=== PATIENT | female | born 1960 | race Caucasian/White ===

== ENCOUNTER → 2016-09-01 | Day surgery (SDC) | payer BC, OTHER ==
[2016-08-20 09:02] VITALS: BMI 21.0
[~2016-09-01] VITALS: Ht 165.1 cm; Wt 59.1 kg
[~2016-09-01] MED LIST: CLON1TAB3 PO; FLUO20CA34 PO; LIDOCAINE HCL 2% 2 ML VIAL (20MG/ML) ONE; PROP80CA PO; PROPOFOL IV EMULSION 10 MG/ML 20 ML VIAL IV ONE
[2016-09-01 14:34] VITALS: Ht 165.1 cm; Wt 59.1 kg
--- NOTE | 2016-09-01 15:33 | Endo History and Physical ---
History & Physical Date of Service: Sep 01, 2016. Chief Complaint: HX POLYPS Referring Physician: DR. HERNANDEZ History of Present Illness 55 yo CF who presents for colonoscopy secondary to history of colon polyps. Past Surgical History Hx Cardiac Surgery: No Hx Internal Defibrillator: No Hx Pacemaker: No Hx Abdominal Surgery: Yes (LAPAROSCOPY) Hx of Implantable Prosthesis: No Hx Post-Op Nausea and Vomiting: No Hx Cancer Surgery: No Hx Thoracic Surgery: No Hx Orthopedic: No Hx Urinary Tract Surgery: No Family History Polyp Social History Smoking Status: Current Every Day Smoker Hx Substance Use: No Hx Alcohol Use: Yes (OCCASIONAL BEER) Allergies Coded Allergies: Sulfa Drugs (Unverified Allergy, Severe, RASH, 09/01/16) Sulfamethoxazole (Unverified Allergy, Severe, RASH, 09/01/16) Trimethoprim (Unverified Allergy, Severe, RASH, 09/01/16) Current Medications Reported Home Medications Medications Dose Route/Sig Max Daily Dose Days Date Category Propranolol Hcl Er (Propranolol Hcl) 80 Mg Cap 1 Cap PO QAM 08/20/16 Reported Prozac (Fluoxetine Hcl) 20 Mg Cap 30 Mg PO QAM 03/15/15 Reported Klonopin (Clonazepam) 1 Mg Tab 0.5 Mg PO BID PRN 12/30/12 Reported Vital Signs Weight (Kilograms): 59.09 Height (Feet): 5 Height (Inches): 5 Date Time Temp Pulse Resp B/P (MAP) Pulse Ox O2 Delivery O2 Flow Rate FiO2 09/01/16 14:40 36.6 65 20 107/73 (84) 96 Room Air Physical Exam General Appearance: WD/WN, no apparent distress Respiratory/Chest: Auscultation: breath sounds normal Cardiovascular: Heart Auscultation: RRR Abdomen: Bowel Sounds: normal Inspection & Palpation: soft, non-distended, no tenderness, guarding & rebound Assessment and Plan Assessment: 55 yo CF who presents for colonoscopy secondary to history of colon polyps. Plan: Proceed with colonoscopy.
--- NOTE | 2016-09-01 15:56 | Discharge Instructions ---
Endoscopy Patient Instructions Date / Procedure(s) Performed Sep 01, 2016. Colonoscopy Allergy Information Coded Allergies: Sulfa Drugs (Unverified Allergy, Severe, RASH, 09/01/16) Sulfamethoxazole (Unverified Allergy, Severe, RASH, 09/01/16) Trimethoprim (Unverified Allergy, Severe, RASH, 09/01/16) Discharge Date / Findings Sep 01, 2016. Diverticulosis Internal hemorrhoids Medication Instructions OK to resume all medications today as prescribed Reported Home Medications Medications Dose Route/Sig Max Daily Dose Days Date Category Propranolol Hcl Er (Propranolol Hcl) 80 Mg Cap 1 Cap PO QAM 08/20/16 Reported Prozac (Fluoxetine Hcl) 20 Mg Cap 30 Mg PO QAM 03/15/15 Reported Klonopin (Clonazepam) 1 Mg Tab 0.5 Mg PO BID PRN 12/30/12 Reported Provider Instructions Activity Restrictions - No exercising or heavy lifting for 24 hours. - Do not drink alcohol the day of the procedure. - Do not drive a car or operate machinery until the day after the procedure. - Do not make any important decisions or sign important papers in 24 hours after the procedure. Following Day: - Return to full activity which may include returning to work/school. Diet Start your diet with liquids and light foods (jello, soup, juice, toast). Then eat your usual diet if not nauseated. Treatment For Common After Affects For mild abdominal pain, bloating, or excessive gas: - Rest - Eat lightly - Lie on right side Follow-Up Information Follow-up with DR. HERNANDEZ as scheduled Anesthesia Information What You Should Know You have had a procedure that required some medicine to reduce anxiety and discomfort. This treatment is called moderate sedation. After receiving the treatment, you may be sleepy, but you will be able to breathe on your own. The effects of the treatment may last for several hours. Follow these instructions along with Activity/Diet recommendations noted above: * Do NOT do anything where dizziness or clumsiness would be dangerous. * Rest quietly at home today, then you can be up and about tomorrow. * Have a responsible person stay with you the rest of today. * You may have had an I.V. today. If so, you may take the dressing off later today. Recommendations Call your doctor if: * Trouble breathing * Continuous vomiting for more than 24 hours * Temperature above 101 degrees * Severe abdominal pain or bloating * Pain not relieved by pain medicine ordered * There is increased drainage or redness from any incision * A large amount of rectal bleeding greater than 2-3 tablespoons. (If you had a polyp/s removed or have hemorrhoids, a small amount of blood - from the rectum is to be expected.) * You have any unanswered questions or concerns. IN THE EVENT OF A SERIOUS EMERGENCY, GO TO THE NEAREST EMERGENCY ROOM Your discharge instructions were prepared by provider Michael Fonseca. Patient Instructions Signature Page Aki Navarro Patient (or Guardian) Signature/Date: I have read and understand the instructions given to me by my caregivers. Caregiver/RN/Doctor Signature/Date: The above-named patient and/or guardian has received patient instructions on this date. + Original Patient Signature Page (only) stays with chart. Please make copy for patient.
--- NOTE | 2016-09-01 15:59 | GI REPORT ---
Procedure Date: 09/01/2016 2:57 PM THIS REPORT HAS BEEN AMENDED Addendum Number: 1 Addendum Date: 09/01/2016 4:43:07 PM No specimens were collected on this exam, and therefore, no pathology is pending. Repeat colonoscopy in 5 years secondary to history of colon polyps. Procedure: Colonoscopy Indications: Screening for colorectal malignant neoplasm Medicines: Monitored Anesthesia Care Complications: No immediate complications. Estimated Blood Loss: Estimated blood loss: none. Procedure: Pre-Anesthesia Assessment: - Prior to the procedure, a History and Physical was performed, and patient medications and allergies were reviewed. The patient's tolerance of previous anesthesia was also reviewed. The risks and benefits of the procedure and the sedation options and risks were discussed with the patient. All questions were answered, and informed consent was obtained. Prior Anticoagulants: The patient has taken no previous anticoagulant or antiplatelet agents. ASA Grade Assessment: II - A patient with mild systemic disease. After reviewing the risks and benefits, the patient was deemed in satisfactory condition to undergo the procedure. After I obtained informed consent, the scope was passed under direct vision. Throughout the procedure, the patient's blood pressure, pulse, and oxygen saturations were monitored continuously. The On-site loaner was introduced through the anus and advanced to the terminal ileum. The colonoscopy was performed without difficulty. The patient tolerated the procedure well. The quality of the bowel preparation was good. The terminal ileum, ileocecal valve, appendiceal orifice, and rectum were photographed. Findings: Multiple small-mouthed diverticula were found in the sigmoid colon. Non-bleeding internal hemorrhoids were found during retroflexion. The hemorrhoids were small. Impression: - Diverticulosis in the sigmoid colon. - Non-bleeding internal hemorrhoids. - No specimens collected. Recommendation: - Resume previous diet. - Continue present medications. - Repeat colonoscopy for surveillance based on pathology results. - Return to primary care physician as previously scheduled. Michael Fonseca, DO 09/01/2016 3:59:17 PM This report has been signed electronically. Note Initiated On: 09/01/2016 2:57 PM I attest to the content of the Intraoperative Record and orders documented therein, exceptions below Michael YuRadha Fonseca, DO 09/01/2016 4:43:56 PM This report has been signed electronically.
[2016-09-01 16:15] VITALS: BP 144/81; PULSE 54; O2SAT 98
--- NOTE | 2016-09-01 16:40 | Anesthesiology Progress Note ---
Anesthesia Post Op Note Date & Time Sep 01, 2016 at 16:40 Vital Signs Pain Intensity: 0 Vital Signs Past 12 Hours Date Time Temp Pulse Resp B/P (MAP) Pulse Ox O2 Delivery O2 Flow Rate FiO2 09/01/16 16:15 54 20 144/81 (102) 98 Room Air 09/01/16 16:05 53 20 140/77 (98) 98 Room Air 09/01/16 15:55 55 20 139/78 (98) 99 Room Air 09/01/16 14:40 36.6 65 20 107/73 (84) 96 Room Air Notes Mental Status: alert / awake / arousable, participated in evaluation Pt Amnestic to Procedure: Yes Nausea / Vomiting: adequately controlled Pain: adequately controlled Airway Patency, RR, SpO2: stable & adequate BP & HR: stable & adequate Hydration State: stable & adequate Anesthetic Complications: no major complications apparent
== END | disposition home or self-care (01) ==
LOC: C.GI 14:05
PROVIDERS: ATTEND Internal Medicine
DX: Z12.11 Encounter for screening for malignant neoplasm of colon (principal); Z86.010 Personal history of colon polyps; K57.92 Diverticulitis of intestine, part unspecified, without perforation or abscess without bleeding; K64.8 Other hemorrhoids; Z87.891 Personal history of nicotine dependence; I10 Essential (primary) hypertension; F41.9 Anxiety disorder, unspecified; F32.9 Major depressive disorder, single episode, unspecified; M85.80 Other specified disorders of bone density and structure, unspecified site; R25.1 Tremor, unspecified

== ENCOUNTER → 2017-01-17 | Outpatient (CLI) | payer BC ==
[~2017-01-17] MED LIST changes: -LIDOCAINE HCL 2% 2 ML VIAL (20MG/ML) ONE; -PROPOFOL IV EMULSION 10 MG/ML 20 ML VIAL IV ONE
== END | disposition home or self-care (01) ==
LOC: C.PAPS 09:07
PROVIDERS: ATTEND Nurse Practitioner
DX: Z01.419 Encounter for gynecological examination (general) (routine) without abnormal findings (principal)

== ENCOUNTER 2017-02-05 11:57 | Emergency (ER) | payer BC, OTHER ==
[~2017-02-05] VITALS: Ht 165.1 cm; Wt 60.0 kg
[~2017-02-05 11:57] MED LIST changes: -CLON1TAB3 PO; +CLON1TAB4 PO
[2017-02-05 12:00] VITALS: Ht 165.1 cm; Wt 60.0 kg
[2017-02-05] MEDS ORDERED: ACETAMINOPHEN 500 MG TAB PO STA (12:16)
[2017-02-05] MEDS ORDERED: IBUP-1277 PO (12:22)
[2017-02-05] MEDS ORDERED: PARO1TAB29 PO (12:22)
--- NOTE | 2017-02-05 13:00 | DIAGNOSTIC IMAGING REPORT ---
PELVIS NO IV/ORAL CONT (CT) CLINICAL HISTORY: 56 years-old Female presenting with fall, right hip and tailbone pain, eval fx. TECHNIQUE: Multidetector CT of the pelvis was performed without the use of intravenous contrast. IV contrast: None. A dose lowering technique was used consistent with the principles of ALARA (as low as reasonably achievable). COMPARISON: None. CT DOSE (mGy.cm): The estimated cumulative dose is 1053.03 mGy.cm. FINDINGS: Lockstitch Sleeve Maker topogram: Unremarkable. Bony pelvis intact. Hip joints congruent. No femoral neck fracture. No acute fracture or malalignment. Specifically, the tailbone is normal. Limited evaluation of the intrapelvic contents demonstrates a normal uterus and ovaries. Bladder under distended. Lipomatous hypertrophy of the ileocecal valve. The appendix is normal. No bowel obstruction. No free fluid. No gross lymphadenopathy allowing for noncontrast technique. Atherosclerosis. IMPRESSION: 1. No acute or osseous injury. Electronically signed by: Dash Jean M.D. 02/05/2017 12:58 PM Dictated Date/Time: 02/05/2017 12:54 PM
--- NOTE | 2017-02-05 13:05 | DIAGNOSTIC IMAGING REPORT ---
LUMBAR SPINE WITHOUT CLINICAL HISTORY: 56 years-old Female presenting with fall, midline spine tenderness, eval fx/subluxation. TECHNIQUE: Multidetector CT of the lumbar spine was performed without the use of intravenous contrast. IV contrast: None. A dose lowering technique was used consistent with the principles of ALARA (as low as reasonably achievable). COMPARISON: None. CT DOSE (mGy.cm): The estimated cumulative dose is 1053.[address] scans. FINDINGS: Chucking Machine Set Up Operator Tool topogram: Unremarkable. Normal lumbar lordosis. Vertebral bodies maintain normal height and alignment. Intervertebral disc spaces preserved. Anterior osteophytosis noted at L2-3 and L4-5. No gross evidence of disc bulges or advanced degenerative change. No acute fracture or subluxation. Visualized portion of the sacrum is intact. Paraspinal soft tissues remarkable for atherosclerosis. Small left adrenal nodule consistent with benign adenoma by density. IMPRESSION: No acute osseous injury of the lumbar spine. Electronically signed by: Dash Jean M.D. 02/05/2017 1:03 PM Dictated Date/Time: 02/05/2017 12:58 PM
--- NOTE | 2017-02-05 13:07 | DIAGNOSTIC IMAGING REPORT ---
R FEMUR 2 VIEWS ROUTINE CLINICAL HISTORY: 56 years-old Female presenting with right hip/thigh pain, fall, eval trauma. TECHNIQUE: Frontal and lateral views of the right femur were obtained. COMPARISON: None. FINDINGS: Right hip joint and knee joint grossly congruent. No acute fracture or malalignment. No advanced degenerative change. No radiographic soft tissue abnormality. No gross evidence of a knee joint effusion. IMPRESSION: No acute osseous injury of the right femur. Electronically signed by: Dash Jean M.D. 02/05/2017 1:05 PM Dictated Date/Time: 02/05/2017 1:04 PM
--- NOTE | 2017-02-05 13:11 | EMERGENCY ROOM VISIT NOTE ---
ED Visit Note First contact with patient: 12:03 CHIEF COMPLAINT: Low back pain HISTORY OF PRESENT ILLNESS: This 56-year-old female presents to the emergency department after a fall around 10:30 AM today. She states that she slipped on wet floor and landed on her right buttock/hip area, falling onto tile floor. She denies hitting her head, loss of consciousness, or any other injuries. She states that she put ice on her injury, which seemed to help some with the pain. She has not tried walking on the leg since this injury. She reports that the pain is constant, aching and throbbing, worse with movement of the torso or legs , 7/10. She did not take any medications for the pain. She denies any weakness of the leg, numbness or tingling of the leg, but states "my leg feels funny." She denies any headache, neck pain, back pain, chest pain, SOB, abdominal pain, nausea/vomiting, dysuria, hematuria, or rash. REVIEW OF SYSTEMS: A complete 10 point review of systems was reviewed with the patient with pertinent positives and negatives as per history of present illness. All else were negative. PMH: The patient is healthy; there is no significant medical or surgical history. SOCIAL HISTORY: Patient lives at home. She is a current every day smoker. PHYSICAL EXAM: Vital Signs: Reviewed Nurse's notes. CONSTITUTIONAL: Pleasant and cooperative. No acute distress, but appears uncomfortable throughout exam. HEENT: Normocephalic, atraumatic. Pupils equal, round and reactive to light, EOMI. TMs normal. Pharynx normal. NECK: Supple, full active range of motion without discomfort. RESPIRATORY: Clear to auscultation bilaterally with no wheezing, crackles, rhonchi or stridor. Equal expansion bilaterally. CARDIOVASCULAR: Regular rate and rhythm with no murmurs, rubs or gallops. Normal peripheral perfusion. No edema. GASTROINTESTINAL: Soft, nontender, nondistended. No palpable masses or HSM. Bowel sounds present in all quadrants. BACK: There is midline tenderness with palpation of the lumbar spine, L3-L5 region, as well as the sacrum. There are no abrasions, ecchymosis, crepitus, or step-offs. MUSCULOSKELETAL: Full flexion and extension of the right knee and hip. There is some pain with internal and external rotation of the right hip, no catching or popping. Lower extremities equal in length and normal alignment. There is a small bruise over the lateral right hip, no hematoma or fluctuance, mildly tender to palpation. 5/5 strength in bilateral lower extremities with 5/5 dorsiflexion, plantar flexion, leg INTEGUMENTARY: No rash or other significant dermatologic conditions noted. NEUROLOGIC: Alert and oriented X 4 with normal affect. Cranial nerves II-XII grossly intact. No focal neurologic deficits noted. Sensation intact to light touch in the bilateral lower extremities, however patient reports the right leg "feels less." IMAGING: PELVIS NO IV/ORAL CONT (CT) CLINICAL HISTORY: 56 years-old Female presenting with fall, right hip and tailbone pain, eval fx. TECHNIQUE: Multidetector CT of the pelvis was performed without the use of intravenous contrast. IV contrast: None. A dose lowering technique was used consistent with the principles of ALARA (as low as reasonably achievable). COMPARISON: None. CT DOSE (mGy.cm): The estimated cumulative dose is 1053.03 mGy.cm. FINDINGS: Superintendent Transportation topogram: Unremarkable. Bony pelvis intact. Hip joints congruent. No femoral neck fracture. No acute fracture or malalignment. Specifically, the tailbone is normal. Limited evaluation of the intrapelvic contents demonstrates a normal uterus and ovaries. Bladder under distended. Lipomatous hypertrophy of the ileocecal valve. The appendix is normal. No bowel obstruction. No free fluid. No gross lymphadenopathy allowing for noncontrast technique. Atherosclerosis. IMPRESSION: 1. No acute or osseous injury. ----- LUMBAR SPINE WITHOUT CLINICAL HISTORY: 56 years-old Female presenting with fall, midline spine tenderness, eval fx/subluxation. TECHNIQUE: Multidetector CT of the lumbar spine was performed without the use of intravenous contrast. IV contrast: None. A dose lowering technique was used consistent with the principles of ALARA (as low as reasonably achievable). COMPARISON: None. CT DOSE (mGy.cm): The estimated cumulative dose is 1053.[address] scans. FINDINGS: Superintendent Transportation topogram: Unremarkable. Normal lumbar lordosis. Vertebral bodies maintain normal height and alignment. Intervertebral disc spaces preserved. Anterior osteophytosis noted at L2-3 and L4-5. No gross evidence of disc bulges or advanced degenerative change. No acute fracture or subluxation. Visualized portion of the sacrum is intact. Paraspinal soft tissues remarkable for atherosclerosis. Small left adrenal nodule consistent with benign adenoma by density. IMPRESSION: No acute osseous injury of the lumbar spine. ----- R FEMUR 2 VIEWS ROUTINE CLINICAL HISTORY: 56 years-old Female presenting with right hip/thigh pain, fall, eval trauma. TECHNIQUE: Frontal and lateral views of the right femur were obtained. COMPARISON: None. FINDINGS: Right hip joint and knee joint grossly congruent. No acute fracture or malalignment. No advanced degenerative change. No radiographic soft tissue abnormality. No gross evidence of a knee joint effusion. IMPRESSION: No acute osseous injury of the right femur. EMERGENCY DEPARTMENT COURSE: I examined the patient. Differential diagnosis includes contusion, hematoma, musculoskeletal pain, strain/sprain, fracture/ subluxation of the lumbar spine, hip fracture/dislocation, among others. CT imaging of the lumbar spine and pelvic bones is negative for any acute bony abnormality. X-ray of the right femur does not show any fractures or mal- alignment. Patient was given Tylenol for her pain, she reports good improvement. She states she has crutches at home that she will use as needed. She was encouraged to follow up with her PCP or orthopedic surgeon if her pain is not improving in the next few days, and was also given return precautions should her symptoms worsen, she verbalized understand. She was discharged home in stable condition. Problem List Medical Problems: (1) Anxiety Status: Chronic (2) Contusion of knee, right Status: Resolved (3) Hypertension Nos Status: Chronic Current/Historical Medications Scheduled Paroxetine (Paxil), 40 MG PO DAILY Propranolol Hcl (Propranolol Hcl Er), 1 CAP PO QAM Scheduled PRN Clonazepam (Klonopin), 0.5 MG PO BID PRN for Anxiety Ibuprofen (Advil), 200 MG PO UD PRN for Pain Allergies Coded Allergies: Sulfa Drugs (Verified Allergy, Severe, RASH, 02/05/17) Sulfamethoxazole (Verified Allergy, Severe, RASH, 02/05/17) Trimethoprim (Verified Allergy, Severe, RASH, 02/05/17) Amlodipine (Verified Adverse Reaction, Unknown, Fatigue, 02/05/17) Vital Signs Date Time Temp Pulse Resp B/P (MAP) Pulse Ox O2 Delivery O2 Flow Rate FiO2 02/05/17 14:28 36.7 61 16 125/74 97 02/05/17 12:00 36.7 71 16 120/87 96 Medications Administered Medications (Trade) Dose Ordered Sig/Jose Route Start Time Stop Time Status Last Admin Dose Admin Acetaminophen (Tylenol Tab) 1,000 mg NOW STAT PO 02/05/17 12:16 02/05/17 12:17 DC 02/05/17 12:25 1,000 MG Departure Information Impression Primary Impression: Fall Additional Impression: Contusion of right hip and thigh Dispostion Home / Self-Care Condition GOOD Referrals Teofilo Colye M.D. (PCP) Patient Instructions ED Contusion Hip, ED Contusion Sacrum Coccyx, [facility] Additional Instructions You were seen in the emergency department today after your fall. X-ray and CT imaging does not show any fractures. You most likely have a contusion (painful bruise). Rest off your feet for the next 2-3 days, use the crutches. Ice to the injured area for 2 days, then you may apply heat for comfort. You may take Tylenol 1009 g every 8 hours and/or Ibuprofen 600 mg every 6-8 hours as needed for pain. See your primary care provider or an orthopedic surgeon in 3 to 4 days if you are not improved. Work Instructions Return To Work: 3 days Problem Qualifiers Primary Impression: Fall Encounter type: initial encounter Qualified Codes: W19.XXXA - Unspecified fall, initial encounter Additional Impression: Contusion of right hip and thigh Encounter type: initial encounter Qualified Codes: S70.01XA - Contusion of right hip, initial encounter; S70.11XA - Contusion of right thigh, initial encounter
[2017-02-05 14:28] VITALS: BP 125/74; PULSE 61; TEMP 36.7; O2SAT 97
== END 2017-02-05 14:29 | disposition home or self-care (01) ==
LOC: C.EDB 11:59 → C.EDD 14:29
DX: S70.11XA Contusion of right thigh, initial encounter (principal); W19.XXXA Unspecified fall, initial encounter; F17.200 Nicotine dependence, unspecified, uncomplicated; F41.9 Anxiety disorder, unspecified; I10 Essential (primary) hypertension

== ENCOUNTER 2021-10-02 10:14 | Inpatient (IN) ==
[2021-10-02 11:36] LABS: Basophils # (auto) 0.03 K/uL (0-0.2); Basophils % (auto) 0.3 %; Eosinophils % (auto) 1.8 %; Hematocrit (blood only) 35.1 % (34.1-44.9); Hemoglobin 11.4 g/dl (12.0-16.0); Immature Granulocytes # (auto) 0.06 K/uL (0.00-0.02); Immature Granulocytes % (auto) 0.5 %; Lymphocytes # (auto) 1.66 K/uL (1.2-3.4); Mean Corpuscular Hgb Conc 32.5 g/dL (32.0-36.0); Mean Corpuscular Volume 92.4 fL (80.0-100.0); Mean Platelet Volume 9.3 fL (9.4-12.3); Monocytes # (auto) 1.45 K/uL (0.24-0.82); Monocytes % (auto) 13.1 %; Neutrophils # (auto) 7.64 K/uL (1.4-6.5); Neutrophils % (auto) 69.3 %; Platelet Count 407 K/uL (130-400); RDW Coefficient of Variation 13.9 % (11.5-14.5); RDW Standard Deviation 46.7 fL (36.4-46.3); White Blood Count 11.04 K/ul (4.8-10.8)
[2021-10-02] MEDS ORDERED: ACETAMINOPHEN 1,000 MG/100 ML VIAL IV STA (11:38)
[2021-10-02] MEDS ORDERED: SODIUM CHLORIDE 0.9% 1000ML 1,000 ML IV ONE ×2 (11:38→14:51)
[2021-10-02] MEDS ORDERED: ONDANSETRON INJ 2 MG/ML 2 ML VIAL IV STA (11:38)
[2021-10-02 11:57] LABS: Albumin Globulin Ratio 0.9 (0.9-2); Albumin Level 3.3 gm/dl (3.4-5.0); BUN Creatinine Ratio 6.4 (10-20); Bilirubin,Total 0.4 mg/dl (0.2-1.0); Calcium 9.2 mg/dl (8.5-10.1); Est GFR (African American) 23.1 ml/min; Est GFR (Non-African American) 19.9 ml/min; Globulin 3.7 gm/dl (2.5-4.0); Potassium 2.9 mmol/L (3.5-5.1)
[2021-10-02] MEDS ORDERED: FAMOTIDINE 20MG IV PUSH 20 MG/5 ML SYR IV STA (12:04)
[2021-10-02] MEDS ORDERED: POTASSIUM CHLORIDE CRTAB 20 MEQ TABCR PO STA ×2 (12:04→18:59)
[2021-10-02] MEDS ORDERED: MAGNESIUM SULFATE / D5W 1 GM/100 ML BAG IV STA (12:04)
--- NOTE | 2021-10-02 13:54 | Emergency Department Note ---
History of Present Illness General Chief complaint: Vomiting Stated complaint: NOT EATING, VOMITING, DIARRHEA, BACK PAIN Time Seen by Provider: 10/02/21 11:24 Source: patient and family Mode of arrival: wheelchair Limitations: no limitations History of Present Illness Provider complaint: Dehydration, vomiting, diarrhea Onset (ago): day(s) Maximum Pain Intensity: 0 This is a 60-year-old female who presents emergency department complaining of nausea, vomiting, diarrhea, concern for dehydration. Patient states symptoms began approximately 3 days ago. She states she has intermittent central lower abdominal pain with this. Patient states she did have COVID earlier in the month but did not have acute GI symptoms with this. Patient does have prior history of lung cancer. No recent change in medications. No other known sick contacts. No dietary changes. No history of IBS or IBD. Pt seen during a time of high acuity and national emergency pandemic while w earing PPE. Home Medications Medication Instructions Recorded Confirmed Type acetaminophen 500 mg capsule 1,000 mg PO Q8H PRN Pain 04/24/20 10/02/21 History ondansetron HCl 8 mg tablet 8 mg PO Q8H PRN nausea and vomiting 06/02/20 10/02/21 History propranolol 60 mg tablet 30 mg PO DAILY #45 tabs 08/19/21 10/02/21 Rx sertraline 100 mg tablet 100 mg PO DAILY #90 tabs 08/19/21 10/02/21 Rx pantoprazole 40 mg tablet,delayed 40 mg PO QAM 08/25/21 10/02/21 History release (Protonix) pembrolizumab 25 mg/mL intravenous 400 mg IV UD 08/28/21 10/02/21 History solution (Keytruda) cyclobenzaprine 10 mg tablet 10 mg PO TID PRN muscle spasm #30 09/30/21 10/02/21 Rx tabs lorazepam 0.5 mg tablet 0.5 - 1 mg PO BID PRN anxiety 10/02/21 10/02/21 History Allergies Allergy/AdvReac Type Severity Reaction Status Date / Time Sulfa (Sulfonamide Allergy Severe RASH Verified 10/02/21 16:46 Antibiotics) sulfamethoxazole Allergy Severe RASH Verified 10/02/21 16:46 trimethoprim Allergy Severe RASH Verified 10/02/21 16:46 tiotropium Allergy Intermediate Rash Verified 10/02/21 16:46 [From Spiriva with HandiHaler] amlodipine AdvReac Unknown Fatigue Verified 10/02/21 16:46 Past Med/Surg History Medical History Anxiety Diverticulosis of colon Dyslipidemia Emphysema lung COPD - WELL CONTROLLED W/ INHALER History of brain tumor HTN (hypertension) Hydrocephalus SHUNT PLACED 07/2021-[facility] Lung cancer TREATED W/ CHEMO AND RADIATION AT SAME TIME BRAIN CA 04/2020 [facility] Malignant neoplasm metastatic to brain RADIATION AND CHEMO DONE AFTER TUMOR REMOVED- CURRENTLY ON IMMUNOTHERAPY Q 2 MOS ON KEYTRUDA DUE 08/28/21- [facility] ONC Osteopenia Vitamin D deficiency Surgical History H/O brain surgery malignant tumor excised from occipital lobe 04/2020-[facility] History of bilateral tubal ligation History of brain shunt 07/2021 [facility]- CURRENTLY IN PLACE; DRAINING INTO ABDOMEN FOR SWELLING AROUND AREA WHERE TUMOR WAS REMOVED History of endometrial biopsy S/P colonoscopy Family History Sister Colonic polyp Social History Smoking Status: Former smoker Tobacco Type: Cigarettes Second Hand Exposure: No; Hx Alcohol Use: No Hx Substance Use: No Preferred Language: Icelandic Communication Ability: Effective Underground Conduit Installer Required: No Beliefs That Will Affect Care: None marital status: Current Living Situation: Spouse Feels Safe at Home: Yes Safety Concerns: Feels Safe At This Time Assistive Devices: None Review of Systems A total of 10 systems reviewed and were otherwise negative All systems reviewed & are unremarkable except as noted in HPI & below Physical Exam Vital Signs Vital Signs - 24 hr 10/02/21 10:30 10/02/21 13:00 10/02/21 13:00 Temperature 36 C L Temperature Source Temporal Artery Scan Pulse Rate 115 H 94 H Pulse Rate from SpO2 Sensor 95 H Respiratory Rate 18 22 Respiratory Effort / Characteristics Non-Labored Respiratory Depth Normal Respiratory Pattern Regular Blood Pressure 105/69 107/67 Blood Pressure Mean 81 80 Blood Pressure Position Sitting Pulse Oximetry 98 98 Oxygen Delivery Method Room Air Sepsis Recent Fever Within 48 Hours No Sepsis New/Unexplained Change in Mental Status No Sepsis Action Taken by Nursing No Action Required 10/02/21 13:30 10/02/21 13:30 10/02/21 14:00 Temperature Temperature Source Pulse Rate 96 H Pulse Rate from SpO2 Sensor 96 H Respiratory Rate 23 Respiratory Effort / Characteristics Respiratory Depth Respiratory Pattern Blood Pressure 105/64 119/76 Blood Pressure Mean 77 90 Blood Pressure Position Pulse Oximetry 99 Oxygen Delivery Method Sepsis Recent Fever Within 48 Hours Sepsis New/Unexplained Change in Mental Status Sepsis Action Taken by Nursing 10/02/21 14:00 Temperature Temperature Source Pulse Rate 93 H Pulse Rate from SpO2 Sensor 95 H Respiratory Rate 31 H Respiratory Effort / Characteristics Respiratory Depth Respiratory Pattern Blood Pressure Blood Pressure Mean Blood Pressure Position Pulse Oximetry 98 Oxygen Delivery Method Sepsis Recent Fever Within 48 Hours Sepsis New/Unexplained Change in Mental Status Sepsis Action Taken by Nursing GENERAL: alert, unwell appearing, well nourished, no distress, non-toxic EYE EXAM: normal conjunctiva, PERRL and EOM's grossly intact OROPHARYNX: no exudate, no erythema, lips, buccal mucosa, and tongue normal and mucous membranes are dry NECK: supple, no nuchal rigidity, no adenopathy, non-tender LUNGS: Clear to auscultation. Normal chest wall mechanics, no w/r/r HEART: no murmurs, S1 normal and S2 normal ABDOMEN: abdomen soft, non-tender, normo-active bowel sounds, no masses, no rebound or guarding. BACK: Back is symmetrical on inspection and there is no deformity, no midline tenderness, no CVA tenderness. SKIN: no rashes and no bruising UPPER EXTREMITIES: upper extremities are grossly normal. FROM, nml pulses b/l. LOWER EXTREMITIES: No pitting edema. FROM, nml pulses b/l. NEURO EXAM: Normal sensorium, cranial nerves II-XII grossly intact, normal speech, no gross weakness of arms, no gross weakness of legs. Gross sensation intact. Course Course 1500: Patient and family updated on results. Administered Medications Calcitonin [place] (Calcitonin [place] Na 200 Iu/Ac 3.7 Ml Btl) 1 sprays NA DAILY [facility] Stop: 10/31/21 14:35 Last Admin: 10/04/21 07:54 Dose: 1 sprays Documented By: Admin: 10/03/21 15:21 Dose: 1 sprays Documented By: JERSEY Dexamethasone (Dexamethasone 1 Mg Tab) 6 mg PO DAILY [facility] Stop: 11/02/21 10:14 Last Admin: 10/04/21 07:49 Dose: 6 mg Documented By: Admin: 10/03/21 11:51 Dose: 6 mg Documented By: JERSEY Heparin Sodium (Porcine) (Heparin Sod 5,000 Unit/0.5 Ml Vial) 5,000 units SQ Q8 EMI Stop: 11/01/21 21:59 Last Admin: 10/04/21 13:59 Dose: Not Given Documented By: Admin: 10/04/21 06:02 Dose: Not Given Documented By: Admin: 10/03/21 21:00 Dose: Not Given Documented By: Admin: 10/03/21 15:21 Dose: 5,000 units Documented By: Admin: 10/03/21 06:00 Dose: Not Given Documented By: Admin: 10/02/21 23:02 Dose: Not Given Documented By: ALEXANDRU Sodium Chloride (Nss 1000ml) 1,000 mls @ 80 mls/hr IV .[id number] EMI Stop: 10/04/21 23:29 Last Admin: 10/04/21 12:03 Dose: 80 mls/hr Documented By: MUKESH Lidocaine (Lidocaine 5% 1 Patch) 1 patch TD HS EMI Stop: 11/01/21 20:59 Last Admin: 10/03/21 21:01 Dose: 1 patch Documented By: Admin: 10/03/21 02:12 Dose: 1 patch Documented By: ALEXANDRU Miscellaneous (Remove Lidoderm Patch) 1 each N/A DAILY EMI Stop: 11/02/21 08:59 Last Admin: 10/04/21 07:53 Dose: 1 each Documented By: Admin: 10/03/21 09:00 Dose: 1 each Documented By: JERSEY Pantoprazole Sodium (Pantoprazole 40 Mg Tab) 40 mg PO QAM EMI Stop: 11/02/21 08:59 Last Admin: 10/04/21 07:51 Dose: 40 mg Documented By: Admin: 10/03/21 09:00 Dose: 40 mg Documented By: JERSEY Propranolol HCl (Propranolol Hcl 10 Mg Tab) 30 mg PO DAILY EMI Stop: 11/02/21 08:59 Last Admin: 10/04/21 07:53 Dose: 30 mg Documented By: Admin: 10/03/21 09:00 Dose: 30 mg Documented By: JERSEY Sertraline HCl (Sertraline Hcl 100 Mg Tablet) 100 mg PO DAILY EMI Stop: 11/02/21 08:59 Last Admin: 10/04/21 07:52 Dose: 100 mg Documented By: Admin: 10/03/21 09:00 Dose: 100 mg Documented By: AK Discontinued Medications Sodium Chloride (Nss 1000ml) 1,000 mls @ 999 mls/hr IV .Q1H1M ONE Stop: 10/02/21 12:38 Last Infusion: 10/02/21 13:45 Dose: 0 mls/hr Documented By: Admin: 10/02/21 12:05 Dose: 999 mls/hr Documented By: OL Acetaminophen (Ofirmev) 1,000 mg in 100 mls @ 400 mls/hr IV NOW STA Stop: 10/02/21 11:52 Last Infusion: 10/02/21 12:19 Dose: 0 mls/hr Documented By: Admin: 10/02/21 12:04 Dose: 400 mls/hr Documented By: OL Magnesium Sulfate/Dextrose (Magnesium Sulfate / D5w) 1 gm in 100 mls @ 100 mls/hr IV NOW STA Stop: 10/02/21 13:03 Last Infusion: 10/02/21 13:45 Dose: 0 mls/hr Documented By: Admin: 10/02/21 12:33 Dose: 100 mls/hr Documented By: BRITTA Famotidine (Pepcid 20mg Iv Push) 20 mg in 5 mls @ 2.5 mls/min IV NOW STA Stop: 10/02/21 12:05 Last Admin: 10/02/21 12:33 Dose: 2.5 mls/min Documented By: BRITTA Sodium Chloride (Nss 1000ml) 1,000 mls @ 999 mls/hr IV .Q1H1M ONE Stop: 10/02/21 15:51 Last Infusion: 10/02/21 16:07 Dose: 0 mls/hr Documented By: Admin: 10/02/21 15:06 Dose: 999 mls/hr Documented By: JUAN ANTONIO Lactated Ringer's (Lr) 1,000 mls @ 80 mls/hr IV .[id number] EMI Stop: 10/03/21 09:00 Last Infusion: 10/04/21 01:54 Dose: 0 mls/hr Documented By: Admin: 10/03/21 09:24 Dose: 80 mls/hr Documented By: Infusion: 10/03/21 08:32 Dose: 80 mls/hr Documented By: Admin: 10/02/21 20:02 Dose: 80 mls/hr Documented By: JONATHAN Ondansetron HCl (Ondansetron Inj 2 Mg/Ml 2 Ml Vial) 4 mg IV NOW STA Stop: 10/02/21 11:39 Last Admin: 10/02/21 12:04 Dose: 4 mg Documented By: OL Potassium Chloride (Potassium Chloride Crtab 20 Meq Tabcr) 40 meq PO NOW STA Stop: 10/02/21 12:05 Last Admin: 10/02/21 12:33 Dose: 40 meq Documented By: LENW Potassium Chloride (Potassium Chloride Crtab 20 Meq Tabcr) 40 meq PO NOW STA Stop: 10/02/21 19:00 Last Admin: 10/02/21 20:02 Dose: 40 meq Documented By: JONATHAN Medical Decision Making Differential Diagnosis Differential: Gastroenteritis, Food Borne, Esophageal Perforation, , Electrolyte Abnormality, Dehydration, Intraabdominal Infection, UTI/Pyelonephritis, Bowel Obstruction, Biliary Pathology, amongst other pathology entertained. Medical Records Attestation: I reviewed the patient's medical records. Home Medications Current Medication List: was personally reviewed by me Laboratory Data Attestation: I reviewed the patient's lab results. Result diagrams: 10/04/21 05:51 10/04/21 05:51 Lab Results 10/02/21 10/02/21 10/02/21 Range/Units 11:25 11:25 11:25 WBC 11.04 H (4.8-10.8) K/ul RBC 3.80 L (3.93-5.22) M/uL Hgb 11.4 L (12.0-16.0) g/dl Hct 35.1 (34.1-44.9) % MCV 92.4 (80.0-100.0) fL MCH 30.0 (25.0-34.0) pg MCHC 32.5 (32.0-36.0) g/dL RDW Std Deviation 46.7 H (36.4-46.3) fL RDW Coeff of Agus 13.9 (11.5-14.5) % Plt Count 407 H (130-400) K/uL MPV 9.3 L (9.4-12.3) fL Immature Gran % (Auto) 0.5 % Neut % (Auto) 69.3 % Lymph % (Auto) 15.0 % [place] % (Auto) 13.1 % Eos % (Auto) 1.8 % Baso % (Auto) 0.3 % Neut # (Auto) 7.64 H (1.4-6.5) K/uL Lymph # (Auto) 1.66 (1.2-3.4) K/uL [place] # (Auto) 1.45 H (0.24-0.82) K/uL Eos # (Auto) 0.20 (0-0.50) K/uL Baso # (Auto) 0.03 (0-0.2) K/uL Immature Gran # (Auto) 0.06 H (0.00-0.02) K/uL Sodium 132 L (136-145) mmol/L Potassium 2.9 L (3.5-5.1) mmol/L Chloride 92 L (98-107) mmol/L Carbon Dioxide 22 (21-32) mmol/L Anion Gap 18 H (3-11) BUN 16 (6-23) mg/dl Creatinine 2.50 H (0.6-1.2) mg/dl Est Cr Clr Drug Dosing 21.0 ml/min Est GFR ( Amer) 23.1 ml/min Est GFR (Non-Af Amer) 19.9 ml/min BUN/Creatinine Ratio 6.4 L (10-20) Glucose 72 (70-99(Fasting)) mg/dl Lactate (0.4-2.0) mmol/L Calcium 9.2 (8.5-10.1) mg/dl Magnesium 1.9 (1.7-2.4) mg/dl Total Bilirubin 0.4 (0.2-1.0) mg/dl AST 14 (13-39) U/L ALT 8 (7-52) U/L Alkaline Phosphatase 91 (34-104) U/L Total Protein 7.0 (6.0-8.3) gm/dl Albumin 3.3 L (3.4-5.0) gm/dl Globulin 3.7 (2.5-4.0) gm/dl Albumin/Globulin Ratio 0.9 (0.9-2) 25-OH Vitamin D Total (30-100) ng/ml Procalcitonin (0-0.5) ng/ml Urine Color Urine Appearance (Clear) Urine pH (4.5-7.5) Ur Specific [place] (1.000-1.030) Urine Protein (Negative) Urine Glucose (UA) (Negative) Urine Ketones (Negative) Urine Blood (Negative) Urine Nitrite (Negative) Urine Bilirubin (Negative) Urine Urobilinogen (Negative) Ur Leukocyte Esterase (Negative) Urine WBC (Auto) (0-5) /hpf Urine RBC (Auto) (0-4) /hpf U Hyaline Cast (Auto) (0-5) /lpf U Epithel Cells (Auto) (0-5) /lpf Urine Bacteria (Auto) (Negative) Ur Renal Epithelial Cell POC Ur Test 10/02/21 10/02/21 10/02/21 Range/Units 11:25 11:25 12:20 WBC (4.8-10.8) K/ul RBC (3.93-5.22) M/uL Hgb (12.0-16.0) g/dl Hct (34.1-44.9) % MCV (80.0-100.0) fL MCH (25.0-34.0) pg MCHC (32.0-36.0) g/dL RDW Std Deviation (36.4-46.3) fL RDW Coeff of Agus (11.5-14.5) % Plt Count (130-400) K/uL MPV (9.4-12.3) fL Immature Gran % (Auto) % Neut % (Auto) % Lymph % (Auto) % [place] % (Auto) % Eos % (Auto) % Baso % (Auto) % Neut # (Auto) (1.4-6.5) K/uL Lymph # (Auto) (1.2-3.4) K/uL [place] # (Auto) (0.24-0.82) K/uL Eos # (Auto) (0-0.50) K/uL Baso # (Auto) (0-0.2) K/uL Immature Gran # (Auto) (0.00-0.02) K/uL Sodium (136-145) mmol/L Potassium (3.5-5.1) mmol/L Chloride (98-107) mmol/L Carbon Dioxide (21-32) mmol/L Anion Gap (3-11) BUN (6-23) mg/dl Creatinine (0.6-1.2) mg/dl Est Cr Clr Drug Dosing ml/min Est GFR ( Amer) ml/min Est GFR (Non-Af Amer) ml/min BUN/Creatinine Ratio (10-20) Glucose (70-99(Fasting)) mg/dl Lactate 0.9 (0.4-2.0) mmol/L Calcium (8.5-10.1) mg/dl Magnesium (1.7-2.4) mg/dl Total Bilirubin (0.2-1.0) mg/dl AST (13-39) U/L ALT (7-52) U/L Alkaline Phosphatase (34-104) U/L Total Protein (6.0-8.3) gm/dl Albumin (3.4-5.0) gm/dl Globulin (2.5-4.0) gm/dl Albumin/Globulin Ratio (0.9-2) 25-OH Vitamin D Total 14.9 L (30-100) ng/ml Procalcitonin 0.19 (0-0.5) ng/ml Urine Color Urine Appearance (Clear) Urine pH (4.5-7.5) Ur Specific [place] (1.000-1.030) Urine Protein (Negative) Urine Glucose (UA) (Negative) Urine Ketones (Negative) Urine Blood (Negative) Urine Nitrite (Negative) Urine Bilirubin (Negative) Urine Urobilinogen (Negative) Ur Leukocyte Esterase (Negative) Urine WBC (Auto) (0-5) /hpf Urine RBC (Auto) (0-4) /hpf U Hyaline Cast (Auto) (0-5) /lpf U Epithel Cells (Auto) (0-5) /lpf Urine Bacteria (Auto) (Negative) Ur Renal Epithelial Cell POC Ur Test 10/02/21 10/02/21 Range/Units 14:30 14:31 WBC (4.8-10.8) K/ul RBC (3.93-5.22) M/uL Hgb (12.0-16.0) g/dl Hct (34.1-44.9) % MCV (80.0-100.0) fL MCH (25.0-34.0) pg MCHC (32.0-36.0) g/dL RDW Std Deviation (36.4-46.3) fL RDW Coeff of Agus (11.5-14.5) % Plt Count (130-400) K/uL MPV (9.4-12.3) fL Immature Gran % (Auto) % Neut % (Auto) % Lymph % (Auto) % [place] % (Auto) % Eos % (Auto) % Baso % (Auto) % Neut # (Auto) (1.4-6.5) K/uL Lymph # (Auto) (1.2-3.4) K/uL [place] # (Auto) (0.24-0.82) K/uL Eos # (Auto) (0-0.50) K/uL Baso # (Auto) (0-0.2) K/uL Immature Gran # (Auto) (0.00-0.02) K/uL Sodium (136-145) mmol/L Potassium (3.5-5.1) mmol/L Chloride (98-107) mmol/L Carbon Dioxide (21-32) mmol/L Anion Gap (3-11) BUN (6-23) mg/dl Creatinine (0.6-1.2) mg/dl Est Cr Clr Drug Dosing ml/min Est GFR ( Amer) ml/min Est GFR (Non-Af Amer) ml/min BUN/Creatinine Ratio (10-20) Glucose (70-99(Fasting)) mg/dl Lactate (0.4-2.0) mmol/L Calcium (8.5-10.1) mg/dl Magnesium (1.7-2.4) mg/dl Total Bilirubin (0.2-1.0) mg/dl AST (13-39) U/L ALT (7-52) U/L Alkaline Phosphatase (34-104) U/L Total Protein (6.0-8.3) gm/dl Albumin (3.4-5.0) gm/dl Globulin (2.5-4.0) gm/dl Albumin/Globulin Ratio (0.9-2) 25-OH Vitamin D Total (30-100) ng/ml Procalcitonin (0-0.5) ng/ml Urine Color Yellow Urine Appearance Clear (Clear) Urine pH 5.5 (4.5-7.5) Ur Specific [place] 1.006 (1.000-1.030) Urine Protein Negative (Negative) Urine Glucose (UA) Negative (Negative) Urine Ketones 1+ H (Negative) Urine Blood Negative (Negative) Urine Nitrite Negative (Negative) Urine Bilirubin Negative (Negative) Urine Urobilinogen Negative (Negative) Ur Leukocyte Esterase 1+ H (Negative) Urine WBC (Auto) 10-30 H (0-5) /hpf Urine RBC (Auto) 0-4 (0-4) /hpf U Hyaline Cast (Auto) 1-5 (0-5) /lpf U Epithel Cells (Auto) >30 H (0-5) /lpf Urine Bacteria (Auto) Negative (Negative) Ur Renal Epithelial Cell Not Reportable POC Ur Test Cancelled Imaging Data Radiologist's Impression: Abdomen/Pelvis CT 10/02/21 12:[address] WITHOUT CONTRAST CT DOSE: 314.63 mGy.cm HISTORY: Nausea. Vomiting. Diarrhea. Lower back pain. TECHNIQUE: Multiaxial CT images of the abdomen and pelvis were performed without contrast. A dose lowering technique was utilized adhering to the principles of ALARA. COMPARISON STUDY: Abdomen and pelvis CT 09/25/2021. FINDINGS: There is a subacute mild superior endplate compression fracture at L1. This demonstrates up to 10% loss of height. No associated retropulsion. No significant central canal narrowing at this level. Emphysema at the lung bases. No pneumoperitoneum. No pneumatosis. Small fat-containing umbilical hernia. A left-sided peritoneal shunt catheter terminates in the right lower quadrant. The bladder, uterus, bilateral adnexa are unremarkable. Suboptimal evaluation for bowel pathology due to the lack of intravenous and oral contrast. However, there is no definite bowel wall thickening or obstruction. A few colonic diverticula. No evidence for acute diverticulitis. Normal appendix. There is a 4.2 x 2.0 cm oval-shaped low density circumscribed lesion within the right anterior abdomen within the omentum. This is best seen on image 207. This remains unchanged. No hepatic or splenic masses. The adrenal glands and pancreas unremarkable. No retroperitoneal lymphadenopathy. Normal caliber abdominal aorta. No renal or ureteral stones. No hydronephrosis. There is bilateral perinephric edema, left greater than right. This may be chronic. Mildly distended gallbladder which has progressed. No definite gallbladder wall thickening. IMPRESSION: 1. A subacute mild superior endplate compression fracture at L1. No associated r etropulsion. 2. Mild bilateral perinephric edema, left greater than right. This is likely chronic. However, recommend correlation with urinalysis to exclude the less likely possibility of a pyelonephritis. 3. A 4.2 x 2.0 cm oval-shaped low-density circumscribed lesion within the right anterior abdomen. This is indeterminate but could be related to a prior shunt catheter. This has benign characteristics. However, 3-6 month abdomen and pelvis CT follow up recommended to ensure stability. 4. No bowel wall thickening or obstruction. 5. Normal appendix. 6. Mild gallbladder distention. No gallbladder wall thickening. 7. Small fat-containing umbilical hernia, unchanged. ACT 112: Positive. There are findings on this exam that require communication between the performing entity and the patient following Patient Test Result Information Act ([place] Act 112) guidelines. Electronically signed by: Mahendra Way M.D. 10/02/2021 2:38 PM Chest X-Ray 10/02/21 14:48 XR chest 1V portable CLINICAL HISTORY: hypoxia COMPARISON STUDY: Chest radiograph September 25, 2021. FINDINGS: Emphysema is present. The spiculated right upper lobe lesion on cervical spine CT of April 19, 2020 is not well visualized on this exam. Lung volumes are normal. Lungs are clear. There is no pneumothorax or pleural e ffusion. Cardiac size is normal. Mediastinal contours are normal. There is no evidence for pulmonary edema. Shunt catheter is partially imaged. IMPRESSION: 1. No acute cardiopulmonary findings. 2. Emphysema. 3. Spiculated right upper lobe nodule on cervical spine CT April 19, 2020 is not visualized on this exam. Correlation with oncologic history and any recent prior chest CTs is recommended. ACT 112: Negative or not required by law. Electronically signed by: Pascual Gibbons M.D. 10/02/2021 3:30 PM MDM Narrative An order was placed for continuous cardiac monitoring. The monitor shows a rate of _92__ with _normal sinus_ rhythm. THis is a 60 yo female who presents with n/v/d and abdominal pain and concern for dehydration. Patient started on IVF and give meds for nausea and pain. Labs revealed SINDY and hypokalemia, likely from persistent GI volume losses and dehydration. CT with acute GI etiology, compression fx noted. Results discussed with patient who noted increased back pain over the last several weeks. Patient afebrile and VS stable. All results discussed at bedside. Oral potassium was given and additional IVF. Case discussed with hospitalist for additional evaluation and treatment. Impression & Plan SINDY (acute kidney injury), Nausea & vomiting, Diarrhea, Abdominal pain, Acute dehydration, Compression fracture Discharge Plan Visit Data Chief Complaint: Vomiting Stated Complaint: NOT EATING, VOMITING, DIARRHEA, BACK PAIN ED Provider: Jany Escobar Discharge Problem: SINDY (acute kidney injury), Nausea & vomiting, Diarrhea, Abdominal pain, Acute dehydration, Compression fracture Patient Disposition: Admitted As Inpatient Discharge Instructions Interventions: ED Discharge Assessment Last Done: 10/02/21 19:36
--- NOTE | 2021-10-02 14:40 | CT Scan Report ---
ABDOMEN AND PELVIS CT WITHOUT CONTRAST CT DOSE: 314.63 mGy.cm HISTORY: Nausea. Vomiting. Diarrhea. Lower back pain. TECHNIQUE: Multiaxial CT images of the abdomen and pelvis were performed without contrast. A dose lo wering technique was utilized adhering to the principles of ALARA. COMPARISON STUDY: Abdomen and pelvis CT 09/25/2021. FINDINGS: There is a subacute mild superior endplate compression fracture at L1. This demonstrates up to 10% loss of height. No associated retropulsion. No significant central canal narrowing at this le uma. Emphysema at the lung bases. No pneumoperitoneum. No pneumatosis. Small fat-containing umbilical hernia. A left-sided peritoneal shunt catheter terminates in the right lower quadrant. The bladder, uterus, bilateral adnexa are unremarkable. Suboptimal evaluation for bowel pathology due to the lack of intravenous and oral contrast. However, there is no definite bowel wall thickening or obstruction. A few colonic diverticula. No evidence for acute diverticulitis. Normal appendix. There is a 4.2 x 2 .0 cm oval-shaped low density circumscribed lesion within the right anterior abdomen within the oment um. This is best seen on image 207. This remains unchanged. No hepatic or splenic masses. The adrenal glands and pancreas unremarkable. No retroperitoneal lymphadenopathy. Normal caliber abdominal aorta . No renal or ureteral stones. No hydronephrosis. There is bilateral perinephric edema, left greater than right. This may be chronic. Mildly distended gallbladder which has progressed. No definite gallb ladder wall thickening. IMPRESSION: 1. A subacute mild superior endplate compression fracture at L1. No associated retropulsion. 2. Mild bilateral perinephric edema, left greater than right. This is likely chronic. However, recomm end correlation with urinalysis to exclude the less likely possibility of a pyelonephritis. 3. A 4.2 x 2.0 cm oval-shaped low-density circumscribed lesion within the right anterior abdomen. Thi s is indeterminate but could be related to a prior shunt catheter. This has benign characteristics. H owever, 3-6 month abdomen and pelvis CT follow up recommended to ensure stability. 4. No bowel wall thickening or obstruction. 5. Normal appendix. 6. Mild gallbladder distention. No gallbladder wall thickening. 7. Small fat-containing umbilical hernia, unchanged. ACT 112: Positive. There are findings on this exam that require communication between the performing entity and the patient following Patient Test Result Information Act ([place] Act 112) guidelines. Electronically signed by: Mahendra Way M.D. 10/02/2021 2:38 PM
[2021-10-02 15:17] LABS: Appearance Urine Clear (Clear); Bacteria Urine Automated Negative (Negative); Bilirubin Urine Negative (Negative); Blood Urine Negative (Negative); Color Urine Yellow; Epithelial Cell Urine Auto >30 /lpf (0-5); Glucose Urine UA Negative (Negative); Ketones Urine 1+ (Negative); Leukocyte Esterase Urine 1+ (Negative); Nitrite Urine Negative (Negative); Protein Urine Negative (Negative); RBC Urine Automated 0-4 /hpf (0-4); Specific Gravity Urine 1.006 (1.000-1.030); Urobilinogen Urine Negative (Negative); pH Urine 5.5 (4.5-7.5)
--- NOTE | 2021-10-02 15:31 | XRay Report ---
XR chest 1V portable CLINICAL HISTORY: hypoxia COMPARISON STUDY: Chest radiograph September 25, 2021. FINDINGS: Emphysema is present. The spiculated right upper lobe lesion on cervical spine CT of April 19, 2020 is not well visualized on this exam. Lung volumes are normal. Lungs are clear. There is no p neumothorax or pleural effusion. Cardiac size is normal. Mediastinal contours are normal. There is no evidence for pulmonary edema. Shunt catheter is partially imaged. IMPRESSION: 1. No acute cardiopulmonary findings. 2. Emphysema. 3. Spiculated right upper lobe nodule on cervical spine CT April 19, 2020 is not visualized on this e xam. Correlation with oncologic history and any recent prior chest CTs is recommended. ACT 112: Negative or not required by law. Electronically signed by: Pascual Gibbons M.D. 10/02/2021 3:30 PM
--- NOTE | 2021-10-02 15:51 | History & Physical Report ---
Date of Service October 02, 2021 Assessment & Plan (1) Nausea & vomiting: Plan: -Admit to med/surge -At this time the patient's etiology of her nausea and vomiting is most likely associated with gastroenteritis but another infectious etiology cannot be ruled out at this time -Patient's nausea and vomiting is currently well-controlled -Mild leukocytosis without left shift, will add on procal now to help determine if she has some bacterial infection -Lacte was WNL -Stool studies already ordered -Hold antidiarrheal meds until we can ruleout an infectious etiology -Will review admission EKG and order antiemetic if QTc is ok (2) Diarrhea: Plan: -See nausea and vomiting (3) Low back pain: Plan: -Patient found to have an subacute mild superior endplate compression fracture at L1. No associated retropulsion -The L1 compression fracture is most likely the etiology of the patient's back pain but also need to rule out possible pyelonephritis -Patient's UA is dirty but she is without dysuria, difficult to determine if pain with CVA tenderness testing is from the L1 compression fracture or possible pyelo -CT showed Mild bilateral perinephric edema, left greater than right. They noted that it is likely chronic in nature -Patient has mild leukocytosis but no left shift, lactate is WNL, will add on procal now -Will hold off on antibiotics for now as infection is lower on the differential at this time -Orthopedics consulted to see if they would recommend bracing for the L1 compression fracture -Ordered 25 hydroxy Vit D with her new compression fracture (4) SINDY (acute kidney injury): Plan: -Cr noted to be 2.5 today, baseline appears to be around 1.0 -Likely a combination of dehydration and NSAID use -Will continue with IV hydration overnight -Continue to monitor renal function and electrolytes with AM labs -Avoid nephrotoxic agents (5) Acute hypokalemia: Plan: -Noted to be at 2.9 in the ED -Likely from poor oral intake, vomiting, and diarrhea -Give 40 meq PO KCL and 1g IV mag in the ED -Repeating labs now and will replete as needed (6) Anxiety with depression: Plan: -[employer] sertraline and Ativan (7) Benign familial tremor: Plan: -[employer] propranolol (8) COPD (chronic obstructive pulmonary disease): Plan: -[employer] albuterol and incentive spirometry (9) Dyslipidemia: Plan: -[employer] Statin (10) HTN (hypertension): Plan: -Only on Propranolol for tremor Plan The patient was discussed with Dr. Siegel at the time of admission History of Present Illness Chief Complaint: Nausea, vomiting, and low back pain Primary Care Provider: JORDAN Daniels Aki is a 60 year old female with a PMH significant for COPD, NSCLC treated with radiation and chemo, resultant mets to the brain S/P resection and SRS in in april of 2020, hydrocephalus, HTN, dyslipidemia, anxiety, depression, and benign familial tremor who presented to the [facility] ED on 10/02/21 with complaints of nausea, vomiting, and low back pain. In the ED the patient was found to have a mild leukocytosis of 11.04, potassium of 2.9, anion gap of 18, cr of 2.50 (baseline appears to be near 1.0), CXR was negatvie for acute findings and CT of the abdomen/pelvis revealed A subacute mild superior endplate compression fracture at L1. No associated retropulsion, mild BL perinephric stranding with left greater than right, A 4.2 x 2.0 cm oval-shaped low-density circumscribed lesion within the right anterior abdomen with benign characteristics that will need follow-up outpatient repeat scan,and mild gallbladder distention without wall thickening. In the ED the patient was given 2L NSS bolus, 1g magnesium, 40 meq PO KCL, and famotidine. At the time of the exam the patient was resting in bed in no acute distress. She states that she developed low back pain approximately 3-4 days ago. The pain is located more to the right and left of the lower spine as opposed to centrally over the spine. She describes the pain as constant, dull/aching, and currently a 3/10. She has been using tylenol and ibuprofen for the pain at home. She started developing nausea, vomiting, and diarrhea approximately 3 days ago. She states she has been having approximately 2 episodes of non-bloody diarrhea during this time. She vomited 4 times since yesterday and denies bright red blood or hematemesis. She has had decreased appetite and oral intake over this time. She denies recent fever and chills and also denies dysuria and hematuria. She has not been on antibiotics recently and her has not had similar symptoms. Since the development of the lower back pain she has been less active but still able to walk. She denies saddle anesthesia, lower extremity numbness/tingling, and loss of bowel or bladder function. Allergies Allergy/AdvReac Type Severity Reaction Status Date / Time Sulfa (Sulfonamide Allergy Severe RASH Verified 10/02/21 16:46 Antibiotics) sulfamethoxazole Allergy Severe RASH Verified 10/02/21 16:46 trimethoprim Allergy Severe RASH Verified 10/02/21 16:46 tiotropium Allergy Intermediate Rash Verified 10/02/21 16:46 [From Spiriva with HandiHaler] amlodipine AdvReac Unknown Fatigue Verified 10/02/21 16:46 Home Medications Medication Instructions Recorded Confirmed Type acetaminophen 500 mg capsule 1,000 mg PO Q8H PRN Pain 04/24/20 10/02/21 History ondansetron HCl 8 mg tablet 8 mg PO Q8H PRN nausea and vomiting 06/02/20 10/02/21 History propranolol 60 mg tablet 30 mg PO DAILY #45 tabs 08/19/21 10/02/21 Rx sertraline 100 mg tablet 100 mg PO DAILY #90 tabs 08/19/21 10/02/21 Rx pantoprazole 40 mg tablet,delayed 40 mg PO QAM 08/25/21 10/02/21 History release (Protonix) pembrolizumab 25 mg/mL intravenous 400 mg IV UD 08/28/21 10/02/21 History solution (Keytruda) cyclobenzaprine 10 mg tablet 10 mg PO TID PRN muscle spasm #30 09/30/21 10/02/21 Rx tabs lorazepam 0.5 mg tablet 0.5 - 1 mg PO BID PRN anxiety 10/02/21 10/02/21 History Past Med/Surg History Medical History Anxiety Diverticulosis of colon Dyslipidemia Emphysema lung COPD - WELL CONTROLLED W/ INHALER History of brain tumor HTN (hypertension) Hydrocephalus SHUNT PLACED 07/2021-[facility] Lung cancer TREATED W/ CHEMO AND RADIATION AT SAME TIME BRAIN CA 04/2020 [facility] Malignant neoplasm metastatic to brain RADIATION AND CHEMO DONE AFTER TUMOR REMOVED- CURRENTLY ON IMMUNOTHERAPY Q 2 MOS ON KEYTRUDA DUE 08/28/21- [facility] ONC Osteopenia Vitamin D deficiency Surgical History H/O brain surgery malignant tumor excised from occipital lobe 04/2020-[facility] History of bilateral tubal ligation History of brain shunt 07/2021 [facility]- CURRENTLY IN PLACE; DRAINING INTO ABDOMEN FOR SWELLING AROUND AREA WHERE TUMOR WAS REMOVED History of endometrial biopsy S/P colonoscopy Family History Sister Colonic polyp Social History Smoking Status: Former smoker Tobacco Type: Cigarettes Second Hand Exposure: No; Hx Alcohol Use: No Hx Substance Use: No Preferred Language: Bulgarian Communication Ability: Effective Stake Driver Required: No Beliefs That Will Affect Care: None marital status: Current Living Situation: Spouse Feels Safe at Home: Yes Assistive Devices: Denture - Upper, Denture - Lower and Glasses Review of Systems Review of Systems: Denies current fever, chills, headache, changes in vision, hearing, taste, and smell, chest pain, SOB, cough, abdominal pain, and recent falls. All systems have been reviewed and are otherwise negative. Physical Exam Physical Exam: Physical Exam: General: In no acute distress, stated age, chronically ill-appearing HEENT: Normocephalic, atraumatic, no scleral icterus, pupils around round, symmetrical, and reactive to light, dry mucus membranes, trachea midline, no thyromegaly Chest/Pulm: No respiratory distress, symmetrical chest expansion, clear br eath sounds throughout Cardiac: RRR, no murmurs noted Abdomen: Negative for ascites and bruising, normoactive bowel sounds, soft, non-tender to palpation throughout Musculoskeletal: Patient is non-tender to palpation over the entire spine, tenderness to palpation over the BL flanks, Symmetrical and without signs of ac king [place] trauma, upper and lower extremities with full ROM, no atrophy, spasticity, or flaccidity : Tender with CVA tenderness testing BL Extremities: Radial, dorsalis pedis, and posterior tibial pulses are intact and symmetrical, no edema noted in the BL LE's Skin: Warm, dry, no rashes , lesions, or scars noted Neuro: Alert and oriented to person, place, month, year, and president, no focal defects, CN II-XII tested and intact, finger to nose test negative, no tremors noted Psych: No acute distress, calm and cooperative during the exam Results & Data Results & Data ([facility]) Vital Signs (Past 12 Hours) Vital Signs Temp Pulse Resp BP Pulse Ox O2 Del Method 10/02/21 14:00 93 H 31 H 98 10/02/21 14:00 119/76 10/02/21 13:30 96 H 23 99 10/02/21 13:30 105/64 10/02/21 13:00 94 H 22 98 10/02/21 13:00 107/67 10/02/21 10:30 36 C L 115 H 18 105/69 98 Room Air Laboratory Results Abnormal lab results 10/02/21 10/02/21 10/02/21 Range/Units 11:25 11:25 14:30 WBC 11.04 H (4.8-10.8) K/ul RBC 3.80 L (3.93-5.22) M/uL Hgb 11.4 L (12.0-16.0) g/dl RDW Std Deviation 46.7 H (36.4-46.3) fL Plt Count 407 H (130-400) K/uL MPV 9.3 L (9.4-12.3) fL Neut # (Auto) 7.64 H (1.4-6.5) K/uL Lawrence # (Auto) 1.45 H (0.24-0.82) K/uL Immature Gran # (Auto) 0.06 H (0.00-0.02) K/uL Sodium 132 L (136-145) mmol/L Potassium 2.9 L (3.5-5.1) mmol/L Chloride 92 L (98-107) mmol/L Anion Gap 18 H (3-11) Creatinine 2.50 H (0.6-1.2) mg/dl BUN/Creatinine Ratio 6.4 L (10-20) Albumin 3.3 L (3.4-5.0) gm/dl Urine Ketones 1+ H (Negative) Ur Leukocyte Esterase 1+ H (Negative) Urine WBC (Auto) 10-30 H (0-5) /hpf U Epithel Cells (Auto) >30 H (0-5) /lpf Diagnostic Findings Abdomen/Pelvis CT 10/02/21 12:[address] WITHOUT CONTRAST CT DOSE: 314.63 mGy.cm HISTORY: Nausea. Vomiting. Diarrhea. Lower back pain. TECHNIQUE: Multiaxial CT images of the abdomen and pelvis were performed without contrast. A dose lowering technique was utilized adhering to the principles of ALARA. COMPARISON STUDY: Abdomen and pelvis CT 09/25/2021. FINDINGS: There is a subacute mild superior endplate compression fracture at L1. This demonstrates up to 10% loss of height. No associated retropulsion. No sign ificant central canal narrowing at this level. Emphysema at the lung bases. No pneumoperitoneum. No pneumatosis. Small fat-containing umbilical hernia. A left- sided peritoneal shunt catheter terminates in the right lower quadrant. The bladder, uterus, bilateral adnexa are unremarkable. Suboptimal evaluation for bowel pathology due to the lack of intravenous and oral contrast. However, there is no definite bowel wall thickening or obstruction. A few colonic diverticula. No evidence for acute diverticulitis. Normal appendix. There is a 4.2 x 2.0 cm oval-shaped low density circumscribed lesion within the right anterior abdomen within the omentum. This is best seen on image 207. This remains unchanged. No hepatic or splenic masses. The adrenal glands and pancreas unremarkable. No retroperitoneal lymphadenopathy. Normal caliber abdominal aorta. No renal or ureteral stones. No hydronephrosis. There is bilateral perinephric edema, left greater than right. This may be chronic. Mildly distended gallbladder which has progressed. No definite gallbladder wall thickening. IMPRESSION: 1. A subacute mild superior endplate compression fracture at L1. No associated retropulsion. 2. Mild bilateral perinephric edema, left greater than right. This is likely chronic. However, recommend correlation with urinalysis to exclude the less likely possibility of a pyelonephritis. 3. A 4.2 x 2.0 cm oval-shaped low-density circumscribed lesion within the right anterior abdomen. This is indeterminate but could be related to a prior shunt catheter. This has benign characteristics. However, 3-6 month abdomen and pelvis CT follow up recommended to ensure stability. 4. No bowel wall thickening or obstruction. 5. Normal appendix. 6. Mild gallbladder distention. No gallbladder wall thickening. 7. Small fat-containing umbilical hernia, unchanged. ACT 112: Positive. There are findings on this exam that require communication between the performing entity and the patient following Patient Test Result Information Act ([place] Act 112) guidelines. Electronically signed by: Mahendra Way M.D. 10/02/2021 2:38 PM Chest X-Ray 10/02/21 14:48 XR chest 1V portable CLINICAL HISTORY: hypoxia COMPARISON STUDY: Chest radiograph September 25, 2021. FINDINGS: Emphysema is present. The spiculated right upper lobe lesion on cervical spine CT of April 19, 2020 is not well visualized on this exam. Lung volumes are normal. Lungs are clear. There is no pneumothorax or pleural effusion. Cardiac size is normal. Mediastinal contours are normal. There is no evidence for pulmonary edema. Shunt catheter is partially imaged. IMPRESSION: 1. No acute cardiopulmonary findings. 2. Emphysema. 3. Spiculated right upper lobe nodule on cervical spine CT April 19, 2020 is not visualized on this exam. Correlation with oncologic history and any recent prior chest CTs is recommended. ACT 112: Negative or not required by law. Electronically signed by: Pascual Gibbons M.D. 10/02/2021 3:30 PM Medications Administered Sodium Chloride (Nss 1000ml) 1,000 mls @ 999 mls/hr IV .Q1H1M ONE Stop: 10/02/21 12:38 Last Infusion: 10/02/21 13:45 Dose: 0 mls/hr Documented By: Admin: 10/02/21 12:05 Dose: 999 mls/hr Documented By: OL Acetaminophen (Ofirmev) 1,000 mg in 100 mls @ 400 mls/hr IV NOW STA Stop: 10/02/21 11:52 Last Infusion: 10/02/21 12:19 Dose: 0 mls/hr Documented By: Admin: 10/02/21 12:04 Dose: 400 mls/hr Documented By: OL Magnesium Sulfate/Dextrose (Magnesium Sulfate / D5w) 1 gm in 100 mls @ 100 mls/hr IV NOW STA Stop: 10/02/21 13:03 Last Infusion: 10/02/21 13:45 Dose: 0 mls/hr Documented By: Admin: 10/02/21 12:33 Dose: 100 mls/hr Documented By: LENW Famotidine (Pepcid 20mg Iv Push) 20 mg in 5 mls @ 2.5 mls/min IV NOW STA Stop: 10/02/21 12:05 Last Admin: 10/02/21 12:33 Dose: 2.5 mls/min Documented By: BRITTA Sodium Chloride (Nss 1000ml) 1,000 mls @ 999 mls/hr IV .Q1H1M ONE Stop: 10/02/21 15:51 Last Admin: 10/02/21 15:06 Dose: 999 mls/hr Documented By: JUAN ANTONIO Ondansetron HCl (Ondansetron Inj 2 Mg/Ml 2 Ml Vial) 4 mg IV NOW STA Stop: 10/02/21 11:39 Last Admin: 10/02/21 12:04 Dose: 4 mg Documented By: LUANN Potassium Chloride (Potassium Chloride Crtab 20 Meq Tabcr) 40 meq PO NOW STA Stop: 10/02/21 12:05 Last Admin: 10/02/21 12:33 Dose: 40 meq Documented By: BRITTA ECG Additional Comments: No EKG at the time of admission, will obtain one now and review Code Status & VTE Plan Code Status Full code VTE Prophylaxis Plan VTE Prophylaxis will be ordered: Yes Supervising Physician Co-Signing Physician Notes I supervised Elie Gomez PA-C on this admission. I interviewed and examined the patient independently of him. The plan is as written in his note except for any following changes/exceptions: None 60yo F w/ hx of NSLCL with mets to brain s/p resection and [employer] shunt who presents with Covid. Has been having nausea and vomiting and now with dehydration and SINDY. Will replete with fluids. Support electrolytes. On room air on my inte rview, so will defer steroids at this point in time. PG Care Time/CCT Total # of Minutes Spent Total Time Spent with Patient: Total time spent is greater than 50% in coordination of care (as documented) at patient's floor/unit and/or counseling patient: [place] [address] Initial Inpt Care Lvl 1 Patient Type Established Medical Decision Making Moderate Complexity Diagnoses Nausea & vomiting R11.2 Diarrhea R19.7 Low back pain M54.50 SINDY (acute kidney injury) N17.9 Acute hypokalemia E87.6 Anxiety with depression F41.8 Benign familial tremor G25.0 COPD (chronic obstructive pulmonary disease) J43.9 COPD type: emphysema Emphysema type: unspecified Dyslipidemia E78.5 HTN (hypertension) I10 (1) COPD (chronic obstructive pulmonary disease) COPD type: emphysema Emphysema type: unspecified Qualified Code(s): J43.9 - Emphysema, unspecified
[2021-10-02 18:43] LABS: BUN Creatinine Ratio 6.4 (10-20); Calcium 7.9 mg/dl (8.5-10.1); Est GFR (African American) 27.1 ml/min; Est GFR (Non-African American) 23.4 ml/min; Magnesium 2.1 mg/dl (1.7-2.4); Phosphorus 4.9 mg/dl (2.5-4.9); Potassium 3.3 mmol/L (3.5-5.1)
--- NOTE | 2021-10-02 19:32 | Communication Note ---
Date of Service: October 02, 2021 Alerted that patient is covid positive, still currently stable on room air, continue on supportive therapy for now. If she becomes hypoxic would start dexa methasone.
[2021-10-02] MEDS ORDERED: ACETAMINOPHEN 325 MG TAB PO PRN (19:43)
[2021-10-02] MEDS ORDERED: ALBUTEROL 0.5% NEB SOLN 2.5 MG/0.5 ML VIAL NEB PRN (19:43)
[2021-10-02] MEDS: LACTATED RINGER'S 1,000 ML IV SCH (20:02)
[2021-10-02] MEDS: HEPARIN SOD 5,000 UNIT/0.5 ML VIAL SQ SCH (23:02)
[2021-10-03] MEDS: LIDOCAINE 5% 1 PATCH TD SCH ×3 (00:43→21:01)
[2021-10-03 05:57] LABS: Hematocrit (blood only) 29.4 % (34.1-44.9); Hemoglobin 9.4 g/dl (12.0-16.0); Mean Corpuscular Hemoglobin 30.1 pg (25.0-34.0); Mean Corpuscular Volume 94.2 fL (80.0-100.0); Mean Platelet Volume 9.3 fL (9.4-12.3); Platelet Count 364 K/uL (130-400); RDW Coefficient of Variation 13.9 % (11.5-14.5); RDW Standard Deviation 47.5 fL (36.4-46.3); Red Blood Count 3.12 M/uL (3.93-5.22); White Blood Count 10.45 K/ul (4.8-10.8)
[2021-10-03] MEDS: HEPARIN SOD 5,000 UNIT/0.5 ML VIAL SQ SCH ×3 (06:00→21:00)
[2021-10-03 06:27] LABS: BUN Creatinine Ratio 6.1 (10-20); Calcium 8.3 mg/dl (8.5-10.1); Creatinine Clr Calc Pharmacy 24.5 ml/min; Est GFR (African American) 27.9 ml/min; Potassium 3.8 mmol/L (3.5-5.1)
[2021-10-03] MEDS: PROPRANOLOL HCL 10 MG TAB PO SCH (09:00)
[2021-10-03] MEDS: PANTOprazole 40 MG TAB PO SCH (09:00)
[2021-10-03] MEDS: SERTRALINE HCL 100 MG TABLET PO SCH (09:00)
[2021-10-03] MEDS: LACTATED RINGER'S 1,000 ML IV SCH (09:24)
--- NOTE | 2021-10-03 11:42 | Orthopedic Consultation ---
Date of Consultation October 03, 2021 Assessment & Plan (1) Compression fracture of L1 lumbar vertebra: 60 year old female with low back pain secondary to subacute, endplate compression fracture with between 10-30% loss of height Patient having cervical and thoracic pain, will order cervical and thoracic x rays to rule out other fracture CT/ABD showed 10% loss of height with no retropulsion and no major central canal narrowing Lumbar x rays ordered that show L1 compression fracture, no retropulsion visuali zed, slight loss of vertebral height, no other fractures visualized Do not recommend LSO brace at this time Pain control: per primary, recommend calcitonin nasal spray x 4 weeks and lidocaine patches Calcium and Vitamin D supplementation Continue care per primary service. Follow up outpatient with repeat x-rays in 2 weeks. Present on Admission?: Yes Supervising Physician Co-Signing Physician Notes I saw and examined the patient and agree with the above plan of care which I developed and discussed with my PA. History of Present Illness Reason for Consultation: L1 compression fracture seen on ABD/pelvis CT Requesting Physician: Naima Wagner MD Attending Physician: Armond Cooney History of Present Illness Aki is a 60 year old female PMH significant for COPD, NSCLC treated with radiation and chemo, resultant mets to the brain S/P resection and SRS in in april of 2020, hydrocephalus, HTN, dyslipidemia, anxiety, depression, and benign familial tremor who presented to the [facility] ED on 10/02/21 with complaints of nausea, vomiting, and low back pain without obvious injury. She is tachypneic, slightly hypotensive with a temperature of 37.7. Patient found to be Covid +. Medicine working up for infectious etiology. Abd/pelvis CT was done that showed subacute L1 compression fracture with 10% loss of height, no retropulsion, and no major central canal narrowing. Of note, CT also showed BL perinephric stranding and gallbladder wall thickening. Orthopedics consulted for further evaluation of compression fracture and treatment recommendations. She does have a history neck pain and has seen chiropractors in the past. Allergies Allergy/AdvReac Type Severity Reaction Status Date / Time Sulfa (Sulfonamide Allergy Severe RASH Verified 10/02/21 16:46 Antibiotics) sulfamethoxazole Allergy Severe RASH Verified 10/02/21 16:46 trimethoprim Allergy Severe RASH Verified 10/02/21 16:46 tiotropium Allergy Intermediate Rash Verified 10/02/21 16:46 [From Spiriva with HandiHaler] amlodipine AdvReac Unknown Fatigue Verified 10/02/21 16:46 Home Medications Medication Instructions Recorded Confirmed Type acetaminophen 500 mg capsule 1,000 mg PO Q8H PRN Pain 04/24/20 10/02/21 History ondansetron HCl 8 mg tablet 8 mg PO Q8H PRN nausea and vomiting 06/02/20 10/02/21 History propranolol 60 mg tablet 30 mg PO DAILY #45 tabs 08/19/21 10/02/21 Rx sertraline 100 mg tablet 100 mg PO DAILY #90 tabs 08/19/21 10/02/21 Rx pantoprazole 40 mg tablet,delayed 40 mg PO QAM 08/25/21 10/02/21 History release (Protonix) pembrolizumab 25 mg/mL intravenous 400 mg IV UD 08/28/21 10/02/21 History solution (Keytruda) cyclobenzaprine 10 mg tablet 10 mg PO TID PRN muscle spasm #30 09/30/21 10/02/21 Rx tabs lorazepam 0.5 mg tablet 0.5 - 1 mg PO BID PRN anxiety 10/02/21 10/02/21 History Patient History Medical History Anxiety Diverticulosis of colon Dyslipidemia Emphysema lung COPD - WELL CONTROLLED W/ INHALER History of brain tumor HTN (hypertension) Hydrocephalus SHUNT PLACED 07/2021-[facility] Lung cancer TREATED W/ CHEMO AND RADIATION AT SAME TIME BRAIN CA 04/2020 [facility] Malignant neoplasm metastatic to brain RADIATION AND CHEMO DONE AFTER TUMOR REMOVED- CURRENTLY ON IMMUNOTHERAPY Q 2 MOS ON KEYTRUDA DUE 08/28/21- [facility] ONC Osteopenia Vitamin D deficiency Surgical History H/O brain surgery malignant tumor excised from occipital lobe 04/2020-[facility] History of bilateral tubal ligation History of brain shunt 07/2021 [facility]- CURRENTLY IN PLACE; DRAINING INTO ABDOMEN FOR SWELLING AROUND AREA WHERE TUMOR WAS REMOVED History of endometrial biopsy S/P colonoscopy Family History Sister Colonic polyp Social History Smoking Status: Former smoker Tobacco Type: Cigarettes Second Hand Exposure: No; Hx Alcohol Use: No Hx Substance Use: No Preferred Language: Indian Communication Ability: Effective Event Attendant Required: No Beliefs That Will Affect Care: None marital status: Current Living Situation: Spouse Feels Safe at Home: Yes Safety Concerns: Feels Safe At This Time Assistive Devices: None Review of Systems Review of Systems: All systems reviewed & are unremarkable except as noted in HPI & below Physical Exam Physical Exam: BLE: sensation to light touch intact distally. BCR < 2 secs. Strength gastroc/soleus, EHL, Tib Ant 5/5. Lumbar spn: + TTP L5-S1 and L1. No noted step offs. No increased pain with movement all directions. Thoracic spn: + TTP T5. No noted step offs. C spn: + TTP c7 and C6. No noted step offs. Results & Data ([facility]) Vital Signs (Past 12 Hours) Vital Signs Temp Pulse Pulse Resp BP Pulse Ox O2 Del Method 10/03/21 10:07 Nasal Cannula 10/03/21 07:52 37.7 C H 114 H 20 104/64 95 Nasal Cannula 10/03/21 07:23 114 H 10/03/21 03:30 37.3 C 16 105/68 10/03/21 00:01 36.5 C 16 127/75 O2 Flow Rate 10/03/21 10:07 2 10/03/21 07:52 2.0 10/03/21 07:23 10/03/21 03:30 10/03/21 00:01 Diagnostic Findings ABDOMEN AND PELVIS CT WITHOUT CONTRAST CT DOSE: 314.63 mGy.cm HISTORY: Nausea. Vomiting. Diarrhea. Lower back pain. TECHNIQUE: Multiaxial CT images of the abdomen and pelvis were performed without contrast. A dose lowering technique was utilized adhering to the principles of ALARA. COMPARISON STUDY: Abdomen and pelvis CT 09/25/2021. FINDINGS: There is a subacute mild superior endplate compression fracture at L1. This demonstrates up to 10% loss of height. No associated retropulsion. No significant central canal narrowing at this level. Emphysema at the lung bases. No pneumoperitoneum. No pneumatosis. Small fat-containing umbilical hernia. A left-sided peritoneal shunt catheter terminates in the right lower quadrant. The bladder, uterus, bilateral adnexa are unremarkable. Suboptimal evaluation for bowel pathology due to the lack of intravenous and oral contrast. However, there is no definite bowel wall thickening or obstruction. A few colonic diverticula. No evidence for acute diverticulitis. Normal appendix. There is a 4.2 x 2.0 cm oval-shaped low density circumscribed lesion within the right anterior abdomen within the omentum. This is best seen on image 207. This remains unchanged. No hepatic or splenic masses. The adrenal glands and pancreas unremarkable. No retroperitoneal lymphadenopathy. Normal caliber abdominal aorta. No renal or ureteral stones. No hydronephrosis. There is bilateral perinephric edema, left greater than right. This may be chronic. Mildly distended gallbladder which has progressed. No definite gallbladder wall thickening. IMPRESSION: 1. A subacute mild superior endplate compression fracture at L1. No associated retropulsion. 2. Mild bilateral perinephric edema, left greater than right. This is likely chronic. However, recommend correlation with urinalysis to exclude the less likely possibility of a pyelonephritis. 3. A 4.2 x 2.0 cm oval-shaped low-density circumscribed lesion within the right anterior abdomen. This is indeterminate but could be related to a prior shunt catheter. This has benign characteristics. However, 3-6 month abdomen and pelvis CT follow up recommended to ensure stability. 4. No bowel wall thickening or obstruction. 5. Normal appendix. 6. Mild gallbladder distention. No gallbladder wall thickening. 7. Small fat-containing umbilical hernia, unchanged. 3V Lumbar X rays: Lumbar x rays ordered that show L1 compression fracture, no retropulsion visualized, slight loss of vertebral height, no other fractures visualized Per my, Dr. Wagner, review ~ 30% loss vertebral height.
[2021-10-03] MEDS: dexAMETHasone 1 MG TAB PO SCH (11:51)
[2021-10-03] MEDS: CALCITONIN SALMON NA 200 IU/AC 3.7 ML BTL SCH (15:21)
--- NOTE | 2021-10-03 15:27 | Electrocardiogram Report ---
Test Reason : Blood Pressure : / mmHG Vent. Rate : 098 BPM Atrial Rate : 098 BPM P-R Int : 128 ms QRS Dur : 096 ms QT Int : 400 ms P-R-T Axes : 074 057 252 degrees QTc Int : 510 ms Normal sinus rhythm T wave abnormality, consider inferior ischemia T wave abnormality, consider anterolateral ischemia Prolonged QT Abnormal ECG When compared with ECG of 25-SEP-2021 11:38, Criteria for Septal infarct are no longer Present T wave inversion now evident in Inferior leads T wave inversion now evident in Anterolateral leads Confirmed by Gamaliel Teixeira ([id number]) on 10/03/2021 3:26:50 PM Referred By: REFERRED SELF Confirmed By:Gamaliel Teixeira
--- NOTE | 2021-10-03 16:48 | XRay Report ---
LUMBAR SPINE 3 VIEWS CLINICAL HISTORY: L1 compression fracture. FINDINGS: Three views of the lumbar spine are correlated with abdominal CT dated 10/02/2021. The skel etal structures are osteopenic. Again seen is a mild superior endplate compression fracture of L1. Th is was shown to be subacute on yesterday's CT scan. No significant retropulsed fragments are identifi ed. Vertebral body height is otherwise maintained throughout the lumbar spine. Alignment is preserved . Anterior and lateral marginal osteophytes are seen throughout. The transverse and spinous processes appear intact. Mild facet arthropathy is noted in the lower lumbar region. There is only minimal deg enerative disc space narrowing. The visualized bony pelvis appears intact. No bowel obstruction is se en. There is gaseous distention of the stomach. A ventricular shunt catheter is in place with the tip coiled in the pelvis. Atherosclerotic calcification is noted in the abdominal aorta. IMPRESSION: 1. A mild superior endplate compression fracture of L1 is unchanged. 2. No additional fracture is identified. 3. Osteopenia and mild spondylotic change as above. Dictated: 10/03/2021 2:01 PM Transcribed: 10/03/2021 4:45 PM Rosalina [id number] [email or web address] Electronically signed by: Gregorio Johnson M.D. 10/03/2021 4:46 PM
--- NOTE | 2021-10-03 19:43 | XRay Report ---
CERVICAL SPINE 3 VIEWS CLINICAL HISTORY: Cervicalgia. FINDINGS: AP, lateral, and odontoid views of the cervical spine are attempted. Comparison is made to study dated 07/04/2008 and correlation is made to cervical spine CT dated 04/19/2020. The examination i s degraded by inability to properly position the patient. The skeletal structures are osteopenic. The re is no radiographic evidence of acute fracture or subluxation on the provided images. Vertebral bod y height and alignment are maintained throughout the cervical spine. There is straightening of the ce rvical lordosis. Anterior osteophytes are seen throughout. The spinal laminar alignment is preserved. The spinous processes appear intact. The odontoid process and lateral masses are not visualized on t he open-mouth view. The atlantoaxial articulation appears maintained noting productive degenerative c hange. There is moderate disc space narrowing at C5-C6 and C6-C7. Posterior disc osteophyte complexes at these levels likely contribute to acquired compromise of the central canal. Multilevel facet arth ropathy is seen on the frontal view. Postoperative changes noted in the occiput. The prevertebral sof t tissues are within normal limits. Apical lung parenchyma is clear as visualized. A shunt catheter t raverses the soft tissues of the right neck. IMPRESSION: 1. No acute bony abnormality is seen involving the cervical spine. 2. Osteopenia and spondylotic change as above. Dictated: 10/03/2021 7:11 PM Transcribed: 10/03/2021 7:39 PM Rosalina [id number] [email or web address] Electronically signed by: Gregorio Johnson M.D. 10/03/2021 7:42 PM
--- NOTE | 2021-10-03 19:43 | XRay Report ---
THORACIC SPINE 3 VIEWS CLINICAL HISTORY: Thoracic back pain. FINDINGS: AP, lateral, and swimmer's views of the thoracic spine are obtained. No prior studies are a vailable for comparison at the time of dictation. Skeletal structures are osteopenic. There is no rad iographic evidence of acute fracture or malalignment involving the thoracic spine. A mild superior en dplate compression fracture of L1 is again noted. Tiny anterior osteophytes are seen throughout. The transverse processes and pedicles are grossly intact as seen on the frontal view. The disc spaces masoud ear maintained. The lung parenchyma is clear as visualized. A shunt catheter traverses the right ches t wall. IMPRESSION: 1. There is no radiographic evidence of acute fracture or malalignment involving the lumbar spine. 2. A mild superior endplate compression fracture of L1 is again noted. Dictated: 10/03/2021 7:13 PM Transcribed: 10/03/2021 7:41 PM Rosalina [id number] [email or web address] Electronically signed by: Gregorio Johnson M.D. 10/03/2021 7:41 PM
--- NOTE | 2021-10-03 21:48 | Hospitalist Progress Note ---
Date of Service October 03, 2021 Assessment & Plan (1) COVID-19: Plan: Patient is now in PCU. Requiring oxygen. will place on nasal cannula. Added decadron. Appears she was diagnosed with COVID earlier in the month and placed on paxolovid. Will continue to monitor. (2) Nausea & vomiting: Plan: -At this time the patient's etiology of her nausea and vomiting is most likely associated with gastroenteritis but another infectious etiology cannot be ruled out at this time -Patient's nausea and vomiting is currently well-controlled -Mild leukocytosis without left shift, will add on procal now to help determine if she has some bacterial infection -Lacte was WNL -Stool studies already ordered -Hold antidiarrheal meds until we can ruleout an infectious etiology -Will review admission EKG and order antiemetic if QTc is ok Her nausea vomiting, appears to have improved. (3) Diarrhea: Plan: -See nausea and vomiting (4) Low back pain: Plan: -Patient found to have an subacute mild superior endplate compression fracture at L1. No associated retropulsion -The L1 compression fracture is most likely the etiology of the patient's back pain but also need to rule out possible pyelonephritis -Patient's UA is dirty but she is without dysuria, difficult to determine if pain with CVA tenderness testing is from the L1 compression fracture or possible pyelo -CT showed Mild bilateral perinephric edema, left greater than right. They noted that it is likely chronic in nature -Patient has mild leukocytosis but no left shift, lactate is WNL, will add on procal now -Will hold off on antibiotics for now as infection is lower on the differential at this time -Orthopedics consulted to see if they would recommend bracing for the L1 compression fracture -Ordered 25 hydroxy Vit D with her new compression fracture Appreciate input from ortho on 10/04 No need for brace. (5) SINDY (acute kidney injury): Plan: -Cr noted to be 2.5 today, baseline appears to be around 1.0 -Likely a combination of dehydration and NSAID use -Will continue with IV hydration overnight -Continue to monitor renal function and electrolytes with AM labs -Avoid nephrotoxic agents (6) Acute hypokalemia: Plan: -Noted to be at 2.9 in the ED -Likely from poor oral intake, vomiting, and diarrhea -Give 40 meq PO KCL and 1g IV mag in the ED -Repeating labs now and will replete as needed (7) Anxiety with depression: Plan: -MESSENGER COPY sertraline and Ativan (8) Benign familial tremor: Plan: -MESSENGER COPY propranolol (9) COPD (chronic obstructive pulmonary disease): Plan: -MESSENGER COPY albuterol and incentive spirometry (10) Dyslipidemia: Plan: -MESSENGER COPY Statin (11) HTN (hypertension): Plan: -Only on Propranolol for tremor Plan The patient was discussed with Dr. Siegel at the time of admission Admission and Anticipated Discharge Date Admission Date: October 02, 2021 Subjective 60 yo female reports feeling well and comfortable on 2 liters nasal cannula. Daughter reported to staff she appeared confused. Review of Systems Review of Systems: All systems reviewed & are unremarkable except as noted in HPI & below Physical Exam Physical Exam: General: In no acute distress, stated age, chronically ill- appearing, ANSWERING QUESTIONS APPROPRIATELY. HEENT: Normocephalic, atraumatic, no scleral icterus, pupils around round, symmetrical, and reactive to light,trachea midline, no thyromegaly Chest/Pulm: No respiratory distress, symmetrical chest expansion, clear breath sounds throughout Cardiac: RRR, no murmurs noted Abdomen: Negative for ascites and bruising, normoactive bowel sounds, soft, non- tender to palpation throughout Musculoskeletal: Patient is non-tender to palpation over the entire spine, tenderness to palpation over the BL flanks, Symmetrical and without signs of acute trauma, upper and lower extremities with full ROM, no atrophy, spasticity, or flaccidity Extremities: Radial, dorsalis pedis, and posterior tibial pulses are intact and symmetrical, no edema noted in the BL LE's Skin: Warm, dry, no rashes , lesions, or scars noted Neuro: Alert and oriented to person, place, month, year, and president, no focal defects, CN II-XII tested and intact, finger to nose test negative, no tremors noted Psych: No acute distress, calm and cooperative during the exam Results & Data Results & Data ([facility]) Vital Signs (Past 12 Hours) Vital Signs Temp Pulse Resp BP Pulse Ox O2 Del Method O2 Flow Rate 10/03/21 19:17 36.9 C 82 19 93/57 L 99 Nasal Cannula 2.0 10/03/21 10:07 Nasal Cannula 2 PG Care Time/CCT Total # of Minutes Spent Total Time Spent with Patient: Total time spent is greater than 50% in coordination of care (as documented) at patient's floor/unit and/or counseling patient: Coding Level of Care Code 06776 Subseq Hosp Care Lvl 3 Diagnoses COVID-19 U07.1 Nausea & vomiting R11.2 Diarrhea R19.7 Low back pain M54.50 SINDY (acute kidney injury) N17.9 Acute hypokalemia E87.6 Anxiety with depression F41.8 Benign familial tremor G25.0 COPD (chronic obstructive pulmonary disease) J43.9 COPD type: emphysema Emphysema type: unspecified Dyslipidemia E78.5 HTN (hypertension) I10 Time Spent (min) 35 (1) COPD (chronic obstructive pulmonary disease) COPD type: emphysema Emphysema type: unspecified Qualified Code(s): J43.9 - Emphysema, unspecified
[2021-10-04] MEDS: HEPARIN SOD 5,000 UNIT/0.5 ML VIAL SQ SCH ×3 (06:02→22:12)
[2021-10-04 06:31] LABS: Hematocrit (blood only) 26.4 % (34.1-44.9); Hemoglobin 8.6 g/dl (12.0-16.0); Mean Corpuscular Hemoglobin 30.1 pg (25.0-34.0); Mean Corpuscular Hgb Conc 32.6 g/dL (32.0-36.0); Mean Corpuscular Volume 92.3 fL (80.0-100.0); Mean Platelet Volume 9.8 fL (9.4-12.3); Platelet Count 374 K/uL (130-400); RDW Coefficient of Variation 13.5 % (11.5-14.5); RDW Standard Deviation 46.3 fL (36.4-46.3); Red Blood Count 2.86 M/uL (3.93-5.22); White Blood Count 8.29 K/ul (4.8-10.8)
[2021-10-04 07:04] LABS: Albumin Globulin Ratio 0.9 (0.9-2); Albumin Level 2.8 gm/dl (3.4-5.0); BUN Creatinine Ratio 8.4 (10-20); Bilirubin,Total 0.2 mg/dl (0.2-1.0); C Reactive Protein 27.73 mg/dl (0-0.5); Calcium 8.6 mg/dl (8.5-10.1); Creatinine Clr Calc Pharmacy 25.9 ml/min; Est GFR (African American) 29.7 ml/min; Est GFR (Non-African American) 25.6 ml/min; Globulin 3.1 gm/dl (2.5-4.0); Potassium 3.8 mmol/L (3.5-5.1); Total Protein 5.9 gm/dl (6.0-8.3)
[2021-10-04] MEDS: dexAMETHasone 1 MG TAB PO SCH (07:49)
[2021-10-04] MEDS: PANTOprazole 40 MG TAB PO SCH (07:51)
[2021-10-04] MEDS: SERTRALINE HCL 100 MG TABLET PO SCH (07:52)
[2021-10-04] MEDS: PROPRANOLOL HCL 10 MG TAB PO SCH (07:53)
[2021-10-04] MEDS: CALCITONIN SALMON NA 200 IU/AC 3.7 ML BTL SCH (07:54)
--- NOTE | 2021-10-04 09:24 | Orthopedic Progress Note ---
Date of Service October 04, 2021 Assessment & Plan (1) Compression fracture of L1 lumbar vertebra: Plan: 60 year old female with low back pain secondary to subacute, endplate compression fracture with between 10-30% loss of height vs pyelonephritis Thoracic x-rays negative for additional fractures, pain likely referred. Cervical x-rays where negative for acute injury or fracture, but showed moderate disc space narrowing at C5-C6 and C6-C7 and posterior disc osteophyte. If symptoms persist or worsen may require referal to spine service, could be done as an outpatient. Do not recommend LSO brace at this time Pain control: per primary, recommend calcitonin nasal spray x 4 weeks and lidocaine patches Calcium and Vitamin D supplementation Continue care per primary service. Please recall if any ortho issues arise or worsen. Follow up outpatient with repeat lumbar spine x-rays in 2 weeks. Present on Admission?: Yes Admission and Anticipated Discharge Date Admission Date: October 02, 2021 Subjective Back is feeling better today. Review of Systems Review of Systems: All systems reviewed & are unremarkable except as noted in HPI & below Physical Exam Physical Exam: BLE: Sensation to light touch intact distally. BCR < 2 secs. Strength gastroc/soleus, EHL, Tib Ant 5/5. BUE: Sensation to light touch intact distally. 2+ radial pulses. Strength M/R/U/AIN/PIN 5/5. Lumbar spn: + TTP L5-S1 and L1, decreased from yesterday. No noted step offs. No increased pain with movement all directions. Thoracic spn: - TTP T5. No noted step offs. C spn: - TTP. No noted step offs. Results & Data ([facility]) Vital Signs (Past 12 Hours) Vital Signs Temp Pulse Pulse Resp BP Pulse Ox O2 Del Method 10/04/21 07:58 36.6 C 87 18 114/64 97 Room Air 10/04/21 03:25 36.8 C 79 18 99/66 L 97 Nasal Cannula 10/03/21 23:40 82 10/03/21 23:13 36.9 C 77 16 94/58 L 98 Nasal Cannula O2 Flow Rate 10/04/21 07:58 2 10/04/21 03:25 10/03/21 23:40 10/03/21 23:13 2 Diagnostic Findings Laboratory Results WBC 8.29 K/ul (4.8-10.8) 10/04/21 05:51 RBC 2.86 M/uL (3.93-5.22) L 10/04/21 05:51 Hgb 8.6 g/dl (12.0-16.0) L 10/04/21 05:51 Hct 26.4 % (34.1-44.9) L 10/04/21 05:51 MCV 92.3 fL (80.0-100.0) 10/04/21 05:51 MCH 30.1 pg (25.0-34.0) 10/04/21 05:51 MCHC 32.6 g/dL (32.0-36.0) 10/04/21 05:51 RDW Std Deviation 46.3 fL (36.4-46.3) 10/04/21 05:51 RDW Coeff of Agus 13.5 % (11.5-14.5) 10/04/21 05:51 Plt Count 374 K/uL (130-400) 10/04/21 05:51 MPV 9.8 fL (9.4-12.3) 10/04/21 05:51 Immature Gran % (Auto) 0.5 % 10/02/21 11:25 Neut % (Auto) 69.3 % 10/02/21 11:25 Lymph % (Auto) 15.0 % 10/02/21 11:25 [place] % (Auto) 13.1 % 10/02/21 11:25 Eos % (Auto) 1.8 % 10/02/21 11:25 Baso % (Auto) 0.3 % 10/02/21 11:25 Neut # (Auto) 7.64 K/uL (1.4-6.5) H 10/02/21 11:25 Lymph # (Auto) 1.66 K/uL (1.2-3.4) 10/02/21 11:25 [place] # (Auto) 1.45 K/uL (0.24-0.82) H 10/02/21 11:25 Eos # (Auto) 0.20 K/uL (0-0.50) 10/02/21 11:25 Baso # (Auto) 0.03 K/uL (0-0.2) 10/02/21 11:25 Immature Gran # (Auto) 0.06 K/uL (0.00-0.02) H 10/02/21 11:25 Sodium 134 mmol/L (136-145) L 10/04/21 05:51 Potassium 3.8 mmol/L (3.5-5.1) 10/04/21 05:51 Chloride 101 mmol/L (98-107) 10/04/21 05:51 Carbon Dioxide 21 mmol/L (21-32) 10/04/21 05:51 Anion Gap 12 (3-11) H 10/04/21 05:51 BUN 17 mg/dl (6-23) 10/04/21 05:51 Creatinine 2.03 mg/dl (0.6-1.2) H 10/04/21 05:51 Est Cr Clr Drug Dosing 25.9 ml/min 10/04/21 05:51 Est GFR ( Amer) 29.7 ml/min 10/04/21 05:51 Est GFR (Non-Af Amer) 25.6 ml/min 10/04/21 05:51 BUN/Creatinine Ratio 8.4 (10-20) L 10/04/21 05:51 Glucose 115 mg/dl (70-99(Fasting)) H 10/04/21 05:51 Lactate 0.9 mmol/L (0.4-2.0) 10/02/21 12:20 Calcium 8.6 mg/dl (8.5-10.1) 10/04/21 05:51 Phosphorus 4.9 mg/dl (2.5-4.9) 10/02/21 18:19 Magnesium 2.1 mg/dl (1.7-2.4) 10/02/21 18:19 Total Bilirubin 0.2 mg/dl (0.2-1.0) 10/04/21 05:51 AST 8 U/L (13-39) L 10/04/21 05:51 ALT 6 U/L (7-52) L 10/04/21 05:51 Alkaline Phosphatase 72 U/L (34-104) 10/04/21 05:51 C-Reactive Protein 27.73 mg/dl (0-0.5) H 10/04/21 05:51 Total Protein 5.9 gm/dl (6.0-8.3) L 10/04/21 05:51 Albumin 2.8 gm/dl (3.4-5.0) L 10/04/21 05:51 Globulin 3.1 gm/dl (2.5-4.0) 10/04/21 05:51 Albumin/Globulin Ratio 0.9 (0.9-2) 10/04/21 05:51 25-OH Vitamin D Total 14.9 ng/ml (30-100) L 10/02/21 11:25 Procalcitonin 0.27 ng/ml (0-0.5) 10/04/21 05:51 Urine Color Yellow 10/02/21 14:30 Urine Appearance Clear (Clear) 10/02/21 14:30 Urine pH 5.5 (4.5-7.5) 10/02/21 14:30 Ur Specific [place] 1.006 (1.000-1.030) 10/02/21 14:30 Urine Protein Negative (Negative) 10/02/21 14:30 Urine Glucose (UA) Negative (Negative) 10/02/21 14:30 Urine Ketones 1+ (Negative) H 10/02/21 14:30 Urine Blood Negative (Negative) 10/02/21 14:30 Urine Nitrite Negative (Negative) 10/02/21 14:30 Urine Bilirubin Negative (Negative) 10/02/21 14:30 Urine Urobilinogen Negative (Negative) 10/02/21 14:30 Ur Leukocyte Esterase 1+ (Negative) H 10/02/21 14:30 Urine WBC (Auto) 10-30 /hpf (0-5) H 10/02/21 14:30 Urine RBC (Auto) 0-4 /hpf (0-4) 10/02/21 14:30 U Hyaline Cast (Auto) 1-5 /lpf (0-5) 10/02/21 14:30 U Epithel Cells (Auto) >30 /lpf (0-5) H 10/02/21 14:30 Urine Bacteria (Auto) Negative (Negative) 10/02/21 14:30 Ur Renal Epithelial Cell Not Reportable 10/02/21 14:30 POC Ur Test Cancelled 10/02/21 14:31 SARS-CoV-2, RNA, NAAT POSITIVE (NEGATIVE) A* 10/02/21 18:58 Impressions Abdomen/Pelvis CT 10/02/21 12:[address] WITHOUT CONTRAST CT DOSE: 314.63 mGy.cm HISTORY: Nausea. Vomiting. Diarrhea. Lower back pain. TECHNIQUE: Multiaxial CT images of the abdomen and pelvis were performed without contrast. A dose lowering technique was utilized adhering to the principles of ALARA. COMPARISON STUDY: Abdomen and pelvis CT 09/25/2021. FINDINGS: There is a subacute mild superior endplate compression fracture at L1. This demonstrates up to 10% loss of height. No associated retropulsion. No significant central canal narrowing at this level. Emphysema at the lung bases. No pneumoperitoneum. No pneumatosis. Small fat-containing umbilical hernia. A left-sided peritoneal shunt catheter terminates in the right lower quadrant. The bladder, uterus, bilateral adnexa are unremarkable. Suboptimal evaluation for bowel pathology due to the lack of intravenous and oral contrast. However, there is no definite bowel wall thickening or obstruction. A few colonic diverticula. No evidence for acute diverticulitis. Normal appendix. There is a 4.2 x 2.0 cm oval-shaped low density circumscribed lesion within the right anterior abdomen within the omentum. This is best seen on image 207. This remains unchanged. No hepatic or splenic masses. The adrenal glands and pancreas unremarkable. No retroperitoneal lymphadenopathy. Normal caliber abdominal aorta. No renal or ureteral stones. No hydronephrosis. There is bilateral perinephric edema, left greater than right. This may be chronic. Mildly distended gallbladder which has progressed. No definite gallbladder wall thickening. IMPRESSION: 1. A subacute mild superior endplate compression fracture at L1. No associated retropulsion. 2. Mild bilateral perinephric edema, left greater than right. This is likely chronic. However, recommend correlation with urinalysis to exclude the less likely possibility of a pyelonephritis. 3. A 4.2 x 2.0 cm oval-shaped low-density circumscribed lesion within the right anterior abdomen. This is indeterminate but could be related to a prior shunt catheter. This has benign characteristics. However, 3-6 month abdomen and pelvis CT follow up recommended to ensure stability. 4. No bowel wall thickening or obstruction. 5. Normal appendix. 6. Mild gallbladder distention. No gallbladder wall thickening. 7. Small fat-containing umbilical hernia, unchanged. ACT 112: Positive. There are findings on this exam that require communication between the performing entity and the patient following Patient Test Result Information Act ([place] Act 112) guidelines. Electronically signed by: Mahendra Way M.D. 10/02/2021 2:38 PM Chest X-Ray 10/02/21 14:48 XR chest 1V portable CLINICAL HISTORY: hypoxia COMPARISON STUDY: Chest radiograph September 25, 2021. FINDINGS: Emphysema is present. The spiculated right upper lobe lesion on cervical spine CT of April 19, 2020 is not well visualized on this exam. Lung volumes are normal. Lungs are clear. There is no pneumothorax or pleural effusion. Cardiac size is normal. Mediastinal contours are normal. There is no evidence for pulmonary edema. Shunt catheter is partially imaged. IMPRESSION: 1. No acute cardiopulmonary findings. 2. Emphysema. 3. Spiculated right upper lobe nodule on cervical spine CT April 19, 2020 is not visualized on this exam. Correlation with oncologic history and any recent prior chest CTs is recommended. ACT 112: Negative or not required by law. Electronically signed by: Pascual Gibbons M.D. 10/02/2021 3:30 PM Lumbar Spine X-Ray 10/03/21 11:29 LUMBAR SPINE 3 VIEWS CLINICAL HISTORY: L1 compression fracture. FINDINGS: Three views of the lumbar spine are correlated with abdominal CT dated 10/02/2021. The skeletal structures are osteopenic. Again seen is a mild superior endplate compression fracture of L1. This was shown to be subacute on yesterday's CT scan. No significant retropulsed fragments are identified. Vertebral body height is otherwise maintained throughout the lumbar spine. Alignment is preserved. Anterior and lateral marginal osteophytes are seen throughout. The transverse and spinous processes appear intact. Mild facet arthropathy is noted in the lower lumbar region. There is only minimal degenerative disc space narrowing. The visualized bony pelvis appears intact. No bowel obstruction is seen. There is gaseous distention of the stomach. A ventricular shunt catheter is in place with the tip coiled in the pelvis. Atherosclerotic calcification is noted in the abdominal aorta. IMPRESSION: 1. A mild superior endplate compression fracture of L1 is unchanged. 2. No additional fracture is identified. 3. Osteopenia and mild spondylotic change as above. Dictated: 10/03/2021 2:01 PM Transcribed: 10/03/2021 4:45 PM Rosalina [id number] [facility] Electronically signed by: Gregorio Johnson M.D. 10/03/2021 4:46 PM Cervical Spine X-Ray 10/03/21 13:28 CERVICAL SPINE 3 VIEWS CLINICAL HISTORY: Cervicalgia. FINDINGS: AP, lateral, and odontoid views of the cervical spine are attempted. Comparison is made to study dated 07/04/2008 and correlation is made to cervical spine CT dated 04/19/2020. The examination is degraded by inability to properly position the patient. The skeletal structures are osteopenic. There is no radiographic evidence of acute fracture or subluxation on the provided images. Vertebral body height and alignment are maintained throughout the cervical spine. There is straightening of the cervical lordosis. Anterior osteophytes are seen throughout. The spinal laminar alignment is preserved. The spinous processes appear intact. The odontoid process and lateral masses are not visualized on the open-mouth view. The atlantoaxial articulation appears maintained noting productive degenerative change. There is moderate disc space narrowing at C5-C6 and C6-C7. Posterior disc osteophyte complexes at these levels likely contribute to acquired compromise of the central canal. Multilevel facet arthropathy is seen on the frontal view. Postoperative changes noted in the occiput. The prevertebral soft tissues are within normal limits. Apical lung parenchyma is clear as visualized. A shunt catheter traverses the soft tissues of the right neck. IMPRESSION: 1. No acute bony abnormality is seen involving the cervical spine. 2. Osteopenia and spondylotic change as above. Dictated: 10/03/2021 7:11 PM Transcribed: 10/03/2021 7:39 PM Rosalina [id number] [facility] Electronically signed by: Gregorio Johnson M.D. 10/03/2021 7:42 PM Thoracic Spine X-Ray 10/03/21 13:28 THORACIC SPINE 3 VIEWS CLINICAL HISTORY: Thoracic back pain. FINDINGS: AP, lateral, and swimmer's views of the thoracic spine are obtained. No prior studies are available for comparison at the time of dictation. Skeletal structures are osteopenic. There is no radiographic evidence of acute fracture or malalignment involving the thoracic spine. A mild superior endplate compression fracture of L1 is again noted. Tiny anterior osteophytes are seen throughout. The transverse processes and pedicles are grossly intact as seen on the frontal view. The disc spaces appear maintained. The lung parenchyma is clear as visualized. A shunt catheter traverses the right chest wall. IMPRESSION: 1. There is no radiographic evidence of acute fracture or malalignment involving the lumbar spine. 2. A mild superior endplate compression fracture of L1 is again noted. Dictated: 10/03/2021 7:13 PM Transcribed: 10/03/2021 7:41 PM Rosalina [id number] [email or web address] Electronically signed by: Gregorio Johnson M.D. 10/03/2021 7:41 PM
[2021-10-04] MEDS ORDERED: SODIUM CHLORIDE 0.9% 1000ML 1,000 ML IV SCH (11:00)
[2021-10-04] MEDS: LORazepam 0.5 MG TAB PO PRN (20:44)
[2021-10-04] MEDS: LIDOCAINE 5% 1 PATCH TD SCH (20:48)
--- NOTE | 2021-10-04 21:24 | Hospitalist Progress Note ---
Date of Service October 04, 2021 Assessment & Plan (1) COVID-19: Plan: Patient is now in PCU. Requiring oxygen: 2 liters nasal cannula. Added decadron. Appears she was diagnosed with COVID earlier in the month and placed on an antiviral Will continue to monitor. Possible discharge tomorrow. Will touch base with he oncologist. (2) Nausea & vomiting: Plan: -At this time the patient's etiology of her nausea and vomiting is most likely associated with gastroenteritis but another infectious etiology cannot be ruled out at this time -Patient's nausea and vomiting is currently well-controlled -Mild leukocytosis without left shift, will add on procal now to help determine if she has some bacterial infection -Lacte was WNL -Stool studies already ordered -Hold antidiarrheal meds until we can ruleout an infectious etiology -Will review admission EKG and order antiemetic if QTc is ok Her nausea vomiting, appears to have improved. (3) Diarrhea: Plan: -See nausea and vomiting Diarrhea likely was due to viral illness. Perhaps from COVID. (4) Low back pain: Plan: -Patient found to have an subacute mild superior endplate compression fracture at L1. No associated retropulsion -The L1 compression fracture is most likely the etiology of the patient's back pain but also need to rule out possible pyelonephritis -Patient's UA is dirty but she is without dysuria, difficult to determine if pain with CVA tenderness testing is from the L1 compression fracture or possible pyelo -CT showed Mild bilateral perinephric edema, left greater than right. They noted that it is likely chronic in nature -Patient has mild leukocytosis but no left shift, lactate is WNL, will add on procal now -Will hold off on antibiotics for now as infection is lower on the differential at this time -Orthopedics consulted to see if they would recommend bracing for the L1 compression fracture -Ordered 25 hydroxy Vit D with her new compression fracture Appreciate input from ortho on 10/04 No need for brace. (5) SINDY (acute kidney injury): Plan: -Cr noted to be 2.5 today, baseline appears to be around 1.0 -Likely a combination of dehydration and NSAID use -Will continue with IV hydration overnight -Continue to monitor renal function and electrolytes with AM labs -Avoid nephrotoxic agents (6) Acute hypokalemia: Plan: -Noted to be at 2.9 in the ED -Likely from poor oral intake, vomiting, and diarrhea Potassium was replenished. (7) Anxiety with depression: Plan: -[employer] sertraline and Ativan (8) Benign familial tremor: Plan: -[employer] propranolol (9) COPD (chronic obstructive pulmonary disease): Plan: -[employer] albuterol and incentive spirometry (10) Dyslipidemia: Plan: -[employer] Statin (11) HTN (hypertension): Plan: -Only on Propranolol for tremor Admission and Anticipated Discharge Date Admission Date: October 02, 2021 Subjective Patient reports feeling better. She has no new complaints. Daughter is at bedside. Review of Systems Review of Systems: All systems reviewed & are unremarkable except as noted in HPI & below Physical Exam Physical Exam: General: In no acute distress, stated age, chronically ill- appearing, ANSWERING QUESTIONS APPROPRIATELY. HEENT: Normocephalic, atraumatic, no scleral icterus, pupils around round, symmetrical, and reactive to light,trachea midline, no thyromegaly Chest/Pulm: No respiratory distress, symmetrical chest expansion, clear breath sounds throughout Cardiac: RRR, no murmurs noted Abdomen: Negative for ascites and bruising, normoactive bowel sounds, soft, non- tender to palpation throughout Musculoskeletal: Patient is non-tender to palpation over the entire spine, tenderness to palpation over the BL flanks, Symmetrical and without signs of acute trauma, upper and lower extremities with full ROM, no atrophy, spasticity, or flaccidity Extremities: Radial, dorsalis pedis, and posterior tibial pulses are intact and symmetrical, no edema noted in the BL LE's Skin: Warm, dry, no rashes , lesions, or scars noted Neuro: Alert and oriented to person, place, month, year, and president, no focal defects, CN II-XII tested and intact, finger to nose test negative, no tremors noted Psych: No acute distress, calm and cooperative during the exam PG Care Time/CCT Total # of Minutes Spent Total Time Spent with Patient: Total time spent is greater than 50% in coordination of care (as documented) at patient's floor/unit and/or counseling patient: Coding Level of Care Code 06768 Subseq Hosp Care Lvl 3 Diagnoses COVID-19 U07.1 Nausea & vomiting R11.2 Diarrhea R19.7 Low back pain M54.50 SINDY (acute kidney injury) N17.9 Acute hypokalemia E87.6 Anxiety with depression F41.8 Benign familial tremor G25.0 COPD (chronic obstructive pulmonary disease) J43.9 COPD type: emphysema Emphysema type: unspecified Dyslipidemia E78.5 HTN (hypertension) I10 Time Spent (min) 35 Comment updated daughter at bedside. (1) COPD (chronic obstructive pulmonary disease) COPD type: emphysema Emphysema type: unspecified Qualified Code(s): J43.9 - Emphysema, unspecified
[2021-10-04] MEDS ORDERED: MELATONIN 3 MG TAB PO PRN (23:53)
[2021-10-05] MEDS: HEPARIN SOD 5,000 UNIT/0.5 ML VIAL SQ SCH ×3 (05:03→21:14)
[2021-10-05 07:22] LABS: Hematocrit (blood only) 29.1 % (34.1-44.9); Hemoglobin 9.5 g/dl (12.0-16.0); Mean Corpuscular Hemoglobin 30.2 pg (25.0-34.0); Mean Corpuscular Hgb Conc 32.6 g/dL (32.0-36.0); Mean Corpuscular Volume 92.4 fL (80.0-100.0); Mean Platelet Volume 9.8 fL (9.4-12.3); Platelet Count 443 K/uL (130-400); RDW Coefficient of Variation 13.8 % (11.5-14.5); Red Blood Count 3.15 M/uL (3.93-5.22); White Blood Count 8.49 K/ul (4.8-10.8)
[2021-10-05 07:49] LABS: BUN Creatinine Ratio 8.9 (10-20); Calcium 8.9 mg/dl (8.5-10.1); Creatinine Clr Calc Pharmacy 31.2 ml/min; Est GFR (African American) 37.3 ml/min; Est GFR (Non-African American) 32.2 ml/min; Potassium 3.1 mmol/L (3.5-5.1)
[2021-10-05] MEDS: dexAMETHasone 1 MG TAB PO SCH (09:47)
[2021-10-05] MEDS: CALCITONIN SALMON NA 200 IU/AC 3.7 ML BTL SCH (09:47)
[2021-10-05] MEDS: SERTRALINE HCL 100 MG TABLET PO SCH (09:47)
[2021-10-05] MEDS: PANTOprazole 40 MG TAB PO SCH (09:47)
[2021-10-05] MEDS: PROPRANOLOL HCL 10 MG TAB PO SCH (09:48)
[2021-10-05] MEDS: POTASSIUM CHLORIDE CRTAB 20 MEQ TABCR PO SCH ×3 (09:48→21:14)
[2021-10-05] MEDS ORDERED: SODIUM CHLORIDE 0.9% 1000ML 1,000 ML IV SCH (15:15)
--- NOTE | 2021-10-05 21:10 | Hospitalist Progress Note ---
Date of Service October 05, 2021 Assessment & Plan (1) COVID-19: Plan: Patient is now in PCU. Requiring oxygen: 2 liters nasal cannula. Added decadron. Appears she was diagnosed with COVID earlier in the month and placed on an antiviral Will continue to monitor. Possible discharge on Tuesday. Awaiting improvement in her renal function. Will touch base with he oncologist. (2) Nausea & vomiting: Plan: -At this time the patient's etiology of her nausea and vomiting is most likely associated with gastroenteritis but another infectious etiology cannot be ruled out at this time -Patient's nausea and vomiting is currently well-controlled -Mild leukocytosis without left shift, will add on procal now to help determine if she has some bacterial infection -Lacte was WNL -Stool studies already ordered -Hold antidiarrheal meds until we can ruleout an infectious etiology -Will review admission EKG and order antiemetic if QTc is ok Her nausea vomiting, appears to have improved. (3) Diarrhea: Plan: -See nausea and vomiting Diarrhea likely was due to viral illness. Perhaps from COVID. (4) Low back pain: Plan: -Patient found to have an subacute mild superior endplate compression fracture at L1. No associated retropulsion -The L1 compression fracture is most likely the etiology of the patient's back pain but also need to rule out possible pyelonephritis -Patient's UA is dirty but she is without dysuria, difficult to determine if pain with CVA tenderness testing is from the L1 compression fracture or possible pyelo -CT showed Mild bilateral perinephric edema, left greater than right. They noted that it is likely chronic in nature -Patient has mild leukocytosis but no left shift, lactate is WNL, will add on procal now -Will hold off on antibiotics for now as infection is lower on the differential at this time -Orthopedics consulted to see if they would recommend bracing for the L1 compression fracture -Ordered 25 hydroxy Vit D with her new compression fracture Appreciate input from ortho on 10/04 No need for brace. (5) SINDY (acute kidney injury): Plan: -Cr noted to be 2.5, not below 2, baseline appears to be around 1.0 -Likely a combination of dehydration and NSAID use -Will continue with another liter of IV hydration -Continue to monitor renal function and electrolytes with AM labs -Avoid nephrotoxic agents (6) Acute hypokalemia: Plan: -Noted to be at 2.9 in the ED -Likely from poor oral intake, vomiting, and diarrhea Potassium was replenished. (7) Anxiety with depression: Plan: -[employer] sertraline and Ativan (8) Benign familial tremor: Plan: -[employer] propranolol (9) COPD (chronic obstructive pulmonary disease): Plan: -[employer] albuterol and incentive spirometry (10) Dyslipidemia: Plan: -[employer] Statin (11) HTN (hypertension): Plan: -Only on Propranolol for tremor Admission and Anticipated Discharge Date Admission Date: October 02, 2021 Subjective 60 yo female reports feeling better. She has no new complaints. Her diarrhea has subsided. Review of Systems Review of Systems: All systems reviewed & are unremarkable except as noted in HPI & below Physical Exam Physical Exam: General: In no acute distress, stated age, chronically ill- appearing, ANSWERING QUESTIONS APPROPRIATELY. HEENT: Normocephalic, atraumatic, no scleral icterus, pupils around round, symmetrical, and reactive to light,trachea midline, no thyromegaly Chest/Pulm: No respiratory distress, symmetrical chest expansion, clear breath sounds throughout Cardiac: RRR, no murmurs noted Abdomen: Negative for ascites and bruising, normoactive bowel sounds, soft, non- tender to palpation throughout Musculoskeletal: Patient is non-tender to palpation over the entire spine, tenderness to palpation over the BL flanks, Symmetrical and without signs of acute trauma, upper and lower extremities with full ROM, no atrophy, spasticity, or flaccidity Extremities: Radial, dorsalis pedis, and posterior tibial pulses are intact and symmetrical, no edema noted in the BL LE's Skin: Warm, dry, no rashes , lesions, or scars noted Neuro: Alert and oriented to person, place, month, year, and president, no focal defects, CN II-XII tested and intact, finger to nose test negative, no tremors noted Psych: No acute distress, calm and cooperative during the exam Results & Data Results & Data ([facility]) Vital Signs (Past 12 Hours) Vital Signs Temp Pulse Resp BP Pulse Ox Pulse Ox O2 Del Method 10/05/21 17:09 36.7 C 91 H 18 121/74 98 Nasal Cannula 10/05/21 14:08 98 O2 Flow Rate O2 Flow Rate 10/05/21 17:09 2 10/05/21 14:08 2 PG Care Time/CCT Total # of Minutes Spent Total Time Spent with Patient: Total time spent is greater than 50% in coordination of care (as documented) at patient's floor/unit and/or counseling patient: Coding Level of Care Code 73931 Subseq Hosp Care Lvl 2 Diagnoses COVID-19 U07.1 Nausea & vomiting R11.2 Diarrhea R19.7 Low back pain M54.50 SINDY (acute kidney injury) N17.9 Acute hypokalemia E87.6 Anxiety with depression F41.8 Benign familial tremor G25.0 COPD (chronic obstructive pulmonary disease) J43.9 COPD type: emphysema Emphysema type: unspecified Dyslipidemia E78.5 HTN (hypertension) I10 (1) COPD (chronic obstructive pulmonary disease) COPD type: emphysema Emphysema type: unspecified Qualified Code(s): J43.9 - Emphysema, unspecified
[2021-10-05] MEDS: LIDOCAINE 5% 1 PATCH TD SCH (21:14)
[2021-10-06] MEDS: HEPARIN SOD 5,000 UNIT/0.5 ML VIAL SQ SCH ×3 (05:48→21:48)
[2021-10-06] MEDS: PROPRANOLOL HCL 10 MG TAB PO SCH (08:01)
[2021-10-06] MEDS: dexAMETHasone 1 MG TAB PO SCH (08:12)
[2021-10-06] MEDS: SERTRALINE HCL 100 MG TABLET PO SCH (08:13)
[2021-10-06] MEDS: POTASSIUM CHLORIDE CRTAB 20 MEQ TABCR PO SCH ×3 (08:13→20:53)
[2021-10-06] MEDS: PANTOprazole 40 MG TAB PO SCH (08:13)
[2021-10-06] MEDS: CALCITONIN SALMON NA 200 IU/AC 3.7 ML BTL SCH (08:14)
[2021-10-06 12:30] LABS: Hematocrit (blood only) 29.2 % (34.1-44.9); Hemoglobin 9.6 g/dl (12.0-16.0); Mean Corpuscular Hemoglobin 30.6 pg (25.0-34.0); Mean Corpuscular Hgb Conc 32.9 g/dL (32.0-36.0); Mean Platelet Volume 9.6 fL (9.4-12.3); Platelet Count 389 K/uL (130-400); RDW Standard Deviation 47.1 fL (36.4-46.3); Red Blood Count 3.14 M/uL (3.93-5.22); White Blood Count 7.45 K/ul (4.8-10.8)
[2021-10-06 12:54] LABS: Albumin Globulin Ratio 1.1 (0.9-2); Albumin Level 3.2 gm/dl (3.4-5.0); BUN Creatinine Ratio 7.2 (10-20); Bilirubin,Total 0.3 mg/dl (0.2-1.0); C Reactive Protein 7.15 mg/dl (0-0.5); Calcium 8.7 mg/dl (8.5-10.1); Est GFR (African American) 47.4 ml/min; Est GFR (Non-African American) 40.9 ml/min; Potassium 3.5 mmol/L (3.5-5.1); Total Protein 6.2 gm/dl (6.0-8.3)
--- NOTE | 2021-10-06 18:44 | Hospitalist Progress Note ---
Date of Service October 06, 2021 Assessment & Plan (1) COVID-19: Plan: Patient is now in PCU. Requiring oxygen: 2 liters nasal cannula. Added decadron. Appears she was diagnosed with COVID earlier in the month and placed on an antiviral Will continue to monitor. Possible discharge on Tuesday. Awaiting improvement in her renal function. Renal function is close to baseline. Will likel to monitor if BP improves, now that she is off IVF. Assess if her BP is stable without and parenteral fluid. Cuff appears slightly too large, dayo obtain shorter cuff. Will touch base with her oncologist. (2) Nausea & vomiting: Plan: -At this time the patient's etiology of her nausea and vomiting is most likely associated with gastroenteritis but another infectious etiology cannot be ruled out at this time -Patient's nausea and vomiting is currently well-controlled -Mild leukocytosis without left shift, will add on procal now to help determine if she has some bacterial infection -Lacte was WNL -Stool studies already ordered -Hold antidiarrheal meds until we can ruleout an infectious etiology -Will review admission EKG and order antiemetic if QTc is ok Her nausea vomiting, appears to have improved. (3) Diarrhea: Plan: -See nausea and vomiting Diarrhea likely was due to viral illness. Perhaps from COVID. (4) Low back pain: Plan: -Patient found to have an subacute mild superior endplate compression fracture at L1. No associated retropulsion -The L1 compression fracture is most likely the etiology of the patient's back pain but also need to rule out possible pyelonephritis -Patient's UA is dirty but she is without dysuria, difficult to determine if pain with CVA tenderness testing is from the L1 compression fracture or possible pyelo -CT showed Mild bilateral perinephric edema, left greater than right. They noted that it is likely chronic in nature -Patient has mild leukocytosis but no left shift, lactate is WNL, will add on procal now -Will hold off on antibiotics for now as infection is lower on the differential at this time -Orthopedics consulted to see if they would recommend bracing for the L1 compression fracture -Ordered 25 hydroxy Vit D with her new compression fracture Appreciate input from ortho on 10/04 No need for brace. (5) SINDY (acute kidney injury): Plan: -Cr noted to be 2.5, not below 2, baseline appears to be around 1.0 -Likely a combination of dehydration and NSAID use -Will continue with another liter of IV hydration -Continue to monitor renal function and electrolytes with AM labs -Avoid nephrotoxic agents (6) Acute hypokalemia: Plan: -Noted to be at 2.9 in the ED -Likely from poor oral intake, vomiting, and diarrhea Potassium was replenished. (7) Anxiety with depression: Plan: -FUR BLOWING MACHINE ATTENDANT sertraline and Ativan (8) Benign familial tremor: Plan: -FUR BLOWING MACHINE ATTENDANT propranolol (9) COPD (chronic obstructive pulmonary disease): Plan: -FUR BLOWING MACHINE ATTENDANT albuterol and incentive spirometry (10) Dyslipidemia: Plan: -FUR BLOWING MACHINE ATTENDANT Statin (11) HTN (hypertension): Plan: -Only on Propranolol for tremor Admission and Anticipated Discharge Date Admission Date: October 02, 2021 Subjective 60 yo female reports feeling better. She has no new complaints. She is concerned about her BP being lower. Review of Systems Review of Systems: All systems reviewed & are unremarkable except as noted in HPI & below Physical Exam Physical Exam: General: In no acute distress, stated age, chronically ill- appearing, ANSWERING QUESTIONS APPROPRIATELY. HEENT: Normocephalic, atraumatic, no scleral icterus, pupils around round, symmetrical, and reactive to light,trachea midline, no thyromegaly Chest/Pulm: No respiratory distress, symmetrical chest expansion, clear breath sounds throughout Cardiac: RRR, no murmurs noted Abdomen: Negative for ascites and bruising, normoactive bowel sounds, soft, non- tender to palpation throughout Musculoskeletal: Patient is non-tender to palpation over the entire spine, tenderness to palpation over the BL flanks, Symmetrical and without signs of acute trauma, upper and lower extremities with full ROM, no atrophy, spasticity, or flaccidity Extremities: Radial, dorsalis pedis, and posterior tibial pulses are intact and symmetrical, no edema noted in the BL LE's Skin: Warm, dry, no rashes , lesions, or scars noted Neuro: Alert and oriented to person, place, month, year, and president, no focal defects, CN II-XII tested and intact, finger to nose test negative, no tremors noted Psych: No acute distress, calm and cooperative during the exam Results & Data Results & Data ([facility]) Vital Signs (Past 12 Hours) Vital Signs Temp Pulse Pulse Pulse Pulse Pulse Resp 10/06/21 13:52 104 H 115 H 92 H 97 H 10/06/21 09:00 10/06/21 07:47 36.6 C 97 H 18 10/06/21 07:19 36.5 C 97 H 18 Resp Resp Resp Resp BP Pulse Ox Pulse Ox 10/06/21 13:52 20 20 20 18 94 10/06/21 09:00 10/06/21 07:47 93/68 L 94 10/06/21 07:19 106/72 98 Pulse Ox Pulse Ox Pulse Ox O2 Del Method O2 Flow Rate O2 Flow Rate O2 Flow Rate 10/06/21 13:52 87 L 96 93 2 2 10/06/21 09:00 Nasal Cannula 2 10/06/21 07:47 Nasal Cannula 2 10/06/21 07:19 Nasal Cannula 2 PG Care Time/CCT Total # of Minutes Spent Total Time Spent with Patient: Total time spent is greater than 50% in coordination of care (as documented) at patient's floor/unit and/or counseling patient: Coding Level of Care Code 01731 Subseq Hosp Care Lvl 2 Diagnoses COVID-19 U07.1 Nausea & vomiting R11.2 Diarrhea R19.7 Low back pain M54.50 SINDY (acute kidney injury) N17.9 Acute hypokalemia E87.6 Anxiety with depression F41.8 Benign familial tremor G25.0 COPD (chronic obstructive pulmonary disease) J43.9 COPD type: emphysema Emphysema type: unspecified Dyslipidemia E78.5 HTN (hypertension) I10 Time Spent (min) 25 (1) COPD (chronic obstructive pulmonary disease) COPD type: emphysema Emphysema type: unspecified Qualified Code(s): J43.9 - Emphysema, unspecified
[2021-10-06] MEDS: LORazepam 0.5 MG TAB PO PRN (20:53)
[2021-10-06] MEDS: LIDOCAINE 5% 1 PATCH TD SCH (20:54)
[2021-10-07 06:24] LABS: Hematocrit (blood only) 26.5 % (34.1-44.9); Hemoglobin 8.7 g/dl (12.0-16.0); Mean Corpuscular Hemoglobin 30.5 pg (25.0-34.0); Mean Corpuscular Hgb Conc 32.8 g/dL (32.0-36.0); Mean Platelet Volume 9.7 fL (9.4-12.3); Platelet Count 369 K/uL (130-400); RDW Coefficient of Variation 13.8 % (11.5-14.5); RDW Standard Deviation 47.1 fL (36.4-46.3); Red Blood Count 2.85 M/uL (3.93-5.22); White Blood Count 7.05 K/ul (4.8-10.8)
[2021-10-07 06:50] LABS: BUN Creatinine Ratio 6.1 (10-20); Bilirubin,Total 0.3 mg/dl (0.2-1.0); C Reactive Protein 6.95 mg/dl (0-0.5); Calcium 8.7 mg/dl (8.5-10.1); Creatinine Clr Calc Pharmacy 39.8 ml/min; Est GFR (Non-African American) 43.1 ml/min; Globulin 2.9 gm/dl (2.5-4.0); Total Protein 5.9 gm/dl (6.0-8.3)
[2021-10-07] MEDS: HEPARIN SOD 5,000 UNIT/0.5 ML VIAL SQ SCH ×2 (07:09→13:40)
[2021-10-07] MEDS ORDERED: POTASSIUM CHLORIDE CRTAB 20 MEQ TABCR PO STA (08:21)
[2021-10-07] MEDS: dexAMETHasone 1 MG TAB PO SCH (08:51)
[2021-10-07] MEDS: CALCITONIN SALMON NA 200 IU/AC 3.7 ML BTL SCH (08:51)
[2021-10-07] MEDS: PROPRANOLOL HCL 10 MG TAB PO SCH (08:51)
[2021-10-07] MEDS: SERTRALINE HCL 100 MG TABLET PO SCH (08:51)
[2021-10-07] MEDS: PANTOprazole 40 MG TAB PO SCH (08:51)
[2021-10-07 15:35] LABS: Folate (Folic Acid) 6.94 ng/ml (>5.38)
[2021-10-07 15:41] LABS: Ferritin 450.8 ng/ml (8-388)
--- NOTE | 2021-10-07 23:46 | Discharge Summary ---
Date of Service October 07, 2021 Principal Diagnosis COVID 19 Discharge Exam General: In no acute distress, stated age, chronically ill-appearing, ANSWERING QUESTIONS APPROPRIATELY. HEENT: Normocephalic, atraumatic, no scleral icterus, pupils around round, symmetrical, and reactive to light,trachea midline, no thyromegaly Chest/Pulm: No respiratory distress, symmetrical chest expansion, clear breath sounds throughout Cardiac: RRR, no murmurs noted Abdomen: Negative for ascites and bruising, normoactive bowel sounds, soft, non- tender to palpation throughout Musculoskeletal: Patient is non-tender to palpation over the entire spine, tenderness to palpation over the BL flanks, Symmetrical and without signs of acute trauma, upper and lower extremities with full ROM, no atrophy, spasticity, or flaccidity Extremities: Radial, dorsalis pedis, and posterior tibial pulses are intact and symmetrical, no edema noted in the BL LE's Skin: Warm, dry, no rashes , lesions, or scars noted Neuro: Alert and oriented to person, place, month, year, and president, no focal defects, CN II-XII tested and intact, finger to nose test negative, no tremors noted Psych: No acute distress, calm and cooperative during the exam Discharge Data Allergies Allergy/AdvReac Type Severity Reaction Status Date / Time Sulfa (Sulfonamide Allergy Severe RASH Verified 10/02/21 16:46 Antibiotics) sulfamethoxazole Allergy Severe RASH Verified 10/02/21 16:46 trimethoprim Allergy Severe RASH Verified 10/02/21 16:46 tiotropium Allergy Intermediate Rash Verified 10/02/21 16:46 [From Spiriva with HandiHaler] amlodipine AdvReac Unknown Fatigue Verified 10/02/21 16:46 Consultations 10/03/21 09:51 Consult Orthopedic Surgery Routine Ordered Studies 10/02/21 12:58 CT abd pelvis wo con Stat Hospital Course (1) COVID-19: 1) COVID-19: Plan: Patient is now in PCU. Requiring oxygen: 2 liters nasal cannula. Added decadron. Appears she was diagnosed with COVID earlier in the month and placed on an antiviral Will continue to monitor. Possible discharge on Tuesday. Awaiting improvement in her renal function. Renal function is close to baseline. Will likel to monitor if BP improves, now that she is off IVF. Assess if her BP is stable without and parenteral fluid. Cuff appears slightly too large, dayo obtain shorter cuff. Oncologist agrees with dexamethasone. will repeat blood work at 1 week folllowup. Anemia is likely multifactorial: iron studies suggest AOCD (2) Nausea & vomiting: Plan: -At this time the patient's etiology of her nausea and vomiting is most likely associated with gastroenteritis but another infectious etiology cannot be ruled out at this time -Patient's nausea and vomiting is currently well-controlled -Mild leukocytosis without left shift, will add on procal now to help determine if she has some bacterial infection -Lacte was WNL -Stool studies already ordered -Hold antidiarrheal meds until we can ruleout an infectious etiology Her nausea vomiting, appears to have improved. (3) Diarrhea: Plan: -See nausea and vomiting Diarrhea likely was due to viral illness. Perhaps from COVID. (4) Low back pain: Plan: -Patient found to have ansubacute mild superior endplate compression fracture at L1. No associated retropulsion -The L1 compression fracture is most likely the etiology of the patient's back pain but also need to rule out possible pyelonephritis -Patient's UA is dirty but she is without dysuria, difficult to determine if pain with CVA tenderness testing is from the L1 compression fracture or possible pyelo -CT showed Mild bilateral perinephric edema, left greater than right. They noted that it is likely chronic in nature -Patient has mild leukocytosis but no left shift, lactate is WNL, will add on procal now -Will hold off on antibiotics for now as infection is lower on the differential at this time -Orthopedics consulted to see if they would recommend bracing for the L1 compression fracture -Ordered 25 hydroxy Vit D with her new compression fracture: below 20 will discharge on vitamin D supplements Appreciate input from ortho on 10/04 No need for brace. (5) SINDY (acute kidney injury): Plan: -Cr noted to be 2.5, not below 2, baseline appears to be around 1.0 -Likely a combination of dehydration and NSAID use -Will continue with another liter of IV hydration -Continue to monitor renal function and electrolytes with AM labs -Avoid nephrotoxic agents (6) Acute hypokalemia: Plan: -Noted to be at 2.9 in the ED -Likely from poor oral intake, vomiting, and diarrhea Potassium was replenished. (7) Anxiety with depression: Plan: -SPECIAL EFFECTS SPECIALIST sertraline and Ativan (8) Benign familial tremor: Plan: -SPECIAL EFFECTS SPECIALIST propranolol (9) COPD (chronic obstructive pulmonary disease): Plan: -SPECIAL EFFECTS SPECIALIST albuterol and incentive spirometry (10) Dyslipidemia: Plan: -SPECIAL EFFECTS SPECIALIST Statin (11) HTN (hypertension): Plan: -Only on Propranolol for tremor (2) Nausea & vomiting: (3) Diarrhea: (4) Low back pain: (5) SINDY (acute kidney injury): (6) Acute hypokalemia: (7) Anxiety with depression: (8) Benign familial tremor: (9) COPD (chronic obstructive pulmonary disease): (10) Dyslipidemia: (11) HTN (hypertension): Total Time Total Time Spent Total Time Spent (In Minutes): 35 Discharge Plan Discharge Items Patient Disposition: Home - Self-Care Reason For Visit: NAUSEA, VOMITING, BACK PAIN Discharge Diagnosis: l1 compression fracture Activity: Resume your previous activity Non-emergency contact: Primary Care Provider Call non-emergency contact if: you have any medication questions Follow-up/Referrals: Crystal Khan CRNP [Primary Care Provider] - Gwendolyn Noyola PA-C [Physician Certified Medical Dosimetrist] - 10/21/21 10:15 am Diet: Heart Healthy Addtl Attending Provider Instructions: Good afternoon Mrs. Navarro, You were treated for COVID 19. You will be discharged on 2 liters oxygen on nasal cannula. You will also complete 5 days of dexamethasone. You came in with a fall which caused a fracture in your lumbar spine. Will recommend to continue calcitonin spray for another 24 days. This should help with the pain. Also please take tylenol 650 mg every 8 h to help with your pain. I also prescribed lidocaine patches 5%. Will recommend followup with PCP in 1-2 weeks. In regards to your kidney function, this has improved. Will recommend rechecking your kidney function in one week. Also recommend checking your blood level. Will defer to your PCP. Your serum vitamin D levels was in the range of 12 to 20 ng/mL, we initially supplement with 800 to 1000 international units (20 to 25 micrograms) daily. A repeat serum 25(OH)D level should be obtained after approximately three months of therapy to assure obtaining the goal serum level. In regards to your steroids, continue decadron for 5 more days. Please taper your propranolol to every 48 hours. Discuss with your PCP, if the benefit of tremor control is worth the lower blood pressure. It was a pleasure taking care of you. I wish you the best. Armond Cooney MD Pending Studies at Discharge: No Stand-Alone Forms: My [facility], Smoking Cessation Medications and DC Order Prescriptions: New calcitonin (salmon) 200 unit/actuation [place],Non-Aerosol 1 spray NA DAILY 24 Days Qty: 3.7 0RF lidocaine 5 % Adhesive Patch,Medicated 1 patch transdermal HS Qty: 15 0RF Rx Instructions: apply to most painful spot. apply for 12 hours/ remove for 12 hours cholecalciferol (vitamin D3) [Vitamin D3] 25 mcg (1,000 unit) tablet 25 mcg PO DAILY 90 Days Qty: 90 0RF dexamethasone 6 mg tablet 6 mg PO DAILY Qty: 5 0RF Continued sertraline 100 mg tablet 100 mg PO DAILY Qty: 90 3RF cyclobenzaprine 10 mg tablet 10 mg PO TID PRN (Reason: muscle spasm) Qty: 30 0RF acetaminophen 500 mg capsule 1,000 mg PO Q8H PRN (Reason: Pain) ondansetron HCl 8 mg tablet 8 mg PO Q8H PRN (Reason: nausea and vomiting) lorazepam 0.5 mg tablet 0.5 - 1 mg PO BID PRN (Reason: anxiety) pantoprazole [Protonix] 40 mg Tablet,Delayed Release (Dr/Ec) 40 mg PO QAM Changed propranolol 60 mg tablet 30 mg PO Q2D Qty: 45 3RF Discontinued Keytruda 25 mg/mL solution 400 mg IV UD Rx Instructions: Q 3 weeks Discharge Orders: Discharge Order (Routine); Ordered 10/07/21 Ordered By: Armond Cooney Admission Data Admit Date/Time: 10/02/21 16:12 Attending Provider: Armond Cooney Admit Provider: Jamal Siegel Primary Care Provider: Crystal Khan Other Providers: Germain Sargent Other Interventions: Discharge Summary Assessment (RN) Last Done: 10/07/21 17:08 Coding Level of Care Code D/C DAY MANAGEMENT >30 MINS Diagnoses COVID-19 U07.1 Nausea & vomiting R11.2 Diarrhea R19.7 Low back pain M54.50 SINDY (acute kidney injury) N17.9 Acute hypokalemia E87.6 Anxiety with depression F41.8 Benign familial tremor G25.0 COPD (chronic obstructive pulmonary disease) J43.9 COPD type: emphysema Emphysema type: unspecified Dyslipidemia E78.5 HTN (hypertension) I10
== END 2021-10-07 18:44 | disposition home or self-care (01) | DRG 178 ==
LOC: ED 10:14 → EDINP 16:12 → SUATTDRO 16:12 → 2E 19:36

== ENCOUNTER 2021-10-16 09:32 | Observation (INO) ==
[2021-10-16] MEDS ORDERED: ONDANSETRON INJ 2 MG/ML 2 ML VIAL IV STA (10:28)
[2021-10-16] MEDS ORDERED: SODIUM CHLORIDE 0.9% 1000ML 1,000 ML IV SCH (10:30)
--- NOTE | 2021-10-16 10:38 | Emergency Department Note ---
Impression & Plan Hypotension, SINDY (acute kidney injury), Hypokalemia, Hypomagnesemia, Weakness, Acute hyponatremia ED Provider Note NAME: THANIA HAMILTON AGE: 60 SEX: F : 1960 ARRIVES VIA: Walk-In INFORMANT: [Patient] ED PROVIDER(S): [Gregorio Martínez MD] CHIEF COMPLAINT: Illness HISTORY OF PRESENT ILLNESS: The patient is a 60-year-old female who was hospitalized at [facility] just over a week ago. She was in for acute kidney injury, a low potassium and COVID- 19. The patient was discharged and doing fairly well. Over the last couple of days, she has noticed some fatigue, nausea vomiting, increased weakness. She has no appetite. She has some intermittent abdominal pain which is more of a chronic issue. She has not noticed a fever but today at hematology oncology, she was told that she had a mild temperature elevation. The patient had lab work today at hematology oncology that showed a low potassium and high creatinine. She did notice some burning to urinate when giving her sample today. There has been no cough, no shortness of breath. No known sick contacts. She does have Zofran at home to help with nausea and vomiting although, it has not been very effective. She was referred to the ER by hematology oncology. REVIEW OF SYSTEMS: See HPI for pertinent positives and negatives. A total of ten systems were reviewed and were otherwise negative. PMHx/PSHx: See Below SOCIAL HISTORY: See Below. PHYSICAL EXAM: GENERAL: Patient is in no acute distress. HEENT: No acute trauma, normocephalic atraumatic, mucous membranes moist, no nasal congestion, no scleral icterus. NECK: No stridor, no adenopathy, no meningismus, trachea is midline. LUNGS: Clear to auscultation bilaterally, no wheeze, no rhonchi, breath sounds equal. HEART: Without murmurs gallops or rubs, regular rate and rhythm. Heart tones are quite distant. ABDOMEN: Soft, nontender, bowel sounds positive, no peritonitis. EXTREMITIES: No cyanosis or edema, full range of motion of all the joints without pain or difficulty, no signs for acute trauma. NEUROLOGIC: Oriented x 3, no acute motor or sensory deficits, no focal weakness. SKIN: No rash, no jaundice, no diaphoresis. Somewhat pale. DIFFERENTIAL DIAGNOSIS: Infection, dehydration, UTI, COVID-19, metabolic abnormality, hypo/hyperglycemia, electrolyte disturbance, anemia, hypoxia, cardiac sources, intracerebral event, as well as other pathologies. EMERGENCY DEPARTMENT COURSE/PROCEDURES: ECG: Indication was weakness. The ECG shows a sinus tachycardia with a rate of 116. There is ST depression in the inferior and lateral leads. There is some mild ST elevation in aVR. No PVCs. The QTC is 533. Compared to an ECG from 02 October 2021, the ST and T wave changes appear more pronounced. Continuous Cardiac Monitoring: An order was placed for continuous cardiac monitoring. The monitor shows a rate of 115 with sinus tachycardia. Critical Care Note: I have personally spent 47 minutes of critical care time in the direct management of this patient. This includes bedside care, interpretation of diagnostic studies, and testing, discussion with consultants, patient, and family members, and other required patient management activities. This 47 minutes is in excess of all separately billable procedures. MEDICAL DECISION MAKING: There is a mild leukocytosis at 14,000, this could be consistent with infection or the stress of her current situation. A mild anemia was noted. There was a normal platelet count. PTT mildly elevated. The INR was normal. Renal panel t esting shows some acute kidney injury, a low potassium and low sodium. Magnesium was low. ECG showed a sinus tachycardia, no ST elevation. There were some ST depressions but the ECG appears similar to previous ECGs. Cardiac enzyme testing x1 was not consistent with acute cardiac injury. No concerning liver enzyme elevation. The patient appeared to be in a euthyroid state. COVID test returned negative. Chest x-ray did not show pneumonia or CHF. Abdominal and pelvis CT showed some chronic findings, no bowel obstruction, no concerning surgical pathology. The patient received IV saline, 1.5 L. She was given IV potassium, IV magnesium, she received IV morphine and IV Zofran. Her blood pressure and heart rate improved. The patient presents hypotensive, tachycardic. She has significant electrolyte abnormalities and is in acute kidney injury. He has not been eating well and has had some vomiting. I do think she is quite dehydrated and will require a hospital stay. I spoke with case management, I talked to the patient and her family. The on-call hospitalist was consulted. Past Med/Surg History Medical History Anxiety Diverticulosis of colon Dyslipidemia Emphysema lung COPD - WELL CONTROLLED W/ INHALER History of brain tumor HTN (hypertension) Hydrocephalus SHUNT PLACED 07/2021-[facility] Lung cancer TREATED W/ CHEMO AND RADIATION AT SAME TIME BRAIN CA 04/2020 [facility] Malignant neoplasm metastatic to brain RADIATION AND CHEMO DONE AFTER TUMOR REMOVED- CURRENTLY ON IMMUNOTHERAPY Q 2 MOS ON KEYTRUDA DUE 08/28/21- [facility] ONC Osteopenia Vitamin D deficiency Surgical History H/O brain surgery malignant tumor excised from occipital lobe 04/2020-[facility] History of bilateral tubal ligation History of brain shunt 07/2021 [facility]- CURRENTLY IN PLACE; DRAINING INTO ABDOMEN FOR SWELLING AROUND AREA WHERE TUMOR WAS REMOVED History of endometrial biopsy S/P colonoscopy Family History Sister Colonic polyp Social History Smoking Status: Never smoker Tobacco Type: Cigarettes Second Hand Exposure: No; Hx Alcohol Use: No Hx Substance Use: No Preferred Language: Icelandic Communication Ability: Effective Licensed Funeral Director Required: No Beliefs That Will Affect Care: None marital status: Current Living Situation: Spouse Feels Safe at Home: Yes Assistive Devices: None Allergies Allergies Allergy/AdvReac Type Severity Reaction Status Date / Time Sulfa (Sulfonamide Allergy Severe RASH Verified 10/02/21 16:46 Antibiotics) sulfamethoxazole Allergy Severe RASH Verified 10/02/21 16:46 trimethoprim Allergy Severe RASH Verified 10/02/21 16:46 tiotropium Allergy Intermediate Rash Verified 10/02/21 16:46 [From Spiriva with HandiHaler] amlodipine AdvReac Unknown Fatigue Verified 10/02/21 16:46 Home Meds Home Medications Medication Instructions Recorded Confirmed acetaminophen 500 mg capsule 1,000 mg PO Q8H PRN Pain 04/24/20 10/02/21 ondansetron HCl 8 mg tablet 8 mg PO Q8H PRN nausea and vomiting 06/02/20 10/02/21 pantoprazole 40 mg tablet,delayed 40 mg PO QAM 08/25/21 10/02/21 release (Protonix) Previous Rx's Medication Instructions Recorded sertraline 100 mg tablet 100 mg PO DAILY #90 tabs 08/19/21 cyclobenzaprine 10 mg tablet 10 mg PO TID PRN muscle spasm #30 09/30/21 tabs calcitonin (salmon) 200 1 spray NA DAILY 24 days #3.7 mL 10/07/21 unit/actuation nasal spray cholecalciferol (vitamin D3) 25 25 mcg PO DAILY 3 months #90 tabs 10/07/21 mcg (1,000 unit) tablet (Vitamin D3) dexamethasone 6 mg tablet 6 mg PO DAILY #5 tabs 10/07/21 lidocaine 5 % topical patch 1 patch transdermal HS #15 ea 10/07/21 propranolol 60 mg tablet 30 mg PO Q2D #45 tabs 10/07/21 lorazepam 0.5 mg tablet 0.5 - 1 mg PO BID PRN anxiety #60 10/13/21 tabs Results & Data (ED) Vital Signs Vital Signs - 24 hr 10/16/21 09:41 10/16/21 11:00 10/16/21 11:00 Temperature 37.1 C Temperature Source Oral Pulse Rate 115 H Pulse Rate [Right Finger] 105 H Pulse Rhythm [Right Finger] Regular Pulse Strength [Right Finger] Normal Respiratory Rate 18 18 Respiratory Effort / Characteristics Non-Labored Respiratory Depth Normal Respiratory Pattern Regular Blood Pressure 85/66 L Blood Pressure [Right Arm] 98/66 L Blood Pressure Mean 72 Blood Pressure Mean [Right Arm] 76 Blood Pressure Position [Right Arm] Lying Pulse Oximetry 92 97 Oxygen Delivery Method Room Air Room Air Room Air Oxygen Flow Rate Sepsis Recent Fever Within 48 Hours Yes Sepsis New/Unexplained Change in Mental Status N/A Sepsis Action Taken by Nursing MD Previously Notified 10/16/21 13:00 Temperature Temperature Source Pulse Rate Pulse Rate [Right Finger] 93 H Pulse Rhythm [Right Finger] Regular Pulse Strength [Right Finger] Normal Respiratory Rate 18 Respiratory Effort / Characteristics Non-Labored Respiratory Depth Normal Respiratory Pattern Regular Blood Pressure Blood Pressure [Right Arm] 101/72 Blood Pressure Mean Blood Pressure Mean [Right Arm] 81 Blood Pressure Position [Right Arm] Right Lateral Pulse Oximetry 93 Oxygen Delivery Method Nasal Cannula Oxygen Flow Rate 2 Sepsis Recent Fever Within 48 Hours Sepsis New/Unexplained Change in Mental Status Sepsis Action Taken by Usp Medications Current Medication List: was personally reviewed by me Laboratory Data Attestation: I reviewed the patient's lab results. Result diagrams: 10/16/21 10:51 10/16/21 10:51 Lab Results 10/16/21 10/16/21 10/16/21 Range/Units 10:51 10:51 10:51 WBC 14.07 H (4.8-10.8) K/ul RBC 3.73 L (3.93-5.22) M/uL Hgb 11.1 L (12.0-16.0) g/dl Hct 33.2 L (34.1-44.9) % MCV 89.0 (80.0-100.0) fL MCH 29.8 (25.0-34.0) pg MCHC 33.4 (32.0-36.0) g/dL RDW Std Deviation 44.3 (36.4-46.3) fL RDW Coeff of Agus 13.5 (11.5-14.5) % Plt Count 365 (130-400) K/uL MPV 10.5 (9.4-12.3) fL Immature Gran % (Auto) 1.0 % Neut % (Auto) 75.0 % Lymph % (Auto) 12.7 % [place] % (Auto) 9.6 % Eos % (Auto) 1.3 % Baso % (Auto) 0.4 % Neut # (Auto) 10.56 H (1.4-6.5) K/uL Lymph # (Auto) 1.79 (1.2-3.4) K/uL [place] # (Auto) 1.35 H (0.24-0.82) K/uL Eos # (Auto) 0.18 (0-0.50) K/uL Baso # (Auto) 0.05 (0-0.2) K/uL Immature Gran # (Auto) 0.14 H (0.00-0.02) K/uL PT 11.5 (9.0-12.0) Seconds INR 1.1 (0.9-1.1) APTT 34.6 H (21.0-31.0) Seconds PTT Ratio 1.3 Sodium 130 L (136-145) mmol/L Potassium 2.4 L* (3.5-5.1) mmol/L Chloride 94 L (98-107) mmol/L Carbon Dioxide 23 (21-32) mmol/L Anion Gap 13 H (3-11) BUN 12 (6-23) mg/dl Creatinine 1.98 H (0.6-1.2) mg/dl Est Cr Clr Drug Dosing Not Reportable Est GFR ( Amer) 30.6 ml/min Est GFR (Non-Af Amer) 26.4 ml/min BUN/Creatinine Ratio 6.1 L (10-20) Glucose 93 (70-99(Fasting)) mg/dl Lactate (0.4-2.0) mmol/L Calcium 9.1 (8.5-10.1) mg/dl Magnesium 1.6 L (1.7-2.4) mg/dl Total Bilirubin 0.5 (0.2-1.0) mg/dl AST 16 (13-39) U/L ALT 12 (7-52) U/L Alkaline Phosphatase 67 (34-104) U/L Troponin I High Sens 11.6 (0-14) pg/ml Total Protein 7.0 (6.0-8.3) gm/dl Albumin 3.5 (3.4-5.0) gm/dl Globulin 3.5 (2.5-4.0) gm/dl Albumin/Globulin Ratio 1.0 (0.9-2) TSH (0.300-4.500) uIu/ml SARS-CoV-2, RNA, NAAT (NEGATIVE) 10/16/21 10/16/21 10/16/21 Range/Units 10:51 11:25 12:10 WBC (4.8-10.8) K/ul RBC (3.93-5.22) M/uL Hgb (12.0-16.0) g/dl Hct (34.1-44.9) % MCV (80.0-100.0) fL MCH (25.0-34.0) pg MCHC (32.0-36.0) g/dL RDW Std Deviation (36.4-46.3) fL RDW Coeff of Agus (11.5-14.5) % Plt Count (130-400) K/uL MPV (9.4-12.3) fL Immature Gran % (Auto) % Neut % (Auto) % Lymph % (Auto) % [place] % (Auto) % Eos % (Auto) % Baso % (Auto) % Neut # (Auto) (1.4-6.5) K/uL Lymph # (Auto) (1.2-3.4) K/uL [place] # (Auto) (0.24-0.82) K/uL Eos # (Auto) (0-0.50) K/uL Baso # (Auto) (0-0.2) K/uL Immature Gran # (Auto) (0.00-0.02) K/uL PT (9.0-12.0) Seconds INR (0.9-1.1) APTT (21.0-31.0) Seconds PTT Ratio Sodium (136-145) mmol/L Potassium (3.5-5.1) mmol/L Chloride (98-107) mmol/L Carbon Dioxide (21-32) mmol/L Anion Gap (3-11) BUN (6-23) mg/dl Creatinine (0.6-1.2) mg/dl Est Cr Clr Drug Dosing Est GFR ( Amer) ml/min Est GFR (Non-Af Amer) ml/min BUN/Creatinine Ratio (10-20) Glucose (70-99(Fasting)) mg/dl Lactate 1.2 (0.4-2.0) mmol/L Calcium (8.5-10.1) mg/dl Magnesium (1.7-2.4) mg/dl Total Bilirubin (0.2-1.0) mg/dl AST (13-39) U/L ALT (7-52) U/L Alkaline Phosphatase (34-104) U/L Troponin I High Sens (0-14) pg/ml Total Protein (6.0-8.3) gm/dl Albumin (3.4-5.0) gm/dl Globulin (2.5-4.0) gm/dl Albumin/Globulin Ratio (0.9-2) TSH 2.720 (0.300-4.500) uIu/ml SARS-CoV-2, RNA, NAAT NEGATIVE (NEGATIVE) Administered Medications Morphine Sulfate (Morphine Sulfate 4 Mg/Ml 1 Ml Carp\Vial) 4 mg IV Q30M PRN PRN Reason: Pain Stop: 10/30/21 12:21 Last Admin: 10/16/21 12:39 Dose: 4 mg Documented By: AP Discontinued Medications Sodium Chloride (Nss 1000ml) 1,000 mls @ 999 mls/hr IV .Q1H1M EMI Stop: 10/16/21 11:30 Last Infusion: 10/16/21 12:19 Dose: 0 mls/hr Documented By: Admin: 10/16/21 11:03 Dose: 999 mls/hr Documented By: ABRAHAM Potassium Chloride (K Marcin / Wtr) 10 meq in 100 mls @ 100 mls/hr IV Q1H EMI; Protocol Stop: 10/16/21 13:44 Last Infusion: 10/16/21 14:32 Dose: 0 mls/hr Documented By: Admin: 10/16/21 13:31 Dose: 100 mls/hr Documented By: Infusion: 10/16/21 13:31 Dose: 100 mls/hr Documented By: Admin: 10/16/21 12:38 Dose: 100 mls/hr Documented By: ABRAHAM Magnesium Sulfate/Dextrose (Magnesium Sulfate / D5w) 1 gm in 100 mls @ 100 mls/hr IV Q1H EMI Stop: 10/16/21 13:59 Last Infusion: 10/16/21 14:32 Dose: 0 mls/hr Documented By: Admin: 10/16/21 13:30 Dose: 100 mls/hr Documented By: Infusion: 10/16/21 13:30 Dose: 100 mls/hr Documented By: Admin: 10/16/21 12:43 Dose: 100 mls/hr Documented By: ABRAHAM Sodium Chloride (Nss 1000ml) 500 mls @ 999 mls/hr IV .Q31M ONE Stop: 10/16/21 12:33 Last Infusion: 10/16/21 13:22 Dose: 0 mls/hr Documented By: Admin: 10/16/21 12:38 Dose: 999 mls/hr Documented By: ABRAHAM Ondansetron HCl (Ondansetron Inj 2 Mg/Ml 2 Ml Vial) 4 mg IV NOW STA Stop: 10/16/21 10:29 Last Admin: 10/16/21 11:03 Dose: 4 mg Documented By: ABRAHAM Imaging Data Radiologist's Impression: Chest X-Ray 10/16/21 10:28 XR chest 1V portable CLINICAL HISTORY: weakness TECHNIQUE: Single frontal radiograph of the chest was obtained. Comparison: Comparison is made to chest radiograph 10/02/2021 FINDINGS: Exam is limited by patient rotation. A CUSTOM GRINDER shunt is noted. The cardiomediastinal silhouette is normal. The lungs are clear. No evidence of pleural effusion or pneumothorax. IMPRESSION: No acute chest disease. ACT 112: Negative or not required by law. Electronically signed by: Valentin Coronel M.D. 10/16/2021 11:35 AM Abdomen/Pelvis CT 10/16/21 10:30 CT abd pelvis wo con CLINICAL HISTORY: poss obstruc, vomiting TECHNIQUE: Helical axial images of the abdomen and pelvis were obtained. Aut omated dose lowering techniques and/or adjustment according to patient size were utilized for this exam. This exam was performed without intravenous contrast. CT DOSE: 357.07 mGy.cm COMPARISON: Comparison is made to CT abdomen pelvis 10/02/2021 FINDINGS: Lower chest: No acute abnormality Liver: Unremarkable. No focal lesions are seen. Gallbladder and biliary tree: No calcified gallstones. Normal caliber wall. No intra- or extrahepatic biliary ductal dilation. Pancreas: Unremarkable, no focal lesions. Spleen: Unremarkable. Adrenals: Bilateral adrenal nodules are seen compatible with lipid rich adenomas. Kidneys and ureters: Perinephric stranding is noted bilaterally. Bladder: Unremarkable. Reproductive organs: Unremarkable. Bowel: Diverticulosis is seen without evidence of diverticulitis. The appendix is normal. No evidence of obstruction is seen. Lymph nodes Retroperitoneal: Unremarkable. Pelvic: Unremarkable. Mesenteric: Unremarkable. Peritoneum: A CUSTOM GRINDER shunt catheter is noted. Hyperdense fluid collection in the right mid abdomen adjacent to the anterior abdominal wall unchanged from prior exam. Vessels: Atherosclerotic calcifications are seen. Abdominal wall: There is a moderate fat-containing umbilical hernia. Bones: Degenerative changes in the visualized spine. Chronic compression deformity of L1. IMPRESSION: 1. No acute abnormality and in particular no evidence of obstruction, appendicitis, or colitis. 2. Interval stability of hyperdense fluid collection in the right mid abdomen, favored to be benign and possibly related to old shunt catheter. 3. Abnormalities of CUSTOM GRINDER shunt. 4. Stable bilateral perinephric stranding. 5. Stable fat-containing umbilical hernia. ACT 112: Negative or not required by law. Electronically signed by: Valentin Coronel M.D. 10/16/2021 11:50 AM Discharge Plan Visit Data Chief Complaint: Illness Stated Complaint: KIDNEYS ED Provider: Gregorio Martínez Discharge Problem: Hypotension, SINDY (acute kidney injury), Hypokalemia, Hypomagnesemia, Weakness, Acute hyponatremia Patient Disposition: Admitted As Inpatient Condition: Fair Forms Stand Alone Forms: [facility] [employer] Prescriptions Prescriptions: No Action sertraline 100 mg tablet 100 mg PO DAILY Qty: 90 3RF cyclobenzaprine 10 mg tablet 10 mg PO TID PRN (Reason: muscle spasm) Qty: 30 0RF lorazepam 0.5 mg tablet 0.5 - 1 mg PO BID PRN (Reason: anxiety) Qty: 60 0RF acetaminophen 500 mg capsule 1,000 mg PO Q8H PRN (Reason: Pain) ondansetron HCl 8 mg tablet 8 mg PO Q8H PRN (Reason: nausea and vomiting) calcitonin (salmon) 200 unit/actuation [place],Non-Aerosol 1 spray NA DAILY 24 Days Qty: 3.7 0RF lidocaine 5 % Adhesive Patch,Medicated 1 patch transdermal HS Qty: 15 0RF Rx Instructions: apply to most painful spot. apply for 12 hours/ remove for 12 hours propranolol 60 mg tablet 30 mg PO Q2D Qty: 45 3RF cholecalciferol (vitamin D3) [Vitamin D3] 25 mcg (1,000 unit) tablet 25 mcg PO DAILY 90 Days Qty: 90 0RF dexamethasone 6 mg tablet 6 mg PO DAILY Qty: 5 0RF pantoprazole [Protonix] 40 mg Tablet,Delayed Release (Dr/Ec) 40 mg PO QAM Referrals Referrals: Crystal Khan CRNP [Primary Care Provider] - : Hypotension Qualifiers: Hypotension type: unspecified hypotension type Qualified Code(s): I95.9 - Hypotension, unspecified
[2021-10-16 11:19] LABS: Basophils # (auto) 0.05 K/uL (0-0.2); Basophils % (auto) 0.4 %; Eosinophils # (auto) 0.18 K/uL (0-0.50); Eosinophils % (auto) 1.3 %; Hematocrit (blood only) 33.2 % (34.1-44.9); Hemoglobin 11.1 g/dl (12.0-16.0); Immature Granulocytes # (auto) 0.14 K/uL (0.00-0.02); Lymphocytes # (auto) 1.79 K/uL (1.2-3.4); Lymphocytes % (auto) 12.7 %; Mean Corpuscular Hemoglobin 29.8 pg (25.0-34.0); Mean Corpuscular Hgb Conc 33.4 g/dL (32.0-36.0); Mean Platelet Volume 10.5 fL (9.4-12.3); Monocytes # (auto) 1.35 K/uL (0.24-0.82); Monocytes % (auto) 9.6 %; Neutrophils # (auto) 10.56 K/uL (1.4-6.5); Platelet Count 365 K/uL (130-400); RDW Coefficient of Variation 13.5 % (11.5-14.5); RDW Standard Deviation 44.3 fL (36.4-46.3); Red Blood Count 3.73 M/uL (3.93-5.22); White Blood Count 14.07 K/ul (4.8-10.8)
[2021-10-16 11:24] LABS: INR 1.1 (0.9-1.1); Partial Thromboplastin Ratio 1.3; Partial Thromboplastin Time 34.6 Seconds (21.0-31.0); Prothrombin Time 11.5 Seconds (9.0-12.0)
[2021-10-16 11:35] LABS: Troponin I High Sensitivity 11.6 pg/ml (0-14)
--- NOTE | 2021-10-16 11:37 | XRay Report ---
XR chest 1V portable CLINICAL HISTORY: weakness TECHNIQUE: Single frontal radiograph of the chest was obtained. Comparison: Comparison is made to chest radiograph 10/02/2021 FINDINGS: Exam is limited by patient rotation. A [employer] shunt is noted. The cardiomediastinal silhouette is normal. The lungs are clear. No evidence of pleural effusion or pneumothorax. IMPRESSION: No acute chest disease. ACT 112: Negative or not required by law. Electronically signed by: Valentin Coronel M.D. 10/16/2021 11:35 AM
[2021-10-16 11:44] LABS: Alanine Aminotransferase 12 U/L (7-52); Albumin Level 3.5 gm/dl (3.4-5.0); Alkaline Phosphatase 67 U/L (34-104); Anion Gap 13 (3-11); Aspartate Aminotransferase 16 U/L (13-39); BUN Creatinine Ratio 6.1 (10-20); Bilirubin,Total 0.5 mg/dl (0.2-1.0); Blood Urea Nitrogen 12 mg/dl (6-23); Calcium 9.1 mg/dl (8.5-10.1); Carbon Dioxide 23 mmol/L (21-32); Chloride 94 mmol/L (98-107); Est GFR (African American) 30.6 ml/min; Est GFR (Non-African American) 26.4 ml/min; Globulin 3.5 gm/dl (2.5-4.0); Glucose 93 mg/dl (70-99(Fasting)); Magnesium 1.6 mg/dl (1.7-2.4); Potassium 2.4 mmol/L (3.5-5.1); Sodium 130 mmol/L (136-145)
--- NOTE | 2021-10-16 11:52 | CT Scan Report ---
CT abd pelvis wo con CLINICAL HISTORY: poss obstruc, vomiting TECHNIQUE: Helical axial images of the abdomen and pelvis were obtained. Automated dose lowering tech niques and/or adjustment according to patient size were utilized for this exam. This exam was perfor med without intravenous contrast. CT DOSE: 357.07 mGy.cm COMPARISON: Comparison is made to CT abdomen pelvis 10/02/2021 FINDINGS: Lower chest: No acute abnormality Liver: Unremarkable. No focal lesions are seen. Gallbladder and biliary tree: No calcified gallstones. Normal caliber wall. No intra- or extrahepatic biliary ductal dilation. Pancreas: Unremarkable, no focal lesions. Spleen: Unremarkable. Adrenals: Bilateral adrenal nodules are seen compatible with lipid rich adenomas. Kidneys and ureters: Perinephric stranding is noted bilaterally. Bladder: Unremarkable. Reproductive organs: Unremarkable. Bowel: Diverticulosis is seen without evidence of diverticulitis. The appendix is normal. No evidence of obstruction is seen. Lymph nodes Retroperitoneal: Unremarkable. Pelvic: Unremarkable. Mesenteric: Unremarkable. Peritoneum: A MANA[employer] shunt catheter is noted. Hyperdense fluid collection in the right mid abdomen adjace nt to the anterior abdominal wall unchanged from prior exam. Vessels: Atherosclerotic calcifications are seen. Abdominal wall: There is a moderate fat-containing umbilical hernia. Bones: Degenerative changes in the visualized spine. Chronic compression deformity of L1. IMPRESSION: 1. No acute abnormality and in particular no evidence of obstruction, appendicitis, or colitis. 2. Interval stability of hyperdense fluid collection in the right mid abdomen, favored to be benign and possibly related to old shunt catheter. 3. Abnormalities of MA[employer] shunt. 4. Stable bilateral perinephric stranding. 5. Stable fat-containing umbilical hernia. ACT 112: Negative or not required by law. Electronically signed by: Valentin Coronel M.D. 10/16/2021 11:50 AM
[2021-10-16] MEDS ORDERED: SODIUM CHLORIDE 0.9% 1000ML 500 ML IV ONE (12:03)
[2021-10-16] MEDS ORDERED: MoRPHine SULFATE 4 MG/ML 1 ML CARP\\VIAL IV PRN (12:22)
--- NOTE | 2021-10-16 12:30 | History & Physical Report ---
Date of Service October 16, 2021 Assessment & Plan (1) Nausea & vomiting: Plan: -Admit to med/surge -Patient was recently admitted for similar symptoms during active covid infection, now back with similar symptoms after finishing course of dexamethasone -Patient and daughter state that she frequently gets these symptoms after completing steroids -> Will get cortisol levels. -Patient appears dehydrated with electrolyte abnormalities -Was given 2L NSS bolus, mag, and KCL in the ED -Will repeat BMP, mag, and phos this afternoon to see where her electrolytes are at -Start with clear liquid diet, continue light IV hydration until she can consistently tolerate PO intake -Need to try and avoid QT prolonging meds as her QTc was 533 today -Will continue PPI and add Carafate to see if some of her symptoms are related to gastritis (2) SINDY (acute kidney injury): Plan: -Cr noted to be 1.98 today, baseline is around 1.3 -Kidney function had been improving at the time of discharge, but renal function is reduced due to dehydration -Do not suspect obstruction at this time, will get bladder scans to make sure -Monitor renal function after hydration (3) Hypokalemia: Plan: -Noted to be 2.4 in the ED, likely due to her nausea and vomiting -EKG changes noted on the first EKG with ST segment depression in the inferior- lateral leads -Patient is without chest pain/SOB and with a normal troponin, could also be due to demand from tachycardia -Will repeat EKG after electrolytes have been repleted to monitor for changes, if further concerns will consult cardiology (4) Hypomagnesemia: Plan: -See Hypokalemia (5) Compression fracture of L1 lumbar vertebra: Plan: -Continue intranasal calcitonin and lidocaine patches with tylenol as well (6) Anxiety with depression: Plan: -BEET TOPPER sertraline with HS ativan for sleep (7) COPD (chronic obstructive pulmonary disease): Plan: -Stable on RA -BEET TOPPER breathing treatments (8) Malignant neoplasm metastatic to brain: Plan: -Stable -Has a SOFTWARE LEAD shunt but no signs to suggested increased intracranial pressure or infection -Continue to monitor (9) Dyslipidemia: Plan: -BEET TOPPER statin (10) HTN (hypertension): Plan: -Hold BEET TOPPER propranolol as patient has had multiple episodes of hypotension recently while taking it at home -Monitor BP Plan The patient was discussed with Dr. Siegel at the time of admission History of Present Illness Chief Complaint: Illness Primary Care Provider: JORDAN Daniels Aki is a 60 year old female with a PMH significant for COPD, NSCLC treated with radiation and chemo, resultant mets to the brain S/P resection and SRS in in april of 2020, hydrocephalus, HTN, dyslipidemia, anxiety, depression, and benign familial tremor who presented to the [facility] ED on 10/16/21 with complaints of illness. Per chart review, the patient was recently discharged from [facility] on 10/07/21 where she was treated for SINDY, electrolyte abnormalities from intractable nausea, vomiting, and diarrhea, an L1 compression fracture, and h ypoxic respiratory failure due to covid 19 infection. Per the discharge summary, the patient initially required 2L NC for support and was treated with Dexamethasone. Her nausea and vomiting was attributed to gastritis and resolved with medical therapy. Her diarrhea was thought to be from her recent covid infection and improved during her admission. Her SINDY was thought to be prerenal from dehydration and was improving with IV fluids. She was evaluated by orthopedics for her compression fracture, they did not recommend LSO brace but did recommend calcitonin nasal spray x 4 weeks + lidocaine patches for pain and Calcium/vitamin D supplementation. In the ED, the patient was found to be afebrile, hemodynamically stable, and stable on RA. She was sent to the ED from the heme/Onc clinic for a mildly elevated temperature, hypokalemia, and worsening kidney function. Her potassium was noted to be 2.4, sodium of 130, AG of 13 with a bicarb WNL, creatinine of 1.98 (baseline is approximately 1.0), mag of 1.6. Chest xray was negative for acute findings. CT of the abdomen and pelvis WO contrast was negative for acute changes compared to her CT done prior to her last admission. She was given 2L NSS bolus, magnesium, potassium, and morphine. At the time of the exam the patient was resting in bed in no acute distress with her daughter sitting bedside. They state that the patient had been doing well shortly after discharge but her symptoms returned after she completed her course of dexamethasone she was discharged on. They state that the patient has a history of getting nauseous, vomiting, and having poor oral intake anytime she finished a course of steroids. This is the same thing that has happened to her in the past when she was on steroids with her cancer treatments. They note that she was discharged on supplemental oxygen to use as needed but has not had to use it very often at home. She does not believe that she has aspirated with any of her episodes of vomiting. The patient denies any recent fevers or chills, she notes changes in taste since her covid diagnosis but denies changes in vision, hearing, and smell, denies chest pain and SOB,. She has been having her chronic lower abdominal pain, which has been stable since she had her SOFTWARE LEAD shunt first placed. Her bowel movements have returned to normal since her last admission. She has mainly been drinking water and her daughter thinks that she has been drinking approximately 6, 16 mL bottles of water daily. However, the patient notes that she was frequently vomiting the water as well. She denies any bloody or coffee ground emesis. The patient was discharged with supplemental oxygen as needed while at home along with a pulse oximeter, she has not had to use the oxygen frequently. When asked about dysuria the patient initially stated that she has not had any but then her daughter reminded her that she did have dysuria this am. Allergies Allergy/AdvReac Type Severity Reaction Status Date / Time Sulfa (Sulfonamide Allergy Severe RASH Verified 10/02/21 16:46 Antibiotics) sulfamethoxazole Allergy Severe RASH Verified 10/02/21 16:46 trimethoprim Allergy Severe RASH Verified 10/02/21 16:46 tiotropium Allergy Intermediate Rash Verified 10/02/21 16:46 [From Spiriva with HandiHaler] amlodipine AdvReac Unknown Fatigue Verified 10/02/21 16:46 Home Medications Medication Instructions Recorded Confirmed Type acetaminophen 500 mg capsule 1,000 mg PO Q8H PRN Pain 04/24/20 10/02/21 History ondansetron HCl 8 mg tablet 8 mg PO Q8H PRN nausea and vomiting 06/02/20 10/02/21 History sertraline 100 mg tablet 100 mg PO DAILY #90 tabs 08/19/21 10/02/21 Rx pantoprazole 40 mg tablet,delayed 40 mg PO QAM 08/25/21 10/02/21 History release (Protonix) cyclobenzaprine 10 mg tablet 10 mg PO TID PRN muscle spasm #30 09/30/21 10/02/21 Rx tabs calcitonin (salmon) 200 1 spray NA DAILY 24 days #3.7 mL 10/07/21 Rx unit/actuation nasal spray cholecalciferol (vitamin D3) 25 25 mcg PO DAILY 3 months #90 tabs 10/07/21 Rx mcg (1,000 unit) tablet (Vitamin D3) dexamethasone 6 mg tablet 6 mg PO DAILY #5 tabs 10/07/21 Rx lidocaine 5 % topical patch 1 patch transdermal HS #15 ea 10/07/21 Rx propranolol 60 mg tablet 30 mg PO Q2D #45 tabs 10/07/21 10/02/21 Rx lorazepam 0.5 mg tablet 0.5 - 1 mg PO BID PRN anxiety #60 10/13/21 Rx tabs Past Med/Surg History Medical History Anxiety Diverticulosis of colon Dyslipidemia Emphysema lung COPD - WELL CONTROLLED W/ INHALER History of brain tumor HTN (hypertension) Hydrocephalus SHUNT PLACED 07/2021-[facility] Lung cancer TREATED W/ CHEMO AND RADIATION AT SAME TIME BRAIN CA 04/2020 [facility] Malignant neoplasm metastatic to brain RADIATION AND CHEMO DONE AFTER TUMOR REMOVED- CURRENTLY ON IMMUNOTHERAPY Q 2 MOS ON KEYTRUDA DUE 08/28/21- [facility] ONC Osteopenia Vitamin D deficiency Surgical History H/O brain surgery malignant tumor excised from occipital lobe 04/2020-[facility] History of bilateral tubal ligation History of brain shunt 07/2021 [facility]- CURRENTLY IN PLACE; DRAINING INTO ABDOMEN FOR SWELLING AROUND AREA WHERE TUMOR WAS REMOVED History of endometrial biopsy S/P colonoscopy Family History Sister Colonic polyp Social History Smoking Status: Never smoker Tobacco Type: Cigarettes Second Hand Exposure: No; Hx Alcohol Use: No Hx Substance Use: No Preferred Language: Czech Communication Ability: Effective Windows Software Engineer Required: No Beliefs That Will Affect Care: None marital status: Current Living Situation: Spouse Feels Safe at Home: Yes Assistive Devices: None Review of Systems Review of Systems: Denies current fever, chills, headache, changes in vision, hearing, taste, smell, chest pain, SOB, cough, diarrhea, hematemesis, melena, hematuria, and recent falls. All systems have been reviewed and are otherwise negative. Physical Exam Physical Exam: Physical Exam: General: In no acute distress, stated age, well-nourished, good hygiene HEENT: Normocephalic, atraumatic, no scleral icterus, pupils around round, symmetrical, and reactive to light, dry membranes, trachea midline, no thyromegaly Chest/Pulm: No respiratory distress, symmetrical chest expansion, clear breath sounds throughout Cardiac: RRR, no murmurs noted Abdomen: Negative for ascites and bruising, normoactive bowel sounds, soft, non-tender to palpation throughout Musculoskeletal: Symmetrical and without signs of acute trauma, upper and lower extremities with full ROM, no atrophy, spasticity, or flaccidity, turret lathe tender to palpation over the lumbar spine from her recent compression fracture Extremities: Radial, dorsalis pedis, and posterior tibial pulses are intact and symmetrical, no edema noted in the BL LE's Skin: Warm, dry, no rashes , lesions, or scars noted Neuro: Alert and oriented to person, place, month, year, and president, no focal defects, CN II-XII tested and intact, finger to nose test negative, no tremors noted Psych: No acute distress, calm and cooperative during the exam Results & Data Results & Data ([facility]) Vital Signs (Past 12 Hours) Vital Signs Temp Pulse Pulse Resp BP BP Pulse Ox 10/16/21 11:00 10/16/21 11:00 105 H 18 98/66 L 97 10/16/21 09:41 37.1 C 115 H 18 85/66 L 92 O2 Del Method 10/16/21 11:00 Room Air 10/16/21 11:00 Room Air 10/16/21 09:41 Room Air Laboratory Results Abnormal lab results 10/16/21 10/16/21 10/16/21 Range/Units 10:51 10:51 10:51 WBC 14.07 H (4.8-10.8) K/ul RBC 3.73 L (3.93-5.22) M/uL Hgb 11.1 L (12.0-16.0) g/dl Hct 33.2 L (34.1-44.9) % Neut # (Auto) 10.56 H (1.4-6.5) K/uL [place] # (Auto) 1.35 H (0.24-0.82) K/uL Immature Gran # (Auto) 0.14 H (0.00-0.02) K/uL APTT 34.6 H (21.0-31.0) Seconds Sodium 130 L (136-145) mmol/L Potassium 2.4 L* (3.5-5.1) mmol/L Chloride 94 L (98-107) mmol/L Anion Gap 13 H (3-11) Creatinine 1.98 H (0.6-1.2) mg/dl BUN/Creatinine Ratio 6.1 L (10-20) Magnesium 1.6 L (1.7-2.4) mg/dl Diagnostic Findings Chest X-Ray 10/16/21 10:28 XR chest 1V portable CLINICAL HISTORY: weakness TECHNIQUE: Single frontal radiograph of the chest was obtained. Comparison: Comparison is made to chest radiograph 10/02/2021 FINDINGS: Exam is limited by patient rotation. A SOFTWARE LEAD shunt is noted. The cardiomediastinal silhouette is normal. The lungs are clear. No evidence of pleural effusion or pneumothorax. IMPRESSION: No acute chest disease. ACT 112: Negative or not required by law. Electronically signed by: Valentin Coronel M.D. 10/16/2021 11:35 AM Abdomen/Pelvis CT 10/16/21 10:30 CT abd pelvis wo con CLINICAL HISTORY: poss obstruc, vomiting TECHNIQUE: Helical axial images of the abdomen and pelvis were obtained. Automated dose lowering techniques and/or adjustment according to patient size were utilized for this exam. This exam was performed without intravenous contrast. CT DOSE: 357.07 mGy.cm COMPARISON: Comparison is made to CT abdomen pelvis 10/02/2021 FINDINGS: Lower chest: No acute abnormality Liver: Unremarkable. No focal lesions are seen. Gallbladder and biliary tree: No calcified gallstones. Normal caliber wall. No intra- or extrahepatic biliary ductal dilation. Pancreas: Unremarkable, no focal lesions. Spleen: Unremarkable. Adrenals: Bilateral adrenal nodules are seen compatible with lipid rich adenomas. Kidneys and ureters: Perinephric stranding is noted bilaterally. Bladder: Unremarkable. Reproductive organs: Unremarkable. Bowel: Diverticulosis is seen without evidence of diverticulitis. The appendix is normal. No evidence of obstruction is seen. Lymph nodes Retroperitoneal: Unremarkable. Pelvic: Unremarkable. Mesenteric: Unremarkable. Peritoneum: A SOFTWARE LEAD shunt catheter is noted. Hyperdense fluid collection in the right mid abdomen adjacent to the anterior abdominal wall unchanged from prior exam. Vessels: Atherosclerotic calcifications are seen. Abdominal wall: There is a moderate fat-containing umbilical hernia. Bones: Degenerative changes in the visualized spine. Chronic compression deformity of L1. IMPRESSION: 1. No acute abnormality and in particular no evidence of obstruction, appendicitis, or colitis. 2. Interval stability of hyperdense fluid collection in the right mid abdomen, favored to be benign and possibly related to old shunt catheter. 3. Abnormalities of SOFTWARE LEAD shunt. 4. Stable bilateral perinephric stranding. 5. Stable fat-containing umbilical hernia. ACT 112: Negative or not required by law. Electronically signed by: Valentin Coronel M.D. 10/16/2021 11:50 AM ECG Additional Comments: Sinus tachycardia Possible Left atrial enlargement Marked ST abnormality, possible inferior subendocardial injury Prolonged QT Abnormal ECG When compared with ECG of 02-OCT-2021 16:52, ST now depressed in Inferior leads ST now depressed in Lateral leads T wave inversion no longer evident in Inferior leads Code Status & VTE Plan Code Status Full code VTE Prophylaxis Plan VTE Prophylaxis will be ordered: Yes Supervising Physician Co-Signing Physician Notes I supervised Elie Gomez PA-C on this admission. I interviewed and examined the patient independently of him. The plan is as written in his note except for any following changes/exceptions: None 60yo F w/ hx of SCLC with brain met s/p surgery and radiation. Was recently admitted for n/v that was thought to be due to Covid-19. Patient was discharged and felt well until finishing dexamethasone after which she had return of her symptoms. Some concern for for adrenal insufficiency, though not really clear as she has hyponatremia rather than hyperkalemia. Glucose on low end. Given overall stability, will get cortisol now and repeat with AM labs. Per internet, should be returning to normal now (~48 hours post-dose, though this is with a single dose). Other consideration would be gastritis that is worse due to steroids and ramps up. Will try to help with PPI and Carafate. Try to minimize QTc prolonging meds. PG Care Time/CCT Total # of Minutes Spent Total Time Spent with Patient: Total time spent is greater than 50% in coordination of care (as documented) at patient's floor/unit and/or counseling patient: C[place] [address] Initial Inpt Care Lvl 3 Patient Type Established Medical Decision Making Moderate Complexity Diagnoses Nausea & vomiting R11.2 SINDY (acute kidney injury) N17.9 Hypokalemia E87.6 Hypomagnesemia E83.42 Compression fracture of L1 lumbar vertebra S32.010A Anxiety with depression F41.8 COPD (chronic obstructive pulmonary disease) J43.9 COPD type: emphysema Emphysema type: unspecified Malignant neoplasm metastatic to brain C79.31 Dyslipidemia E78.5 HTN (hypertension) I10 (1) COPD (chronic obstructive pulmonary disease) COPD type: emphysema Emphysema type: unspecified Qualified Code(s): J43.9 - Emphysema, unspecified
[2021-10-16] MEDS: POTASSIUM CHLORIDE / WTR 10 MEQ/100 ML PLCT IV SCH ×4 (12:38→23:16)
[2021-10-16] MEDS: MAGNESIUM SULFATE / D5W 1 GM/100 ML BAG IV SCH ×2 (12:43→13:30)
[2021-10-16] MEDS: SERTRALINE HCL 100 MG TABLET PO SCH (16:10)
--- NOTE | 2021-10-16 16:49 | Communication Note ---
Date of Service: October 16, 2021 Repeat E[address] still showing ST depression in the inferior and lateral leads, patient has been asymptomatic with negative troponin on initial labs. Spoke to information systems administrator network cable installer, Dr. Nolan, he evaluated the EKGs and recommends trending the patinet's troponin and obtaining an echo tomorrow morning. Will trend troponin overnight and TTE has been ordered.
--- NOTE | 2021-10-16 17:12 | Electrocardiogram Report ---
Test Reason : Blood Pressure : / mmHG Vent. Rate : 116 BPM Atrial Rate : 116 BPM P-R Int : 124 ms QRS Dur : 084 ms QT Int : 384 ms P-R-T Axes : 077 016 078 degrees QTc Int : 533 ms Sinus tachycardia Possible Left atrial enlargement Marked ST abnormality, possible inferior subendocardial injury Prolonged QT Abnormal ECG When compared with ECG of 02-OCT-2021 16:52, ST more depressed Inferior leads ST more depressed Anterolateral leads T wave inversion no longer evident in Inferior leads Confirmed by Shai Nolan ([id number]) on 10/16/2021 5:12:08 PM Referred By: REFERRED SELF Confirmed By:Shai Nolan
[2021-10-16] MEDS ORDERED: Patient's HEIGHT &/or WEIGHT Needed SCH (20:15)
[2021-10-16 20:56] LABS: Potassium 2.9 mmol/L (3.5-5.1)
[2021-10-16 20:57] LABS: BUN Creatinine Ratio 5.7 (10-20); Calcium 8.7 mg/dl (8.5-10.1); Creatinine Clr Calc Pharmacy 27.2 ml/min; Est GFR (African American) 31.6 ml/min; Est GFR (Non-African American) 27.2 ml/min; Magnesium 2.3 mg/dl (1.7-2.4); Phosphorus 3.7 mg/dl (2.5-4.9); Troponin I High Sensitivity 9.9 pg/ml (0-14)
[2021-10-16] MEDS: LACTATED RINGER'S 1,000 ML IV SCH (22:04)
[2021-10-16] MEDS: PANTOprazole 40 MG TAB PO SCH (22:13)
[2021-10-16] MEDS: LIDOCAINE 5% 1 PATCH TD SCH (22:13)
[2021-10-16] MEDS: SUCRALFATE 1 GM TAB PO SCH (22:14)
[2021-10-16] MEDS: HEPARIN SOD 5,000 UNIT/0.5 ML VIAL SQ SCH (22:15)
[2021-10-16] MEDS: ACETAMINOPHEN 325 MG TAB PO PRN (22:56)
[2021-10-16] MEDS: PROMETHAZINE HCL 12.5 MG/10 ML UDP PO PRN ×2 (23:10→23:19)
--- NOTE | 2021-10-16 23:24 | Communication Note ---
Date of Service: October 16, 2021 Notified by patient's nurse around 2300 the patient spiked a fever of 38.8. Thankfully, she remains mostly asymptomatic. A little bit of nausea. At the bedside, she denies any sensation of chills or diaphoresis. She denies any shortness of breath. Does endorse a single episode of dysuria earlier today, but none since. No urinary urgency or frequency. No recent skin infections. Denies any bowel complaints. No new pain anywhere. On exam, patient is mildly tachycardic. She appears tired, but otherwise well. Cardiacmildly tachycardic with regular rhythm, S1 and S2 are present without murmurs rubs or gallops. Capillary refill under 3 seconds. Respiratoryclear to auscultation bilaterally without crackles or wheezes. Abdomensoft, nontender, nondistended. Patient's chart and work-up so far reviewed. Blood cultures pending. Initial labs revealing leukocytosis with mild left shift. We will add on CRP and Pro- Cecil. Check MRSA swab. Check urine and send for culture. Given her recent hospital contact as well as symptoms and new fever, will give single dose of cefepime 2000 mg while other labs are pending. Continue fluids. Plan communicated to patient's nurse. Resident Activity Tracking Resident Involvement: Resident Care Provided Care Provided: Adult Hospital Medicine
[2021-10-16] MEDS ORDERED: CEFEPIME 2,000 MG in SYRINGE 0 ML IV STA (23:27)
[2021-10-16 23:43] LABS: Appearance Urine Clear (Clear); Bacteria Urine Automated Negative (Negative); Bilirubin Urine Negative (Negative); Blood Urine Negative (Negative); Cast Urine Automated 0 /lpf (0-5); Color Urine Yellow; Epithelial Cell Urine Auto >30 /lpf (0-5); Glucose Urine UA Negative (Negative); Ketones Urine Trace (Negative); Leukocyte Esterase Urine Trace (Negative); Nitrite Urine Negative (Negative); Protein Urine Negative (Negative); RBC Urine Automated 0-4 /hpf (0-4); Specific Gravity Urine 1.004 (1.000-1.030); Urobilinogen Urine Negative (Negative); pH Urine 5.5 (4.5-7.5)
[2021-10-17] MEDS: POTASSIUM CHLORIDE / WTR 10 MEQ/100 ML PLCT IV SCH ×5 (00:16→23:07)
[2021-10-17] MEDS: HEPARIN SOD 5,000 UNIT/0.5 ML VIAL SQ SCH ×3 (06:20→20:22)
[2021-10-17 08:26] LABS: Hematocrit (blood only) 30.7 % (34.1-44.9); Hemoglobin 10.1 g/dl (12.0-16.0); Mean Corpuscular Hemoglobin 29.6 pg (25.0-34.0); Mean Corpuscular Hgb Conc 32.9 g/dL (32.0-36.0); Mean Platelet Volume 11.1 fL (9.4-12.3); Platelet Count 366 K/uL (130-400); RDW Standard Deviation 46.1 fL (36.4-46.3); Red Blood Count 3.41 M/uL (3.93-5.22); White Blood Count 12.45 K/ul (4.8-10.8)
[2021-10-17 08:39] LABS: Albumin Level 3.4 gm/dl (3.4-5.0); Bilirubin,Total 0.5 mg/dl (0.2-1.0); Calcium 9.1 mg/dl (8.5-10.1); Magnesium 2.1 mg/dl (1.7-2.4); Potassium 2.9 mmol/L (3.5-5.1)
[2021-10-17 08:45] LABS: BUN Creatinine Ratio 6.2 (10-20); Creatinine Clr Calc Pharmacy 27.2 ml/min; Est GFR (African American) 31.6 ml/min; Est GFR (Non-African American) 27.2 ml/min; Globulin 3.3 gm/dl (2.5-4.0); Total Protein 6.7 gm/dl (6.0-8.3)
[2021-10-17] MEDS: SUCRALFATE 1 GM TAB PO SCH ×4 (09:19→20:22)
[2021-10-17] MEDS: CALCITONIN SALMON NA 200 IU/AC 3.7 ML BTL SCH (09:20)
[2021-10-17] MEDS: CHOLECALCIFEROL 1,000 UNITS 25 MCG TAB PO SCH (09:20)
[2021-10-17] MEDS: PANTOprazole 40 MG TAB PO SCH (09:21)
[2021-10-17] MEDS: SERTRALINE HCL 100 MG TABLET PO SCH (09:21)
[2021-10-17] MEDS: ACETAMINOPHEN 325 MG TAB PO PRN (09:23)
[2021-10-17 09:34] LABS: C Reactive Protein 34.5 mg/dl (0-0.5)
--- NOTE | 2021-10-17 10:37 | Electrocardiogram Report ---
Test Reason : Blood Pressure : / mmHG Vent. Rate : 088 BPM Atrial Rate : 088 BPM P-R Int : 136 ms QRS Dur : 086 ms QT Int : 486 ms P-R-T Axes : 073 047 047 degrees QTc Int : 588 ms Poor data quality, interpretation may be adversely affected Normal sinus rhythm RSR' or QR pattern in V1 suggests right ventricular conduction delay Abnormal ECG When compared with ECG of 16-OCT-2021 10:38, The ST/T changes have improved slightly Confirmed by Christiano Montes ([id number]) on 10/17/2021 10:37:19 AM Referred By: REFERRED SELF Confirmed By:Christiano Montes
[2021-10-17] MEDS: LACTATED RINGER'S 1,000 ML IV SCH (11:45)
--- NOTE | 2021-10-17 17:39 | Hospitalist Progress Note ---
Date of Service October 17, 2021 Assessment & Plan (1) Nausea & vomiting: Plan: -Admit to med/surge -Patient was recently admitted for similar symptoms during active covid infection, now back with similar symptoms after finishing course of dexamethasone -Patient and daughter state that she frequently gets these symptoms after completing steroids -> Will get cortisol levels. -Patient appears dehydrated with electrolyte abnormalities -Was given 2L NSS bolus, mag, and KCL in the ED -Will repeat BMP, mag, and phos this afternoon to see where her electrolytes are at -Start with clear liquid diet, continue light IV hydration until she can consistently tolerate PO intake -Need to try and avoid QT prolonging meds as her QTc was 533 today -Will continue PPI and add Carafate to see if some of her symptoms are related to gastritis -Symptoms appear improved. (2) SINDY (acute kidney injury): Plan: -Cr noted to be 1.98 on admission, baseline is around 1.3 -Kidney function had been improving at the time of discharge, but renal function is reduced due to dehydration -Do not suspect obstruction at this time, will get bladder scans to make sure -Monitor renal function after hydration (3) Hypokalemia: Plan: -Noted to be 2.4 in the ED, likely due to her nausea and vomiting -EKG changes noted on the first EKG with ST segment depression in the inferior- lateral leads -Patient is without chest pain/SOB and with a normal troponin, could also be due to demand from tachycardia -replaced electrolytes (4) Hypomagnesemia: Plan: -See Hypokalemia (5) Compression fracture of L1 lumbar vertebra: Plan: -Continue intranasal calcitonin and lidocaine patches with tylenol as well (6) Anxiety with depression: Plan: -WHEEL MOLDER sertraline with HS ativan for sleep (7) COPD (chronic obstructive pulmonary disease): Plan: -Stable on RA -WHEEL MOLDER breathing treatments (8) Malignant neoplasm metastatic to brain: Plan: -Stable -Has a HOUSE CLEANER shunt but no signs to suggested increased intracranial pressure or infection -Continue to monitor (9) Dyslipidemia: Plan: -WHEEL MOLDER statin (10) HTN (hypertension): Plan: -Hold WHEEL MOLDER propranolol as patient has had multiple episodes of hypotension recently while taking it at home -Monitor BP Plan The patient was discussed with Dr. Siegel at the time of admission Admission and Anticipated Discharge Date Admission Date: October 16, 2021 Subjective Patient reports less nausea. No longer having appetite. Patient has worsening back pain. She denies any trauma or falls when she was diagnosed with the fracture. Review of Systems Review of Systems: All systems reviewed & are unremarkable except as noted in HPI & below Physical Exam Physical Exam: General:In no acute distress, stated age, well- nourished, good hygiene HEENT:Normocephalic, atraumatic, no scleral icterus, pupils around round, symmetrical, and reactive to light Chest/Pulm:No respiratory distress, symmetrical chest expansion, clear breath sounds throughout Cardiac:RRR, no murmurs noted Abdomen:Negative for ascites and bruising, normoactive bowel sounds, soft, non-tender to palpation throughout Musculoskeletal:Symmetrical and without signs of acute trauma, upper and lower extremities with full ROM, no atrophy, spasticity, or flaccidity, extractor tender raw stock to palpation over the lumbar spine from her recent compression fracture Extremities:Radial, dorsalis pedis, and posterior tibial pulses are intact and symmetrical, no edema noted in the BL LE's Skin:Warm, dry, no rashes , lesions, or scars noted Neuro:Alert and oriented to person, place, month, year, and president, no focal defects, CN II-XII tested and intact, finger to nose test negative, no tremors noted Psych:No acute distress, calm and cooperative during the exam Results & Data Results & Data ([facility]) Vital Signs (Past 12 Hours) Vital Signs Temp Pulse Resp BP Pulse Ox O2 Del Method O2 Flow Rate 10/17/21 15:18 36.7 C 72 16 127/75 93 Nasal Cannula 2 10/17/21 08:00 Room Air, Nasal Cannula 10/17/21 07:51 38.3 C H 106 H 16 120/73 97 Nasal Cannula 2 PG Care Time/CCT Total # of Minutes Spent Total Time Spent with Patient: Total time spent is greater than 50% in coordination of care (as documented) at patient's floor/unit and/or counseling patient: Coding Level of Care Code 52057 Subseq Hosp Care Lvl 2 Diagnoses Nausea & vomiting R11.2 SINDY (acute kidney injury) N17.9 Hypokalemia E87.6 Hypomagnesemia E83.42 Compression fracture of L1 lumbar vertebra S32.010A Anxiety with depression F41.8 COPD (chronic obstructive pulmonary disease) J43.9 COPD type: emphysema Emphysema type: unspecified Malignant neoplasm metastatic to brain C79.31 Dyslipidemia E78.5 HTN (hypertension) I10 Time Spent (min) 25 (1) COPD (chronic obstructive pulmonary disease) COPD type: emphysema Emphysema type: unspecified Qualified Code(s): J43.9 - Emphysema, unspecified
[2021-10-17] MEDS ORDERED: MoRPHine SULFATE 2 MG/ML CARP IV PRN (18:55)
[2021-10-17] MEDS: LIDOCAINE 5% 1 PATCH TD SCH (20:21)
[2021-10-17] MEDS: CEFEPIME 1,000 MG in SYRINGE 0 ML IV SCH (20:21)
[2021-10-18] MEDS: LACTATED RINGER'S 1,000 ML IV SCH ×2 (00:06→12:42)
[2021-10-18] MEDS: HEPARIN SOD 5,000 UNIT/0.5 ML VIAL SQ SCH ×3 (05:40→21:11)
[2021-10-18] MEDS: CALCITONIN SALMON NA 200 IU/AC 3.7 ML BTL SCH (07:27)
[2021-10-18] MEDS: SUCRALFATE 1 GM TAB PO SCH ×4 (07:27→20:22)
[2021-10-18] MEDS: SERTRALINE HCL 100 MG TABLET PO SCH (07:27)
[2021-10-18] MEDS: PANTOprazole 40 MG TAB PO SCH (07:27)
[2021-10-18] MEDS: CHOLECALCIFEROL 1,000 UNITS 25 MCG TAB PO SCH (07:27)
[2021-10-18] MEDS: CEFEPIME 1,000 MG in SYRINGE 0 ML IV SCH (07:32)
[2021-10-18 08:39] LABS: Basophils # (auto) 0.03 K/uL (0-0.2); Basophils % (auto) 0.4 %; Eosinophils # (auto) 0.56 K/uL (0-0.50); Eosinophils % (auto) 6.8 %; Hematocrit (blood only) 25.8 % (34.1-44.9); Hemoglobin 8.4 g/dl (12.0-16.0); Immature Granulocytes # (auto) 0.04 K/uL (0.00-0.02); Immature Granulocytes % (auto) 0.5 %; Lymphocytes # (auto) 0.78 K/uL (1.2-3.4); Lymphocytes % (auto) 9.5 %; Mean Corpuscular Hemoglobin 29.7 pg (25.0-34.0); Mean Corpuscular Hgb Conc 32.6 g/dL (32.0-36.0); Mean Corpuscular Volume 91.2 fL (80.0-100.0); Mean Platelet Volume 10.9 fL (9.4-12.3); Monocytes # (auto) 0.93 K/uL (0.24-0.82); Monocytes % (auto) 11.3 %; Neutrophils % (auto) 71.5 %; Platelet Count 286 K/uL (130-400); RDW Standard Deviation 46.7 fL (36.4-46.3); Red Blood Count 2.83 M/uL (3.93-5.22); White Blood Count 8.24 K/ul (4.8-10.8)
[2021-10-18 09:02] LABS: Albumin Level 2.8 gm/dl (3.4-5.0); BUN Creatinine Ratio 6.2 (10-20); Bilirubin,Total 0.5 mg/dl (0.2-1.0); Calcium 8.5 mg/dl (8.5-10.1); Creatinine Clr Calc Pharmacy 24.9 ml/min; Est GFR (African American) 28.4 ml/min; Est GFR (Non-African American) 24.5 ml/min; Globulin 2.8 gm/dl (2.5-4.0); Magnesium 1.8 mg/dl (1.7-2.4); Potassium 2.7 mmol/L (3.5-5.1); Total Protein 5.6 gm/dl (6.0-8.3)
[2021-10-18] MEDS ORDERED: MoRPHine SULFATE 2 MG/ML CARP IV PRN (10:34)
[2021-10-18] MEDS: MAGNESIUM SULFATE / D5W 1 GM/100 ML BAG IV SCH ×2 (10:52→13:49)
[2021-10-18] MEDS: traMADol HCL 50 MG TABLET PO PRN ×2 (10:57→21:11)
[2021-10-18] MEDS: POTASSIUM CHLORIDE / WTR 10 MEQ/100 ML PLCT IV SCH ×4 (10:58→13:59)
[2021-10-18] MEDS: SODIUM CHLOR 0.45% + 20MEQ KCL 20 MEQ/1,000 ML BAG IV SCH (12:39)
[2021-10-18] MEDS: LIDOCAINE 5% 1 PATCH TD SCH (20:21)
--- NOTE | 2021-10-18 22:25 | Hospitalist Progress Note ---
Date of Service October 18, 2021 Assessment & Plan (1) Nausea & vomiting: Plan: -Admit to med/surge -Patient was recently admitted for similar symptoms during active covid infection, now back with similar symptoms after finishing course of dexamethasone -Patient and daughter state that she frequently gets these symptoms after completing steroids -> Will get cortisol levels. -Patient appears dehydrated with electrolyte abnormalities -Was given 2L NSS bolus, mag, and KCL in the ED -Will repeat BMP, mag, and phos this afternoon to see where her electrolytes are at -Start with clear liquid diet, continue light IV hydration until she can consistently tolerate PO intake -Need to try and avoid QT prolonging meds as her QTc was 533 today -Will continue PPI and add Carafate to see if some of her symptoms are related to gastritis -Symptoms appear improved. -advanced diet on 10/19 -concern that this could be secondary to her cancer, unsure if patient is on chemo. will discuss with oncologist to review treatment plan. (2) SINDY (acute kidney injury): Plan: -Cr noted to be 1.98 on admission, baseline is around 1.3 -Kidney function had been improving at the time of discharge, but renal function is reduced due to dehydration -Do not suspect obstruction at this time, will get bladder scans to make sure -Monitor renal function after hydration creatinine is higher today, above 2, will consider nephro consult, Nausea and vomiting may be complicating her SINDY when she was home. Daughter states she drinks plenty of water. (3) Hypokalemia: Plan: -Noted to be 2.4 in the ED, likely due to her nausea and vomiting -EKG changes noted on the first EKG with ST segment depression in the inferior- lateral leads -Patient is without chest pain/SOB and with a normal troponin, could also be due to demand from tachycardia -replaced electrolytes (4) Hypomagnesemia: Plan: -See Hypokalemia (5) Compression fracture of L1 lumbar vertebra: Plan: -Continue intranasal calcitonin and lidocaine patches with tylenol as well will obtain MRI with contrast. awaiting improvement with COVID. (6) Anxiety with depression: Plan: -DIGITAL MARKETING CONSULTANT sertraline with HS ativan for sleep (7) COPD (chronic obstructive pulmonary disease): Plan: -Stable on RA -DIGITAL MARKETING CONSULTANT breathing treatments (8) Malignant neoplasm metastatic to brain: Plan: -Stable -Has a INFANT AND TODDLER TEACHER shunt but no signs to suggested increased intracranial pressure or infection -Continue to monitor (9) Dyslipidemia: Plan: -DIGITAL MARKETING CONSULTANT statin (10) HTN (hypertension): Plan: -Hold DIGITAL MARKETING CONSULTANT propranolol as patient has had multiple episodes of hypotension recently while taking it at home -Monitor BP Plan The patient was discussed with Dr. Siegel at the time of admission Admission and Anticipated Discharge Date Admission Date: October 16, 2021 Subjective 60 yo female reports having nausea vomiting on admission. But none today, she is asking for her diet to be advanced. Her daughter is worried about her SINDY. Review of Systems Review of Systems: All systems reviewed & are unremarkable except as noted in HPI & below Physical Exam Physical Exam: General:In no acute distress, stated age, well- nourished, good hygiene HEENT:Normocephalic, atraumatic, no scleral icterus, pupils around round, symmetrical, and reactive to light Chest/Pulm:No respiratory distress, symmetrical chest expansion, clear breath sounds throughout Cardiac:RRR, no murmurs noted Abdomen:Negative for ascites and bruising, normoactive bowel sounds, soft, non-tender to palpation throughout Musculoskeletal:Symmetrical and without signs of acute trauma, upper and lower extremities with full ROM, no atrophy, spasticity, or flaccidity, spinning machine tender to palpation over the lumbar spine from her recent compression fracture Extremities:Radial, dorsalis pedis, and posterior tibial pulses are intact and symmetrical, no edema noted in the BL LE's Skin:Warm, dry, no rashes , lesions, or scars noted Neuro:Alert and oriented to person, place, month, year, and president, no focal defects, CN II-XII tested and intact, finger to nose test negative, no tremors noted Psych:No acute distress, calm and cooperative during the exam Results & Data Results & Data ([facility]) Vital Signs (Past 12 Hours) Vital Signs Temp Pulse Resp BP Pulse Ox O2 Del Method 10/18/21 22:22 36.9 C 96 H 22 90/54 L 90 Room Air 10/18/21 15:23 36.6 C 98 H 18 89/54 L 90 Room Air PG Care Time/CCT Total # of Minutes Spent Total Time Spent with Patient: Total time spent is greater than 50% in coordination of care (as documented) at patient's floor/unit and/or counseling patient: Coding Level of Care Code 24192 Subseq Hosp Care Lvl 2 Diagnoses Nausea & vomiting R11.2 SINDY (acute kidney injury) N17.9 Hypokalemia E87.6 Hypomagnesemia E83.42 Compression fracture of L1 lumbar vertebra S32.010A Anxiety with depression F41.8 COPD (chronic obstructive pulmonary disease) J43.9 COPD type: emphysema Emphysema type: unspecified Malignant neoplasm metastatic to brain C79.31 Dyslipidemia E78.5 HTN (hypertension) I10 Time Spent (min) 25 (1) COPD (chronic obstructive pulmonary disease) COPD type: emphysema Emphysema type: unspecified Qualified Code(s): J43.9 - Emphysema, unspecified
[2021-10-19] MEDS: SODIUM CHLOR 0.45% + 20MEQ KCL 20 MEQ/1,000 ML BAG IV SCH (01:11)
[2021-10-19] MEDS: HEPARIN SOD 5,000 UNIT/0.5 ML VIAL SQ SCH ×3 (05:09→21:03)
[2021-10-19] MEDS: CALCITONIN SALMON NA 200 IU/AC 3.7 ML BTL SCH (07:48)
[2021-10-19] MEDS: SERTRALINE HCL 100 MG TABLET PO SCH (07:49)
[2021-10-19] MEDS: CHOLECALCIFEROL 1,000 UNITS 25 MCG TAB PO SCH (07:49)
[2021-10-19] MEDS: CEFEPIME 1,000 MG in SYRINGE 0 ML IV SCH (07:49)
[2021-10-19] MEDS: SUCRALFATE 1 GM TAB PO SCH ×4 (07:49→21:02)
[2021-10-19] MEDS: PANTOprazole 40 MG TAB PO SCH (07:50)
[2021-10-19 08:44] LABS: Hematocrit (blood only) 25.2 % (34.1-44.9); Hemoglobin 8.1 g/dl (12.0-16.0); Mean Corpuscular Hemoglobin 29.2 pg (25.0-34.0); Mean Corpuscular Hgb Conc 32.1 g/dL (32.0-36.0); Mean Platelet Volume 11.8 fL (9.4-12.3); Platelet Count 278 K/uL (130-400); RDW Coefficient of Variation 13.9 % (11.5-14.5); RDW Standard Deviation 46.6 fL (36.4-46.3); Red Blood Count 2.77 M/uL (3.93-5.22); White Blood Count 6.34 K/ul (4.8-10.8)
[2021-10-19 09:05] LABS: Albumin Level 2.8 gm/dl (3.4-5.0); BUN Creatinine Ratio 5.8 (10-20); Bilirubin,Total 0.4 mg/dl (0.2-1.0); Calcium 8.4 mg/dl (8.5-10.1); Creatinine Clr Calc Pharmacy 23.5 ml/min; Est GFR (African American) 26.5 ml/min; Est GFR (Non-African American) 22.9 ml/min; Globulin 2.7 gm/dl (2.5-4.0); Magnesium 2.2 mg/dl (1.7-2.4); Potassium 3.1 mmol/L (3.5-5.1); Total Protein 5.5 gm/dl (6.0-8.3)
[2021-10-19] MEDS: ACETAMINOPHEN 325 MG TAB PO PRN ×2 (11:00→21:11)
--- NOTE | 2021-10-19 12:17 | Nephrology Consultation ---
Date of Consultation October 19, 2021 Assessment & Plan (1) SINDY (acute kidney injury): * SINDY likely on the basis of intravascular volume contraction. Patient appears clinically volume contracted and has relative hypotension * Will order FeNA * Resume 0.9NS at 80 cc/hr x 1 L * Will order renal US * Obtain PRP in am * Urine sediment did have low grade pyuria * AIN related to Keytruda therapy remains within the differential, however patient has no flank pain and few WBC on urinalysis. She does not recall when the last dose of Keytruda was administered. Will request Oncology records from Dr. [place]. Consider steroid therapy if renal function worsens despite conservative care (2) Hypotension: * Will provide gentle hydration (3) Malignant neoplasm metastatic to brain: * Has been receiving immunotherapy (4) COPD (chronic obstructive pulmonary disease): History of Present Illness Reason for Consultation: SINDY/CKD Attending Physician: Armond Cooney History of Present Illness Mrs. Navarro is a 60 year old white female who is seen at the request of Dr. Cooney for evaluation of SINDY/CKD. Medical records in the EMR were reviewed today and are summarized as follows: Mrs. Navarro has CKD stage G2/A1. Her baseline Cr has been 0.97 w/ EGFR 63 cc/min. Prior urine sediment has been negative for protein or blood. She has not undergone Nephrology evaluation in the past. Mrs. Navarro's medical history is significant for COPD, non-small cell lung cancer w/ mets to the brain (s/p resection 04/27 followed by chemotherapy/radiation therapy), hydrocephalus s/p OUTSIDE PLANT TECHNICIAN shunt (07/29 [facility] [place]), and anxiety. She was last hospitalized 10/02/21 - 10/07/21 due to COVID infection, N/V/D resulting in dehydration. She received dexamethasone therapy and IV hydration. Hospital course was complicated by SINDY. Cr peaked at 2.5 but improved to 1.3 at the time of discharge from the hospital. Mrs. Navarro was readmitted 10/16/21 with recurrent symptoms of N/V/D. COVID testing was negative. Contrast negative abdominal CT was negative for intestinal obstruction/appendicitis/colitis or hydronephrosis. Stable bilateral perinephric stranding was reported. Cr has now risen to 2.3 and remains stable. Patient is nonoliguric. She was not on NSAIDS or any potentially nephrotoxic medications. Allergies Allergy/AdvReac Type Severity Reaction Status Date / Time Sulfa (Sulfonamide Allergy Severe RASH Verified 10/16/21 16:00 Antibiotics) sulfamethoxazole Allergy Severe RASH Verified 10/16/21 16:00 trimethoprim Allergy Severe RASH Verified 10/16/21 16:00 tiotropium Allergy Intermediate Rash Verified 10/16/21 16:00 [From [facility] with HandiHaler] amlodipine AdvReac Unknown Fatigue Verified 10/16/21 16:00 Home Medications Medication Instructions Recorded Confirmed Type acetaminophen 500 mg capsule 1,000 mg PO Q8H PRN Pain 04/24/20 10/16/21 History ondansetron HCl 8 mg tablet 8 mg PO Q8H PRN nausea and vomiting 06/02/20 10/16/21 History sertraline 100 mg tablet 100 mg PO DAILY #90 tabs 08/19/21 10/16/21 Rx pantoprazole 40 mg tablet,delayed 40 mg PO QAM 08/25/21 10/16/21 History release (Protonix) cyclobenzaprine 10 mg tablet 10 mg PO TID PRN muscle spasm #30 09/30/21 10/16/21 Rx tabs calcitonin (salmon) 200 1 spray NA DAILY 24 days #3.7 mL 10/07/21 10/16/21 Rx unit/actuation nasal spray cholecalciferol (vitamin D3) 25 25 mcg PO DAILY 3 months #90 tabs 10/07/21 10/16/21 Rx mcg (1,000 unit) tablet (Vitamin D3) dexamethasone 6 mg tablet 6 mg PO DAILY #5 tabs 10/07/21 10/16/21 Rx lidocaine 5 % topical patch 1 patch transdermal HS #15 ea 10/07/21 10/16/21 Rx propranolol 60 mg tablet 30 mg PO Q2D #45 tabs 10/07/21 10/16/21 Rx lorazepam 0.5 mg tablet 0.5 - 1 mg PO BID PRN anxiety #60 10/13/21 10/16/21 Rx tabs Patient History Medical History Anxiety Diverticulosis of colon Dyslipidemia Emphysema lung COPD - WELL CONTROLLED W/ INHALER History of brain tumor HTN (hypertension) Hydrocephalus SHUNT PLACED 07/2021-[facility] Lung cancer TREATED W/ CHEMO AND RADIATION AT SAME TIME BRAIN CA 04/2020 [facility] Malignant neoplasm metastatic to brain RADIATION AND CHEMO DONE AFTER TUMOR REMOVED- CURRENTLY ON IMMUNOTHERAPY Q 2 MOS ON KEYTRUDA DUE 08/28/21- [facility] ONC Osteopenia Vitamin D deficiency Surgical History H/O brain surgery malignant tumor excised from occipital lobe 04/2020-[facility] History of bilateral tubal ligation History of brain shunt 07/2021 [facility]- CURRENTLY IN PLACE; DRAINING INTO ABDOMEN FOR SWELLING AROUND AREA WHERE TUMOR WAS REMOVED History of endometrial biopsy S/P colonoscopy Family History Sister Colonic polyp Social History Smoking Status: Former smoker Tobacco Type: Cigarettes Second Hand Exposure: No; Hx Alcohol Use: No Hx Substance Use: No Preferred Language: Urdu Communication Ability: Effective Admission Nurse Required: No Beliefs That Will Affect Care: None marital status: Current Living Situation: Spouse Feels Safe at Home: Yes Assistive Devices: Oxygen - Continuous Review of Systems Constitutional: no fever Eyes: no problem reported Ear, Nose, Mouth, Throat: no problem reported Respiratory: no cough and no dyspnea Cardiovascular: no chest pain Gastrointestinal: + nausea; no diarrhea/loose stools Genitourinary: no dysuria Physical Exam Constitutional: not in distress Eyes: PERRL, conjunctivae normal, anicteric sclerae ENMT: Mouth: + dry oral mucous membranes Neck: trachea midline, no thyromegaly Respiratory: normal respiratory effort, lungs clear to auscultation Cardiovascular: RRR, no murmur, no edema Skin: + turgor decreased Neurologic: awake; not confused Results & Data ([place]) Vital Signs (Past 12 Hours) Vital Signs Temp Pulse Resp BP Pulse Ox O2 Del Method O2 Flow Rate 10/19/21 08:00 Nasal Cannula 2 10/19/21 07:31 36.4 C L 89 16 95/60 L 94 Room Air 10/19/21 00:19 Oxymask 1 Laboratory Results Laboratory Tests 10/16/21 10/19/21 10/19/21 23:20 07:43 07:43 WBC 6.34 Hgb 8.1 L Hct 25.2 L Plt Count 278 Sodium 133 L Potassium 3.1 L Chloride 102 Carbon Dioxide 21 BUN 13 Creatinine 2.23 H Calcium 8.4 L Magnesium 2.2 Albumin 2.8 L Urine Color Yellow Urine Appearance Clear Urine pH 5.5 Ur Specific [place] 1.004 Urine Protein Negative Urine Blood Negative Urine RBC (Auto) 0-4 Urine Bacteria (Auto) Negative Laboratory Tests 10/02/21 10/16/21 18:58 11:25 SARS-CoV-2, RNA, NAAT POSITIVE A* NEGATIVE Diagnostic Findings 10/16/[address]: 1. No acute abnormality and in particular no evidence of obstruction, appendicitis, or colitis. 2. Interval stability of hyperdense fluid collection in the right mid abdomen, favored to be benign and possibly related to old shunt catheter. 3. Abnormalities of OUTSIDE PLANT TECHNICIAN shunt. 4. Stable bilateral perinephric stranding. 5. Stable fat-containing umbilical hernia. 10/16/21 CXR: No acute chest disease. PG Care Time/CCT Total # of Minutes Spent Total Time Spent with Patient: Total time spent is greater than 50% in coordination of care (as documented) at patient's floor/unit and/or counseling patient: Coding Level of Care Code 27457 Inpt Consult Level 5 Diagnoses SINDY (acute kidney injury) N17.9 Hypotension I95.9 Hypotension type: unspecified hypotension type Malignant neoplasm metastatic to brain C79.31 COPD (chronic obstructive pulmonary disease) J43.9 COPD type: emphysema Emphysema type: unspecified (1) Hypotension Hypotension type: unspecified hypotension type Qualified Code(s): I95.9 - Hypotension, unspecified (2) COPD (chronic obstructive pulmonary disease) COPD type: emphysema Emphysema type: unspecified Qualified Code(s): J43.9 - Emphysema, unspecified
--- NOTE | 2021-10-19 15:42 | Ultrasound Report ---
RENAL ULTRASOUND HISTORY: Acute kidney injury. Hematuria. COMPARISON: Abdomen and pelvis CT 10/16/2021. FINDINGS: Right kidney: 9.9 cm. No hydronephrosis. Normal corticomedullary differentiation and cortical thickne ss. Left kidney: 11.0 cm. No hydronephrosis. Normal corticomedullary differentiation and cortical thickne ss. Bladder: No bladder wall thickening. Only the left ureteral jet was identified. Internal echoes/debri s identified within the bladder lumen. IMPRESSION: 1. Normal kidneys. No hydronephrosis. 2. Small amount of echogenic debris identified within the bladder lumen. However, no bladder wall thi ckening. Recommend correlation with urinalysis. ACT 112: Negative or not required by law. Electronically signed by: Mahendra Way M.D. 10/19/2021 3:41 PM
[2021-10-19] MEDS ORDERED: SODIUM CHLORIDE 0.9% 1000ML 1,000 ML IV SCH (16:00)
[2021-10-19] MEDS: LIDOCAINE 5% 1 PATCH TD SCH (21:02)
[2021-10-19] MEDS: LORazepam 0.5 MG TAB PO PRN (21:11)
--- NOTE | 2021-10-19 22:21 | Hospitalist Progress Note ---
Date of Service October 19, 2021 Assessment & Plan (1) Nausea & vomiting: Plan: -Admit to med/surge -Patient was recently admitted for similar symptoms during active covid infection, now back with similar symptoms after finishing course of dexamethasone -Patient and daughter state that she frequently gets these symptoms after completing steroids -> Will get cortisol levels. -Patient appears dehydrated with electrolyte abnormalities -Was given 2L NSS bolus, mag, and KCL in the ED -Will repeat BMP, mag, and phos this afternoon to see where her electrolytes are at -Start with clear liquid diet, continue light IV hydration until she can consistently tolerate PO intake -Need to try and avoid QT prolonging meds as her QTc was 533 today -Will continue PPI and add Carafate to see if some of her symptoms are related to gastritis -Symptoms appear improved. -advanced diet on 10/19 (2) SINDY (acute kidney injury): Plan: -Cr noted to be 1.98 on admission, baseline is around 1.3 -Kidney function had been improving at the time of discharge, but renal function is reduced due to dehydration -Do not suspect obstruction at this time, will get bladder scans to make sure -Monitor renal function after hydration creatinine continues to rise despite IVF. consulted nephro, Nephro recommended sto resume fluid. daughter updated (3) Hypokalemia: Plan: -Noted to be 2.4 in the ED, likely due to her nausea and vomiting -EKG changes noted on the first EKG with ST segment depression in the inferior- lateral leads -Patient is without chest pain/SOB and with a normal troponin, could also be due to demand from tachycardia -replaced electrolytes on (4) Hypomagnesemia: Plan: -See Hypokalemia (5) Compression fracture of L1 lumbar vertebra: Plan: -Continue intranasal calcitonin and lidocaine patches with tylenol as well will obtain MRI with contrast. awaiting improvement with COVID. (6) Anxiety with depression: Plan: -AU PAIR sertraline with HS ativan for sleep (7) COPD (chronic obstructive pulmonary disease): Plan: -Stable on RA -AU PAIR breathing treatments (8) Malignant neoplasm metastatic to brain: Plan: -Stable -Has a MANAGER ASSISTED LIVING shunt but no signs to suggested increased intracranial pressure or infection -Continue to monitor (9) Dyslipidemia: Plan: -AU PAIR statin (10) HTN (hypertension): Plan: -Hold AU PAIR propranolol as patient has had multiple episodes of hypotension recently while taking it at home -Monitor BP Plan The patient was discussed with Dr. Siegel at the time of admission Admission and Anticipated Discharge Date Admission Date: October 16, 2021 Subjective 60 yo female reports no new symptoms. Mild nausea today, tolerating her symptoms. Review of Systems Review of Systems: All systems reviewed & are unremarkable except as noted in HPI & below Physical Exam Physical Exam: General:In no acute distress, stated age, well- nourished, good hygiene HEENT:Normocephalic, atraumatic, no scleral icterus, pupils around round, symmetrical, and reactive to light Chest/Pulm:No respiratory distress, symmetrical chest expansion, clear breath sounds throughout Cardiac:RRR, no murmurs noted Abdomen:Negative for ascites and bruising, normoactive bowel sounds, soft, non-tender to palpation throughout Musculoskeletal:Symmetrical and without signs of acute trauma, upper and lower extremities with full ROM, no atrophy, spasticity, or flaccidity, glory hole tender to palpation over the lumbar spine from her recent compression fracture Extremities:Radial, dorsalis pedis, and posterior tibial pulses are intact and symmetrical, no edema noted in the BL LE's Skin:Warm, dry, no rashes , lesions, or scars noted Neuro:Alert and oriented to person, place, month, year, and president, no focal defects, CN II-XII tested and intact, finger to nose test negative, no tremors noted Psych:No acute distress, calm and cooperative during the exam Results & Data Results & Data ([facility]) Vital Signs (Past 12 Hours) Vital Signs Temp Pulse Resp BP BP Pulse Ox O2 Del Method 10/19/21 22:03 37.3 C 97 H 18 108/67 91 Room Air 10/19/21 21:19 Room Air 10/19/21 15:20 36.7 C 93 H 16 94/56 L 91 Room Air PG Care Time/CCT Total # of Minutes Spent Total Time Spent with Patient: Total time spent is greater than 50% in coordination of care (as documented) at patient's floor/unit and/or counseling patient: Coding Level of Care Code 94157 Subseq Hosp Care Lvl 3 Diagnoses Nausea & vomiting R11.2 SINDY (acute kidney injury) N17.9 Hypokalemia E87.6 Hypomagnesemia E83.42 Compression fracture of L1 lumbar vertebra S32.010A Anxiety with depression F41.8 COPD (chronic obstructive pulmonary disease) J43.9 COPD type: emphysema Emphysema type: unspecified Malignant neoplasm metastatic to brain C79.31 Dyslipidemia E78.5 HTN (hypertension) I10 Time Spent (min) 35 Comment updated family (1) COPD (chronic obstructive pulmonary disease) COPD type: emphysema Emphysema type: unspecified Qualified Code(s): J43.9 - Emphysema, unspecified
[2021-10-20] MEDS: HEPARIN SOD 5,000 UNIT/0.5 ML VIAL SQ SCH ×3 (06:08→21:51)
[2021-10-20] MEDS: SUCRALFATE 1 GM/10 ML UDC PO SCH ×4 (07:43→20:17)
[2021-10-20] MEDS: CEFEPIME 1,000 MG in SYRINGE 0 ML IV SCH (07:43)
[2021-10-20 07:45] LABS: Hematocrit (blood only) 24.9 % (34.1-44.9); Hemoglobin 8.1 g/dl (12.0-16.0); Mean Corpuscular Hemoglobin 29.2 pg (25.0-34.0); Mean Corpuscular Hgb Conc 32.5 g/dL (32.0-36.0); Mean Corpuscular Volume 89.9 fL (80.0-100.0); Mean Platelet Volume 10.9 fL (9.4-12.3); Platelet Count 294 K/uL (130-400); RDW Standard Deviation 46.5 fL (36.4-46.3); Red Blood Count 2.77 M/uL (3.93-5.22); White Blood Count 6.64 K/ul (4.8-10.8)
[2021-10-20 08:06] LABS: BUN Creatinine Ratio 5.1 (10-20); Calcium 8.4 mg/dl (8.5-10.1); Creatinine Clr Calc Pharmacy 20.4 ml/min; Est GFR (African American) 22.5 ml/min; Est GFR (Non-African American) 19.4 ml/min; Potassium 3.1 mmol/L (3.5-5.1)
[2021-10-20] MEDS: ACETAMINOPHEN 325 MG TAB PO PRN ×2 (08:36→20:16)
[2021-10-20] MEDS: PANTOprazole 40 MG TAB PO SCH (08:37)
[2021-10-20] MEDS: CALCITONIN SALMON NA 200 IU/AC 3.7 ML BTL SCH (08:37)
[2021-10-20] MEDS: SERTRALINE HCL 100 MG TABLET PO SCH (08:37)
[2021-10-20] MEDS: CHOLECALCIFEROL 1,000 UNITS 25 MCG TAB PO SCH (08:37)
--- NOTE | 2021-10-20 08:46 | Nephrology Progress Note ---
Date of Service October 20, 2021 Assessment & Plan (1) SINDY (acute kidney injury): Plan: * SINDY - possibly related to Keytruda therapy. FeNa 2%. No improvement following IV hydration. Renal US 10/19/21 was negative for hydronephrosis. 10/16/[address] revealed nonspecific perinephric stranding. Urine microscopy reveals only pyuria. Renal function did improve 09/28 in response to decadron therapy * Medical records from Dr. Beatty indicate that patient has been on Keytruda and Avastin every 6 weeks. 10/16/21 does held due to worsening kidney function and need for hospitalization * Indications/benefits of steroid therapy reviewed w/ both Mrs. Navarro and her daughter Marry this morning * Hold IVF and encourage oral hydration * Will start prednisone 40 mg daily and monitor renal response, UO * PRP in am (2) Hypotension: Plan: * Will provide gentle hydration (3) Malignant neoplasm metastatic to brain: Plan: * Has been receiving immunotherapy (4) COPD (chronic obstructive pulmonary disease): Admission and Anticipated Discharge Date Admission Date: October 16, 2021 Subjective Mrs. Navarro was evaluated in her hospital room this morning. She tolerated IV hydration without dyspnea. She reports brisk UO. Mrs. Navarro does c/o low back discomfort but attributes this to being in bed all day yesterday Review of Systems Constitutional: no fever Eyes: no problem reported Ear, Nose, Mouth, Throat: no problem reported Respiratory: no cough and no dyspnea Cardiovascular: no chest pain Gastrointestinal: no diarrhea/loose stools Genitourinary: no dysuria Physical Exam Constitutional: not in distress Eyes: PERRL, conjunctivae normal, anicteric sclerae ENMT: Mouth: + dry oral mucous membranes Neck: trachea midline, no thyromegaly Respiratory: normal respiratory effort, lungs clear to auscultation Cardiovascular: RRR, no murmur, no edema Skin: + turgor decreased Neurologic: awake; not confused Results & Data ([facility]) Vital Signs (Past 12 Hours) Vital Signs Temp Pulse Resp BP BP Pulse Ox O2 Del Method 10/20/21 07:50 Room Air 10/20/21 07:22 36.7 C 98 H 16 110/69 91 Room Air 10/19/21 22:03 37.3 C 97 H 18 108/67 91 Room Air 10/19/21 21:19 Room Air Laboratory Results Laboratory Tests 10/19/21 10/20/21 10/20/21 07:43 07:18 07:18 WBC 6.64 Hgb 8.1 L Hct 24.9 L Plt Count 294 Sodium 135 L Potassium 3.1 L Chloride 105 Carbon Dioxide 22 BUN 13 Creatinine 2.54 H D Glucose 77 Calcium 8.4 L Albumin 2.8 L 10/19/21 Renal US: 1. Normal kidneys. No hydronephrosis. 2. Small amount of echogenic debris identified within the bladder lumen. However, no bladder wall thickening. Recommend correlation with urinalysis. PG Care Time/CCT Total # of Minutes Spent Total Time Spent with Patient: Total time spent is greater than 50% in coordination of care (as documented) at patient's floor/unit and/or counseling patient: Coding Level of Care Code 12708 Subseq Hosp Care Lvl 3 Diagnoses SINDY (acute kidney injury) N17.9 Hypotension I95.9 Hypotension type: unspecified hypotension type Malignant neoplasm metastatic to brain C79.31 COPD (chronic obstructive pulmonary disease) J43.9 COPD type: emphysema Emphysema type: unspecified (1) COPD (chronic obstructive pulmonary disease) COPD type: emphysema Emphysema type: unspecified Qualified Code(s): J43.9 - Emphysema, unspecified (2) Hypotension Hypotension type: unspecified hypotension type Qualified Code(s): I95.9 - Hypotension, unspecified
[2021-10-20] MEDS: predniSONE 20 MG TAB PO SCH (11:55)
[2021-10-20] MEDS: LIDOCAINE 5% 1 PATCH TD SCH (20:17)
[2021-10-20] MEDS ORDERED: ARTIFICIAL TEARS OP PRN (21:23)
[2021-10-20] MEDS: LORazepam 0.5 MG TAB PO PRN (21:51)
--- NOTE | 2021-10-20 23:06 | Hospitalist Progress Note ---
Date of Service October 20, 2021 Assessment & Plan (1) Nausea & vomiting: Plan: -Admit to med/surge -Patient was recently admitted for similar symptoms during active covid infection, now back with similar symptoms after finishing course of dexamethasone -Patient and daughter state that she frequently gets these symptoms after completing steroids -> Will get cortisol levels. -Patient appears dehydrated with electrolyte abnormalities -Was given 2L NSS bolus, mag, and KCL in the ED -Will repeat BMP, mag, and phos this afternoon to see where her electrolytes are at -Start with clear liquid diet, continue light IV hydration until she can consistently tolerate PO intake -Will continue PPI and add Carafate to see if some of her symptoms are related to gastritis -Symptoms appear improved. -advanced diet on 10/19 appears to be resolved. (2) SINDY (acute kidney injury): Plan: -Cr noted to be 1.98 on admission, baseline is around 1.3 -Kidney function had been improving at the time of discharge, but renal function is reduced due to dehydration -Do not suspect obstruction at this time, will get bladder scans to make sure -Monitor renal function after hydration creatinine continues to rise despite IVF. consulted nephro, Nephro recommended to stop IVF daughter updated keytruda may be culprit ordered prednisone (3) Hypokalemia: Plan: -Noted to be 2.4 in the ED, likely due to her nausea and vomiting -EKG changes noted on the first EKG with ST segment depression in the inferior- lateral leads -Patient is without chest pain/SOB and with a normal troponin, could also be due to demand from tachycardia -replaced electrolytes on 10/19 will recheck in AM (4) Hypomagnesemia: Plan: -See Hypokalemia (5) Compression fracture of L1 lumbar vertebra: Plan: -Continue intranasal calcitonin and lidocaine patches with tylenol as well will obtain MRI with contrast. awaiting improvement with COVID. (6) Anxiety with depression: Plan: -KNUCKLER sertraline with HS ativan for sleep (7) COPD (chronic obstructive pulmonary disease): Plan: -Stable on RA -KNUCKLER breathing treatments (8) Malignant neoplasm metastatic to brain: Plan: -Stable -Has a TRANSIT MAN shunt but no signs to suggested increased intracranial pressure or infection -Continue to monitor (9) Dyslipidemia: Plan: -KNUCKLER statin (10) HTN (hypertension): Plan: -Hold KNUCKLER propranolol as patient has had multiple episodes of hypotension recently while taking it at home -Monitor BP Admission and Anticipated Discharge Date Admission Date: October 16, 2021 Subjective 61 yo female reports no new symptoms. Review of Systems Review of Systems: All systems reviewed & are unremarkable except as noted in HPI & below Physical Exam Physical Exam: General:In no acute distress, stated age, well- nourished, good hygiene HEENT:Normocephalic, atraumatic, no scleral icterus, pupils around round, symmetrical, and reactive to light Chest/Pulm:No respiratory distress, symmetrical chest expansion, clear breath sounds throughout Cardiac:RRR, no murmurs noted Abdomen:Negative for ascites and bruising, normoactive bowel sounds, soft, non-tender to palpation throughout Musculoskeletal:Symmetrical and without signs of acute trauma, upper and lower extremities with full ROM, no atrophy, spasticity, or flaccidity, laminating machine tender to palpation over the lumbar spine from her recent compression fracture Extremities:Radial, dorsalis pedis, and posterior tibial pulses are intact and symmetrical, no edema noted in the BL LE's Skin:Warm, dry, no rashes , lesions, or scars noted Neuro:Alert and oriented to person, place, month, year, and president, no focal defects, CN II-XII tested and intact, finger to nose test negative, no tremors noted Psych:No acute distress, calm and cooperative during the exam Results & Data Results & Data ([facility]) Vital Signs (Past 12 Hours) Vital Signs Temp Pulse Resp BP Pulse Ox O2 Del Method 10/20/21 21:20 88 16 109/69 94 Room Air 10/20/21 20:44 Room Air 10/20/21 14:30 36.4 C L 96 H 16 104/70 95 Room Air PG Care Time/CCT Total # of Minutes Spent Total Time Spent with Patient: Total time spent is greater than 50% in coordination of care (as documented) at patient's floor/unit and/or counseling patient: Coding Level of Care Code 60318 Subseq Hosp Care Lvl 2 Diagnoses Nausea & vomiting R11.2 SINDY (acute kidney injury) N17.9 Hypokalemia E87.6 Hypomagnesemia E83.42 Compression fracture of L1 lumbar vertebra S32.010A Anxiety with depression F41.8 COPD (chronic obstructive pulmonary disease) J43.9 COPD type: emphysema Emphysema type: unspecified Malignant neoplasm metastatic to brain C79.31 Dyslipidemia E78.5 HTN (hypertension) I10 Time Spent (min) 25 (1) COPD (chronic obstructive pulmonary disease) COPD type: emphysema Emphysema type: unspecified Qualified Code(s): J43.9 - Emphysema, unspecified
[2021-10-21] MEDS: HEPARIN SOD 5,000 UNIT/0.5 ML VIAL SQ SCH ×3 (05:52→21:39)
[2021-10-21 07:06] LABS: Hematocrit (blood only) 25.6 % (34.1-44.9); Hemoglobin 8.2 g/dl (12.0-16.0); Mean Corpuscular Hemoglobin 29.2 pg (25.0-34.0); Mean Corpuscular Volume 91.1 fL (80.0-100.0); Mean Platelet Volume 10.5 fL (9.4-12.3); Platelet Count 354 K/uL (130-400); RDW Coefficient of Variation 14.2 % (11.5-14.5); RDW Standard Deviation 47.3 fL (36.4-46.3); Red Blood Count 2.81 M/uL (3.93-5.22); White Blood Count 4.47 K/ul (4.8-10.8)
[2021-10-21 07:30] LABS: BUN Creatinine Ratio 5.2 (10-20); Creatinine Clr Calc Pharmacy 19.2 ml/min; Est GFR (African American) 20.9 ml/min; Potassium 3.3 mmol/L (3.5-5.1)
[2021-10-21] MEDS: SUCRALFATE 1 GM/10 ML UDC PO SCH ×4 (07:34→21:40)
[2021-10-21] MEDS: CEFEPIME 1,000 MG in SYRINGE 0 ML IV SCH (07:34)
[2021-10-21] MEDS: ACETAMINOPHEN 325 MG TAB PO PRN (07:34)
[2021-10-21] MEDS: predniSONE 20 MG TAB PO SCH (08:42)
[2021-10-21] MEDS: SERTRALINE HCL 100 MG TABLET PO SCH (08:42)
[2021-10-21] MEDS: CALCITONIN SALMON NA 200 IU/AC 3.7 ML BTL SCH (08:42)
[2021-10-21] MEDS: CHOLECALCIFEROL 1,000 UNITS 25 MCG TAB PO SCH (08:42)
[2021-10-21] MEDS: PANTOprazole 40 MG TAB PO SCH (08:42)
--- NOTE | 2021-10-21 09:06 | Nephrology Progress Note ---
Date of Service October 21, 2021 Assessment & Plan (1) SINDY (acute kidney injury): Plan: * SINDY - possibly AIN related to Keytruda therapy. FeNa 2%. No improvement following IV hydration. Renal US 10/19/21 was negative for hydronephrosis. 10/16/[address] revealed nonspecific perinephric stranding. Urine microscopy reveals only pyuria. Renal function did improve 09/28 in response to decadron therapy * Medical records from Dr. Beatty indicate that patient has been on Keytruda and Avastin every 6 weeks. 10/16/21 does held due to worsening kidney function and need for hospitalization * Continue prednisone 1 mg/kg (60 mg) po daily * If AIN will expect to see kidney function stabilize/improve over next 72 hours * PRP in am (2) Hypotension: Plan: * Encourage oral hydration (3) Malignant neoplasm metastatic to brain: Plan: * Has been receiving immunotherapy (4) COPD (chronic obstructive pulmonary disease): Admission and Anticipated Discharge Date Admission Date: October 16, 2021 Subjective Ms. Navarro was evaluated in her hospital room this morning. She denied fever, flank pain, dysuria or uremic symptoms. She tolerated oral prednisone last evening without GI upset Review of Systems Constitutional: no fever Eyes: no problem reported Ear, Nose, Mouth, Throat: no problem reported Respiratory: no cough and no dyspnea Cardiovascular: no chest pain Gastrointestinal: no diarrhea/loose stools Genitourinary: no dysuria Physical Exam Constitutional: not in distress Eyes: PERRL, conjunctivae normal, anicteric sclerae ENMT: external ear and nose normal, oropharynx normal Neck: trachea midline, no thyromegaly Respiratory: normal respiratory effort, lungs clear to auscultation Cardiovascular: RRR, no murmur, no edema Neurologic: awake; not confused Results & Data ([facility]) Vital Signs (Past 12 Hours) Vital Signs Temp Pulse Resp BP Pulse Ox O2 Del Method 10/21/21 07:25 36.4 C L 94 H 18 125/89 95 Room Air 10/20/21 21:20 88 16 109/69 94 Room Air Laboratory Results Laboratory Tests 10/21/21 10/21/21 06:40 06:40 WBC 4.47 L Hgb 8.2 L Hct 25.6 L Sodium 141 Potassium 3.3 L Chloride 110 H Carbon Dioxide 21 BUN 14 Creatinine 2.70 H Glucose 117 H Calcium 9.0 PG Care Time/CCT Total # of Minutes Spent Total Time Spent with Patient: Total time spent is greater than 50% in coordination of care (as documented) at patient's floor/unit and/or counseling patient: Coding Level of Care Code 45233 Subseq Hosp Care Lvl 3 Diagnoses SINDY (acute kidney injury) N17.9 Hypotension I95.9 Hypotension type: unspecified hypotension type Malignant neoplasm metastatic to brain C79.31 COPD (chronic obstructive pulmonary disease) J43.9 COPD type: emphysema Emphysema type: unspecified (1) COPD (chronic obstructive pulmonary disease) COPD type: emphysema Emphysema type: unspecified Qualified Code(s): J43.9 - Emphysema, unspecified (2) Hypotension Hypotension type: unspecified hypotension type Qualified Code(s): I95.9 - Hypotension, unspecified
[2021-10-21] MEDS ORDERED: predniSONE 20 MG TAB PO ONE (09:45)
[2021-10-21 14:04] LABS: Appearance Urine Cloudy (Clear); Bacteria Urine Automated Negative (Negative); Bilirubin Urine Negative (Negative); Blood Urine 1+ (Negative); Color Urine Yellow; Epithelial Cell Urine Auto >30 /lpf (0-5); Glucose Urine UA Negative (Negative); Ketones Urine Trace (Negative); Leukocyte Esterase Urine 2+ (Negative); Nitrite Urine Negative (Negative); Protein Urine 1+ (Negative); RBC Urine Automated 0-4 /hpf (0-4); Specific Gravity Urine 1.009 (1.000-1.030); Urobilinogen Urine Negative (Negative); WBC Urine Automated >30 /hpf (0-5); pH Urine 5.5 (4.5-7.5)
[2021-10-21] MEDS: traMADol HCL 50 MG TABLET PO PRN (19:50)
--- NOTE | 2021-10-21 21:13 | Hospitalist Progress Note ---
Date of Service October 21, 2021 Assessment & Plan (1) Nausea & vomiting: Plan: -Admit to med/surge -Patient was recently admitted for similar symptoms during active covid infection, now back with similar symptoms after finishing course of dexamethasone -Patient and daughter state that she frequently gets these symptoms after completing steroids -> Will get cortisol levels. -Patient appears dehydrated with electrolyte abnormalities -Was given 2L NSS bolus, mag, and KCL in the ED -Will repeat BMP, mag, and phos this afternoon to see where her electrolytes are at -Start with clear liquid diet, continue light IV hydration until she can consistently tolerate PO intake -Will continue PPI and add Carafate to see if some of her symptoms are related to gastritis -Symptoms appear improved. -advanced diet on 10/19 appears to be resolved. Initially this was the main culprit to admission however, SINDY is keeping her here. (2) SINDY (acute kidney injury): Plan: -Cr noted to be 1.98 on admission, baseline is around 1.3 -Kidney function had been improving at the time of discharge, but renal function is reduced due to dehydration -Do not suspect obstruction at this time, will get bladder scans to make sure -Monitor renal function after hydration Patient did not improve with IVF despite about 3 days of continuous infusion. Nephro consulted. Currently CONCERN FOR ACUTE INTERSTITIAL NEPHRITIS Secondary to Keytruda Ordered prednisone initially on 40 mg 10/20 Increased to 60 mg 10/21 creatinine is is trending up. Anticipate response in 72 hours. (3) Hypokalemia: Plan: -Noted to be 2.4 in the ED, likely due to her nausea and vomiting -EKG changes noted on the first EKG with ST segment depression in the inferior- lateral leads -Patient is without chest pain/SOB and with a normal troponin, could also be due to demand from tachycardia -replaced electrolytes -continue to check daily (4) Hypomagnesemia: Plan: -See Hypokalemia (5) Compression fracture of L1 lumbar vertebra: Plan: -Continue intranasal calcitonin and lidocaine patches with tylenol as well will obtain MRI with contrast. awaiting improvement to her creatinine prior to order MRI with contrast (6) Anxiety with depression: Plan: -MICROSTRATEGY BI DEVELOPER sertraline with HS ativan for sleep (7) COPD (chronic obstructive pulmonary disease): Plan: -Stable on RA -MICROSTRATEGY BI DEVELOPER breathing treatments (8) Malignant neoplasm metastatic to brain: Plan: -Stable -Has a CONTAINER FINISHER shunt but no signs to suggested increased intracranial pressure or infection -Continue to monitor (9) Dyslipidemia: Plan: -MICROSTRATEGY BI DEVELOPER statin (10) HTN (hypertension): Plan: -Hold MICROSTRATEGY BI DEVELOPER propranolol as patient has had multiple episodes of hypotension recently while taking it at home -Monitor BP Admission and Anticipated Discharge Date Admission Date: October 16, 2021 Subjective 61 yo female reports no new symtpoms. Continues to have back pain and asking for tramadol, (explained this is PRN and she can ask for it). Review of Systems Review of Systems: All systems reviewed & are unremarkable except as noted in HPI & below Physical Exam Physical Exam: General:In no acute distress, stated age, well- nourished, good hygiene HEENT:Normocephalic, atraumatic, no scleral icterus, pupils around round, symmetrical, and reactive to light Chest/Pulm:No respiratory distress, symmetrical chest expansion, clear breath sounds throughout Cardiac:RRR, no murmurs noted Abdomen:Negative for ascites and bruising, normoactive bowel sounds, soft, non-tender to palpation throughout Musculoskeletal:Symmetrical and without signs of acute trauma, upper and lower extremities with full ROM, no atrophy, spasticity, or flaccidity, steam tender to palpation over the lumbar spine from her recent compression fracture Extremities:Radial, dorsalis pedis, and posterior tibial pulses are intact and symmetrical, no edema noted in the BL LE's Skin:Warm, dry, no rashes , lesions, or scars noted Neuro:Alert and oriented to person, place, month, year, and president, no focal defects, CN II-XII tested and intact, finger to nose test negative, no tremors noted Psych:No acute distress, calm and cooperative during the exam Results & Data Results & Data ([facility]) Vital Signs (Past 12 Hours) Vital Signs Temp Pulse Resp BP Pulse Ox O2 Del Method 10/21/21 14:22 36.6 C 88 18 121/86 97 Room Air PG Care Time/CCT Total # of Minutes Spent Total Time Spent with Patient: Total time spent is greater than 50% in coordination of care (as documented) at patient's floor/unit and/or counseling patient: Coding Level of Care Code 75166 Subseq Hosp Care Lvl 3 Diagnoses Nausea & vomiting R11.2 SINDY (acute kidney injury) N17.9 Hypokalemia E87.6 Hypomagnesemia E83.42 Compression fracture of L1 lumbar vertebra S32.010A Anxiety with depression F41.8 COPD (chronic obstructive pulmonary disease) J43.9 COPD type: emphysema Emphysema type: unspecified Malignant neoplasm metastatic to brain C79.31 Dyslipidemia E78.5 HTN (hypertension) I10 (1) COPD (chronic obstructive pulmonary disease) COPD type: emphysema Emphysema type: unspecified Qualified Code(s): J43.9 - Emphysema, unspecified
[2021-10-21] MEDS: LORazepam 0.5 MG TAB PO PRN (21:39)
[2021-10-21] MEDS: LIDOCAINE 5% 1 PATCH TD SCH (21:40)
[2021-10-22] MEDS: HEPARIN SOD 5,000 UNIT/0.5 ML VIAL SQ SCH ×3 (05:19→22:03)
[2021-10-22] MEDS: SUCRALFATE 1 GM/10 ML UDC PO SCH ×4 (07:46→20:51)
[2021-10-22] MEDS: SERTRALINE HCL 100 MG TABLET PO SCH (08:53)
[2021-10-22] MEDS: predniSONE 20 MG TAB PO SCH (08:53)
[2021-10-22] MEDS: CALCITONIN SALMON NA 200 IU/AC 3.7 ML BTL SCH (08:53)
[2021-10-22] MEDS: CHOLECALCIFEROL 1,000 UNITS 25 MCG TAB PO SCH (08:53)
[2021-10-22] MEDS: PANTOprazole 40 MG TAB PO SCH (08:53)
--- NOTE | 2021-10-22 08:55 | Nephrology Progress Note ---
Date of Service October 22, 2021 Assessment & Plan (1) SINDY (acute kidney injury): Plan: * SINDY - possibly AIN related to Keytruda therapy. FeNa 2%. No improvement following IV hydration. Renal US 10/19/21 was negative for hydronephrosis. 10/16/[address] revealed nonspecific perinephric stranding. Urine microscopy revealed pyuria on admission. Now shows pyuria and 1 - 5 granular casts. Renal function did improve 09/28 in response to decadron therapy * Medical records from Dr. Beatty indicate that patient has been on Keytruda and Avastin every 6 weeks. 10/16/21 does held due to worsening kidney function and need for hospitalization * Cr is trending down, kidney function is mildly improved this morning * Continue prednisone 1 mg/kg (60 mg) po daily * Primary service has provided KCl supplementation * PRP in am (2) Hypotension: Plan: * Encourage oral hydration (3) Malignant neoplasm metastatic to brain: Plan: * Has been receiving immunotherapy (4) COPD (chronic obstructive pulmonary disease): Admission and Anticipated Discharge Date Admission Date: October 16, 2021 Subjective Ms. Navarro was evaluated in her hospital room this morning. She denied fever, flank pain, dysuria or uremic symptoms. She is tolerating oral prednisone without GI upset Review of Systems Constitutional: no fever Eyes: no problem reported Ear, Nose, Mouth, Throat: no problem reported Respiratory: no cough and no dyspnea Cardiovascular: no chest pain Gastrointestinal: no diarrhea/loose stools Genitourinary: no dysuria Physical Exam Constitutional: not in distress Eyes: PERRL, conjunctivae normal, anicteric sclerae ENMT: external ear and nose normal, oropharynx normal Mouth: + dry oral mucous membranes Neck: trachea midline, no thyromegaly Respiratory: normal respiratory effort, lungs clear to auscultation Cardiovascular: RRR, no murmur, no edema Skin: + turgor decreased Neurologic: awake; not confused Results & Data ([facility]) Vital Signs (Past 12 Hours) Vital Signs Temp Pulse Resp BP Pulse Ox O2 Del Method 10/22/21 08:27 Room Air 10/22/21 05:46 36.3 C L 98 H 16 130/64 95 Room Air 10/21/21 21:33 36.3 C L 93 H 18 134/75 97 Room Air Laboratory Results Laboratory Tests 10/19/21 10/21/21 10/22/21 07:43 06:40 08:16 Sodium 138 Potassium 2.5 L* D Chloride 106 Carbon Dioxide 21 Anion Gap 11 BUN 16 Creatinine 2.70 H 2.23 H D Est GFR (Non-Af Amer) 22.7 Calcium 8.9 Magnesium 2.2 Laboratory Tests 10/21/21 13:35 Urine Color Yellow Urine Appearance Cloudy A Ur Specific [place] 1.009 Urine Protein 1+ H Urine Glucose (UA) Negative Urine Blood 1+ H Urine Nitrite Negative Ur Leukocyte Esterase 2+ H Urine WBC (Auto) >30 H U Hyaline Cast (Auto) 5-10 H U Epithel Cells (Auto) >30 H Granular Casts 1-5 H PG Care Time/CCT Total # of Minutes Spent Total Time Spent with Patient: Total time spent is greater than 50% in coordination of care (as documented) at patient's floor/unit and/or counseling patient: Coding Level of Care Code 75415 Subseq Hosp Care Lvl 3 Diagnoses SINDY (acute kidney injury) N17.9 Hypotension I95.9 Hypotension type: unspecified hypotension type Malignant neoplasm metastatic to brain C79.31 COPD (chronic obstructive pulmonary disease) J43.9 COPD type: emphysema Emphysema type: unspecified (1) COPD (chronic obstructive pulmonary disease) COPD type: emphysema Emphysema type: unspecified Qualified Code(s): J43.9 - Emphysema, unspecified (2) Hypotension Hypotension type: unspecified hypotension type Qualified Code(s): I95.9 - Hypotension, unspecified
[2021-10-22 09:06] LABS: BUN Creatinine Ratio 7.2 (10-20); Calcium 8.9 mg/dl (8.5-10.1); Creatinine Clr Calc Pharmacy 23.2 ml/min; Est GFR (African American) 26.3 ml/min; Est GFR (Non-African American) 22.7 ml/min; Potassium 2.5 mmol/L (3.5-5.1)
[2021-10-22] MEDS: POTASSIUM CHLORIDE CRTAB 20 MEQ TABCR PO SCH (10:53)
--- NOTE | 2021-10-22 13:52 | Hospitalist Progress Note ---
Date of Service October 22, 2021 Assessment & Plan (1) SINDY (acute kidney injury): Plan: -Cr noted to be 1.98 on admission, baseline is around 1.3 -Kidney function had been improving at the time of discharge, but renal function is reduced due to dehydration -Do not suspect obstruction at this time, will get bladder scans to make sure -Monitor renal function after hydration Patient did not improve with IVF despite about 3 days of continuous infusion. Nephro consulted. Currently CONCERN FOR ACUTE INTERSTITIAL NEPHRITIS - suspected secondary to Keytruda Ordered prednisone initially on 40 mg 10/20 Increased to 60 mg 10/21 Cr improving supporting diagnosis (2) Nausea & vomiting: Plan: -Patient was recently admitted for similar symptoms during active covid infection, now back with similar symptoms after finishing course of dexamethasone -Patient and daughter state that she frequently gets these symptoms after completing steroids -> random cortisol on10/16 normal -Patient appears dehydrated with electrolyte abnormalities -advanced diet on 10/19 appears to be resolved. Initially this was the main culprit to admission however, SINDY is keeping her here. (3) Hypokalemia: Plan: -Noted to be 2.4 in the ED, likely due to her nausea and vomiting -EKG changes noted on the first EKG with ST segment depression in the inferior- lateral leads -Patient is without chest pain/SOB and with a normal troponin, could also be due to demand from tachycardia -suspect overall body deplete, start on 20meq PO daily with additional 40 meq now and repeat BMP this afternoon (4) Hypomagnesemia: Plan: Resolved -See Hypokalemia (5) Compression fracture of L1 lumbar vertebra: Plan: -Continue intranasal calcitonin and lidocaine patches with tylenol as well - consider MRI with contrast once renal function improved (6) Anxiety with depression: Plan: -WEB CONTENT SPECIALIST sertraline with HS ativan for sleep (7) COPD (chronic obstructive pulmonary disease): Plan: -Stable on RA -WEB CONTENT SPECIALIST breathing treatments (8) Malignant neoplasm metastatic to brain: Plan: -Stable -Has a FORM LAYER shunt but no signs to suggested increased intracranial pressure or infection -Continue to monitor (9) Dyslipidemia: Plan: -WEB CONTENT SPECIALIST statin (10) HTN (hypertension): Plan: -Hold WEB CONTENT SPECIALIST propranolol as patient has had multiple episodes of hypotension recently while taking it at home -Monitor BP Plan VTE Prophylaxis - heparin 5000 units q8h Diet - regular Disposition - continue on med/surg Admission and Anticipated Discharge Date Admission Date: October 16, 2021 Subjective No urinary symptoms. No fever or chills. No rash. Having ongoing low back pain with previously diagnosed L1 compression fracture. No muscle weakness associated with hypokalemia. Review of Systems Review of Systems: All systems reviewed & are unremarkable except as noted in Subjective Physical Exam Constitutional: WD/WN, vitals as above Eyes: + anicteric sclerae; normal pupil size ENMT: external ear and nose normal, oropharynx normal Respiratory: normal respiratory effort, lungs clear to auscultation Cardiovascular: RRR, no murmur, no edema Gastrointestinal (Abdomen): normal bowel sounds, soft, nontender, no hepatosplenomegaly Psychiatric: A+Ox3, euthymic affect Results & Data Results & Data ([facility]) Vital Signs (Past 12 Hours) Vital Signs Temp Pulse Resp BP Pulse Ox O2 Del Method 10/22/21 08:27 Room Air 10/22/21 05:46 36.3 C L 98 H 16 130/64 95 Room Air PG Care Time/CCT Total # of Minutes Spent Total Time Spent with Patient: Total time spent is greater than 50% in coordination of care (as documented) at patient's floor/unit and/or counseling patient: Coding Level of Care Code 79651 Subseq Hosp Care Lvl 2 Diagnoses SINDY (acute kidney injury) N17.9 Nausea & vomiting R11.2 Hypokalemia E87.6 Hypomagnesemia E83.42 Compression fracture of L1 lumbar vertebra S32.010A Anxiety with depression F41.8 COPD (chronic obstructive pulmonary disease) J43.9 COPD type: emphysema Emphysema type: unspecified Malignant neoplasm metastatic to brain C79.31 Dyslipidemia E78.5 HTN (hypertension) I10 (1) COPD (chronic obstructive pulmonary disease) COPD type: emphysema Emphysema type: unspecified Qualified Code(s): J43.9 - Emphysema, unspecified
[2021-10-22] MEDS: ACETAMINOPHEN 500 MG TAB PO SCH ×2 (14:37→20:50)
[2021-10-22 15:30] LABS: BUN Creatinine Ratio 7.7 (10-20); Calcium 9.1 mg/dl (8.5-10.1); Creatinine Clr Calc Pharmacy 24.8 ml/min; Est GFR (African American) 28.5 ml/min; Est GFR (Non-African American) 24.6 ml/min; Potassium 2.9 mmol/L (3.5-5.1)
[2021-10-22] MEDS ORDERED: POTASSIUM CHLORIDE CRTAB 20 MEQ TABCR PO STA (16:28)
[2021-10-22] MEDS: LIDOCAINE 5% 1 PATCH TD SCH (20:50)
[2021-10-22] MEDS: LORazepam 0.5 MG TAB PO PRN (20:51)
[2021-10-23] MEDS: HEPARIN SOD 5,000 UNIT/0.5 ML VIAL SQ SCH ×3 (06:23→21:20)
[2021-10-23 08:09] LABS: BUN Creatinine Ratio 8.5 (10-20); Calcium 8.5 mg/dl (8.5-10.1); Creatinine Clr Calc Pharmacy 27.4 ml/min; Est GFR (African American) 32.2 ml/min; Est GFR (Non-African American) 27.7 ml/min; Potassium 2.5 mmol/L (3.5-5.1)
[2021-10-23] MEDS ORDERED: POTASSIUM CHLORIDE CRTAB 20 MEQ TABCR PO STA (08:12)
[2021-10-23] MEDS: POTASSIUM CHLORIDE CRTAB 20 MEQ TABCR PO SCH ×3 (08:17→21:17)
[2021-10-23] MEDS: SERTRALINE HCL 100 MG TABLET PO SCH (08:18)
[2021-10-23] MEDS: ACETAMINOPHEN 500 MG TAB PO SCH ×3 (08:18→21:17)
[2021-10-23] MEDS: predniSONE 20 MG TAB PO SCH (08:18)
[2021-10-23] MEDS: PANTOprazole 40 MG TAB PO SCH (08:18)
[2021-10-23] MEDS: CHOLECALCIFEROL 1,000 UNITS 25 MCG TAB PO SCH (08:18)
[2021-10-23] MEDS: SUCRALFATE 1 GM/10 ML UDC PO SCH ×4 (08:19→21:18)
[2021-10-23] MEDS: CALCITONIN SALMON NA 200 IU/AC 3.7 ML BTL SCH (08:19)
--- NOTE | 2021-10-23 11:45 | Nephrology Progress Note ---
Date of Service October 23, 2021 Assessment & Plan (1) SINDY (acute kidney injury): Plan: * SINDY - possibly AIN related to Keytruda therapy. FeNa 2%. No improvement following IV hydration. Renal US 10/19/21 was negative for hydronephrosis. 10/16/[address] revealed nonspecific perinephric stranding. Urine microscopy revealed pyuria on admission. Now shows pyuria and 1 - 5 granular casts. Renal function did improve 09/28 in response to decadron therapy * Medical records from Dr. Beatty indicate that patient has been on Keytruda and Avastin every 6 weeks. 10/16/21 does held due to worsening kidney function and need for hospitalization * Cr is trending down, kidney function is improved this morning (Cr 2.7 --> 1.89) * Reduce Prednisone to 40 mg po daily * Primary service has provided KCl supplementation * PRP in am * OK to discharge once Cr 1.5 or less. Recommend continuing Prednisone 40 mg po daily until Cr at baseline and will then initiate a slow taper of ~ 10 mg each month. If discharge is anticipated, please have patient follow up w/ me in the Nephrology office in ~ 2 weeks. I did enter orders to be completed prior to the visit in the EMR. I also spoke w/ Dr. Beatty this am and updated him regarding Ms. Navarro's plan of care (2) Hypotension: Plan: * Encourage oral hydration (3) Malignant neoplasm metastatic to brain: Plan: * Has been receiving immunotherapy (4) COPD (chronic obstructive pulmonary disease): Admission and Anticipated Discharge Date Admission Date: October 16, 2021 Subjective Ms. Navarro was evaluated in her hospital room this morning. She denied fever, flank pain, dysuria or uremic symptoms. She is tolerating oral prednisone without GI upset Review of Systems Constitutional: no fever Eyes: no problem reported Ear, Nose, Mouth, Throat: no problem reported Respiratory: no cough and no dyspnea Cardiovascular: no chest pain Gastrointestinal: no diarrhea/loose stools Genitourinary: no dysuria Physical Exam Constitutional: not in distress Eyes: PERRL, conjunctivae normal, anicteric sclerae ENMT: external ear and nose normal, oropharynx normal Mouth: + dry oral mucous membranes Neck: trachea midline, no thyromegaly Respiratory: normal respiratory effort, lungs clear to auscultation Cardiovascular: RRR, no murmur, no edema Skin: + turgor decreased Neurologic: awake; not confused Results & Data ([facility]) Vital Signs (Past 12 Hours) Vital Signs Temp Pulse Resp BP Pulse Ox O2 Del Method 10/23/21 07:15 Room Air, Nasal Cannula 10/23/21 07:30 36.3 C L 89 18 146/80 H 96 Room Air Laboratory Results Laboratory Tests 10/23/21 07:16 Sodium 139 Potassium 2.5 L* Chloride 109 H Carbon Dioxide 23 BUN 16 Creatinine 1.89 H Glucose 86 PG Care Time/CCT Total # of Minutes Spent Total Time Spent with Patient: Total time spent is greater than 50% in coordination of care (as documented) at patient's floor/unit and/or counseling patient: Coding Level of Care Code 11653 Subseq Hosp Care Lvl 3 Diagnoses SINDY (acute kidney injury) N17.9 Hypotension I95.9 Hypotension type: unspecified hypotension type Malignant neoplasm metastatic to brain C79.31 COPD (chronic obstructive pulmonary disease) J43.9 COPD type: emphysema Emphysema type: unspecified (1) Hypotension Hypotension type: unspecified hypotension type Qualified Code(s): I95.9 - Hypotension, unspecified (2) COPD (chronic obstructive pulmonary disease) COPD type: emphysema Emphysema type: unspecified Qualified Code(s): J43.9 - Emphysema, unspecified
[2021-10-23 17:11] LABS: BUN Creatinine Ratio 8.6 (10-20); Calcium 8.5 mg/dl (8.5-10.1); Est GFR (Non-African American) 28.5 ml/min; Potassium 3.6 mmol/L (3.5-5.1)
--- NOTE | 2021-10-23 19:32 | Hospitalist Progress Note ---
Date of Service October 23, 2021 Assessment & Plan (1) SINDY (acute kidney injury): Plan: -Cr noted to be 1.98 on admission, baseline is around 1.3 -Kidney function had been improving at the time of discharge, but renal function is reduced due to dehydration -Do not suspect obstruction at this time, will get bladder scans to make sure -Monitor renal function after hydration Patient did not improve with IVF despite about 3 days of continuous infusion. Nephro consulted. Currently CONCERN FOR ACUTE INTERSTITIAL NEPHRITIS - suspected secondary to Keytruda Ordered prednisone initially on 40 mg 10/20 Increased to 60 mg 10/21, decreasing down to 40mg PO tomorrow Cr improving supporting diagnosis, now down to 1.89, planning to discharge < 1.[address] Beatty informed of diagnosis via [employer] (2) Nausea & vomiting: Plan: -Patient was recently admitted for similar symptoms during active covid infection, now back with similar symptoms after finishing course of dexamethas one -Patient and daughter state that she frequently gets these symptoms after completing steroids -> random cortisol on10/16 normal -Patient appears dehydrated with electrolyte abnormalities -advanced diet on 10/19 appears to be resolved. Initially this was the main culprit to admission however, SINDY is keeping her here. (3) Hypokalemia: Plan: -Noted to be 2.4 in the ED, likely due to her nausea and vomiting -EKG changes noted on the first EKG with ST segment depression in the inferior-lateral leads -Patient is without chest pain/SOB and with a normal troponin, could also be due to demand from tachycardia K 2.5 this morning despite supplementation yesterday -suspect overall body deplete, increase to 20meq PO TID with additional 40 meq now and repeat BMP this afternoon (4) Hypomagnesemia: Plan: Resolved -See Hypokalemia (5) Compression fracture of L1 lumbar vertebra: Plan: -Continue intranasal calcitonin and lidocaine patches with tylenol as well - consider MRI with contrast once renal function improved (6) Anxiety with depression: Plan: -KISS MACHINE OPERATOR sertraline with HS ativan for sleep (7) COPD (chronic obstructive pulmonary disease): Plan: -Stable on RA -KISS MACHINE OPERATOR breathing treatments (8) Malignant neoplasm metastatic to brain: Plan: -Stable -Has a LOADING MACHINE ADJUSTER shunt but no signs to suggested increased intracranial pressure or infection -Continue to monitor (9) Dyslipidemia: Plan: -KISS MACHINE OPERATOR statin (10) HTN (hypertension): Plan: -Hold KISS MACHINE OPERATOR propranolol as patient has had multiple episodes of hypotension recently while taking it at home -Monitor BP Plan VTE Prophylaxis - heparin 5000 units q8h Diet - regular Disposition - continue on med/surg Admission and Anticipated Discharge Date Admission Date: October 16, 2021 Subjective No acute concerns or questions from patient today. Continues to be hypokalemic. No associated muscle weakness. Mild back pain unchanged. Otherwise feels well. Review of Systems Review of Systems: All systems reviewed & are unremarkable except as noted in Subjective Physical Exam Constitutional: WD/WN, vitals as above Eyes: + anicteric sclerae; normal pupil size ENMT: external ear and nose normal, oropharynx normal Respiratory: normal respiratory effort, lungs clear to auscultation Cardiovascular: RRR, no murmur, no edema Gastrointestinal (Abdomen): normal bowel sounds, soft, nontender, no hepatosplenomegaly Psychiatric: A+Ox3, euthymic affect Results & Data Results & Data ([facility]) Vital Signs (Past 12 Hours) Vital Signs Temp Pulse Resp BP Pulse Ox O2 Del Method 10/23/21 14:26 36.5 C 90 18 128/77 97 Room Air PG Care Time/CCT Total # of Minutes Spent Total Time Spent with Patient: Total time spent is greater than 50% in coordination of care (as documented) at patient's floor/unit and/or counseling patient: Coding Level of Care Code 54029 Subseq Hosp Care Lvl 2 Diagnoses SINDY (acute kidney injury) N17.9 Nausea & vomiting R11.2 Hypokalemia E87.6 Hypomagnesemia E83.42 Compression fracture of L1 lumbar vertebra S32.010A Anxiety with depression F41.8 COPD (chronic obstructive pulmonary disease) J43.9 COPD type: emphysema Emphysema type: unspecified Malignant neoplasm metastatic to brain C79.31 Dyslipidemia E78.5 HTN (hypertension) I10 (1) COPD (chronic obstructive pulmonary disease) COPD type: emphysema Emphysema type: unspecified Qualified Code(s): J43.9 - Emphysema, unspecified
[2021-10-23] MEDS: LORazepam 0.5 MG TAB PO PRN (21:17)
[2021-10-23] MEDS: LIDOCAINE 5% 1 PATCH TD SCH (21:18)
[2021-10-24] MEDS: HEPARIN SOD 5,000 UNIT/0.5 ML VIAL SQ SCH ×3 (05:59→20:00)
[2021-10-24] MEDS: predniSONE 20 MG TAB PO SCH (07:54)
[2021-10-24] MEDS: SERTRALINE HCL 100 MG TABLET PO SCH (07:54)
[2021-10-24] MEDS: PANTOprazole 40 MG TAB PO SCH (07:55)
[2021-10-24] MEDS: CHOLECALCIFEROL 1,000 UNITS 25 MCG TAB PO SCH (07:55)
[2021-10-24] MEDS: ACETAMINOPHEN 500 MG TAB PO SCH ×3 (07:55→20:00)
[2021-10-24] MEDS: POTASSIUM CHLORIDE CRTAB 20 MEQ TABCR PO SCH ×3 (07:55→19:59)
[2021-10-24] MEDS: SUCRALFATE 1 GM/10 ML UDC PO SCH ×4 (07:56→19:57)
[2021-10-24] MEDS: CALCITONIN SALMON NA 200 IU/AC 3.7 ML BTL SCH (07:56)
[2021-10-24 09:24] LABS: BUN Creatinine Ratio 10.2 (10-20); Calcium 8.8 mg/dl (8.5-10.1); Est GFR (African American) 40.2 ml/min; Est GFR (Non-African American) 34.7 ml/min
[2021-10-24] MEDS ORDERED: POTASSIUM CHLORIDE CRTAB 20 MEQ TABCR PO STA (09:32)
--- NOTE | 2021-10-24 12:25 | Nephrology Progress Note ---
Date of Service October 24, 2021 Assessment & Plan (1) SINDY (acute kidney injury): (2) Hypokalemia: (3) Hypomagnesemia: (4) Acute hyponatremia: (5) Diarrhea: (6) Malignant neoplasm metastatic to brain: (7) HTN (hypertension): Plan 60 year old female with PMH significant for COPD, non-small cell lung cancer w/ mets to the brain (s/p resection 04/27 followed by chemotherapy/radiation therapy), hydrocephalus s/p AIR AND WATER FILLER shunt [place]07[place]29 [facility] [place] She was admitted on 10/16/2021 with nausea, vomiting and diarrhea, COVID testing was negative ( hospitalized 10/02/21 - 10/07/21 due to COVID infection, complicated by SINDY, cr 2.3, but improved to 1.3 on DC). On admission noted to have SINDY with cr 2.3 with b/l Cr has been 0.97, urinalysis negative for protein or blood but noted to have pyuria.CT A/P was unremarkable except b/l perinephric stranding. she was noted to have a SINDY with P creatinine 2.3 was thought to be secondary to acute interstitial nephritis with Keytruda as there was no improvement in renal function with IV hydration and she was started on prednisone 60. Renal function slowly started improving prednisone was decreased to 40 mg daily yesterday with plan to continue of at that dose and slow taper as an outpatient. Creatinine down to 1.6 today. Potassium has been persistently low, requiring high dose of potassium supplement. She again started having diarrhea this morning and had 3 episodes. Denies any significant abdominal pain, fever or chills. Currently not on any antibiotic. hypokalemia possibly secondary to come been a [place] of diarrhea and possible post ATN diuresis however prior record review shows she had chronic significant hypo kalemia. Wonder whether she has any underlying channelopathy and renal loss of potassium. If blood pressure allow we could consider starting on spironolactone. -- continue on prednisone 40 mg daily -- continue current dose of potassium supplement, encouraged to consume high potassium food, discussed different food choices. -- If otherwise clinically stable, okay to be discharged from Nephrology standpoint, please schedule outpatient follow-up with Dr. Ryan 1-2 weeks. She should have lab done 2 days after discharge and then weekly. Will follow. Admission and Anticipated Discharge Date Admission Date: October 16, 2021 Subjective Aki was seen and examined in her room this morning. She reports having diarrhea again since this morning had 3-4 bowel movement but denies any abdominal pain fever, chills, nausea vomiting. Blood pressure has been acceptable. Renal function continues to improve, creatinine down to 1.6. Potassium remains low on high dose of potassium supplement. Review of Systems Review of Systems: detailed review of system was done and pertinent positives and negatives are mentioned above. Physical Exam Constitutional: WD/WN, vitals as above no acute distress Eyes: + anicteric sclerae Neck: normal visual inspection Respiratory: Auscultation: lungs clear to auscultation bilaterally Cardiovascular: RRR, no murmur, no edema Skin: no rashes Neurologic: no focal motor deficits Psychiatric: Orientation: alert and oriented x 3 Results & Data ([facility]) Vital Signs (Past 12 Hours) Vital Signs Temp Pulse Resp BP Pulse Ox O2 Del Method 10/24/21 07:15 Room Air 10/24/21 07:41 36.9 C 93 H 16 136/79 96 Room Air PG Care Time/CCT Total # of Minutes Spent Total Time Spent with Patient: Total time spent is greater than 50% in coordination of care (as documented) at patient's floor/unit and/or counseling patient: Coding Level of Care Code 12182 Subseq Hosp Care Lvl 3 Diagnoses SINDY (acute kidney injury) N17.9 Hypokalemia E87.6 Hypomagnesemia E83.42 Acute hyponatremia E87.1 Diarrhea R19.7 Malignant neoplasm metastatic to brain C79.31 HTN (hypertension) I10
--- NOTE | 2021-10-24 12:46 | Hospitalist Progress Note ---
Date of Service October 24, 2021 Assessment & Plan (1) SINDY (acute kidney injury): Plan: -Cr noted to be 1.98 on admission, baseline is around 1.3 -Kidney function had been improving at the time of discharge, but renal function is reduced due to dehydration -Do not suspect obstruction at this time, will get bladder scans to make sure -Monitor renal function after hydration Patient did not improve with IVF despite about 3 days of continuous infusion. Nephro consulted. Currently CONCERN FOR ACUTE INTERSTITIAL NEPHRITIS - suspected secondary to Keytruda Ordered prednisone initially on 40 mg 10/20 Increased to 60 mg 10/21, decreasing down to today 10/24 Cr improving supporting diagnosis, now down to 1.57, planning to discharge < 1.5 per nephrology If it gets worse tomorrow suspect it'll be from diarrhea rather than worsening AIN Dr Beatty previously informed of diagnosis via [employer]text - pt to follow up as outpatient to determine ongoing immunotherapy. (2) Diarrhea: Plan: Test for c. diff given recent antibiotic use (3) Nausea & vomiting: Plan: -Patient was recently admitted for similar symptoms during active covid infection, now back with similar symptoms after finishing course of dexamethasone -Patient and daughter state that she frequently gets these symptoms after completing steroids -> random cortisol on10/16 normal -Patient appears dehydrated with electrolyte abnormalities -advanced diet on 10/19 appears to be resolved. Initially this was the main culprit to admission however, SINDY is keeping her here. (4) Hypokalemia: Plan: -Noted to be 2.4 in the ED, likely due to her nausea and vomiting -EKG changes noted on the first EKG with ST segment depression in the inferior- lateral leads -Patient is without chest pain/SOB and with a normal troponin, could also be due to demand from tachycardia K 3.0 this morning despite supplementation yesterday -suspect overall body deplete, continue increased supplementation 20meq PO TID with additional 40 meq now and repeat BMP tomorrow (5) Hypomagnesemia: Plan: Resolved -See Hypokalemia (6) Compression fracture of L1 lumbar vertebra: Plan: -Continue intranasal calcitonin and lidocaine patches with tylenol as well - consider MRI with contrast once renal function improved (7) Anxiety with depression: Plan: -FINANCIAL SPECIALIST sertraline with HS ativan for sleep (8) COPD (chronic obstructive pulmonary disease): Plan: -Stable on RA -FINANCIAL SPECIALIST breathing treatments (9) Malignant neoplasm metastatic to brain: Plan: -Stable -Has a MANUFACTURING SUPERVISOR shunt but no signs to suggested increased intracranial pressure or infection -Continue to monitor (10) Dyslipidemia: Plan: -FINANCIAL SPECIALIST statin (11) HTN (hypertension): Plan: -Hold FINANCIAL SPECIALIST propranolol as patient has had multiple episodes of hypotension recently while taking it at home -Monitor BP Plan VTE Prophylaxis - heparin 5000 units q8h Diet - regular Disposition - continue on med/surg Admission and Anticipated Discharge Date Admission Date: October 16, 2021 Subjective Reports 5 episodes of diarrhea yesterday and another 3 epiodes already this morning. Watery. Previously was on cefepime earlier on admission for possible UTI (later ruled out). No prior episodes of c. diff. No abdominal pain, nausea or vomiting but she is feeling generally worse today. Review of Systems Review of Systems: All systems reviewed & are unremarkable except as noted in Subjective Physical Exam Constitutional: WD/WN, vitals as above Eyes: + anicteric sclerae; normal pupil size Gastrointestinal (Abdomen): normal bowel sounds, soft, nontender, no hepatosplenomegaly Psychiatric: A+Ox3, euthymic affect Results & Data Results & Data ([facility]) Vital Signs (Past 12 Hours) Vital Signs Temp Pulse Resp BP Pulse Ox O2 Del Method 10/24/21 07:15 Room Air 10/24/21 07:41 36.9 C 93 H 16 136/79 96 Room Air PG Care Time/CCT Total # of Minutes Spent Total Time Spent with Patient: Total time spent is greater than 50% in coordination of care (as documented) at patient's floor/unit and/or counseling patient: Coding Level of Care Code 41345 Subseq Hosp Care Lvl 2 Diagnoses SINDY (acute kidney injury) N17.9 Diarrhea R19.7 Nausea & vomiting R11.2 Hypokalemia E87.6 Hypomagnesemia E83.42 Compression fracture of L1 lumbar vertebra S32.010A Anxiety with depression F41.8 COPD (chronic obstructive pulmonary disease) J43.9 COPD type: emphysema Emphysema type: unspecified Malignant neoplasm metastatic to brain C79.31 Dyslipidemia E78.5 HTN (hypertension) I10 (1) COPD (chronic obstructive pulmonary disease) COPD type: emphysema Emphysema type: unspecified Qualified Code(s): J43.9 - Emphysema, unspecified
[2021-10-24] MEDS ORDERED: LOPERAMIDE HCL 2 MG CAP PO PRN (18:49)
[2021-10-24] MEDS: LIDOCAINE 5% 1 PATCH TD SCH (19:59)
[2021-10-24] MEDS: LORazepam 0.5 MG TAB PO PRN (20:04)
[2021-10-25] MEDS: HEPARIN SOD 5,000 UNIT/0.5 ML VIAL SQ SCH (06:22)
[2021-10-25] MEDS: ACETAMINOPHEN 500 MG TAB PO SCH (08:21)
[2021-10-25] MEDS: POTASSIUM CHLORIDE CRTAB 20 MEQ TABCR PO SCH (08:22)
[2021-10-25] MEDS: PANTOprazole 40 MG TAB PO SCH (08:22)
[2021-10-25] MEDS: SUCRALFATE 1 GM/10 ML UDC PO SCH ×2 (08:22→11:33)
[2021-10-25] MEDS: SERTRALINE HCL 100 MG TABLET PO SCH (08:22)
[2021-10-25] MEDS: predniSONE 20 MG TAB PO SCH (08:22)
[2021-10-25] MEDS: CHOLECALCIFEROL 1,000 UNITS 25 MCG TAB PO SCH (08:22)
[2021-10-25] MEDS: CALCITONIN SALMON NA 200 IU/AC 3.7 ML BTL SCH (08:23)
[2021-10-25 08:46] LABS: BUN Creatinine Ratio 10.9 (10-20); Calcium 8.6 mg/dl (8.5-10.1); Creatinine Clr Calc Pharmacy 43.5 ml/min; Est GFR (African American) 56.3 ml/min; Est GFR (Non-African American) 48.5 ml/min; Potassium 3.4 mmol/L (3.5-5.1)
--- NOTE | 2021-10-25 10:10 | Nephrology Progress Note ---
Date of Service October 25, 2021 Assessment & Plan (1) SINDY (acute kidney injury): (2) Hypokalemia: (3) Hypomagnesemia: (4) Acute hyponatremia: (5) Diarrhea: (6) Malignant neoplasm metastatic to brain: (7) HTN (hypertension): Plan 60 year old female with PMH significant for COPD, non-small cell lung cancer w/ mets to the brain (s/p resection 04/27 followed by chemotherapy/radiation therapy), hydrocephalus s/p ASSISTANT CASINO SHIFT MANAGER shunt (07/29 [facility] [place] She was admitted on 10/16/2021 with nausea, vomiting and diarrhea, COVID testing was negative ( hospitalized 10/02/21 - 10/07/21 due to COVID infection, complicated by SINDY, cr 2.3, but improved to 1.3 on DC). On admission noted to have SINDY with cr 2.3 with b/l Cr has been 0.97, urinalysis negative for protein or blood but noted to have pyuria.CT A/P was unremarkable except b/l perinephric stranding. she was noted to have a SINDY with P creatinine 2.3 was thought to be secondary to acute interstitial nephritis with Keytruda as there was no improvement in renal function with IV hydration and she was started on prednisone 60. Renal function slowly started improving prednisone was decreased to 40 mg daily yesterday with plan to continue of at that dose and slow taper as an outpatient. Creatinine down to 1.6 today. Potassium has been persistently low, requiring high dose of potassium supplement. She again started having diarrhea this morning and had 3 episodes. Denies any significant abdominal pain, fever or chills. Currently not on any antibiotic. hypokalemia possibly secondary to come been a [place] of diarrhea and possible post ATN diuresis however prior record review shows she had chronic significant hypo kalemia. Wonder whether she has any underlying channelopathy and renal loss of potassium. If blood pressure allow we could consider starting on spironolactone. -- continue on prednisone 40 mg daily -- continue current dose of potassium supplement, encouraged to consume high potassium food, discussed different food choices. -- okay to be discharged from Nephrology standpoint, please schedule outpatient follow-up with Dr. Acosta in 1-2 weeks. She should have lab done 2 days after discharge and then weekly. Will sign off. Admission and Anticipated Discharge Date Admission Date: October 16, 2021 Subjective Aki was seen and examined in her room this morning. She reports improvement in diarrhea after Imodium, overall feeling better, had breakfast, no abdominal pain fever, chills, nausea vomiting. Blood pressure has been acceptable. Renal function continues to improve, creatinine down to 1.2. Potassium 3.4 potassium supplement. Review of Systems Review of Systems: detailed review of system was done and pertinent positives and negatives are mentioned above. Physical Exam Constitutional: WD/WN, vitals as above no acute distress Eyes: + anicteric sclerae Neck: normal visual inspection Respiratory: Auscultation: lungs clear to auscultation bilaterally Cardiovascular: RRR, no murmur, no edema Skin: no rashes Neurologic: no focal motor deficits Psychiatric: Orientation: alert and oriented x 3 Results & Data ([facility]) Vital Signs (Past 12 Hours) Vital Signs Temp Pulse Resp BP BP Pulse Ox O2 Del Method 10/25/21 07:20 Room Air 10/25/21 07:18 36.6 C 97 H 16 158/88 H 96 Room Air 10/24/21 22:44 37.1 C 83 16 139/81 97 PG Care Time/CCT Total # of Minutes Spent Total Time Spent with Patient: Total time spent is greater than 50% in coordination of care (as documented) at patient's floor/unit and/or counseling patient: Coding Level of Care Code 62024 Subseq Hosp Care Lvl 2 Diagnoses SINDY (acute kidney injury) N17.9 Hypokalemia E87.6 Hypomagnesemia E83.42 Acute hyponatremia E87.1 Diarrhea R19.7 Malignant neoplasm metastatic to brain C79.31 HTN (hypertension) I10
[2021-10-25] MEDS ORDERED: POTASSIUM CHLORIDE CRTAB 20 MEQ TABCR PO STA (11:58)
--- NOTE | 2021-10-25 12:03 | Discharge Summary ---
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 Per chart review, the patient was recently discharged from [facility] on 10/07/21 where she was treated for SINDY, electrolyte abnormalities from intractable nausea, vomiting, and diarrhea, an L1 compression fracture, and hypoxic respiratory failure due to covid 19 infection. Per the discharge summary, the patient initially required 2L NC for support and was treated with Dexamethasone. Her nausea and vomiting was attributed to gastritis and resolved with medical therapy. Her diarrhea was thought to be from her recent covid infection and improved during her admission. Her SINDY was thought to be prerenal from dehydration and was improving with IV fluids. She was evaluated by orthopedics for her compression fracture, they did not recommend LSO brace but did recommend calcitonin nasal spray x 4 weeks + lidocaine patches for pain and Calcium/vitamin D supplementation. In the ED, the patient was found to be afebrile, hemodynamically stable, and stable on RA. She was sent to the ED from the heme/Onc clinic for a mildly elevated temperature, hypokalemia, and worsening kidney function. Her potassium was noted to be 2.4, sodium of 130, AG of 13 with a bicarb WNL, creatinine of 1.98 (baseline is approximately 1.0), mag of 1.6. Chest xray was negative for acute findings. CT of the abdomen and pelvis WO contrast was negative for acute changes compared to her CT done prior to her last admission. She was given 2L NSS bolus, magnesium, potassium, and morphine. At the time of the exam the patient was resting in bed in no acute distress with her daughter sitting bedside. They state that the patient had been doing well shortly after discharge but her symptoms returned after she completed her course of dexamethasone she was discharged on. They state that the patient has a history of getting nauseous, vomiting, and having poor oral intake anytime she finished a course of steroids. This is the same thing that has happened to her in the past when she was on steroids with her cancer treatments. They note that she was discharged on supplemental oxygen to use as needed but has not had to use it very often at home. She does not believe that she has aspirated with any of her episodes of vomiting. The patient denies any recent fevers or chills, she notes changes in taste since her covid diagnosis but denies changes in vision, hearing, and smell, denies chest pain and SOB,. She has been having her chronic lower abdominal pain, which has been stable since she had her GLASS BLOWER shunt first placed. Her bowel movements have returned to normal since her last admission. She has mainly been drinking water and her daughter thinks that she has been drinking approximately 6, 16 mL bottles of water daily. However, the patient notes that she was frequently vomiting the water as well. She denies any bloody or coffee ground emesis. The patient was discharged with supplemental oxygen as needed while at home along with a pulse oximeter, she has not had to use the oxygen frequently. When asked about dysuria the patient initially stated that she has not had any but then her daughter reminded her that she did have dysuria this am. Principal Diagnosis Acute interstitial nephritis (suspected secondary to Keytruda) Discharge Exam Constitutional WD/WN, vitals as above Eyes + anicteric sclerae; normal pupil size ENMT external ear and nose normal, oropharynx normal Respiratory normal respiratory effort, lungs clear to auscultation Cardiovascular Rate/Rhythm: regular rate and regular rhythm Heart Sounds: no murmur Extremities: + pedal edema (1+ b/l equal ankle pitting) Gastrointestinal (Abdomen) normal bowel sounds, soft, nontender, no hepatosplenomegaly Psychiatric A+Ox3, euthymic affect Discharge Data Allergies Allergy/AdvReac Type Severity Reaction Status Date / Time Sulfa (Sulfonamide Allergy Severe RASH Verified 10/16/21 16:00 Antibiotics) sulfamethoxazole Allergy Severe RASH Verified 10/16/21 16:00 trimethoprim Allergy Severe RASH Verified 10/16/21 16:00 tiotropium Allergy Intermediate Rash Verified 10/16/21 16:00 [From Spiriva with HandiHaler] amlodipine AdvReac Unknown Fatigue Verified 10/16/21 16:00 Consultations 10/16/21 12:05 ED Decision to Admit Stat 10/19/21 11:37 Consult Nephrology Routine Ordered Studies 10/16/21 10:30 CT abd pelvis wo con Stat IMPRESSION: 1. No acute abnormality and in particular no evidence of obstruction, appendicitis, or colitis. 2. Interval stability of hyperdense fluid collection in the right mid abdomen, favored to be benign and possibly related to old shunt catheter. 3. Abnormalities of GLASS BLOWER shunt. 4. Stable bilateral perinephric stranding. 5. Stable fat-containing umbilical hernia. 10/19/21 12:20 US renal/blad retro comp Routine IMPRESSION: 1. Normal kidneys. No hydronephrosis. 2. Small amount of echogenic debris identified within the bladder lumen. However, no bladder wall thickening. Recommend correlation with urinalysis. Hospital Course (1) SINDY (acute kidney injury): Aki Navarro is a 61 year old female admitted to [facility] from October 16 - 2021 due to nausea and vomiting and acute kidney failure. She was diagnosed with acute interstitial nephritis and treated with prednisone. Her renal function did not improve on IV fluids but did start to improve after prednisone was started. She should continue on 40mg prednisone as outpatient and taper as directed by nephrology at her follow up appointment. Her nausea and vomiting improved with bowel rest and Carafate, recommend continuing to use Carafate but plan to wean off over the next week as her nausea allows. Phenergan has also been prescribed just to use as needed for nausea. She continued to have intermittent diarrhea with c. diff testing negative. Imodium is helping with this and she can continue to use as needed. Her potassium levels continued to be low. She is requiring 20 meq KCl TID with occasional additional 40 meq PO on discharge. Will discharge on 20 meq PO TID now her potassium is much better repleted. Suspect this is due to her overal body potassium levels being low due to chronic diarrhea and vomiting. However, renal losses not ruled out and she will have repeat labs in 2 days to recheck this with results to her tree care foreman to consider spironolactone. Regarding her subacute back pain. We will defer to her oncologist whether to re- image this with MRI if thought to be possibly metastatic. Her pain appears to be stable/improving however and is not acute for this admission. (2) Diarrhea: (3) Nausea & vomiting: (4) Hypokalemia: (5) Hypomagnesemia: (6) Compression fracture of L1 lumbar vertebra: (7) Anxiety with depression: (8) COPD (chronic obstructive pulmonary disease): (9) Malignant neoplasm metastatic to brain: (10) Dyslipidemia: (11) HTN (hypertension): Total Time Total Time Spent Total Time Spent (In Minutes): 40 Discharge Plan Discharge Items Patient Disposition: Home - Self-Care Reason For Visit: NAUSEA/VOMITING Discharge Diagnosis: Acute interstitial nephritis (suspected secondary to Keytruda) Condition on Discharge: Fair Activity: Resume your previous activity Non-emergency contact: Primary Care Provider, [facility] and Oncologist Call non-emergency contact if: you have any medication questions and your symptoms worsen Follow-up/Referrals: Crystal Khan CRNP [Primary Care Provider] - Diet: Regular Ambulatory Orders: Basic Metabolic Panel (Routine) Timeframe: 20211027 Location: Determined by Patient Ordered By: Uri Fritz Attending Provider Instructions: You were admitted to [facility] from October 16 - 2021 due to nausea and vomiting and acute kidney failure. You were diagnosed with acute interstitial nephritis and treated with steroids. Please continue on 40mg prednisone as outpatient and taper as directed by nephrology at your follow up appointment. Your nausea and vomiting improved with bowel rest and Carafate, recommend continuing to use Carafate but plan to wean off over the next week as your nausea allows. Phenergan has also been prescribed just to use as needed for nausea. Please continue to use Imodium as needed for diarrhea, testing for c. diff was negative. Your potassium levels continued to be low. Suspect this is somewhat due to your diarrhea although kidney potassium loss not ruled out at this stage. Please continue potassium supplementation as prescribed. Please have repeat labs in 2 days as ordered and follow up with your tree care foreman in 1-2 weeks for ongoing management. Pending Studies at Discharge: No Stand-Alone Forms: My [facility], Smoking Cessation Medications and DC Order Prescriptions: New prednisone 10 mg tablet 40 mg PO DAILY 30 Days Qty: 120 0RF loperamide 2 mg Capsule 2 mg PO Q4H PRN (Reason: diarrhea) Qty: 20 0RF sucralfate 100 mg/mL Suspension 1 g PO ACHS Qty: 200 0RF potassium chloride 20 mEq Tablet,Er Particles/Crystals 20 meq PO TID Qty: 90 0RF promethazine 6.25 mg/5 mL Syrup 12.5 mg PO Q6H PRN (Reason: nausea and vomiting) Qty: 473 0RF Continued sertraline 100 mg tablet 100 mg PO DAILY Qty: 90 3RF cyclobenzaprine 10 mg tablet 10 mg PO TID PRN (Reason: muscle spasm) Qty: 30 0RF lorazepam 0.5 mg tablet 0.5 - 1 mg PO BID PRN (Reason: anxiety) Qty: 60 0RF acetaminophen 500 mg capsule 1,000 mg PO Q8H PRN (Reason: Pain) ondansetron HCl 8 mg tablet 8 mg PO Q8H PRN (Reason: nausea and vomiting) calcitonin (salmon) 200 unit/actuation [place],Non-Aerosol 1 spray NA DAILY 24 Days Qty: 3.7 0RF lidocaine 5 % Adhesive Patch,Medicated 1 patch transdermal HS Qty: 15 0RF Rx Instructions: apply to most painful spot. apply for 12 hours/ remove for 12 hours propranolol 60 mg tablet 30 mg PO Q2D Qty: 45 3RF cholecalciferol (vitamin D3) [Vitamin D3] 25 mcg (1,000 unit) tablet 25 mcg PO DAILY 90 Days Qty: 90 0RF pantoprazole [Protonix] 40 mg Tablet,Delayed Release (Dr/Ec) 40 mg PO QAM Discontinued dexamethasone 6 mg tablet 6 mg PO DAILY Qty: 5 0RF Discharge Orders: Discharge Order (Routine); Ordered 10/25/21 Ordered By: Uri Rivera Admission Data Admit Date/Time: 10/16/21 13:13 Attending Provider: Uri Rivera Admit Provider: Jamal Siegel Primary Care Provider: Crystal Khan Other Providers: Jamal Siegel ; Jose Raul Acosta Other Interventions: Discharge Summary Assessment (RN) Last Done: 10/25/21 12:04 Coding Level of Care Code D/C DAY MANAGEMENT >30 MINS Diagnoses SINDY (acute kidney injury) N17.9 Diarrhea R19.7 Nausea & vomiting R11.2 Hypokalemia E87.6 Hypomagnesemia E83.42 Compression fracture of L1 lumbar vertebra S32.010A Anxiety with depression F41.8 COPD (chronic obstructive pulmonary disease) J43.9 COPD type: emphysema Emphysema type: unspecified Malignant neoplasm metastatic to brain C79.31 Dyslipidemia E78.5 HTN (hypertension) I10
== END 2021-10-25 13:26 | disposition home or self-care (01) ==
LOC: ED 09:32 → SUATTDRO 13:13 → EDINP 13:13 → INTOOBSV 13:13 → 3W 18:43

== ENCOUNTER 2022-02-02 20:48 | Inpatient (IN) ==
[2022-02-02] MEDS ORDERED: SODIUM CHLORIDE 0.9% 500 ML IV STA (21:01)
[2022-02-02 22:09] LABS: Basophils # (auto) 0.02 K/uL (0-0.2); Basophils % (auto) 0.3 %; Eosinophils # (auto) 0.24 K/uL (0-0.50); Eosinophils % (auto) 3.5 %; Hematocrit (blood only) 38.4 % (34.1-44.9); Hemoglobin 13.1 g/dl (12.0-16.0); Immature Granulocytes # (auto) 0.02 K/uL (0.00-0.02); Immature Granulocytes % (auto) 0.3 %; Lymphocytes % (auto) 24.9 %; Mean Corpuscular Hgb Conc 34.1 g/dL (32.0-36.0); Mean Corpuscular Volume 90.8 fL (80.0-100.0); Mean Platelet Volume 9.8 fL (9.4-12.3); Monocytes % (auto) 14.6 %; Neutrophils # (auto) 3.86 K/uL (1.4-6.5); Neutrophils % (auto) 56.4 %; Platelet Count 394 K/uL (130-400); RDW Coefficient of Variation 13.6 % (11.5-14.5); Red Blood Count 4.23 M/uL (3.93-5.22); White Blood Count 6.84 K/ul (4.8-10.8)
[2022-02-02] MEDS ORDERED: ONDANSETRON INJ 2 MG/ML 2 ML VIAL IV STA (22:12)
[2022-02-02] MEDS ORDERED: SODIUM CHLORIDE 0.9% 1000ML 1,000 ML IV ONE ×2 (22:12→23:32)
[2022-02-02] MEDS ORDERED: FAMOTIDINE 20MG IV PUSH 20 MG/5 ML SYR IV STA (22:32)
[2022-02-02] MEDS ORDERED: METOCLOPRAMIDE HCL INJ 5 MG/ML 2 ML VIAL IV ONE (22:32)
[2022-02-02] MEDS ORDERED: diphenhydrAMINE 50 MG/ML VIAL IV STA (22:32)
[2022-02-02 22:49] LABS: Alanine Aminotransferase 7 U/L (7-52); Albumin Globulin Ratio 1.2 (0.9-2); Albumin Level 4.1 gm/dl (3.4-5.0); Alkaline Phosphatase 53 U/L (34-104); Anion Gap 19 (3-11); Aspartate Aminotransferase 14 U/L (13-39); BUN Creatinine Ratio 5.1 (10-20); Bilirubin,Total 0.3 mg/dl (0.2-1.0); Blood Urea Nitrogen 6 mg/dl (6-23); Calcium 8.9 mg/dl (8.5-10.1); Carbon Dioxide 14 mmol/L (21-32); Chloride 96 mmol/L (98-107); Est GFR (African American) 56.8 ml/min; Globulin 3.3 gm/dl (2.5-4.0); Glucose 61 mg/dl (70-99(Fasting)); Lipase 25 U/L (11-82); Sodium 129 mmol/L (136-145); Total Protein 7.4 gm/dl (6.0-8.3)
--- NOTE | 2022-02-02 22:56 | Emergency Department Note ---
History of Present Illness General Chief complaint: Vomiting Stated complaint: REFERRED BY DOCTOR, VOMITING Time Seen by Provider: 02/02/22 22:11 History of Present Illness This 61-year-old who has lung cancer currently on chemo presents to the ER complaining of nausea vomiting and upset stomach for the past 2 days he was sent in by the family doctor Location: Generalized Quality: Nauseous Severity: Moderate Duration: Past few days Timing: Started 3 days ago Context: Patient was concerned and came in Modifying factors: better with rest; worse with activity Patient just finished a round of steroids. Patient states she has been nauseous and having vomiting in the past few days. No diarrhea. Patient denies chest pain, fevers, diarrhea, urinary symptoms. Home Medications Medication Instructions Recorded Confirmed Type acetaminophen 500 mg capsule 1,000 mg PO Q8H PRN Pain 04/24/20 02/03/22 History ondansetron HCl 8 mg tablet 8 mg PO Q8H PRN nausea and vomiting 06/02/20 02/03/22 History pantoprazole 40 mg tablet,delayed 40 mg PO QAM 08/25/21 02/03/22 History release (Protonix) cyclobenzaprine 10 mg tablet 10 mg PO TID PRN muscle spasm #30 09/30/21 02/03/22 Rx tabs lidocaine 5 % topical patch 1 patch transdermal HS #15 ea 10/07/21 02/03/22 Rx promethazine 6.25 mg/5 mL oral 12.5 mg (10 mL) PO Q6H PRN nausea 10/25/21 02/03/22 Rx syrup and vomiting #473 mL clotrimazole 1 % vaginal cream See Rx Instructions .Route 10/29/21 02/03/22 Rx .COMPLEX PRN itching #45 grams mupirocin 2 % topical ointment See Rx Instructions topical BID 10/29/21 02/03/22 Rx #15 grams sertraline 100 mg tablet 150 mg PO DAILY #90 tabs 12/09/21 02/03/22 Rx cholecalciferol (vitamin D3) 25 25 mcg PO DAILY #90 tabs 01/07/22 02/03/22 Rx mcg (1,000 unit) tablet (Vitamin D3) lorazepam 0.5 mg tablet 0.5 - 1 mg PO BID PRN anxiety #60 01/18/22 02/03/22 Rx tabs prednisone 10 mg tablet 10 mg PO Q OTHER DAY #7 tabs 01/25/22 02/03/22 Rx Allergies Allergy/AdvReac Type Severity Reaction Status Date / Time Sulfa (Sulfonamide Allergy Severe RASH Verified 02/03/22 01:53 Antibiotics) sulfamethoxazole Allergy Severe RASH Verified 02/03/22 01:53 trimethoprim Allergy Severe RASH Verified 02/03/22 01:53 tiotropium Allergy Intermediate Rash Verified 02/03/22 01:53 [From Spiriva with HandiHaler] amlodipine AdvReac Unknown Fatigue Verified 02/03/22 01:53 Past Med/Surg History Medical History Anxiety Diverticulosis of colon Dyslipidemia Emphysema lung COPD - WELL CONTROLLED W/ INHALER History of brain tumor HTN (hypertension) Hydrocephalus SHUNT PLACED 07/2021[facility] Lung cancer TREATED W/ CHEMO AND RADIATION AT SAME TIME BRAIN CA 04/2020 [facility] Malignant neoplasm metastatic to brain RADIATION AND CHEMO DONE AFTER TUMOR REMOVED- CURRENTLY ON IMMUNOTHERAPY Q 2 MOS ON KEYTRUDA DUE 08/28/21[facility] Osteopenia Vitamin D deficiency Surgical History H/O brain surgery malignant tumor excised from occipital lobe 04/2020[facility] History of bilateral tubal ligation History of brain shunt 07/2021 [facility]- CURRENTLY IN PLACE; DRAINING INTO ABDOMEN FOR SWELLING AROUND AREA WHERE TUMOR WAS REMOVED History of endometrial biopsy S/P colonoscopy Family History Sister Colonic polyp Social History Smoking Status: Former smoker Tobacco Type: Cigarettes Second Hand Exposure: No; Hx Alcohol Use: No Hx Substance Use: No Preferred Language: Sinhala Communication Ability: Effective [employer] Required: No Beliefs That Will Affect Care: None marital status: Current Living Situation: Spouse Other Information That Helps Us Care for You: No Feels Safe at Home: Yes Safety Concerns: Feels Safe At This Time Review of Systems A total of 10 systems reviewed and were otherwise negative Physical Exam Vital Signs Vital Signs - 24 hr 02/02/22 20:58 02/03/22 02:11 02/03/22 04:38 Temperature 36.3 C L Temperature Source Temporal Artery Scan Pulse Rate 83 Pulse Rate [Apical] 120 H 122 H Pulse Rate from SpO2 Sensor Pulse Rhythm [Apical] Regular Regular Pulse Strength [Apical] Normal Normal Respiratory Rate 18 24 18 Respiratory Effort / Characteristics Non-Labored Spontaneous Non-Labored Spontaneous Respiratory Depth Normal Normal Normal Respiratory Pattern Regular Regular Blood Pressure 92/60 L Blood Pressure [Right Arm] 143/93 H 126/67 Blood Pressure Mean 70 Blood Pressure Mean [Right Arm] 109 86 Blood Pressure Position [Right Arm] Semi-fowlers Lying Pulse Oximetry 98 95 93 Oxygen Delivery Method Room Air Room Air Room Air Sepsis Recent Fever Within 48 Hours No Sepsis New/Unexplained Change in Mental Status N/A Sepsis Action Taken by Nursing No Action Required 02/03/22 05:02 02/03/22 01:30 02/03/22 01:40 Temperature Temperature Source Pulse Rate 102 H 103 H Pulse Rate [Apical] 120 H Pulse Rate from SpO2 Sensor 102 H 103 H Pulse Rhythm [Apical] Regular Pulse Strength [Apical] Normal Respiratory Rate 18 27 H 21 Respiratory Effort / Characteristics Non-Labored Spontaneous Respiratory Depth Normal Respiratory Pattern Regular Blood Pressure Blood Pressure [Right Arm] 114/71 Blood Pressure Mean Blood Pressure Mean [Right Arm] 85 Blood Pressure Position [Right Arm] Lying Pulse Oximetry 93 96 96 Oxygen Delivery Method Room Air Sepsis Recent Fever Within 48 Hours Sepsis New/Unexplained Change in Mental Status Sepsis Action Taken by Nursing 02/03/22 01:50 02/03/22 01:56 02/03/22 01:56 Temperature Temperature Source Pulse Rate 107 H 111 H Pulse Rate [Apical] Pulse Rate from SpO2 Sensor 107 H 112 H Pulse Rhythm [Apical] Pulse Strength [Apical] Respiratory Rate 31 H 19 Respiratory Effort / Characteristics Respiratory Depth Respiratory Pattern Blood Pressure 104/82 Blood Pressure [Right Arm] Blood Pressure Mean 89 Blood Pressure Mean [Right Arm] Blood Pressure Position [Right Arm] Pulse Oximetry 96 95 Oxygen Delivery Method Sepsis Recent Fever Within 48 Hours Sepsis New/Unexplained Change in Mental Status Sepsis Action Taken by Nursing 02/03/22 02:00 02/03/22 02:00 02/03/22 02:10 Temperature Temperature Source Pulse Rate 108 H 119 H Pulse Rate [Apical] Pulse Rate from SpO2 Sensor 109 H 118 H Pulse Rhythm [Apical] Pulse Strength [Apical] Respiratory Rate 21 20 Respiratory Effort / Characteristics Respiratory Depth Respiratory Pattern Blood Pressure 143/93 H Blood Pressure [Right Arm] Blood Pressure Mean 109 Blood Pressure Mean [Right Arm] Blood Pressure Position [Right Arm] Pulse Oximetry 97 95 Oxygen Delivery Method Sepsis Recent Fever Within 48 Hours Sepsis New/Unexplained Change in Mental Status Sepsis Action Taken by Nursing 02/03/22 02:20 02/03/22 02:30 02/03/22 02:40 Temperature Temperature Source Pulse Rate 114 H Pulse Rate [Apical] Pulse Rate from SpO2 Sensor 115 H 118 H 113 H Pulse Rhythm [Apical] Pulse Strength [Apical] Respiratory Rate 20 11 L 20 Respiratory Effort / Characteristics Respiratory Depth Respiratory Pattern Blood Pressure Blood Pressure [Right Arm] Blood Pressure Mean Blood Pressure Mean [Right Arm] Blood Pressure Position [Right Arm] Pulse Oximetry 96 94 95 Oxygen Delivery Method Sepsis Recent Fever Within 48 Hours Sepsis New/Unexplained Change in Mental Status Sepsis Action Taken by Nursing 02/03/22 03:01 02/03/22 03:02 02/03/22 03:02 Temperature Temperature Source Pulse Rate 116 H Pulse Rate [Apical] Pulse Rate from SpO2 Sensor Pulse Rhythm [Apical] Pulse Strength [Apical] Respiratory Rate 39 H 39 H Respiratory Effort / Characteristics Respiratory Depth Respiratory Pattern Blood Pressure 116/70 Blood Pressure [Right Arm] Blood Pressure Mean 85 Blood Pressure Mean [Right Arm] Blood Pressure Position [Right Arm] Pulse Oximetry Oxygen Delivery Method Sepsis Recent Fever Within 48 Hours Sepsis New/Unexplained Change in Mental Status Sepsis Action Taken by Nursing 02/03/22 03:10 02/03/22 03:20 02/03/22 03:30 Temperature Temperature Source Pulse Rate 123 H 123 H 131 H Pulse Rate [Apical] Pulse Rate from SpO2 Sensor 124 H 122 H 131 H Pulse Rhythm [Apical] Pulse Strength [Apical] Respiratory Rate 29 H 29 H 36 H Respiratory Effort / Characteristics Respiratory Depth Respiratory Pattern Blood Pressure Blood Pressure [Right Arm] Blood Pressure Mean Blood Pressure Mean [Right Arm] Blood Pressure Position [Right Arm] Pulse Oximetry 93 Oxygen Delivery Method Sepsis Recent Fever Within 48 Hours Sepsis New/Unexplained Change in Mental Status Sepsis Action Taken by Nursing 02/03/22 03:40 02/03/22 03:50 02/03/22 04:38 Temperature Temperature Source Pulse Rate 130 H 126 H Pulse Rate [Apical] Pulse Rate from SpO2 Sensor Pulse Rhythm [Apical] Pulse Strength [Apical] Respiratory Rate 31 H 31 H Respiratory Effort / Characteristics Respiratory Depth Respiratory Pattern Blood Pressure 126/67 Blood Pressure [Right Arm] Blood Pressure Mean 86 Blood Pressure Mean [Right Arm] Blood Pressure Position [Right Arm] Pulse Oximetry Oxygen Delivery Method Sepsis Recent Fever Within 48 Hours Sepsis New/Unexplained Change in Mental Status Sepsis Action Taken by Nursing 02/03/22 04:38 02/03/22 04:40 02/03/22 04:50 Temperature Temperature Source Pulse Rate 120 H 120 H Pulse Rate [Apical] Pulse Rate from SpO2 Sensor 122 H 120 H 120 H Pulse Rhythm [Apical] Pulse Strength [Apical] Respiratory Rate 48 H 45 H Respiratory Effort / Characteristics Respiratory Depth Respiratory Pattern Blood Pressure Blood Pressure [Right Arm] Blood Pressure Mean Blood Pressure Mean [Right Arm] Blood Pressure Position [Right Arm] Pulse Oximetry 91 93 93 Oxygen Delivery Method Sepsis Recent Fever Within 48 Hours Sepsis New/Unexplained Change in Mental Status Sepsis Action Taken by Nursing 02/03/22 05:00 02/03/22 05:00 02/03/22 05:10 Temperature Temperature Source Pulse Rate 120 H 119 H Pulse Rate [Apical] Pulse Rate from SpO2 Sensor 120 H 119 H Pulse Rhythm [Apical] Pulse Strength [Apical] Respiratory Rate 44 H 47 H Respiratory Effort / Characteristics Respiratory Depth Respiratory Pattern Blood Pressure 114/71 Blood Pressure [Right Arm] Blood Pressure Mean 85 Blood Pressure Mean [Right Arm] Blood Pressure Position [Right Arm] Pulse Oximetry 93 94 Oxygen Delivery Method Sepsis Recent Fever Within 48 Hours Sepsis New/Unexplained Change in Mental Status Sepsis Action Taken by Nursing 02/03/22 05:20 02/03/22 05:30 02/03/22 05:40 Temperature Temperature Source Pulse Rate 124 H 120 H 131 H Pulse Rate [Apical] Pulse Rate from SpO2 Sensor 124 H 120 H 130 H Pulse Rhythm [Apical] Pulse Strength [Apical] Respiratory Rate 38 H 50 H 21 Respiratory Effort / Characteristics Respiratory Depth Respiratory Pattern Blood Pressure Blood Pressure [Right Arm] Blood Pressure Mean Blood Pressure Mean [Right Arm] Blood Pressure Position [Right Arm] Pulse Oximetry 91 93 Oxygen Delivery Method Sepsis Recent Fever Within 48 Hours Sepsis New/Unexplained Change in Mental Status Sepsis Action Taken by Nursing 02/03/22 05:50 02/03/22 06:00 02/03/22 06:00 Temperature Temperature Source Pulse Rate 127 H 130 H Pulse Rate [Apical] Pulse Rate from SpO2 Sensor 127 H 130 H Pulse Rhythm [Apical] Pulse Strength [Apical] Respiratory Rate 22 30 H Respiratory Effort / Characteristics Respiratory Depth Respiratory Pattern Blood Pressure 128/95 Blood Pressure [Right Arm] Blood Pressure Mean 106 Blood Pressure Mean [Right Arm] Blood Pressure Position [Right Arm] Pulse Oximetry 92 95 Oxygen Delivery Method Sepsis Recent Fever Within 48 Hours Sepsis New/Unexplained Change in Mental Status Sepsis Action Taken by Nursing 02/03/22 06:10 Temperature Temperature Source Pulse Rate 134 H Pulse Rate [Apical] Pulse Rate from SpO2 Sensor 134 H Pulse Rhythm [Apical] Pulse Strength [Apical] Respiratory Rate 42 H Respiratory Effort / Characteristics Respiratory Depth Respiratory Pattern Blood Pressure Blood Pressure [Right Arm] Blood Pressure Mean Blood Pressure Mean [Right Arm] Blood Pressure Position [Right Arm] Pulse Oximetry 94 Oxygen Delivery Method Sepsis Recent Fever Within 48 Hours Sepsis New/Unexplained Change in Mental Status Sepsis Action Taken by Nursing VITALS: Vitals are noted on the nurse's note and reviewed by myself. Vital signs stable GENERAL: Pleasant female, in no acute distress, nondiaphoretic, well-developed well-nourished. SKIN: The skin was without rashes, erythema, edema, or bruising. There is no tenting of the skin. Capillary reflex less than 2 seconds. HEAD: Normocephalic atraumatic. EARS: External auditory canals clear, EYES: Pupils equal round and reactive to light and accommodation. Conjunctivae without injection, sclerae without icterus. Extraocular movements intact. NOSE: Patent, turbinates without inflammation or discharge. MOUTH: Mucous membranes mildly dry pharynx without erythema or exudate. Uvula midline. Airway patent. Tongue does not deviate. NECK: Supple without nuchal rigidity. No lymphadenopathy. No thyromegaly. Cervical spine is nontender. No JVD. HEART: Regular rate and rhythm LUNGS: Clear to auscultation bilaterally without wheezes, rales or rhonchi. No retractions or accessory muscle use. ABDOMEN: Positive bowel sounds x 4. Normal tympanic percussion. Soft, tender mid upper abdomen, without masses or organomegaly. Gaston sign negative. No guarding or rebound tenderness. No CVA tenderness MUSCULOSKELETAL: No muscle atrophy, erythema, or edema noted. NEURO: Patient was alert and oriented to person place and time. Normal sensation to light and sharp touch. No focal neurological deficits. Course Administered Medications Acetaminophen (Acetaminophen 500 Mg Tab) 1,000 mg PO Q8H PRN PRN Reason: Pain Stop: 03/05/22 08:37 Last Admin: 02/03/22 09:23 Dose: 1,000 mg Documented By: PARAM Potassium Chloride 40 meq/ (Dextrose/Sodium Chloride) 1,020 mls @ 80 mls/hr IV .[id number] [facility] Stop: 03/05/22 08:20 Last Admin: 02/03/22 09:23 Dose: 80 mls/hr Documented By: PARAM Sodium Phosphate 15 mmol/ (Sodium Chloride) 255 mls @ 88 mls/hr IV ONE ONE Stop: 02/03/22 13:53 Last Admin: 02/03/22 11:36 Dose: 88 mls/hr Documented By: KILO Lorazepam (Lorazepam 0.5 Mg Tab) 0.5 mg PO TID PRN PRN Reason: anxiety Stop: 03/05/22 08:20 Last Admin: 02/03/22 09:23 Dose: 0.5 mg Documented By: PARAM Miscellaneous (Remove Lidoderm Patch) 1 each N/A DAILY@0900 [facility] Stop: 03/05/22 08:59 Last Admin: 02/03/22 09:24 Dose: 1 each Documented By: PARAM Pantoprazole Sodium (Pantoprazole 40 Mg Tab) 40 mg PO QAM [facility] Stop: 03/05/22 08:59 Last Admin: 02/03/22 09:23 Dose: 40 mg Documented By: PARAM Sertraline HCl (Sertraline Hcl 50 Mg Tablet) 150 mg PO DAILY [facility] Stop: 03/05/22 08:59 Last Admin: 02/03/22 11:03 Dose: 150 mg Documented By: PARAM Vitamin D (Cholecalciferol 5,000 Units 125 Mcg Tab) 5,000 units PO QAM [facility] Stop: 03/05/22 10:44 Last Admin: 02/03/22 12:08 Dose: Not Given Documented By: KILO Discontinued Medications Albuterol (Albut/Ipratrop 3mg/0.5mg Neb 3 Ml Vial) 3 ml NEB NOW STA; Protocol Stop: 02/03/22 11:39 Last Admin: 02/03/22 12:06 Dose: 3 ml Documented By: KILO Atovaquone (Atovaquone 750 Mg/5 Ml Udc) 1,500 mg PO DAILY [facility] Stop: 03/05/22 08:59 Last Admin: 02/03/22 10:37 Dose: Not Given Documented By: PARAM Dextrose (Dextrose 50% 50 Ml Syringe) 25 ml IV NOW STA Stop: 02/02/22 22:58 Last Admin: 02/02/22 23:49 Dose: 25 ml Documented By: TYSON Dextrose (Dextrose 50% 50 Ml Syringe) 50 ml IV NOW ONE Stop: 02/03/22 02:34 Last Admin: 02/03/22 03:03 Dose: 50 ml Documented By: BOBO Diphenhydramine HCl (Diphenhydramine 50 Mg/Ml Vial) 25 mg IV NOW STA Stop: 02/02/22 22:33 Last Admin: 02/03/22 02:03 Dose: 25 mg Documented By: BOBO Gadobutrol (Gadobutrol 65ml Vial) 6.5 ml IV ONCE ONE Stop: 02/03/22 10:24 Last Admin: 02/03/22 10:16 Dose: 6.5 ml Documented By: JEMIMA Sodium Chloride (Nss) 500 mls @ 999 mls/hr IV .Q31M STA Stop: 02/02/22 21:31 Last Infusion: 02/03/22 01:24 Dose: 0 mls/hr Documented By: Admin: 02/02/22 21:47 Dose: 999 mls/hr Documented By: DESIRAE Sodium Chloride (Nss 1000ml) 1,000 mls @ 999 mls/hr IV .Q1H1M ONE Stop: 02/02/22 23:12 Last Infusion: 02/03/22 07:21 Dose: 0 mls/hr Documented By: Admin: 02/03/22 02:05 Dose: 999 mls/hr Documented By: BOBO Famotidine (Pepcid 20mg Iv Push) 20 mg in 5 mls @ 2.5 mls/min IV NOW STA Stop: 02/02/22 22:33 Last Admin: 02/03/22 01:58 Dose: 2.5 mls/min Documented By: BOBO Sodium Chloride (Nss 1000ml) 1,000 mls @ 999 mls/hr IV .Q1H1M ONE Stop: 02/03/22 00:32 Last Admin: 02/03/22 07:21 Dose: Not Given Documented By: PARAM Sodium Chloride (Nss 1000ml) 1,000 mls @ 999 mls/hr IV .Q1H1M ONE Stop: 02/03/22 11:51 Last Infusion: 02/03/22 12:39 Dose: 0 mls/hr Documented By: Admin: 02/03/22 11:35 Dose: 999 mls/hr Documented By: KILO Ioversol (Optiray 320 500ml) 80 ml IV ONCE ONE Stop: 02/02/22 23:52 Last Admin: 02/02/22 23:51 Dose: 80 ml Documented By: GEORGINA Ioversol (Optiray 320 500ml) 112 ml IV ONCE ONE Stop: 02/03/22 12:01 Last Admin: 02/03/22 12:00 Dose: 112 ml Documented By: CARLOS Lorazepam (Lorazepam 2 Mg/1 Ml Vial) 1 mg IV NOW STA Stop: 02/03/22 02:36 Last Admin: 02/03/22 03:10 Dose: 1 mg Documented By: BOBO Metoclopramide HCl (Metoclopramide Hcl Inj 5 Mg/Ml 2 Ml Vial) 5 mg IV ONE ONE Stop: 02/02/22 22:33 Last Admin: 02/03/22 02:00 Dose: 5 mg Documented By: BOBO Ondansetron HCl (Ondansetron Inj 2 Mg/Ml 2 Ml Vial) 4 mg IV NOW STA Stop: 02/02/22 22:13 Last Admin: 02/03/22 02:05 Dose: Not Given Documented By: BOBO Potassium Chloride (Potassium Chloride 20 Meq/15 Ml Udc) 40 meq PO NOW STA Stop: 02/03/22 02:49 Last Admin: 02/03/22 03:17 Dose: 40 meq Documented By: BOBO Medical Decision Making Medical Records Attestation: I reviewed the patient's medical records. Home Medications Current Medication List: was personally reviewed by me Laboratory Data Attestation: I reviewed the patient's lab results. Result diagrams: 02/02/22 21:48 02/03/22 05:15 Lab Results 02/02/22 02/02/22 02/03/22 Range/Units 21:48 21:48 02:09 WBC 6.84 (4.8-10.8) K/ul RBC 4.23 (3.93-5.22) M/uL Hgb 13.1 (12.0-16.0) g/dl Hct 38.4 (34.1-44.9) % MCV 90.8 (80.0-100.0) fL MCH 31.0 (25.0-34.0) pg MCHC 34.1 (32.0-36.0) g/dL RDW Std Deviation 45.0 (36.4-46.3) fL RDW Coeff of Agus 13.6 (11.5-14.5) % Plt Count 394 (130-400) K/uL MPV 9.8 (9.4-12.3) fL Immature Gran % (Auto) 0.3 % Neut % (Auto) 56.4 % Lymph % (Auto) 24.9 % [place] % (Auto) 14.6 % Eos % (Auto) 3.5 % Baso % (Auto) 0.3 % Neut # (Auto) 3.86 (1.4-6.5) K/uL Lymph # (Auto) 1.70 (1.2-3.4) K/uL [place] # (Auto) 1.00 H (0.24-0.82) K/uL Eos # (Auto) 0.24 (0-0.50) K/uL Baso # (Auto) 0.02 (0-0.2) K/uL Immature Gran # (Auto) 0.02 (0.00-0.02) K/uL Sodium 129 L (136-145) mmol/L Potassium 3.0 L (3.5-5.1) mmol/L Chloride 96 L (98-107) mmol/L Carbon Dioxide 14 L (21-32) mmol/L Anion Gap 19 H (3-11) BUN 6 (6-23) mg/dl Creatinine 1.18 (0.6-1.2) mg/dl Est Cr Clr Drug Dosing Not Reportable Est GFR ( Amer) 56.8 ml/min Est GFR (Non-Af Amer) 49.0 ml/min BUN/Creatinine Ratio 5.1 L (10-20) Glucose 61 L (70-99(Fasting)) mg/dl POC Glucose 65 L* (70-99) mg/dl Calcium 8.9 (8.5-10.1) mg/dl Total Bilirubin 0.3 (0.2-1.0) mg/dl AST 14 (13-39) U/L ALT 7 (7-52) U/L Alkaline Phosphatase 53 (34-104) U/L Troponin I High Sens 6.4 (0-14) pg/ml Total Protein 7.4 (6.0-8.3) gm/dl Albumin 4.1 (3.4-5.0) gm/dl Globulin 3.3 (2.5-4.0) gm/dl Albumin/Globulin Ratio 1.2 (0.9-2) Lipase 25 (11-82) U/L Urine Color Urine Appearance (Clear) Urine pH (4.5-7.5) Ur Specific [place] (1.000-1.030) Urine Protein (Negative) Urine Glucose (UA) (Negative) Urine Ketones (Negative) Urine Blood (Negative) Urine Nitrite (Negative) Urine Bilirubin (Negative) Urine Urobilinogen (Negative) Ur Leukocyte Esterase (Negative) Urine WBC (Auto) (0-5) /hpf Urine RBC (Auto) (0-4) /hpf U Hyaline Cast (Auto) (0-5) /lpf U Epithel Cells (Auto) (0-5) /lpf Urine Bacteria (Auto) (Negative) SARS-CoV-2, RNA, NAAT (NEGATIVE) 02/03/22 02/03/22 02/03/22 Range/Units 02:30 03:20 04:42 WBC (4.8-10.8) K/ul RBC (3.93-5.22) M/uL Hgb (12.0-16.0) g/dl Hct (34.1-44.9) % MCV (80.0-100.0) fL MCH (25.0-34.0) pg MCHC (32.0-36.0) g/dL RDW Std Deviation (36.4-46.3) fL RDW Coeff of Agus (11.5-14.5) % Plt Count (130-400) K/uL MPV (9.4-12.3) fL Immature Gran % (Auto) % Neut % (Auto) % Lymph % (Auto) % [place] % (Auto) % Eos % (Auto) % Baso % (Auto) % Neut # (Auto) (1.4-6.5) K/uL Lymph # (Auto) (1.2-3.4) K/uL [place] # (Auto) (0.24-0.82) K/uL Eos # (Auto) (0-0.50) K/uL Baso # (Auto) (0-0.2) K/uL Immature Gran # (Auto) (0.00-0.02) K/uL Sodium (136-145) mmol/L Potassium (3.5-5.1) mmol/L Chloride (98-107) mmol/L Carbon Dioxide (21-32) mmol/L Anion Gap (3-11) BUN (6-23) mg/dl Creatinine (0.6-1.2) mg/dl Est Cr Clr Drug Dosing Est GFR ( Amer) ml/min Est GFR (Non-Af Amer) ml/min BUN/Creatinine Ratio (10-20) Glucose (70-99(Fasting)) mg/dl POC Glucose 92 (70-99) mg/dl Calcium (8.5-10.1) mg/dl Total Bilirubin (0.2-1.0) mg/dl AST (13-39) U/L ALT (7-52) U/L Alkaline Phosphatase (34-104) U/L Troponin I High Sens (0-14) pg/ml Total Protein (6.0-8.3) gm/dl Albumin (3.4-5.0) gm/dl Globulin (2.5-4.0) gm/dl Albumin/Globulin Ratio (0.9-2) Lipase (11-82) U/L Urine Color Yellow Urine Appearance Clear (Clear) Urine pH 5.0 (4.5-7.5) Ur Specific [place] 1.043 H (1.000-1.030) Urine Protein 1+ H (Negative) Urine Glucose (UA) Negative (Negative) Urine Ketones 4+ H (Negative) Urine Blood 1+ H (Negative) Urine Nitrite Negative (Negative) Urine Bilirubin Negative (Negative) Urine Urobilinogen Negative (Negative) Ur Leukocyte Esterase Negative (Negative) Urine WBC (Auto) 1-5 (0-5) /hpf Urine RBC (Auto) 0-4 (0-4) /hpf U Hyaline Cast (Auto) 1-5 (0-5) /lpf U Epithel Cells (Auto) 10-20 H (0-5) /lpf Urine Bacteria (Auto) Negative (Negative) SARS-CoV-2, RNA, NAAT NEGATIVE (NEGATIVE) 02/03/22 02/03/22 Range/Units 05:15 05:15 WBC (4.8-10.8) K/ul RBC (3.93-5.22) M/uL Hgb (12.0-16.0) g/dl Hct (34.1-44.9) % MCV (80.0-100.0) fL MCH (25.0-34.0) pg MCHC (32.0-36.0) g/dL RDW Std Deviation (36.4-46.3) fL RDW Coeff of Agus (11.5-14.5) % Plt Count (130-400) K/uL MPV (9.4-12.3) fL Immature Gran % (Auto) % Neut % (Auto) % Lymph % (Auto) % [place] % (Auto) % Eos % (Auto) % Baso % (Auto) % Neut # (Auto) (1.4-6.5) K/uL Lymph # (Auto) (1.2-3.4) K/uL [place] # (Auto) (0.24-0.82) K/uL Eos # (Auto) (0-0.50) K/uL Baso # (Auto) (0-0.2) K/uL Immature Gran # (Auto) (0.00-0.02) K/uL Sodium 131 L (136-145) mmol/L Potassium 3.0 L (3.5-5.1) mmol/L Chloride 101 (98-107) mmol/L Carbon Dioxide 15 L (21-32) mmol/L Anion Gap 15 H (3-11) BUN 5 L (6-23) mg/dl Creatinine 1.03 (0.6-1.2) mg/dl Est Cr Clr Drug Dosing 50.3 Est GFR ( Amer) 67.0 ml/min Est GFR (Non-Af Amer) 57.8 ml/min BUN/Creatinine Ratio 4.9 L (10-20) Glucose 71 (70-99(Fasting)) mg/dl POC Glucose (70-99) mg/dl Calcium 8.0 L (8.5-10.1) mg/dl Total Bilirubin (0.2-1.0) mg/dl AST (13-39) U/L ALT (7-52) U/L Alkaline Phosphatase (34-104) U/L Troponin I High Sens 58.0 H* D (0-14) pg/ml Total Protein (6.0-8.3) gm/dl Albumin (3.4-5.0) gm/dl Globulin (2.5-4.0) gm/dl Albumin/Globulin Ratio (0.9-2) Lipase (11-82) U/L Urine Color Urine Appearance (Clear) Urine pH (4.5-7.5) Ur Specific [place] (1.000-1.030) Urine Protein (Negative) Urine Glucose (UA) (Negative) Urine Ketones (Negative) Urine Blood (Negative) Urine Nitrite (Negative) Urine Bilirubin (Negative) Urine Urobilinogen (Negative) Ur Leukocyte Esterase (Negative) Urine WBC (Auto) (0-5) /hpf Urine RBC (Auto) (0-4) /hpf U Hyaline Cast (Auto) (0-5) /lpf U Epithel Cells (Auto) (0-5) /lpf Urine Bacteria (Auto) (Negative) SARS-CoV-2, RNA, NAAT (NEGATIVE) Imaging Data Attestation: I personally reviewed and interpreted this imaging study as follows: Radiologist's Impression: Abdomen/Pelvis CT 02/02/22 22:32 CT SCAN OF THE ABDOMEN AND PELVIS WITH IV CONTRAST CLINICAL HISTORY: Mid abdominal pain. Nausea and vomiting. Reported history of lung cancer. COMPARISON STUDY: Abdominal CT dated 10/16/2021. TECHNIQUE: Following the IV administration of 80 cc of Optiray 350, CT scan of the abdomen and pelvis is performed from the lung bases to the proximal femora. Images are reviewed in the axial, sagittal, and coronal planes. IV contrast was administered without complication. A dose lowering technique was utilized adhering to the principles of ALARA. CT DOSE: 593.79 mGy.cm FINDINGS: Lung bases: The heart is normal in size and without pericardial effusion. Emphysematous change is noted at the lung bases. There is bibasilar scarring/atelectasis. No airspace consolidation or pleural effusion is identified. Liver: The contrast-enhanced liver is elongated suggesting Maurice's lobe variant anatomy. The liver demonstrates diffusely diminished attenuation suggesting steatosis. There is no intrahepatic biliary ductal dilatation. The hepatic veins and portal veins are patent. Gallbladder: Distended but otherwise normal in appearance. Spleen: Normal in size and attenuation. Pancreas: Unremarkable. Adrenal glands: Bilateral adrenal adenomas measuring up to 14 mm are unchanged. Kidneys: The contrast enhanced kidneys are normal in size and without hydronephrosis. The kidneys enhance symmetrically. Abdominal vasculature: The abdominal aorta is normal in course and caliber noting moderate atherosclerotic calcification. Bowel: There is mild colonic diverticulosis without CT evidence of acute diverticulitis. No bowel obstruction is identified. The appendix is well- visualized and normal. Peritoneum: There is no intraperitoneal free air or abdominal ascites. There is a large fat-containing supraumbilical hernia. A presumed ventricular shunt catheter traverses the ventral abdominal wall. The tip is coiled in the right lower quadrant. A 2.9 x 1.8 cm peripherally calcified cystic structure in the right lower quadrant has decreased in size from previous. Lymphadenopathy: None. Pelvic viscera: The bladder is distended but otherwise normal in appearance. The uterus and adnexa are normal as visualized. Skeletal structures: The skeletal structures are osteopenic. There are chronic compression deformities of L1, L3, and L4. A Schmorl's node in the superior endplate of L2 is new from previous. No lytic or blastic lesions are seen. IMPRESSION: 1. No acute infectious or inflammatory findings are identified in the abdomen or pelvis. 2. Hepatic steatosis. 3. Emphysema. 4. Gallbladder distention. 5. Additional findings as above. ACT 112: Negative or not required by law. Electronically signed by: Gregorio Johnson M.D. 02/03/2022 7:28 AM Gallbladder Ultrasound 02/03/22 01:10 ULTRASOUND RIGHT UPPER QUADRANT ABDOMEN CLINICAL HISTORY: Right upper quadrant abdominal pain. COMPARISON STUDY: Abdominal CT dated 02/02/2022 TECHNIQUE: Real-time, grayscale, and color flow sonography of the right upper quadrant of the abdomen was performed. Images are reviewed in the transverse and longitudinal planes. FINDINGS: Liver: The liver is mildly enlarged and demonstrates heterogeneously increased echotexture indicating steatosis. There is no intrahepatic biliary ductal dilatation. The main portal vein is patent. Gallbladder: The gallbladder is distended, measuring 11 cm in length. The gallbladder is otherwise normal in appearance. No shadowing Gallstones are i dentified. There is no gallbladder wall thickening or pericholecystic fluid. A sonographic Gaston's sign could not be assessed as the patient received analgesia. The common bile duct measures up to 0.3 cm in diameter. Pancreas: Not visualized due to overlying bowel gas. Right kidney: Survey images of the right kidney demonstrate normal size and e chotexture. There is no hydronephrosis. Ascites: None. IMPRESSION: 1. Distended gallbladder with no shadowing gallstones identified and no sonographic evidence of acute cholecystitis. 2. There is no intra or extrahepatic biliary ductal dilatation. 3. Hepatic steatosis. 4. Nonvisualization of the pancreas. ACT 112: Negative or not required by law. Electronically signed by: Gregorio Johnson M.D. 02/03/2022 6:55 AM Brain MRI 02/03/22 06:05 MRI OF THE BRAIN COMBO CLINICAL HISTORY: Dizziness. Vomiting. COMPARISON STUDY: CT of the brain dated 04/19/2020. MRI of the brain dated 06/28/2008. TECHNIQUE: MRI of the brain was performed utilizing various T1 and T2-weighted sequences in the axial, sagittal, and coronal planes. Contrast-enhanced sequences were acquired following the administration of 6.5 cc of Gadavist. FINDINGS: Brain parenchyma: A right frontal approach ventriculostomy catheter is new from previous. The tip terminates at the roof of the third ventricle. Cerebellar encephalomalacia is consistent with prior surgical resection. There are serpiginous foci of enhancement present adjacent to the resection margin which measure up to 2.9 cm. No additional enhancing intracranial lesion is seen. There is no hemorrhage or mass effect. There is no restricted diffusion typical for acute ischemia. No extra-axial fluid collection is seen. The cerebellar tonsils are normal in configuration. Ventricles, sulci, and cisterns: Normal in configuration. There is no hydrocephalus. Pituitary and sella: Unremarkable. Intracranial vasculature: Normal flow voids are maintained at the skull base. Orbits: The bony orbits are grossly intact. Orbital contents are normal in appearance. Sinuses and mastoids: There are small mastoid effusions. The paranasal sinuses are clear. Calvarium: Craniotomy changes noted in the occipital cortex. Cervical cord: Partially visualized cervical spinal cord is normal in morphology and signal intensity. IMPRESSION: 1. There is no hemorrhage, midline shift, or evidence of acute ischemia. 2. A right frontal approach ventriculostomy catheter is new from previous. There is no hydrocephalus. 3. Postsurgical change is present in the cerebellum as above. Foci of serpiginous enhancement adjacent to the resection margin could represent postoperative change versus recurrent/residual tumor. Correlate with any recent prior outside imaging studies. 4. No additional enhancing intracranial lesions are seen. ACT 112: Negative or not required by law. Electronically signed by: Gregorio Johnson M.D. 02/03/2022 10:59 AM [facility] Narrative Prior records/ancillary studies reviewed. Triage Nursing notes reviewed. Additional history obtained from family. The patient's history was concerning for nausea vomiting with abdominal pain. Differential diagnosis: Etiologies such as appendicitis, diverticulitis, PUD, biliary pathology, UTI, pancreatitis, obstruction, mesenteric ischemia, aortic pathology, infections, inflammatory bowel disease, renal colic, as well as others were entertained. Physical examination findings: As above. ER treatment provided: An order was placed for continuous cardiac monitoring. The monitor shows a rate of 60-100 with a sinus rhythm per my interpretation IV fluids Reglan Benadryl Pepcid, dextrose, potassium On reassessment the patient felt better. Diagnostics interpreted by me: ECG: Ordered for weakness EKG: Poor baseline, normal sinus, minimal ST depression in the lateral leads, rate of 117. Impression sinus tachycardia poor baseline with mental depression lateral leads interpreted by myself I think arrhythmia is unlikely. EKG shows normal sinus rhythm with no interval abnormalities such as QT prolongation or WPW. There are no findings to suggest Brugada syndrome. Cardiac monitoring in the emergency department reveals no tachycardic or bradycardic dysrhythmia. Hypertrophic cardiomyopathy was considered but there are no clear historical elements pointing toward this. EKG is not suggestive. The QRS voltage is not extremely large and there are no suggestive Q waves. The labs revealed hypoglycemia and dextrose was given x2 and blood sugar improved Urine is concerning for dehydration First troponin was negative, repeat was elevated. Patient was admitted already. Imaging studies: CT ABDOMEN & PELVIS With Contrast: There is moderate distention of the gallbladder without stones or biliary ductal dilatation seen. Further evaluation with right upper quadrant ultrasound is suggested. There is a fat-containing supraumbilical hernia. There is a shunt catheter extending along the left abdominal wall and terminating in the right lower quadrant. There are degenerative changes of the thoracolumbar spine. Radiologist: Felix Weaver MD Consultation: A consultation was placed with the hospitalist. The case was discussed and diagnostics were reviewed. The patient was evaluated in the ER for further treatment. Exam and history seem consistent with nausea vomiting, dehydration, abdominal pain, hypoglycemia. Patient may be abusing her Ativan. She received 60 tablets 2 weeks ago and has been requesting for Ativan since has been here. She has been tacky and this could be from this. She is tolerating fluids. She still felt weak. Her blood sugar was low. She did receive 2 Amps of D50. Medicine was consulted. She will be evaluated for admission. By the evaluation outlined above emergent etiologies such as appendicitis, diverticulitis, PUD, UTI, pancreatitis, obstruction, mesenteric ischemia, aortic pathology, inflammatory bowel disease, renal colic, as well as others were deemed relatively unlikely. The pt informed about the findings as listed above. All questions were answered and pleased with the treatment. The chart was completed utilizing [employer] Speech voice recognition software. Grammatical errors, random word insertions, pronoun errors, and incomplete sentences are an occassional consequence of this system due to software limitations, ambient noise, and hardware issues. Any formal questions or concerns about the content, text, or information contained within the body of this dictation should be directly addressed to the physician wet process assistant head miller for clarification. Impression & Plan Nausea & vomiting, Hypoglycemia, Acute dehydration, Abdominal pain, acute, Elevated troponin Discharge Plan Visit Data Chief Complaint: Vomiting Stated Complaint: REFERRED BY DOCTOR, VOMITING ED Provider: Milton Brown ED Midlevel Provider: Henrietta Weaver Discharge Problem: Nausea & vomiting, Hypoglycemia, Acute dehydration, Abdominal pain, acute, Elevated troponin Patient Disposition: Being Evaluated by Hospitalist Condition: Good Discharge Instructions Interventions: ED Discharge Assessment Last Done: 02/03/22 08:20 : Nausea & vomiting Qualifiers: Vomiting type: unspecified Qualified Code(s): R11.2 - Nausea with vomiting, unspecified
[2022-02-02] MEDS ORDERED: DEXTROSE 50% 50 ML SYRINGE IV STA (22:57)
[2022-02-02] MEDS ORDERED: OPTIRAY 320 500ml IV ONE (23:51)
[2022-02-03 01:57] LABS: Troponin I High Sensitivity 6.4 pg/ml (0-14)
[2022-02-03] MEDS ORDERED: DEXTROSE 50% 50 ML SYRINGE IV ONE (02:33)
[2022-02-03] MEDS ORDERED: LORazepam 2 MG/1 ML VIAL IV STA (02:35)
[2022-02-03] MEDS ORDERED: POTASSIUM CHLORIDE 20 MEQ/15 ML UDC PO STA (02:48)
[2022-02-03 03:13] LABS: Appearance Urine Clear (Clear); Bacteria Urine Automated Negative (Negative); Bilirubin Urine Negative (Negative); Blood Urine 1+ (Negative); Color Urine Yellow; Glucose Urine UA Negative (Negative); Ketones Urine 4+ (Negative); Leukocyte Esterase Urine Negative (Negative); Nitrite Urine Negative (Negative); Protein Urine 1+ (Negative); RBC Urine Automated 0-4 /hpf (0-4); Specific Gravity Urine 1.043 (1.000-1.030); Urobilinogen Urine Negative (Negative)
[2022-02-03 06:33] LABS: BUN Creatinine Ratio 4.9 (10-20); Creatinine Clr Calc Pharmacy 50.3 ml/min; Est GFR (Non-African American) 57.8 ml/min
--- NOTE | 2022-02-03 06:34 | History & Physical Report ---
Date of Service February 03, 2022 Assessment & Plan (1) Nausea & vomiting: Plan: Over last 3 days. Unclear etiology at this point, though my concern is for infection or malfunction of her [employer] shunt. ER provider imaged gallbladder due to distension, but not having clinical signs/symptoms of cholecystitis. - Symptomatic treatment with Zofran and promethazine - Stat MRI brain ordered to better assess prior cerebellar resection site and try to image [employer] shunt - Infectious work-up so far includes UA (not overtly infected). Will get CXR and blood cultures. Defer empiric abx at this point, but low threshold to start Zosyn. -> Follow final read of gallbladder u/s - D-dimer ordered. While likely will be high, if normal, can r/o PE as cause of tachycardia. If positive, can get CTA chest if no improvement in her tachycardia with fluids. (2) Hydrocephalus: Plan: Placed in 06/2021 for ongoing headache with nausea. Increased pressure thought to be sequelae of resection and radiation. - MRI brain as above (3) Hypoglycemia: Plan: Due to poor PO intake x 3 days. Responded to 2 amps of D50. - Continue IV fluids with dextrose until tolerating PO (4) Acute dehydration: Plan: Due to nausea, vomiting. - IV fluids (5) Hyponatremia: Plan: Na was 129 on admission with usual Na being normal in 137 range. Appears to be hypovolemic hyponatremia. - IV fluids as above - Urine osms to ensure no aspect of SIADH which could lower Na further - Close monitoring of Na (6) Lung cancer: Plan: S/p right cerebellar resection on 04/08/2020 for brain met with radiation afterward. Has trialed several chemotherapy regimens, but nothing since Avastin in 10/2021. Keytruda caused interstitial nephritis. - Follows with [facility] - Plan for 3 fractions of SBRT to RUL starting on 02/10/2022. (7) Acute interstitial nephritis: Plan: Due to Keytruda. Finished prednisone on 01/16/2022. Follows with Dr. Acosta. - Monitor Cr (8) Anxiety with depression: Plan: - Continue home sertraline - Continue Ativan PRN while admitted. (9) HTN (hypertension): Plan: BP in the ER was 115/70. - Monitor BP (10) DVT prophylaxis: Plan: Lovenox 40 mg SQ daily -> Patient is at high risk of VTE given known cancer. No known active metastatic disease in brain at this time, and no hx of intracranial bleed that I see documented in chart. Benefits > risks at this time. Will hold Lovenox until after MRI brain. FULL CODE - Per patient in the ER with SO in room in agreement. History of Present Illness Primary Care Provider: JORDAN Daniels 61yo F w/ hx of metastatic lung cancer who presents with 3 days of nausea & vomiting. The patient reports that she was in her normal state of health, when 3 days ago, she had severe onset of nausea and multiple episodes of emesis each day. She describes the emesis as bilious and liquidy. She denies any hematemesis or coffee ground emesis. Likewise, she reports normal BMs and denies diarrhea or constipation. No sick contacts with similar symptoms. She has tried Zofran and promethazine at home, but they have not relieved the nausea/emesis. She notes some subjective fevers/chills at home, but has not taken her temperature. She notes some occasional dysuria, but nothing consistent. She denies any chest pain or abdominal pain. She gets somewhat short of breath with anxiety attacks. She notes that she has had her 3 treatments of radiation to the RUL tumor planned, but has not started them yet. She has not had any recent chemotherapy. Allergies Allergy/AdvReac Type Severity Reaction Status Date / Time Sulfa (Sulfonamide Allergy Severe RASH Verified 02/03/22 01:53 Antibiotics) sulfamethoxazole Allergy Severe RASH Verified 02/03/22 01:53 trimethoprim Allergy Severe RASH Verified 02/03/22 01:53 tiotropium Allergy Intermediate Rash Verified 02/03/22 01:53 [From Spiriva with HandiHaler] amlodipine AdvReac Unknown Fatigue Verified 02/03/22 01:53 Home Medications Medication Instructions Recorded Confirmed Type acetaminophen 500 mg capsule 1,000 mg PO Q8H PRN Pain 04/24/20 02/03/22 History ondansetron HCl 8 mg tablet 8 mg PO Q8H PRN nausea and vomiting 06/02/20 02/03/22 History pantoprazole 40 mg tablet,delayed 40 mg PO QAM 08/25/21 02/03/22 History release (Protonix) cyclobenzaprine 10 mg tablet 10 mg PO TID PRN muscle spasm #30 09/30/21 02/03/22 Rx tabs lidocaine 5 % topical patch 1 patch transdermal HS #15 ea 10/07/21 02/03/22 Rx promethazine 6.25 mg/5 mL oral 12.5 mg (10 mL) PO Q6H PRN nausea 10/25/21 02/03/22 Rx syrup and vomiting #473 mL clotrimazole 1 % vaginal cream See Rx Instructions .Route 10/29/21 02/03/22 Rx .COMPLEX PRN itching #45 grams mupirocin 2 % topical ointment See Rx Instructions topical BID 10/29/21 02/03/22 Rx #15 grams atovaquone 750 mg/5 mL oral 1,500 mg (10 mL) PO DAILY #210 mL 11/09/21 02/03/22 Rx suspension sertraline 100 mg tablet 150 mg PO DAILY #90 tabs 12/09/21 02/03/22 Rx cholecalciferol (vitamin D3) 25 25 mcg PO DAILY #90 tabs 01/07/22 02/03/22 Rx mcg (1,000 unit) tablet (Vitamin D3) lorazepam 0.5 mg tablet 0.5 - 1 mg PO BID PRN anxiety #60 01/18/22 02/03/22 Rx tabs prednisone 10 mg tablet 10 mg PO Q OTHER DAY #7 tabs 01/25/22 02/03/22 Rx Past Med/Surg History Medical History Anxiety Diverticulosis of colon Dyslipidemia Emphysema lung COPD - WELL CONTROLLED W/ INHALER History of brain tumor HTN (hypertension) Hydrocephalus SHUNT PLACED 07/2021-[facility] Lung cancer TREATED W/ CHEMO AND RADIATION AT SAME TIME BRAIN CA 04/2020 [facility] Malignant neoplasm metastatic to brain RADIATION AND CHEMO DONE AFTER TUMOR REMOVED- CURRENTLY ON IMMUNOTHERAPY Q 2 MOS ON KEYTRUDA DUE 08/28/21- [facility] ONC Osteopenia Vitamin D deficiency Surgical History H/O brain surgery malignant tumor excised from occipital lobe 04/2020-[facility] History of bilateral tubal ligation History of brain shunt 07/2021 [facility]- CURRENTLY IN PLACE; DRAINING INTO ABDOMEN FOR SWELLING AROUND AREA WHERE TUMOR WAS REMOVED History of endometrial biopsy S/P colonoscopy Family History Sister Colonic polyp Social History Smoking Status: Former smoker Tobacco Type: Cigarettes Second Hand Exposure: No; Hx Alcohol Use: No Hx Substance Use: No Preferred Language: Gibraltarian Communication Ability: Effective Second Operator Required: No Beliefs That Will Affect Care: None marital status: Current Living Situation: Spouse Other Information That Helps Us Care for You: No Feels Safe at Home: Yes Safety Concerns: Feels Safe At This Time Review of Systems Review of Systems: All systems reviewed & are unremarkable except as noted in HPI & below Physical Exam Constitutional: WD/WN, vitals as above Eyes: EOM intact bilaterally; no conjunctival abnormality ENMT: external ear and nose normal, oropharynx normal Neck: trachea midline, no thyromegaly normal visual inspection Respiratory: normal respiratory effort, lungs clear to auscultation no respiratory distress Cardiovascular: Rate/Rhythm: regular rhythm and + tachycardic Extremities: no edema Gastrointestinal (Abdomen): Inspection/Auscultation: abdomen normal to inspection; abdomen not distended Musculoskeletal: no cyanosis or clubbing, extremities motor strength 5/5 Skin: no rashes, warm and dry Neurologic: moves all extremities and awake Neck is supple and non-tender. No Brudzinski's or Kernig's sign. Psychiatric: Orientation: alert, oriented to person and cooperative Results & Data Results & Data ([facility]) Vital Signs (Past 12 Hours) Vital Signs Temp Pulse Pulse Resp BP BP Pulse Ox 02/03/22 05:02 120 H 18 114/71 93 02/03/22 04:38 122 H 18 126/67 93 02/03/22 02:11 120 H 24 143/93 H 95 02/02/22 20:58 36.3 C L 83 18 92/60 L 98 O2 Del Method 02/03/22 05:02 Room Air 02/03/22 04:38 Room Air 02/03/22 02:11 Room Air 02/02/22 20:58 Room Air Code Status & VTE Plan VTE Prophylaxis Plan VTE Prophylaxis will be ordered: Yes PG Care Time/CCT Total # of Minutes Spent Total Time Spent with Patient: Total time spent is greater than 50% in coordination of care (as documented) at patient's floor/unit and/or counseling patient: Coding Diagnoses Nausea & vomiting R11.2 Vomiting type: unspecified Hydrocephalus G91.9 Hypoglycemia E16.2 Acute dehydration E86.0 Hyponatremia E87.1 Lung cancer C34.90 Acute interstitial nephritis N10 Anxiety with depression F41.8 HTN (hypertension) I10 DVT prophylaxis Z29.9 (1) Nausea & vomiting Vomiting type: unspecified Qualified Code(s): R11.2 - Nausea with vomiting, unspecified
--- NOTE | 2022-02-03 06:57 | Ultrasound Report ---
ULTRASOUND RIGHT UPPER QUADRANT ABDOMEN CLINICAL HISTORY: Right upper quadrant abdominal pain. COMPARISON STUDY: Abdominal CT dated 02/02/2022 TECHNIQUE: Real-time, grayscale, and color flow sonography of the right upper quadrant of the abdomen was performed. Images are reviewed in the transverse and longitudinal planes. FINDINGS: Liver: The liver is mildly enlarged and demonstrates heterogeneously increased echotexture indicating steatosis. There is no intrahepatic biliary ductal dilatation. The main portal vein is patent. Gallbladder: The gallbladder is distended, measuring 11 cm in length. The gallbladder is otherwise no rmal in appearance. No shadowing Gallstones are identified. There is no gallbladder wall thickening o r pericholecystic fluid. A sonographic Gaston's sign could not be assessed as the patient received an algesia. The common bile duct measures up to 0.3 cm in diameter. Pancreas: Not visualized due to overlying bowel gas. Right kidney: Survey images of the right kidney demonstrate normal size and echotexture. There is no hydronephrosis. Ascites: None. IMPRESSION: 1. Distended gallbladder with no shadowing gallstones identified and no sonographic evidence of acute cholecystitis. 2. There is no intra or extrahepatic biliary ductal dilatation. 3. Hepatic steatosis. 4. Nonvisualization of the pancreas. ACT 112: Negative or not required by law. Electronically signed by: Gregorio Johnson M.D. 02/03/2022 6:55 AM
--- NOTE | 2022-02-03 07:29 | CT Scan Report ---
CT SCAN OF THE ABDOMEN AND PELVIS WITH IV CONTRAST CLINICAL HISTORY: Mid abdominal pain. Nausea and vomiting. Reported history of lung cancer. COMPARISON STUDY: Abdominal CT dated 10/16/2021. TECHNIQUE: Following the IV administration of 80 cc of Optiray 350, CT scan of the abdomen and pelvi s is performed from the lung bases to the proximal femora. Images are reviewed in the axial, sagittal , and coronal planes. IV contrast was administered without complication. A dose lowering technique wa s utilized adhering to the principles of ALARA. CT DOSE: 593.79 mGy.cm FINDINGS: Lung bases: The heart is normal in size and without pericardial effusion. Emphysematous change is not ed at the lung bases. There is bibasilar scarring/atelectasis. No airspace consolidation or pleural e ffusion is identified. Liver: The contrast-enhanced liver is elongated suggesting Maurice's lobe variant anatomy. The liver d emonstrates diffusely diminished attenuation suggesting steatosis. There is no intrahepatic biliary d uctal dilatation. The hepatic veins and portal veins are patent. Gallbladder: Distended but otherwise normal in appearance. Spleen: Normal in size and attenuation. Pancreas: Unremarkable. Adrenal glands: Bilateral adrenal adenomas measuring up to 14 mm are unchanged. Kidneys: The contrast enhanced kidneys are normal in size and without hydronephrosis. The kidneys enh ance symmetrically. Abdominal vasculature: The abdominal aorta is normal in course and caliber noting moderate atheroscle rotic calcification. Bowel: There is mild colonic diverticulosis without CT evidence of acute diverticulitis. No bowel obs truction is identified. The appendix is well-visualized and normal. Peritoneum: There is no intraperitoneal free air or abdominal ascites. There is a large fat-containin g supraumbilical hernia. A presumed ventricular shunt catheter traverses the ventral abdominal wall. The tip is coiled in the right lower quadrant. A 2.9 x 1.8 cm peripherally calcified cystic structure in the right lower quadrant has decreased in size from previous. Lymphadenopathy: None. Pelvic viscera: The bladder is distended but otherwise normal in appearance. The uterus and adnexa ar e normal as visualized. Skeletal structures: The skeletal structures are osteopenic. There are chronic compression deformitie s of L1, L3, and L4. A Schmorl's node in the superior endplate of L2 is new from previous. No lytic o r blastic lesions are seen. IMPRESSION: 1. No acute infectious or inflammatory findings are identified in the abdomen or pelvis. 2. Hepatic steatosis. 3. Emphysema. 4. Gallbladder distention. 5. Additional findings as above. ACT 112: Negative or not required by law. Electronically signed by: Gregorio Johnson M.D. 02/03/2022 7:28 AM
[2022-02-03] MEDS ORDERED: ONDANSETRON INJ 2 MG/ML 2 ML VIAL IV PRN (08:21)
[2022-02-03] MEDS ORDERED: ondansetron HCL 8 MG in DEXTROSE 5% 50 ML IV PRN (08:40)
[2022-02-03] MEDS ORDERED: ATOVAQUONE 750 MG/5 ML UDC PO SCH (09:00)
[2022-02-03] MEDS: LORazepam 0.5 MG TAB PO PRN ×2 (09:23→22:36)
[2022-02-03] MEDS: ACETAMINOPHEN 500 MG TAB PO PRN (09:23)
[2022-02-03] MEDS: PANTOprazole 40 MG TAB PO SCH (09:23)
[2022-02-03] MEDS: POTASSIUM CHLORIDE 40 MEQ in D5W AND NSS 1,000 ML IV SCH (09:23)
--- NOTE | 2022-02-03 09:45 | XRay Report ---
XR chest 2V PA/lateral CLINICAL HISTORY: Known lung cancer TECHNIQUE: 2 views of the chest were obtained. Comparison: Comparison is made to chest radiograph 10/16/2021 FINDINGS: [employer]PAR[employer] shunt is partially visualized. The cardiomediastinal silhouette is normal. A right apical nodule s een likely corresponding to previously noted focus of lung cancer. No evidence of pleural effusion or pneumothorax. IMPRESSION: No acute chest disease. Right apical nodule compatible with history of lung cancer. ACT 112: Negative or not required by law. Electronically signed by: Valentin Coronel M.D. 02/03/2022 9:44 AM
--- NOTE | 2022-02-03 09:46 | Electrocardiogram Report ---
Test Reason : Blood Pressure : / mmHG Vent. Rate : 117 BPM Atrial Rate : 117 BPM P-R Int : 190 ms QRS Dur : 060 ms QT Int : 278 ms P-R-T Axes : 062 045 -86 degrees QTc Int : 387 ms Poor data quality, interpretation may be adversely affected Sinus tachycardia Possible Left atrial enlargement Abnormal ECG When compared with ECG of 16-OCT-2021 16:02, Questionable change in QRS duration Confirmed by Teofilo Ho ([id number]) on 02/03/2022 9:45:29 AM Referred By: Jose Raul Acosta Confirmed By:Ashish Ho
[2022-02-03] MEDS ORDERED: GADOBUTROL 65ML VIAL IV ONE (10:23)
[2022-02-03] MEDS ORDERED: SODIUM PHOSPHATE 3 MMOL/1 ML INFUSION IV STA (10:48)
[2022-02-03] MEDS ORDERED: SODIUM CHLORIDE 0.9% 1000ML 1,000 ML IV ONE (10:51)
[2022-02-03] MEDS ORDERED: SODIUM PHOSPHATE 15 MMOL in SODIUM CHLORIDE 0.9% 250 ML IV ONE (11:00)
--- NOTE | 2022-02-03 11:01 | Magnetic Resonance Report ---
MRI OF THE BRAIN COMBO CLINICAL HISTORY: Dizziness. Vomiting. COMPARISON STUDY: CT of the brain dated 04/19/2020. MRI of the brain dated 06/28/2008. TECHNIQUE: MRI of the brain was performed utilizing various T1 and T2-weighted sequences in the axial , sagittal, and coronal planes. Contrast-enhanced sequences were acquired following the administratio n of 6.5 cc of Gadavist. FINDINGS: Brain parenchyma: A right frontal approach ventriculostomy catheter is new from previous. The tip ter minates at the roof of the third ventricle. Cerebellar encephalomalacia is consistent with prior surg ical resection. There are serpiginous foci of enhancement present adjacent to the resection margin wh ich measure up to 2.9 cm. No additional enhancing intracranial lesion is seen. There is no hemorrhage or mass effect. There is no restricted diffusion typical for acute ischemia. No extra-axial fluid c ollection is seen. The cerebellar tonsils are normal in configuration. Ventricles, sulci, and cisterns: Normal in configuration. There is no hydrocephalus. Pituitary and sella: Unremarkable. Intracranial vasculature: Normal flow voids are maintained at the skull base. Orbits: The bony orbits are grossly intact. Orbital contents are normal in appearance. Sinuses and mastoids: There are small mastoid effusions. The paranasal sinuses are clear. Calvarium: Craniotomy changes noted in the occipital cortex. Cervical cord: Partially visualized cervical spinal cord is normal in morphology and signal intensity . IMPRESSION: 1. There is no hemorrhage, midline shift, or evidence of acute ischemia. 2. A right frontal approach ventriculostomy catheter is new from previous. There is no hydrocephalus. 3. Postsurgical change is present in the cerebellum as above. Foci of serpiginous enhancement adjacen t to the resection margin could represent postoperative change versus recurrent/residual tumor. Corre late with any recent prior outside imaging studies. 4. No additional enhancing intracranial lesions are seen. ACT 112: Negative or not required by law. Electronically signed by: Gregorio Johnson M.D. 02/03/2022 10:59 AM
[2022-02-03] MEDS: SERTRALINE HCL 50 MG TABLET PO SCH (11:03)
[2022-02-03 11:25] LABS: D Dimer 2890 ug/L FEU (0-500)
[2022-02-03] MEDS ORDERED: ALBUT/IPRATROP 3MG/0.5MG NEB 3 ML VIAL NEB STA (11:38)
[2022-02-03] MEDS ORDERED: OPTIRAY 320 500ml IV ONE (12:00)
[2022-02-03] MEDS: CHOLECALCIFEROL 5,000 UNITS 125 MCG TAB PO SCH (12:08)
[2022-02-03 12:11] LABS: Influenza A virus by PCR Negative (Negative); Influenza B virus by PCR Negative (Negative)
--- NOTE | 2022-02-03 12:15 | CT Scan Report ---
CT angio chest PE protocol CLINICAL HISTORY: elevated dimer, tachycardia not improving w/fluid TECHNIQUE: Multidetector row helical CT of the chest was performed with angiographic protocol. Goldberg l and sagittal reformations were obtained. Coronal and sagittal MIPS were obtained from the axial marei a set and were submitted for review. Automated dose lowering techniques and/or adjustment according to patient size were utilized for this exam. CT DOSE: 282.57 mGy.cm Comparison: Comparison is made to PET/CT 12/17/2021 FINDINGS: Lungs and pleura: Right apical nodule measures 17 mm in diameter, similar to prior exam. Extensive em physematous changes are seen. Heart and pericardium: Heart size is normal. No pericardial effusion. Vessels: Evaluation for pulmonary embolism is limited due to patient motion. No evidence of central, lobar, or segmental embolus. Mediastinum and bryce: Unremarkable. Chest wall and lower neck: Unremarkable. Abdomen: Unremarkable. Bones: Degenerative changes in the thoracic spine. IMPRESSION: 1. No evidence of pulmonary embolism. 2. Interval stability of right apical nodule compatible with known malignancy. ACT 112: Negative or not required by law. Electronically signed by: Valentin Coronel M.D. 02/03/2022 12:12 PM
[2022-02-03 13:52] LABS: Albumin Globulin Ratio 1.3 (0.9-2); Albumin Level 3.4 gm/dl (3.4-5.0); Bilirubin,Total 0.3 mg/dl (0.2-1.0); Est GFR (African American) 63.3 ml/min; Est GFR (Non-African American) 54.6 ml/min; Globulin 2.6 gm/dl (2.5-4.0); Potassium 2.9 mmol/L (3.5-5.1)
[2022-02-03 14:48] LABS: BUN Creatinine Ratio 4.6 (10-20)
[2022-02-03] MEDS ORDERED: SODIUM CHLORIDE 0.9% 1000ML 1,000 ML IV SCH (18:30)
--- NOTE | 2022-02-03 18:37 | Hospitalist Progress Note ---
Date of Service February 03, 2022 Assessment & Plan (1) Nausea & vomiting: Plan: Mrs. Navarro is a 61 yo woman with a PMHx of metastatic lung cancer (mets to brain) who was admitted for nausea /vomiting. - etiology uncertain. Given new onset diarrhea, suspicion of viral gastroenteritis. Stool PCR ordered. Covid and flu are neg. - CT abdomen/pelvis showing no acute process - Gallbladder US showing no evidence of acute cholecystitis - There was concern for possible malfunctioning of her [employer] shunt in the head, and elevated pressure was cause of nausea/vomiting. However Brain MRI showed no hydrocephalus, no stroke, a new area of enhancement which may present a novel met vs. post-surgical changes at risk of previous cerebellar resection. - Symptomatic treatment with Zofran and promethazine (2) Tachycardia: Plan: - suspect due to dehydration due to acute gastroenteritis - improving with IV hydration - EKG showing sinus tach - Ddimer was elevated on admission so CTA chest was ordered to rule out PE, which was negative - monitor on tele (3) Elevated troponin: Plan: - noted - No ST segment changes on EKG - patient denies chest pain - suspect due to demand ischemia (tachycardia in setting of acute illness) (4) Hydrocephalus: Plan: - [employer] shunt placed in 06/2021 for ongoing headache with nausea. - Increased pressure thought to be sequelae of resection and radiation. - MRI brain findings: showed no hydrocephalus, no stroke, a new area of enhance ment which may present a novel met vs. post-surgical changes at risk of previous cerebellar resection. (5) Hypoglycemia: Plan: - noted on arrival - Due to poor PO intake x 3 days. Responded to 2 amps of D50. - Continue IV fluids with dextrose until tolerating PO (6) Emphysema, unspecified: Plan: - extensive emphysema noted on chest CTA - yet patient is not on any home inhalers - started Anoro Ellipta (7) Acute dehydration: Plan: - Due to nausea, vomiting. - IV fluids (8) Hyponatremia: Plan: - Na was 129 on admission - Appears to be hypovolemic hyponatremia. - improved to 131 today with IV hydration - Urine osms to ensure no aspect of SIADH which could lower Na further (9) Lung cancer: Plan: - S/p right cerebellar resection on 04/08/2020 for brain met with radiation afterward. Has trialed several chemotherapy regimens, but nothing since Avastin in 10/2021. Keytruda caused interstitial nephritis. - [facility] - Plan for 3 fractions of SBRT to RUL starting on 02/10/2022. (10) Acute interstitial nephritis: Plan: - Due to Keytruda. Finished prednisone on 01/16/2022. Follows with Dr. Acosta. - Cr normal this admission (11) Anxiety with depression: Plan: - Continue home sertraline - Continue Ativan PRN while admitted. (12) HTN (hypertension): Plan: BP in the ER was 115/70. - Monitor BP (13) DVT prophylaxis: Plan: Lovenox 40 mg SQ daily -> Patient is at high risk of VTE given known cancer. Diet: regular. Replete Electrolytes. Dispo: Med/tele Code: full Admission and Anticipated Discharge Date Admission Date: February 03, 2022 Subjective Patient says nausea has subsided. She did have one episode of diarrhea Review of Systems Constitutional: as per Subjective / HPI Physical Exam Constitutional: WD/WN, vitals as above Eyes: + anicteric sclerae ENMT: external ear and nose normal, oropharynx normal Neck: trachea midline, no thyromegaly Respiratory: normal respiratory effort and + audible wheezes (expiratory ); no cough Cardiovascular: RRR, no murmur, no edema Extremities: no pedal edema Musculoskeletal: Head/Neck/Chest: normocephalic and head atraumatic Skin: no rashes, warm and dry Neurologic: moves all extremities Psychiatric: A+Ox3, euthymic affect Results & Data Results & Data ([facility]) Vital Signs (Past 12 Hours) Vital Signs Pulse Pulse Resp BP BP Pulse Ox O2 Del Method 02/03/22 18:17 106 H 18 96/63 L 99 Nasal Cannula 02/03/22 13:47 117 H 24 134/78 94 Room Air 02/03/22 09:10 135 H 23 Room Air 02/03/22 09:00 141 H 18 92 Room Air 02/03/22 08:50 128 H 29 H 94 Room Air 02/03/22 08:40 128 H 34 H 95 Room Air 02/03/22 08:30 136 H 39 H 94 Room Air 02/03/22 08:20 127 H 45 H 92 02/03/22 08:10 127 H 52 H 98 02/03/22 08:01 134/71 02/03/22 08:01 127 H 46 H 95 02/03/22 08:00 127 H 31 H 95 02/03/22 07:50 127 H 51 H 93 02/03/22 07:40 129 H 31 H 92 02/03/22 07:30 128 H 34 H 94 02/03/22 07:26 94 02/03/22 06:40 131 H 24 94 02/03/22 06:30 125 H 36 H 94 02/03/22 09:51 Room Air 02/03/22 07:27 131 H 29 H 126/78 94 Room Air O2 Flow Rate 02/03/22 18:17 2 02/03/22 13:47 02/03/22 09:10 02/03/22 09:00 02/03/22 08:50 02/03/22 08:40 02/03/22 08:30 02/03/22 08:20 02/03/22 08:10 02/03/22 08:01 02/03/22 08:01 02/03/22 08:00 02/03/22 07:50 02/03/22 07:40 02/03/22 07:30 02/03/22 07:26 02/03/22 06:40 02/03/22 06:30 02/03/22 09:51 02/03/22 07:27 PG Care Time/CCT Total # of Minutes Spent Total Time Spent with Patient: Total time spent is greater than 50% in coordination of care (as documented) at patient's floor/unit and/or counseling patient: Coding Level of Care Code 90268 Subseq Hosp Care Lvl 2 Diagnoses Nausea & vomiting R11.2 Vomiting type: unspecified Tachycardia R00.0 Elevated troponin R77.8 Hydrocephalus G91.9 Hypoglycemia E16.2 Emphysema, unspecified J43.9 Acute dehydration E86.0 Hyponatremia E87.1 Lung cancer C34.90 Acute interstitial nephritis N10 Anxiety with depression F41.8 HTN (hypertension) I10 DVT prophylaxis Z29.9 (1) Nausea & vomiting Vomiting type: unspecified Qualified Code(s): R11.2 - Nausea with vomiting, unspecified
[2022-02-03] MEDS: NSS + 20MEQ KCL 20 MEQ/1,000 ML BAG IV SCH ×2 (18:43→23:07)
[2022-02-03] MEDS: MAGNESIUM SULFATE / D5W 1 GM/100 ML BAG IV SCH ×2 (18:43→20:28)
[2022-02-03] MEDS: LIDOCAINE 5% 1 PATCH TD SCH (21:18)
[2022-02-03 21:46] LABS: Adenovirus F 40/41 PCR Not Detected (NotDetected); Astrovirus PCR Not Detected (NotDetected); Campylobacter PCR Not Detected (NotDetected); Cryptosporidium PCR Not Detected (NotDetected); Cyclospora cayetanensis PCR Not Detected (NotDetected); Entamoeba histolytica PCR Not Detected (NotDetected); Enteroaggregative E.coli(EAEC) Not Detected (NotDetected); Enteropathogenic E.coli (EPEC) Not Detected (NotDetected); Enterotoxigenic E.coli (ETEC) Not Detected (NotDetected); Giardia lamblia PCR Not Detected (NotDetected); Norovirus GI/GII PCR Not Detected (NotDetected); Plesiomonas shigelloides PCR Not Detected (NotDetected); Rotavirus A PCR Not Detected (NotDetected); Salmonella PCR Not Detected (NotDetected); Sapovirus PCR Not Detected (NotDetected); Shiga-like Toxin E.coli (STEC) Not Detected (NotDetected); Shigella/Enteroinvasive E.coli Not Detected (NotDetected); Vibrio cholerae PCR Not Detected (NotDetected); Vibrio species PCR Not Detected (NotDetected); Yersinia enterocolitica PCR Not Detected (NotDetected)
[2022-02-03] MEDS: UMECLIDINIUM/VILANTEROL 62.5/25MCG 7 PUFFS/INHALER INH SCH (23:08)
[2022-02-04 06:52] LABS: Albumin Globulin Ratio 1.3 (0.9-2); Albumin Level 3.3 gm/dl (3.4-5.0); BUN Creatinine Ratio 3.6 (10-20); Bilirubin,Total 0.2 mg/dl (0.2-1.0); Calcium 7.6 mg/dl (8.5-10.1); Creatinine Clr Calc Pharmacy 46.7 ml/min; Est GFR (African American) 61.2 ml/min; Est GFR (Non-African American) 52.8 ml/min; Globulin 2.6 gm/dl (2.5-4.0); Magnesium 2.2 mg/dl (1.7-2.4); Phosphorus 1.6 mg/dl (2.5-4.9); Total Protein 5.9 gm/dl (6.0-8.3)
[2022-02-04 06:58] LABS: Hematocrit (blood only) 29.6 % (34.1-44.9); Mean Corpuscular Hemoglobin 30.7 pg (25.0-34.0); Mean Corpuscular Hgb Conc 33.8 g/dL (32.0-36.0); Mean Corpuscular Volume 90.8 fL (80.0-100.0); Mean Platelet Volume 9.4 fL (9.4-12.3); Platelet Count 282 K/uL (130-400); RDW Coefficient of Variation 13.6 % (11.5-14.5); Red Blood Count 3.26 M/uL (3.93-5.22); White Blood Count 7.18 K/ul (4.8-10.8)
[2022-02-04] MEDS ORDERED: POTASSIUM CHLORIDE CRTAB 20 MEQ TABCR PO STA (07:14)
[2022-02-04] MEDS: POTASSIUM CHLORIDE 40 MEQ in D5W AND NSS 1,000 ML IV SCH ×2 (07:24→09:11)
[2022-02-04] MEDS: ENOXAPARIN INJ 40 MG/0.4 ML SYR SQ SCH (08:06)
[2022-02-04] MEDS: SERTRALINE HCL 50 MG TABLET PO SCH (08:07)
[2022-02-04] MEDS: PANTOprazole 40 MG TAB PO SCH (08:08)
[2022-02-04] MEDS: UMECLIDINIUM/VILANTEROL 62.5/25MCG 7 PUFFS/INHALER INH SCH (08:08)
[2022-02-04] MEDS: CHOLECALCIFEROL 5,000 UNITS 125 MCG TAB PO SCH (08:08)
[2022-02-04] MEDS ORDERED: POTASSIUM PHOS 3 MMOL/1 ML INFUSION IV STA (08:39)
[2022-02-04] MEDS ORDERED: POTASSIUM PHOSPHATE 15 MMOL in SODIUM CHLORIDE 0.9% 250 ML IV ONE (09:00)
--- NOTE | 2022-02-04 09:24 | Nephrology Consultation ---
Date of Consultation February 03, 2022 Assessment & Plan (1) Metabolic acidosis: * High anion gap metabolic acidosis likely related to diarrhea * Will order urine Na, Cl * Will provide !V NaHCO3 supplementation * Monitor PRP (2) Hyponatremia: * Hyponatremia in the setting of relative hypotension and recent steroid therapy is concerning for adrenal insufficiency. Although random cortisol level was normal, would expect a high normal or elevated level in the setting of acute medical stress. Will resume Prednisone 10 mg daily and monitor response (3) Lung cancer: * Keytruda therapy has been complicated by AIN * Ongoing medical management at per Dr. Beatty of [facility] History of Present Illness Reason for Consultation: High anion gap metabolic acidosis Attending Physician: Jamal Siegel MD History of Present Illness Mrs. Navarro is a 61 year old white female who is seen at the request of Dr. Camp for evaluation of high anion gap metabolic acidosis. Medical records in the EMR were reviewed today and are summarized as follows: Mrs. Navarro has CKD stage G2/A1. Her baseline Cr has been 0.97 w/ EGFR 63 cc/min. Mrs. Navarro's medical history is significant for COPD, non-small cell lung cancer w/ mets to the brain (s/p resection 04/27 followed by chemotherapy/radiation therapy), hydrocephalus s/p [employer] shunt (07/29 [facility]), and anxiety. She was hospitalized 09/28 due to COVID infection, N/V/D resulting in dehydration. She received dexamethasone therapy and IV hydration. Hospital course was complicated by SINDY. Cr peaked at 2.5 but improved to 1.3 at the time of discharge from the hospital. Mrs. Navarro was readmitted 10/29 with recurrent symptoms of N/V/D and SINDY. She had been on Pembrolizumab therapy. Urine sediment revealed pyuria concerning for AIN. Prednisone 40 mg po daily was started and her condition quickly improved. Serum creatinine was 1.2 at the time of discharge from the hospital. Prednisone has been gradually tapered to prednisone 10 mg po QOD and stopped 01/20/22. Mrs. Navarro was readmitted to [facility] 02/03/22 with a 3 day h/o recurrent emesis and diarrhea. She has been relatively hypotensive w/ SBP 90's, hyponatremic w/ Na 129 mmol/L and back discomfort. Serum bicarbonate has been 13 w/ AG 12. Allergies Allergy/AdvReac Type Severity Reaction Status Date / Time Sulfa (Sulfonamide Allergy Severe RASH Verified 02/03/22 01:53 Antibiotics) sulfamethoxazole Allergy Severe RASH Verified 02/03/22 01:53 trimethoprim Allergy Severe RASH Verified 02/03/22 01:53 tiotropium Allergy Intermediate Rash Verified 02/03/22 01:53 [From Spiriva with HandiHaler] amlodipine AdvReac Unknown Fatigue Verified 02/03/22 01:53 Home Medications Medication Instructions Recorded Confirmed Type acetaminophen 500 mg capsule 1,000 mg PO Q8H PRN Pain 04/24/20 02/03/22 History ondansetron HCl 8 mg tablet 8 mg PO Q8H PRN nausea and vomiting 06/02/20 02/03/22 History pantoprazole 40 mg tablet,delayed 40 mg PO QAM 08/25/21 02/03/22 History release (Protonix) cyclobenzaprine 10 mg tablet 10 mg PO TID PRN muscle spasm #30 09/30/21 02/03/22 Rx tabs lidocaine 5 % topical patch 1 patch transdermal HS #15 ea 10/07/21 02/03/22 Rx promethazine 6.25 mg/5 mL oral 12.5 mg (10 mL) PO Q6H PRN nausea 10/25/21 02/03/22 Rx syrup and vomiting #473 mL clotrimazole 1 % vaginal cream See Rx Instructions .Route 10/29/21 02/03/22 Rx .COMPLEX PRN itching #45 grams mupirocin 2 % topical ointment See Rx Instructions topical BID 10/29/21 02/03/22 Rx #15 grams sertraline 100 mg tablet 150 mg PO DAILY #90 tabs 12/09/21 02/03/22 Rx cholecalciferol (vitamin D3) 25 25 mcg PO DAILY #90 tabs 01/07/22 02/03/22 Rx mcg (1,000 unit) tablet (Vitamin D3) lorazepam 0.5 mg tablet 0.5 - 1 mg PO BID PRN anxiety #60 01/18/22 02/03/22 Rx tabs prednisone 10 mg tablet 10 mg PO Q OTHER DAY #7 tabs 01/25/22 02/03/22 Rx Patient History Medical History Anxiety Diverticulosis of colon Dyslipidemia Emphysema lung COPD - WELL CONTROLLED W/ INHALER History of brain tumor HTN (hypertension) Hydrocephalus SHUNT PLACED 07/2021-[facility] Lung cancer TREATED W/ CHEMO AND RADIATION AT SAME TIME BRAIN CA 04/2020 [facility] Malignant neoplasm metastatic to brain RADIATION AND CHEMO DONE AFTER TUMOR REMOVED- CURRENTLY ON IMMUNOTHERAPY Q 2 MOS ON KEYTRUDA DUE 08/28/21- [facility] ONC Osteopenia Vitamin D deficiency Surgical History H/O brain surgery malignant tumor excised from occipital lobe 04/2020-[facility] History of bilateral tubal ligation History of brain shunt 07/2021 [facility]- CURRENTLY IN PLACE; DRAINING INTO ABDOMEN FOR SWELLING AROUND AREA WHERE TUMOR WAS REMOVED History of endometrial biopsy S/P colonoscopy Family History Sister Colonic polyp Social History Smoking Status: Former smoker Tobacco Type: Cigarettes Second Hand Exposure: No; Hx Alcohol Use: No Hx Substance Use: No Preferred Language: Serbian Communication Ability: Effective Director Of Business Systems Required: No Beliefs That Will Affect Care: None marital status: Current Living Situation: Spouse Feels Safe at Home: Yes Review of Systems Constitutional: no fever Eyes: no problem reported Ear, Nose, Mouth, Throat: no problem reported Respiratory: no cough and no dyspnea Cardiovascular: no chest pain Gastrointestinal: + vomiting and + diarrhea/loose stools Genitourinary: no dysuria Musculoskeletal: + back pain Physical Exam Constitutional: + ill appearing; not in distress Eyes: PERRL, conjunctivae normal, anicteric sclerae ENMT: Mouth: + dry oral mucous membranes Neck: trachea midline, no thyromegaly Respiratory: normal respiratory effort, lungs clear to auscultation Cardiovascular: Rate/Rhythm: regular rhythm and + tachycardic Gastrointestinal (Abdomen): Inspection/Auscultation: abdomen normal to inspection and normal bowel sounds Percussion/Palpation: abdomen soft; no guarding Skin: + turgor decreased Neurologic: awake; not confused Results & Data ([facility]) Vital Signs (Past 12 Hours) Vital Signs Pulse Pulse Resp BP BP Pulse Ox O2 Del Method 02/03/22 09:10 135 H 23 Room Air 02/03/22 09:00 141 H 18 92 Room Air 02/03/22 08:50 128 H 29 H 94 Room Air 02/03/22 08:40 128 H 34 H 95 Room Air 02/03/22 08:30 136 H 39 H 94 Room Air 02/03/22 08:20 127 H 45 H 92 02/03/22 08:10 127 H 52 H 98 02/03/22 08:01 134/71 02/03/22 08:01 127 H 46 H 95 02/03/22 08:00 127 H 31 H 95 02/03/22 07:50 127 H 51 H 93 02/03/22 07:40 129 H 31 H 92 02/03/22 07:30 128 H 34 H 94 02/03/22 07:26 94 02/03/22 06:40 131 H 24 94 02/03/22 06:30 125 H 36 H 94 02/03/22 06:20 132 H 33 H 93 02/03/22 06:10 134 H 42 H 94 02/03/22 06:00 130 H 30 H 95 02/03/22 06:00 128/95 02/03/22 05:50 127 H 22 92 02/03/22 05:40 131 H 21 02/03/22 05:30 120 H 50 H 93 02/03/22 05:20 124 H 38 H 91 02/03/22 05:10 119 H 47 H 94 02/03/22 05:00 120 H 44 H 93 02/03/22 05:00 114/71 02/03/22 04:50 120 H 45 H 93 02/03/22 04:40 120 H 48 H 93 02/03/22 04:38 91 02/03/22 04:38 126/67 02/03/22 03:50 126 H 31 H 02/03/22 03:40 130 H 31 H 02/03/22 03:30 131 H 36 H 02/03/22 03:20 123 H 29 H 93 02/03/22 03:10 123 H 29 H 02/03/22 03:02 116 H 39 H 02/03/22 03:02 116/70 02/03/22 03:01 39 H 02/03/22 02:40 20 95 02/03/22 02:30 11 L 94 02/03/22 02:20 114 H 20 96 02/03/22 02:10 119 H 20 95 02/03/22 02:00 108 H 21 97 02/03/22 02:00 143/93 H 02/03/22 01:56 104/82 02/03/22 01:56 111 H 19 95 02/03/22 01:50 107 H 31 H 96 02/03/22 01:40 103 H 21 96 02/03/22 01:30 102 H 27 H 96 02/03/22 09:51 Room Air 02/03/22 07:27 131 H 29 H 126/78 94 Room Air 02/03/22 05:02 120 H 18 114/71 93 Room Air 02/03/22 04:38 122 H 18 126/67 93 Room Air 02/03/22 02:11 120 H 24 143/93 H 95 Room Air Laboratory Results Laboratory Tests 02/03/22 02/03/22 02/03/22 02:30 05:15 10:46 WBC Hgb Hct Plt Count Sodium 131 L Potassium 3.0 L Chloride 101 Carbon Dioxide 15 L BUN 5 L Creatinine 1.03 Glucose Calcium 8.0 L Albumin Random Cortisol 11.65 Urine Color Yellow Urine Appearance Clear Urine pH 5.0 Ur Specific [place] 1.043 H Urine Protein 1+ H Urine Ketones 4+ H Urine Blood 1+ H Urine Bacteria (Auto) Negative 02/04/22 02/04/22 06:03 06:03 WBC 7.18 Hgb 10.0 L D Hct 29.6 L Plt Count 282 Sodium 135 L Potassium 3.0 L Chloride 110 H Carbon Dioxide 13 L BUN 4 L Creatinine 1.11 Glucose 91 Calcium 7.6 L Albumin 3.3 L Random Cortisol Urine Color Urine Appearance Urine pH Ur Specific [place] Urine Protein Urine Ketones Urine Blood Urine Bacteria (Auto) PG Care Time/CCT Total # of Minutes Spent Total Time Spent with Patient: Total time spent is greater than 50% in coordination of care (as documented) at patient's floor/unit and/or counseling patient: Coding Level of Care Code 84704 Inpt Consult Level 5 Diagnoses Metabolic acidosis E87.20 Hyponatremia E87.1 Lung cancer C34.90
[2022-02-04] MEDS ORDERED: SODIUM BICARBONATE IV SCH (10:15)
[2022-02-04] MEDS ORDERED: SODIUM CHLORIDE 0.45% IV SCH (10:15)
[2022-02-04] MEDS ORDERED: SODIUM BICARBONATE 8.4% 150 MEQ in WATER, STERILE 1,000 ML IV SCH (11:00)
[2022-02-04] MEDS: predniSONE 10 MG TABLET PO SCH (11:45)
[2022-02-04 12:04] LABS: Thyroid Stimulating Hormone 0.246 uIu/ml (0.300-4.500)
[2022-02-04 12:37] LABS: T4 Free Thyroxine 0.85 ng/dl (0.61-1.60)
[2022-02-04] MEDS: busPIRone 5 MG TAB PO SCH ×2 (14:13→20:00)
[2022-02-04] MEDS ORDERED: Nursing to Pharmacy Communication SCH (14:15)
--- NOTE | 2022-02-04 17:58 | Hospitalist Progress Note ---
Date of Service February 04, 2022 Assessment & Plan (1) Nausea & vomiting: Plan: Mrs. Navarro is a 61 yo woman with a PMHx of metastatic lung cancer (mets to brain) who was admitted for nausea /vomiting and diarrhea - etiology uncertain. - Suspect viral gastroenteritis. Stool PCR neg. Covid and flu are neg. - CT abdomen/pelvis showing no acute process - Gallbladder US showing no evidence of acute cholecystitis - There was concern for possible malfunctioning of her APPRENTICE PHOTOGRAPHER shunt in the head, and elevated pressure was cause of nausea/vomiting. However Brain MRI showed no hydrocephalus, no stroke, a new area of enhancement which may present a novel met vs. post-surgical changes at risk of previous cerebellar resection. Requested her MRI done in house be send to her oncologist at [facility] - Symptomatic treatment with Zofran and promethazine (2) Tachycardia: Plan: - etiology uncertain, likley multifactorial due to the following: - dehydration in setting of gastroenteritis, on IV fluids - anxiety, buspar added to home sertraline dose - adrenal insufficiency - 10mg prednisone restarted - TSH at 0.2, free T4 normal. Not in any pain. No etoh use that could be concerning for withdrawal. D-dimer was elevated on admission so CTA chest was ordered to rule out PE, which was negative - EKG showing sinus tach - monitor on tele (3) Anemia: Plan: - Hgb at 10 today, down form 13 on admission - Hemoccult stool ordered (4) Metabolic acidosis: Plan: - AG elevated on admission, closing - bicarb at 13 - sodium bicarb added by nephrology - lactate not elevated. No ketosis. Suspect due to gi bicarb losses (ie diarrhea) - trend BMP (5) Hyponatremia: Plan: - Na was 129 on admission --> up to 135 - given hypotension on admission, considering possible adrenal sufficiency. Random cortisol was normal, but would expect to be high-normal of elevated in setting of acute illness - Trend BMP - Urine osms to ensure no aspect of SIADH which could lower Na further (6) Elevated troponin: Plan: - noted - No ST segment changes on EKG - patient denies chest pain - suspect due to demand ischemia (tachycardia in setting of acute illness) (7) Hydrocephalus: Plan: - APPRENTICE PHOTOGRAPHER shunt placed in 06/2021 for ongoing headache with nausea. - Increased pressure thought to be sequelae of resection and radiation. - MRI brain findings: showed no hydrocephalus, no stroke, a new area of enhancement which may present a novel met vs. post-surgical changes at risk of previous cerebellar resection. (8) Hypoglycemia: Plan: - noted on arrival - Due to poor PO intake x 3 days. Responded to 2 amps of D50. - now tolerating some PO intake (9) Emphysema, unspecified: Plan: - extensive emphysema noted on chest CTA - yet patient is not on any home inhalers - started Anoro Ellipta (10) Acute dehydration: Plan: - Due to nausea, vomiting. - IV fluids (11) Lung cancer: Plan: - S/p right cerebellar resection on 04/08/2020 for brain met with radiation afterward. Has trialed several chemotherapy regimens, but nothing since Avastin in 10/2021. Keytruda caused interstitial nephritis. - [facility] - Plan for 3 fractions of SBRT to RUL starting on 02/10/2022. (12) Acute interstitial nephritis: Plan: - Due to Keytruda. Finished prednisone on 01/16/2022. Follows with Dr. Acosta. - Cr normal this admission (13) Anxiety with depression: Plan: - Continue home sertraline - added buspar (14) HTN (hypertension): Plan: BP in the ER was 115/70. - Monitor BP (15) DVT prophylaxis: Plan: Lovenox 40 mg SQ daily -> Patient is at high risk of VTE given known cancer. Diet: regular. Replete Electrolytes. Dispo: Med/tele Code: full Admission and Anticipated Discharge Date Admission Date: February 03, 2022 Subjective Patient says nausea has subsided. She did continues to have diarrhea. Review of Systems Review of Systems: All systems reviewed & are unremarkable except as noted in HPI & below Physical Exam Constitutional: WD/WN, vitals as above Eyes: + anicteric sclerae ENMT: external ear and nose normal, oropharynx normal Neck: trachea midline, no thyromegaly Respiratory: normal respiratory effort and + audible wheezes (expiratory ); no cough Cardiovascular: RRR, no murmur, no edema Extremities: no pedal edema Musculoskeletal: Head/Neck/Chest: normocephalic and head atraumatic Skin: no rashes, warm and dry Neurologic: moves all extremities Psychiatric: A+Ox3, euthymic affect Results & Data Results & Data ([place]) Vital Signs (Past 12 Hours) Vital Signs Temp Pulse Pulse Resp BP Pulse Ox O2 Del Method 02/04/22 16:00 109 H 02/04/22 14:55 36.8 C 110 H 18 118/67 100 Nasal Cannula 02/04/22 13:49 114 H 02/04/22 13:49 Nasal Cannula 02/04/22 12:05 37.2 C 114 H 19 103/66 99 Nasal Cannula 02/04/22 08:15 36.7 C 121 H 24 108/69 99 Room Air, Nasal Cannula O2 Flow Rate 02/04/22 16:00 02/04/22 14:55 02/04/22 13:49 02/04/22 13:49 2 02/04/22 12:05 2 02/04/22 08:15 3 PG Care Time/CCT Total # of Minutes Spent Total Time Spent with Patient: Total time spent is greater than 50% in coordination of care (as documented) at patient's floor/unit and/or counseling patient: Coding Level of Care Code 42071 Subseq Hosp Care Lvl 3 Diagnoses Nausea & vomiting R11.2 Vomiting type: unspecified Tachycardia R00.0 Anemia D64.9 Metabolic acidosis E87.20 Hyponatremia E87.1 Elevated troponin R77.8 Hydrocephalus G91.9 Hypoglycemia E16.2 Emphysema, unspecified J43.9 Acute dehydration E86.0 Lung cancer C34.90 Acute interstitial nephritis N10 Anxiety with depression F41.8 HTN (hypertension) I10 DVT prophylaxis Z29.9 (1) Nausea & vomiting Vomiting type: unspecified Qualified Code(s): R11.2 - Nausea with vomiting, unspecified
[2022-02-04] MEDS: LIDOCAINE 5% 1 PATCH TD SCH (20:00)
[2022-02-05] MEDS: POTASSIUM CHLORIDE 40 MEQ in D5W AND NSS 1,000 ML IV SCH ×2 (01:51→13:42)
[2022-02-05 07:25] LABS: Hemoglobin 8.5 g/dl (12.0-16.0); Mean Corpuscular Hemoglobin 30.2 pg (25.0-34.0); Mean Platelet Volume 9.6 fL (9.4-12.3); Platelet Count 250 K/uL (130-400); RDW Coefficient of Variation 13.7 % (11.5-14.5); RDW Standard Deviation 44.8 fL (36.4-46.3); Red Blood Count 2.81 M/uL (3.93-5.22); White Blood Count 3.49 K/ul (4.8-10.8)
[2022-02-05 07:47] LABS: BUN Creatinine Ratio 4.7 (10-20); Calcium 7.3 mg/dl (8.5-10.1); Creatinine Clr Calc Pharmacy 60.2 ml/min; Est GFR (African American) 83.3 ml/min; Est GFR (Non-African American) 71.9 ml/min; Potassium 2.7 mmol/L (3.5-5.1)
[2022-02-05] MEDS ORDERED: POTASSIUM CHLORIDE CRTAB 20 MEQ TABCR PO STA (07:51)
[2022-02-05] MEDS ORDERED: POTASSIUM PHOS 3 MMOL/1 ML INFUSION IV STA (08:16)
[2022-02-05] MEDS: busPIRone 5 MG TAB PO SCH ×3 (08:23→19:48)
[2022-02-05] MEDS: predniSONE 10 MG TABLET PO SCH (08:24)
[2022-02-05] MEDS: SERTRALINE HCL 50 MG TABLET PO SCH (08:24)
[2022-02-05] MEDS: CHOLECALCIFEROL 5,000 UNITS 125 MCG TAB PO SCH (08:24)
[2022-02-05] MEDS: PANTOprazole 40 MG TAB PO SCH (08:25)
[2022-02-05] MEDS: ENOXAPARIN INJ 40 MG/0.4 ML SYR SQ SCH (08:26)
[2022-02-05] MEDS: UMECLIDINIUM/VILANTEROL 62.5/25MCG 7 PUFFS/INHALER INH SCH (08:26)
[2022-02-05] MEDS ORDERED: POTASSIUM PHOSPHATE 21 MMOL in SODIUM CHLORIDE 0.9% 500 ML IV ONE (08:30)
[2022-02-05] MEDS: ACETAMINOPHEN 500 MG TAB PO PRN ×2 (08:33→17:37)
--- NOTE | 2022-02-05 08:44 | Nephrology Progress Note ---
Date of Service February 05, 2022 Assessment & Plan (1) Metabolic acidosis: Plan: * High anion gap metabolic acidosis * Elevated urine Na and Cl suggestive of primary renal wasting, possibly related to adrenal insufficiency * Continue Prednisone 10 mg daily, will start NaHCO3 650 mg po daily * Monitor PRP (2) Hyponatremia: Plan: * Hyponatremia in the setting of relative hypotension and recent steroid therapy is concerning for adrenal insufficiency. Although random cortisol level was normal, would expect a high normal or elevated level in the setting of acute medical stress * Continue Prednisone 10 mg daily and monitor response * No further Nephrology evaluation indicated at this time. Will sign off. Continue Prednisone, NaHCO3 and supplement electrolytes. Please have patient follow up in my office 7 - 14 days following hospital discharge ([phone]). Advise her to have labs completed 1 day prior to OV. I have entered orders into EMR (3) Lung cancer: Plan: * Keytruda therapy has been complicated by AIN * Ongoing medical management at per Dr. Beatty of [facility] Admission and Anticipated Discharge Date Admission Date: February 03, 2022 Subjective Ms. Navarro was evaluated in her hospital room this morning. She was tearful due to fecal incontinence and weakness. She denied angina, dyspnea. Review of Systems Constitutional: no fever Eyes: no problem reported Ear, Nose, Mouth, Throat: no problem reported Respiratory: no cough and no dyspnea Cardiovascular: no chest pain Gastrointestinal: + vomiting and + diarrhea/loose stools Genitourinary: no dysuria Musculoskeletal: + back pain Physical Exam Constitutional: + ill appearing; not in distress Eyes: PERRL, conjunctivae normal, anicteric sclerae ENMT: Mouth: + dry oral mucous membranes Neck: trachea midline, no thyromegaly Respiratory: normal respiratory effort, lungs clear to auscultation Cardiovascular: Rate/Rhythm: regular rhythm and + tachycardic Gastrointestinal (Abdomen): Inspection/Auscultation: abdomen normal to inspection and normal bowel sounds Percussion/Palpation: abdomen soft; no guarding Skin: + turgor decreased Neurologic: awake; not confused Results & Data ([facility]) Vital Signs (Past 12 Hours) Vital Signs Temp Pulse Resp BP Pulse Ox O2 Del Method O2 Flow Rate 02/05/22 07:03 36.7 C 105 H 18 120/68 99 Nasal Cannula 2 02/05/22 02:27 36.6 C 104 H 20 122/71 100 Nasal Cannula 2 02/04/22 22:35 37.0 C 104 H 18 119/64 97 Nasal Cannula 2 02/04/22 21:59 Nasal Cannula 2 Laboratory Results Laboratory Tests 02/03/22 02/03/22 02/05/22 03:20 Unknown 07:06 WBC 3.49 L Hgb 8.5 L Hct 25.0 L Plt Count 250 Sodium Potassium Chloride Carbon Dioxide BUN Creatinine Calcium Phosphorus Influ A Molecular Assay Negative Influ B Molecular Assay Negative SARS-CoV-2, RNA, NAAT NEGATIVE 02/05/22 02/05/22 07:06 07:06 WBC Hgb Hct Plt Count Sodium 138 Potassium 2.7 L Chloride 110 H Carbon Dioxide 20 L BUN 4 L Creatinine 0.86 Calcium 7.3 L Phosphorus 1.3 L* Influ A Molecular Assay Influ B Molecular Assay SARS-CoV-2, RNA, NAAT Laboratory Tests 10/19/21 Unknown Ur Random Sodium 32 Laboratory Tests 10/19/21 02/05/22 02/05/22 Unknown 04:10 04:10 Ur Random Sodium 32 39 Ur Random Chloride 92 Diagnostic Findings 02/03/22 CTA: 1. No evidence of pulmonary embolism. 2. Interval stability of right apical nodule compatible with known malignancy. PG Care Time/CCT Total # of Minutes Spent Total Time Spent with Patient: Total time spent is greater than 50% in coordination of care (as documented) at patient's floor/unit and/or counseling patient: Coding Level of Care Code 25163 Subseq Hosp Care Lvl 3 Diagnoses Metabolic acidosis E87.20 Hyponatremia E87.1 Lung cancer C34.90
--- NOTE | 2022-02-05 16:32 | Hospitalist Progress Note ---
Date of Service February 05, 2022 Assessment & Plan (1) Nausea & vomiting: Plan: Mrs. Navarro is a 61 yo woman with a PMHx of metastatic lung cancer (mets to brain) who was admitted for nausea /vomiting and diarrhea - etiology uncertain, suspect viral gastroenteritis. Stool PCR neg. Covid and flu are neg. - CT abdomen/pelvis showing no acute process - Gallbladder US showing no evidence of acute cholecystitis - There was concern for possible malfunctioning of her SENIOR TRAINER shunt in the head, and elevated pressure was cause of nausea/vomiting. However Brain MRI showed no hydrocephalus, no stroke, a new area of enhancement which may present a novel met vs. post-surgical changes at risk of previous cerebellar resection. Requested her MRI done in house be send to her oncologist at [facility] - Symptomatic treatment with Zofran and promethazine (2) Tachycardia: Plan: - improving - etiology uncertain, likley multifactorial due to the following: - dehydration in setting of gastroenteritis, has been given IV fluids - anxiety, buspar added to home sertraline dose - adrenal insufficiency - 10mg prednisone restarted - TSH at 0.2, free T4 normal. Not in any pain. No etoh use that could be concer vivian for withdrawal. D-dimer was elevated on admission so CTA chest was ordered to rule out PE, which was negative - EKG showing sinus tach - monitor on tele (3) Adrenal insufficiency: Plan: - patient with normal random cortisol, but would expect to be high-normal of elevated in setting of acute illness - coupled with hypotension on admission, low Na and hypoglycemia - restarted on prednisone 10mg daily by nephrology - nephrology has since signed off with rec for patient to be seen in office in 7-14 days with labs in advance (4) Anemia: Plan: - Hgb at 8.5 today, down form 13 on admission, MCV 89, normocytic. - Hemoccult stool ordered - BUN not elevated, upper GI bleed seems like an unlikley possibility - trend CBC in am (5) Metabolic acidosis: Plan: - AG elevated on admission, closing - bicarb improving as well, now at 20 - sodium bicarb added by nephrology - lactate not elevated. No ketosis. Suspect due to gi bicarb losses (ie diarrhea) - trend BMP (6) Hyponatremia: Plan: - Na was 129 on admission --> has since normalized - suspect due to adrenal sufficiency - Urine osms to ensure no aspect of SIADH which could lower Na further: returned at 279, Urine Na at 39, consistent with Adrenal Insufficiency as etiology (7) Elevated troponin: Plan: - noted - No ST segment changes on EKG - patient denies chest pain - suspect due to demand ischemia (tachycardia in setting of acute illness) (8) Hydrocephalus: Plan: - SENIOR TRAINER shunt placed in 06/2021 for ongoing headache with nausea. - Increased pressure thought to be sequelae of resection and radiation. - MRI brain findings: showed no hydrocephalus, no stroke, a new area of enhancement which may present a novel met vs. post-surgical changes at risk of previous cerebellar resection. (9) Hypoglycemia: Plan: - noted on arrival --> has since resolved - Due to poor PO intake x 3 days. (10) Emphysema, unspecified: Plan: - extensive emphysema noted on chest CTA, yet patient is not on any home inhalers - started Anoro Ellipta (11) Acute dehydration: Plan: - Due to nausea, vomiting. - IV fluids given (12) Lung cancer: Plan: - S/p right cerebellar resection on 04/08/2020 for brain met with radiation afterward. Has trialed several chemotherapy regimens, but nothing since Avastin in 10/2021. Keytruda caused interstitial nephritis. - Follows with [facility] - Plan for 3 fractions of SBRT to RUL starting on 02/10/2022. (13) Acute interstitial nephritis: Plan: - Due to Keytruda. Finished prednisone on 01/16/2022. Follows with Dr. Acosta. - Cr normal this admission (14) Anxiety with depression: Plan: - Continue home sertraline - added buspar on 02/04 (15) DVT prophylaxis: Plan: Lovenox 40 mg SQ daily -> Patient is at high risk of VTE given known cancer. Diet: regular. Replete Electrolytes as needed Dispo: Med/tele. PT/OT felt as though she is able to go home. Patient can go once Hgb stabilizes and electrolytes are corrected Code: full Admission and Anticipated Discharge Date Admission Date: February 03, 2022 Subjective No acute events overnight. Patient says nausea/vomiting has resolved but still having loose stools. We started her on buspar yesterday for worsening anxiety- she says she has not yet noticed a difference, but is tolerating it fine. Review of Systems Constitutional: as per Subjective / HPI Physical Exam Constitutional: WD/WN, vitals as above Eyes: + anicteric sclerae ENMT: external ear and nose normal, oropharynx normal Neck: trachea midline, no thyromegaly Respiratory: normal respiratory effort and + audible wheezes (expiratory ); no cough Cardiovascular: RRR, no murmur, no edema Extremities: no pedal edema Musculoskeletal: Head/Neck/Chest: normocephalic and head atraumatic Skin: no rashes, warm and dry Neurologic: moves all extremities Psychiatric: A+Ox3, euthymic affect Results & Data Results & Data ([place]) Vital Signs (Past 12 Hours) Vital Signs Temp Pulse Pulse Resp BP Pulse Ox O2 Del Method 02/05/22 15:44 36.5 C 97 H 18 117/66 100 Nasal Cannula 02/05/22 11:36 36.4 C L 96 H 20 108/64 100 Nasal Cannula 02/05/22 11:08 102 H 02/05/22 11:08 Nasal Cannula 02/05/22 07:03 36.7 C 105 H 18 120/68 99 Nasal Cannula O2 Flow Rate 02/05/22 15:44 3 02/05/22 11:36 3.0 02/05/22 11:08 02/05/22 11:08 2 02/05/22 07:03 2 PG Care Time/CCT Total # of Minutes Spent Total Time Spent with Patient: Total time spent is greater than 50% in coordination of care (as documented) at patient's floor/unit and/or counseling patient: Coding Level of Care Code 88588 Subseq Hosp Care Lvl 2 Diagnoses Nausea & vomiting R11.2 Vomiting type: unspecified Tachycardia R00.0 Adrenal insufficiency E27.40 Anemia D64.9 Metabolic acidosis E87.20 Hyponatremia E87.1 Elevated troponin R77.8 Hydrocephalus G91.9 Hypoglycemia E16.2 Emphysema, unspecified J43.9 Acute dehydration E86.0 Lung cancer C34.90 Acute interstitial nephritis N10 Anxiety with depression F41.8 DVT prophylaxis Z29.9 (1) Nausea & vomiting Vomiting type: unspecified Qualified Code(s): R11.2 - Nausea with vomiting, unspecified
[2022-02-05] MEDS: LORazepam 0.5 MG TAB PO PRN ×2 (17:37→22:35)
[2022-02-05] MEDS: LIDOCAINE 5% 1 PATCH TD SCH (19:47)
[2022-02-06] MEDS: POTASSIUM CHLORIDE 40 MEQ in D5W AND NSS 1,000 ML IV SCH (02:15)
[2022-02-06 08:17] LABS: Hematocrit (blood only) 23.4 % (34.1-44.9); Hemoglobin 8.1 g/dl (12.0-16.0); Mean Corpuscular Hemoglobin 30.7 pg (25.0-34.0); Mean Corpuscular Hgb Conc 34.6 g/dL (32.0-36.0); Mean Corpuscular Volume 88.6 fL (80.0-100.0); Platelet Count 272 K/uL (130-400); RDW Coefficient of Variation 14.2 % (11.5-14.5); RDW Standard Deviation 45.8 fL (36.4-46.3); Red Blood Count 2.64 M/uL (3.93-5.22); White Blood Count 3.95 K/ul (4.8-10.8)
[2022-02-06 08:49] LABS: BUN Creatinine Ratio 2.6 (10-20); Calcium 7.2 mg/dl (8.5-10.1); Creatinine Clr Calc Pharmacy 119.8 ml/min; Est GFR (African American) 96.8 ml/min; Est GFR (Non-African American) 83.5 ml/min
[2022-02-06] MEDS: CHOLECALCIFEROL 5,000 UNITS 125 MCG TAB PO SCH (08:53)
[2022-02-06] MEDS: busPIRone 5 MG TAB PO SCH ×3 (08:53→19:42)
[2022-02-06] MEDS: ENOXAPARIN INJ 40 MG/0.4 ML SYR SQ SCH (08:53)
[2022-02-06] MEDS: SERTRALINE HCL 50 MG TABLET PO SCH (08:53)
[2022-02-06] MEDS: predniSONE 10 MG TABLET PO SCH (08:53)
[2022-02-06] MEDS: PANTOprazole 40 MG TAB PO SCH (08:53)
[2022-02-06] MEDS: UMECLIDINIUM/VILANTEROL 62.5/25MCG 7 PUFFS/INHALER INH SCH (08:54)
[2022-02-06 09:36] LABS: Albumin Globulin Ratio 1.3 (0.9-2); Albumin Level 3.1 gm/dl (3.4-5.0); Bilirubin,Total 0.3 mg/dl (0.2-1.0); Globulin 2.4 gm/dl (2.5-4.0); Magnesium 1.5 mg/dl (1.7-2.4); Total Protein 5.5 gm/dl (6.0-8.3)
[2022-02-06] MEDS ORDERED: POTASSIUM PHOS 3 MMOL/1 ML INFUSION IV STA (09:52)
--- NOTE | 2022-02-06 09:55 | Hospitalist Progress Note ---
Date of Service February 06, 2022 Assessment & Plan (1) Nausea & vomiting: Plan: Suspected to be gastroenteritis at this time, however C. diff is pending. CTAP no acute process, US GB normal. MRI brain to eval for worsening brain mets or HOSPITAL SOCIAL WORKER shunt issues; no changes. PRN Zofran for nausea (has not had today); QTc 387 on admission. Encouraged PO food and fluid intake to offset GI losses. (2) Metastatic lung cancer (metastasis from lung to other site): Plan: RUL lung mass considered to be primary tumor. S/p resection of cerebellar mass in April 2020, with chemorads following this. S/p right frontal H[employer]PITAL SOCIAL WORKER shunt for hydrocephalus in June 2021. CSF negative for malignant cells in June. 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 (3) Adrenal insufficiency: Plan: Resolved. Hyponatremia on admission in the setting of relative hypotension, dehydration, recent steroid therapy. Cortisol level normal on admission (would expect high level in setting of acute illness). Presentation concerning for adrenal insufficiency, continue prednisone 10mg daily with daily BMP, Nephrology follow up on discharge. (4) Metabolic acidosis: Plan: HAGMA with evidence of primary renal wasting (possible partially due to adrenal insufficiency), Nephrology consulted and appreciate recommendations. NaHCO3 650mg daily started this admission, to continue on discharge. Continue prednisone. (5) Hyponatremia: Plan: Secondary to above. (6) Hypokalemia: Plan: In the setting of continued poor POP intake and ongoing diarrhea. Eval of diarrhea as described above. K was 3.0 today despite receiving IV/PO repletion yesterday, will again replete today with KCl 40meq x2 (supplement now added daily) and KPhos 21mmol IV x1, with repeat BMP tomorrow. (7) Hypomagnesemia: Plan: Mg 1.5 today, ongoing diarrhea and poor intake. Mg Sulfate 4g IV ordered to be given today with repeat Mg level in AM. (8) Hypophosphatemia: Plan: Secondary to poor intake and diarrhea. KPhos as described above with repeat Phos level in AM. (9) Anemia: Plan: Patient with a history of anemia in past admissions/outpatient labs (Hgb range since 2020 of 8.2-11.4). Hgb was 13.1 on admission however was dehydrated from several days of diarrhea. Hgb 8.1 today after receiving continued gentle IV fluids for the last several days. This is near previous levels from August and September of this year, do suspect has chronic anemia. Last iron studies 09/2021, will repeat, as well as B12 and folate levels. Hemoccult negative, no evidence of bleeding from any site. (10) Anxiety with depression: Plan: Continue sertraline and buspirone. Lorazepam 0.5mg TID prn anxiety. (11) Hypoglycemia: Plan: Resolved. 2/2 poor oral intake during acute illness. (12) Emphysema, unspecified: Plan: Continue Anoro Ellipta. (13) DVT prophylaxis: Plan: Continue Lovenox 40mg daily. No evidence of bleeding, monitor CBC. Admission and Anticipated Discharge Date Admission Date: February 03, 2022 Subjective No acute events overnight. Still with diarrhea and mild lower abdominal cramping prior to defecation. No complaints of chest pain, nausea, vomiting, blood in stools. Hemoccult negative. Feels very anxious due to hospitalization, ongoing diarrhea, electrolyte abnormalities. Review of Systems Review of Systems: All systems reviewed & are unremarkable except as noted in Subjective Physical Exam Constitutional: WD/WN, vitals as above Eyes: + anicteric sclerae ENMT: external ear and nose normal, oropharynx normal Respiratory: normal respiratory effort; no cough Cardiovascular: RRR, no murmur, no edema Gastrointestinal (Abdomen): abdomen soft, mildly tender diffusely to palpation without rebound or guarding Musculoskeletal: moves all extremities, no upper or lower limb motor deficits Skin: no rashes, warm and dry Neurologic: resting tremor no other focal neurologic deficits Psychiatric: Orientation: alert and oriented x 3 Affect: + anxious affect Results & Data Results & Data ([facility]) Vital Signs (Past 12 Hours) Vital Signs Temp Pulse Resp BP Pulse Ox O2 Del Method O2 Flow Rate 02/06/22 07:43 36.2 C L 106 H 16 124/70 99 Nasal Cannula 2 02/06/22 02:52 36.7 C 102 H 19 121/72 99 Nasal Cannula 2 02/05/22 22:41 36.6 C 99 H 19 116/72 94 Room Air 02/05/22 22:15 Nasal Cannula 2 PG Care Time/CCT Total # of Minutes Spent Total Time Spent with Patient: Total time spent is greater than 50% in coordination of care (as documented) at patient's floor/unit and/or counseling patient: Coding Level of Care Code 40351 Subseq Hosp Care Lvl 3 Diagnoses Nausea & vomiting R11.2 Vomiting type: unspecified Metastatic lung cancer (metastasis from lung to other site) C34.90 Adrenal insufficiency E27.40 Metabolic acidosis E87.20 Hyponatremia E87.1 Hypokalemia E87.6 Hypomagnesemia E83.42 Hypophosphatemia E83.39 Anemia D64.9 Anxiety with depression F41.8 Hypoglycemia E16.2 Emphysema, unspecified J43.9 DVT prophylaxis Z29.9 (1) Nausea & vomiting Vomiting type: unspecified Qualified Code(s): R11.2 - Nausea with vomiting, unspecified
[2022-02-06] MEDS ORDERED: ondansetron HCL 8 MG in DEXTROSE 5% 50 ML IV PRN (09:56)
[2022-02-06] MEDS ORDERED: POTASSIUM PHOSPHATE 21 MMOL in SODIUM CHLORIDE 0.9% 500 ML IV ONE (10:00)
[2022-02-06] MEDS: POTASSIUM CHLORIDE CRTAB 20 MEQ TABCR PO SCH (11:05)
[2022-02-06] MEDS: LORazepam 0.5 MG TAB PO PRN (13:36)
[2022-02-06] MEDS: ACETAMINOPHEN 500 MG TAB PO PRN (16:05)
[2022-02-06] MEDS: MAGNESIUM SULFATE / D5W 1 GM/100 ML BAG IV SCH ×4 (17:34→22:36)
[2022-02-06] MEDS ORDERED: POTASSIUM CHLORIDE CRTAB 20 MEQ TABCR PO ONE (18:00)
[2022-02-06] MEDS: LIDOCAINE 5% 1 PATCH TD SCH (19:42)
[2022-02-07] MEDS: busPIRone 5 MG TAB PO SCH ×3 (07:55→20:02)
[2022-02-07] MEDS: CHOLECALCIFEROL 5,000 UNITS 125 MCG TAB PO SCH (07:55)
[2022-02-07] MEDS: POTASSIUM CHLORIDE CRTAB 20 MEQ TABCR PO SCH ×2 (07:55→20:02)
[2022-02-07] MEDS: ENOXAPARIN INJ 40 MG/0.4 ML SYR SQ SCH (07:56)
[2022-02-07] MEDS: SERTRALINE HCL 50 MG TABLET PO SCH (07:56)
[2022-02-07] MEDS: PANTOprazole 40 MG TAB PO SCH (07:56)
[2022-02-07] MEDS: predniSONE 10 MG TABLET PO SCH (07:57)
[2022-02-07] MEDS: UMECLIDINIUM/VILANTEROL 62.5/25MCG 7 PUFFS/INHALER INH SCH (07:57)
[2022-02-07 09:06] LABS: Basophils # (auto) 0.02 K/uL (0-0.2); Basophils % (auto) 0.5 %; Eosinophils # (auto) 0.15 K/uL (0-0.50); Eosinophils % (auto) 3.7 %; Hematocrit (blood only) 25.4 % (34.1-44.9); Hemoglobin 8.6 g/dl (12.0-16.0); Immature Granulocytes # (auto) 0.03 K/uL (0.00-0.02); Immature Granulocytes % (auto) 0.7 %; Lymphocytes # (auto) 1.21 K/uL (1.2-3.4); Lymphocytes % (auto) 29.7 %; Mean Corpuscular Hemoglobin 30.8 pg (25.0-34.0); Mean Corpuscular Hgb Conc 33.9 g/dL (32.0-36.0); Mean Platelet Volume 9.8 fL (9.4-12.3); Monocytes # (auto) 0.67 K/uL (0.24-0.82); Monocytes % (auto) 16.4 %; Platelet Count 295 K/uL (130-400); RDW Coefficient of Variation 14.6 % (11.5-14.5); RDW Standard Deviation 48.4 fL (36.4-46.3); Red Blood Count 2.79 M/uL (3.93-5.22); White Blood Count 4.08 K/ul (4.8-10.8)
[2022-02-07 09:34] LABS: BUN Creatinine Ratio 2.5 (10-20); Calcium 7.5 mg/dl (8.5-10.1); Creatinine Clr Calc Pharmacy 74.2 ml/min; Est GFR (African American) 92.3 ml/min; Est GFR (Non-African American) 79.7 ml/min; Potassium 3.1 mmol/L (3.5-5.1)
[2022-02-07 09:39] LABS: Magnesium 2.5 mg/dl (1.7-2.4); Phosphorus 1.2 mg/dl (2.5-4.9)
[2022-02-07 09:51] LABS: Ferritin 406.9 ng/ml (8-388)
[2022-02-07] MEDS ORDERED: POTASSIUM PHOS 3 MMOL/1 ML INFUSION IV STA (09:59)
[2022-02-07] MEDS ORDERED: POTASSIUM PHOSPHATE 24 MMOL in SODIUM CHLORIDE 0.9% 500 ML IV ONE (10:15)
--- NOTE | 2022-02-07 10:16 | Hospitalist Progress Note ---
Date of Service February 07, 2022 Assessment & Plan (1) Diarrhea: Plan: Suspected to be gastroenteritis at this time vs. anxiety-related? C diff and stool PCR panel negative. Stool ova/parasites ordered. CTAP no acute process, US GB normal. MRI brain to eval for worsening brain mets or TERMITE EXTERMINATOR shunt issues; no changes. PRN Zofran for nausea (has not had today); QTc 387 on admission. Encouraged PO food and fluid intake to offset GI losses. Imodium given to help with diarrhea. (2) Metastatic lung cancer (metastasis from lung to other site): Plan: RUL lung mass considered to be primary tumor. S/p resection of cerebellar mass in April 2020, with chemorads following this. S/p right frontal TERMITE EXTERMINATOR shunt for hydrocephalus in June 2021. CSF negative for malignant cells in June. 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 (3) Adrenal insufficiency: Plan: Resolved. Hyponatremia on admission in the setting of relative hypotension, dehydration, recent steroid therapy. Cortisol level normal on admission (would expect high level in setting of acute illness). Presentation concerning for adrenal insufficiency, continue prednisone 10mg daily with daily BMP, Nephrology follow up on discharge. (4) Metabolic acidosis: Plan: HAGMA with evidence of primary renal wasting (possible partially due to adrenal insufficiency), Nephrology consulted and appreciate recommendations. NaHCO3 650mg daily started this admission, to continue on discharge. Continue prednisone. (5) Hyponatremia: Plan: Secondary to above. (6) Hypokalemia: Plan: In the setting of continued poor POP intake and ongoing diarrhea. Eval of diarrhea as described above. K was 3.1 today despite receiving IV/PO repletion yesterday, will again replete today with KCl 40meq x2 and KPhos 24mmol IV x1, with repeat BMP tomorrow. (7) Hypomagnesemia: Plan: Mg 2.5 today, resolved with repletion. (8) Hypophosphatemia: Plan: Secondary to poor intake and diarrhea. KPhos as described above with repeat Phos level in AM. (9) Anemia: Plan: Patient with a history of anemia in past admissions/outpatient labs (Hgb range since 2020 of 8.2-11.4). Hgb was 13.1 on admission however was dehydrated from several days of diarrhea. Hgb 8.6 today. This is near previous levels from August and September of this year, do suspect has chronic anemia. B12 and folate normal. Iron studies suggest anemia of chronic disease. Hemoccult negative, no evidence of bleeding from any site. (10) Anxiety with depression: Plan: Continue sertraline and buspirone. Lorazepam 0.5mg TID prn anxiety. (11) Hypoglycemia: Plan: Resolved. 2/2 poor oral intake during acute illness. (12) Emphysema, unspecified: Plan: Continue Anoro Ellipta. (13) DVT prophylaxis: Plan: Continue Lovenox 40mg daily. No evidence of bleeding, monitor CBC. Admission and Anticipated Discharge Date Admission Date: February 03, 2022 Subjective No acute events overnight. Continues to have diarrhea after meals, loose, brown. Noted a dark-colored diarrhea yesterday, previous stool Hemoccult negative and C. diff negative. Notes at least several months of intermittent diarrhea and has been in hospital for electrolytes and weakness in the past. No abdominal pain or nausea. Review of Systems Review of Systems: All systems reviewed & are unremarkable except as noted in Subjective Physical Exam Constitutional: WD/WN, vitals as above Respiratory: normal respiratory effort, lungs clear to auscultation no cough Cardiovascular: RRR, no murmur, no edema Gastrointestinal (Abdomen): abdomen soft, nontender to palpation without rebound or guarding Skin: no rashes, warm and dry Neurologic: resting tremor hands Psychiatric: Orientation: alert and oriented x 3 Affect: + anxious affect Results & Data Results & Data ([facility]) Vital Signs (Past 12 Hours) Vital Signs Temp Pulse Resp BP Pulse Ox O2 Del Method O2 Flow Rate 02/07/22 07:34 36.8 C 106 H 24 124/63 92 Nasal Cannula 3.0 02/07/22 04:28 36.6 C 97 H 18 104/62 99 Nasal Cannula 3.0 02/06/22 23:10 36.6 C 99 H 18 115/67 100 Nasal Cannula 3.0 PG Care Time/CCT Total # of Minutes Spent Total Time Spent with Patient: Total time spent is greater than 50% in coordination of care (as documented) at patient's floor/unit and/or counseling patient: Coding Level of Care Code 40357 Subseq Hosp Care Lvl 2 Diagnoses Diarrhea R19.7 Metastatic lung cancer (metastasis from lung to other site) C34.90 Adrenal insufficiency E27.40 Metabolic acidosis E87.20 Hyponatremia E87.1 Hypokalemia E87.6 Hypomagnesemia E83.42 Hypophosphatemia E83.39 Anemia D64.9 Anxiety with depression F41.8 Hypoglycemia E16.2 Emphysema, unspecified J43.9 DVT prophylaxis Z29.9
[2022-02-07] MEDS: LOPERAMIDE HCL 2 MG CAP PO PRN (10:42)
[2022-02-07] MEDS: ACETAMINOPHEN 500 MG TAB PO PRN (17:05)
[2022-02-07] MEDS: LIDOCAINE 5% 1 PATCH TD SCH (20:02)
[2022-02-08] MEDS: LORazepam 0.5 MG TAB PO PRN ×2 (00:51→21:23)
[2022-02-08 07:13] LABS: Basophils # (auto) 0.02 K/uL (0-0.2); Basophils % (auto) 0.5 %; Eosinophils # (auto) 0.18 K/uL (0-0.50); Eosinophils % (auto) 4.6 %; Hematocrit (blood only) 24.9 % (34.1-44.9); Hemoglobin 8.2 g/dl (12.0-16.0); Immature Granulocytes # (auto) 0.04 K/uL (0.00-0.02); Lymphocytes # (auto) 1.29 K/uL (1.2-3.4); Mean Corpuscular Hemoglobin 30.5 pg (25.0-34.0); Mean Corpuscular Hgb Conc 32.9 g/dL (32.0-36.0); Mean Corpuscular Volume 92.6 fL (80.0-100.0); Mean Platelet Volume 9.8 fL (9.4-12.3); Monocytes # (auto) 0.76 K/uL (0.24-0.82); Monocytes % (auto) 19.4 %; Neutrophils # (auto) 1.62 K/uL (1.4-6.5); Neutrophils % (auto) 41.5 %; Platelet Count 331 K/uL (130-400); RDW Coefficient of Variation 14.6 % (11.5-14.5); RDW Standard Deviation 49.1 fL (36.4-46.3); Red Blood Count 2.69 M/uL (3.93-5.22); White Blood Count 3.91 K/ul (4.8-10.8)
[2022-02-08] MEDS: ACETAMINOPHEN 500 MG TAB PO PRN ×2 (08:15→17:38)
[2022-02-08 08:22] LABS: BUN Creatinine Ratio 5.4 (10-20); Calcium 7.5 mg/dl (8.5-10.1); Creatinine Clr Calc Pharmacy 79.2 ml/min; Est GFR (African American) 99.9 ml/min; Est GFR (Non-African American) 86.2 ml/min; Magnesium 2.1 mg/dl (1.7-2.4); Phosphorus 2.2 mg/dl (2.5-4.9); Potassium 3.8 mmol/L (3.5-5.1)
[2022-02-08] MEDS: predniSONE 10 MG TABLET PO SCH (08:33)
[2022-02-08] MEDS: SERTRALINE HCL 50 MG TABLET PO SCH (08:33)
[2022-02-08] MEDS: CHOLECALCIFEROL 5,000 UNITS 125 MCG TAB PO SCH (08:33)
[2022-02-08] MEDS: POTASSIUM CHLORIDE CRTAB 20 MEQ TABCR PO SCH (08:33)
[2022-02-08] MEDS: PANTOprazole 40 MG TAB PO SCH (08:33)
[2022-02-08] MEDS: busPIRone 5 MG TAB PO SCH ×3 (08:33→19:39)
[2022-02-08] MEDS: UMECLIDINIUM/VILANTEROL 62.5/25MCG 7 PUFFS/INHALER INH SCH (08:34)
[2022-02-08] MEDS: ENOXAPARIN INJ 40 MG/0.4 ML SYR SQ SCH (08:34)
[2022-02-08] MEDS: LOPERAMIDE HCL 2 MG CAP PO PRN (12:46)
[2022-02-08] MEDS: PSYLLIUM or GUAR GUM FIBER POWDER PACKET PO SCH (13:56)
--- NOTE | 2022-02-08 15:47 | Hospitalist Progress Note ---
Date of Service February 08, 2022 Assessment & Plan (1) Diarrhea: Plan: Suspected to be gastroenteritis at this time vs. anxiety-related? C diff and stool PCR panel negative. Stool ova/parasites ordered. CTAP no acute process, US GB normal. MRI brain to eval for worsening brain mets or [employer] REPRESENTATIVE shunt issues; no changes. PRN Zofran for nausea (has not had today); QTc 387 on admission. Encouraged PO food and fluid intake to offset GI losses. Imodium and Metamucil given to help with diarrhea, likely to continue on discharge. Problem improved today. (2) Metastatic lung cancer (metastasis from lung to other site): Plan: RUL lung mass considered to be primary tumor. S/p resection of cerebellar mass in April 2020, with chemorads following this. S/p right frontal COMM[employer] HE[employer] PROGRAM REPRESENTATIVE shunt for hydrocephalus in June 2021. CSF negative for malignant cells in June. 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 Some O2 requirement while admitted, no more than 1-2 liters. Two step ordered for home qualification. CT Chest no evidence of fluid overload/pna/PE, likely 2/2 COPD/lung cancer. (3) Adrenal insufficiency: Plan: Resolved. Hyponatremia on admission in the setting of relative hypotension, dehydration, recent steroid therapy. Cortisol level normal on admission (would expect high level in setting of acute illness). Presentation concerning for adrenal insufficiency, so will continue prednisone 10mg daily with daily BMP, Nephrology follow up on discharge. (4) Metabolic acidosis: Plan: HAGMA with evidence of primary renal wasting (possible partially due to adrenal insufficiency), Nephrology consulted earlier this admission and appreciate recommendations. NaHCO3 650mg daily started this admission, to continue on discharge. Continue prednisone. (5) Hyponatremia: Plan: Secondary to above. (6) Hypokalemia: Plan: In the setting of continued poor PO intake and ongoing diarrhea. Eval of diarrhea as described above. K 3.8 today, decrease K supplementation to 40meq PO daily with repeat BMP tomorrow. (7) Hypomagnesemia: Plan: Mg 2.1 today, resolved with repletion. (8) Hypophosphatemia: Plan: Secondary to poor intake and diarrhea. Phos 2.2 today, significantly improved. Encourage PO intake, management of diarrhea as above, with repeat check tomorrow. (9) Anemia: Plan: Patient with a history of anemia in past admissions/outpatient labs (Hgb range since 2020 of 8.2-11.4). Hgb was 13.1 on admission however was dehydrated from several days of diarrhea. Hgb 8.2 today. This is near previous levels from August and September of this year, do suspect has chronic anemia. B12 and folate normal. Iron studies suggest anemia of chronic disease. Hemoccult negative, no evidence of bleeding from any site. (10) Anxiety with depression: Plan: Continue sertraline and buspirone. Lorazepam 0.5mg TID prn anxiety. (11) Hypoglycemia: Plan: Resolved. 2/2 poor oral intake during acute illness. (12) Emphysema, unspecified: Plan: Emphysema noted on imaging, long history of smoking (quit when diagnosed with cancer) and current lung cancer. Continue Anoro Ellipta on discharge. Supplemental O2 as needed based on two step qualification before discharge. (13) DVT prophylaxis: Plan: Continue Lovenox 40mg daily. No evidence of bleeding, monitor CBC. Admission and Anticipated Discharge Date Admission Date: February 03, 2022 Subjective No acute events overnight. One episode of diarrhea today significant decrease from yesterday. Some breathlessness noted with PT with walking around room, but quickly recovers when seated Review of Systems Review of Systems: All systems reviewed & are unremarkable except as noted in Subjective Physical Exam Constitutional: WD/WN, vitals as above Respiratory: normal respiratory effort, lungs clear to auscultation no cough Cardiovascular: RRR, no murmur, no edema Gastrointestinal (Abdomen): abdomen soft, nontender to palpation without rebound or guarding Skin: no rashes, warm and dry Neurologic: resting tremor hands Psychiatric: Orientation: alert and oriented x 3 Results & Data Results & Data ([facility]) Vital Signs (Past 12 Hours) Vital Signs Temp Pulse Resp BP Pulse Ox O2 Del Method O2 Flow Rate 02/08/22 11:32 36.5 C 87 20 103/63 93 Room Air 02/08/22 08:00 Nasal Cannula 3 02/08/22 04:07 36.8 C 89 18 103/66 99 Nasal Cannula 3 PG Care Time/CCT Total # of Minutes Spent Total Time Spent with Patient: Total time spent is greater than 50% in coordination of care (as documented) at patient's floor/unit and/or counseling patient: Coding Level of Care Code 14887 Subseq Hosp Care Lvl 2 Diagnoses Diarrhea R19.7 Metastatic lung cancer (metastasis from lung to other site) C34.90 Adrenal insufficiency E27.40 Metabolic acidosis E87.20 Hyponatremia E87.1 Hypokalemia E87.6 Hypomagnesemia E83.42 Hypophosphatemia E83.39 Anemia D64.9 Anxiety with depression F41.8 Hypoglycemia E16.2 Emphysema, unspecified J43.9 DVT prophylaxis Z29.9
[2022-02-08] MEDS: LIDOCAINE 5% 1 PATCH TD SCH (19:38)
[2022-02-09 07:09] LABS: Hemoglobin 8.6 g/dl (12.0-16.0)
[2022-02-09 07:34] LABS: BUN Creatinine Ratio 7.7 (10-20); Calcium 7.7 mg/dl (8.5-10.1); Creatinine Clr Calc Pharmacy 73.5 ml/min; Est GFR (African American) 93.8 ml/min; Est GFR (Non-African American) 80.9 ml/min; Magnesium 1.9 mg/dl (1.7-2.4); Phosphorus 1.9 mg/dl (2.5-4.9); Potassium 3.7 mmol/L (3.5-5.1)
[2022-02-09] MEDS: predniSONE 10 MG TABLET PO SCH (08:08)
[2022-02-09] MEDS: PSYLLIUM or GUAR GUM FIBER POWDER PACKET PO SCH (08:08)
[2022-02-09] MEDS: SERTRALINE HCL 50 MG TABLET PO SCH (08:08)
[2022-02-09] MEDS: PANTOprazole 40 MG TAB PO SCH (08:08)
[2022-02-09] MEDS: busPIRone 5 MG TAB PO SCH ×2 (08:08→14:27)
[2022-02-09] MEDS: ENOXAPARIN INJ 40 MG/0.4 ML SYR SQ SCH (08:09)
[2022-02-09] MEDS: CHOLECALCIFEROL 5,000 UNITS 125 MCG TAB PO SCH (08:09)
[2022-02-09] MEDS: UMECLIDINIUM/VILANTEROL 62.5/25MCG 7 PUFFS/INHALER INH SCH (08:09)
[2022-02-09] MEDS: LORazepam 0.5 MG TAB PO PRN (08:13)
[2022-02-09] MEDS: ACETAMINOPHEN 500 MG TAB PO PRN (08:22)
[2022-02-09] MEDS ORDERED: POTASSIUM CHLORIDE CRTAB 20 MEQ TABCR PO SCH (09:00)
--- NOTE | 2022-02-09 11:12 | Discharge Summary ---
Discharge Summary Date of Service February 09, 2022 Admission HPI Per Admitting Provider 61yo F w/ hx of metastatic lung cancer who presents with 3 days of nausea & vomiting. The patient reports that she was in her normal state of health, when 3 days ago, she had severe onset of nausea and multiple episodes of emesis each day. She describes the emesis as bilious and liquidy. She denies any hematemesis or coffee ground emesis. Likewise, she reports normal BMs and denies diarrhea or constipation. No sick contacts with similar symptoms. She has tried Zofran and promethazine at home, but they have not relieved the nausea/emesis. She notes some subjective fevers/chills at home, but has not taken her temperature. She notes some occasional dysuria, but nothing consistent. She denies any chest pain or abdominal pain. She gets somewhat short of breath with anxiety attacks. She notes that she has had her 3 treatments of radiation to the RUL tumor planned, but has not started them yet. She has not had any recent chemotherapy. Admission Exam Per Admitting Provider Constitutional: WD/WN, vitals as above Eyes:K EOM intact bilaterally; no conjunctival abnormality ENMT: external ear and nose normal, oropharynx normal Neck: trachea midline, no thyromegaly normal visual inspection Respiratory: normal respiratory effort, lungs clear to auscultation no respiratory distress Cardiovascular: Rate/Rhythm: regular rhythm and + tachycardic Extremities: no edema Gastrointestinal (Abdomen): Inspection/Auscultation: abdomen normal to inspection; abdomen not distended Musculoskeletal: no cyanosis or clubbing, extremities motor strength 5/5 Skin: no rashes, warm and dry Neurologic: moves all extremities and awake Neck is supple and non-tender. No Brudzinski's or Kernig's sign. Psychiatric: Orientation: alert, oriented to person and cooperative Principal Dx & Hospital Course #1 = Principal Diagnosis (1) Diarrhea: Suspected to be gastroenteritis. C diff and stool PCR panel negative. Stool ova/parasites ordered. CTAP no acute process, US GB normal. MRI brain performed to evaluate for worsening brain mets or DRILLER [employer] REAMER shunt issues; no changes. Imodium and Metamucil given to help with diarrhea; continue on discharge. Encouraged PO fluid intake. (2) Metastatic lung cancer (metastasis from lung to other site): RUL lung mass considered to be primary tumor. S/p resection of cerebellar mass in April 2020, with chemorads following this. S/p right frontal DRILLER AND REAMER shunt for hydrocephalus in June 2021. CSF negative for malignant cells in June. 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 Some O2 requirement while admitted, no more than 1-2 liters. Two step ordered f or home qualification; did not require O2 on day of discharge. CT Chest no evidence of fluid overload/pna/PE, oxygen need likely 2/2 COPD/lung cancer. Prescriptions written for walker for ambulatory dysfunction. Prescription for hospital bed for COPD for elevated HOB. (3) Adrenal insufficiency: Resolved. Hyponatremia on admission in the setting of relative hypotension, dehydration, recent steroid therapy. Cortisol level normal on admission (would expect high level in setting of acute illness). Presentation concerning for adrenal insufficiency, so will continue prednisone 10mg daily with Nephrology follow up on discharge. (4) Metabolic acidosis: HAGMA with evidence of primary renal wasting (possible partially due to adrenal insufficiency), Nephrology consulted earlier this admission and appreciate recommendations. NaHCO3 650mg daily started this admission, acidosis resolved. (5) Hyponatremia: Secondary to above. (6) Hypokalemia: In the setting of continued poor PO intake and ongoing diarrhea. Eval of diarrhea as described above. Potassium level normal on day of discharge. (7) Hypomagnesemia: Resolved with repletion. (8) Hypophosphatemia: Secondary to poor intake and diarrhea. Resolved. Encourage PO intake, management of diarrhea as above. (9) Anemia: Patient with a history of anemia in past admissions/outpatient labs (Hgb range since 2020 of 8.2-11.4). Hgb was 13.1 on admission however was dehydrated from several days of diarrhea. Hgb 8.6 today. This is near previous levels from August and September of this year, do suspect has chronic anemia. B12 and folate normal. Iron studies suggest anemia of chronic disease. Hemoccult negative, no evidence of bleeding from any site. (10) Anxiety with depression: Continue sertraline and buspirone, prn lorazepam. (11) Hypoglycemia: Resolved. 2/2 poor oral intake during acute illness. (12) Emphysema, unspecified: Emphysema noted on imaging, long history of smoking (quit when diagnosed with cancer) and current lung cancer. Continue Anoro Ellipta on discharge. No need for oxygen on two-step. Discharge Exam Constitutional WD/WN, vitals as above Respiratory normal respiratory effort, lungs clear to auscultation Cardiovascular RRR, no murmur, no edema Skin no rashes, warm and dry Psychiatric Orientation: alert and oriented x 3 Updated Medication List Medication Instructions Recorded Confirmed Type acetaminophen 500 mg capsule 1,000 mg PO Q8H PRN Pain 04/24/20 02/03/22 History ondansetron HCl 8 mg tablet 8 mg PO Q8H PRN nausea and vomiting 06/02/20 02/03/22 History pantoprazole 40 mg tablet,delayed 40 mg PO QAM 08/25/21 02/03/22 History release (Protonix) cyclobenzaprine 10 mg tablet 10 mg PO TID PRN muscle spasm #30 09/30/21 02/03/22 Rx tabs lidocaine 5 % topical patch 1 patch transdermal HS #15 ea 10/07/21 02/03/22 Rx promethazine 6.25 mg/5 mL oral 12.5 mg (10 mL) PO Q6H PRN nausea 10/25/21 Rx syrup and vomiting #473 mL clotrimazole 1 % vaginal cream See Rx Instructions .Route 10/29/21 02/03/22 Rx .COMPLEX PRN itching #45 grams mupirocin 2 % topical ointment See Rx Instructions topical BID 10/29/21 02/03/22 Rx #15 grams sertraline 100 mg tablet 150 mg PO DAILY #90 tabs 12/09/21 02/03/22 Rx cholecalciferol (vitamin D3) 25 25 mcg PO DAILY #90 tabs 01/07/22 02/03/22 Rx mcg (1,000 unit) tablet (Vitamin D3) lorazepam 0.5 mg tablet 0.5 - 1 mg PO BID PRN anxiety #60 01/18/22 02/03/22 Rx tabs prednisone 10 mg tablet 10 mg PO Q OTHER DAY #7 tabs 01/25/22 02/03/22 Rx PSYLLIUM or GUAR GUM FIBER SUP 1 pkg PO QAM #30 packets 02/09/22 Rx [METAMUCIL or NUTRISOURCE FIBER SUPPLEMENT] buspirone 5 mg tablet 5 mg PO TID 30 days #90 tabs 02/09/22 Rx loperamide 2 mg capsule 2 mg PO Q12H PRN loose stool 30 02/09/22 Rx days #14 caps umeclidinium 62.5 mcg-vilanterol 1 inh inhalation DAILY 30 days #60 02/09/22 Rx 25 mcg/actuation powdr for ea inhalation (Anoro Ellipta) Hospital Stay Data Consultations 02/03/22 05:27 ED Decision to Admit Stat 02/04/22 08:41 Consult Nephrology Routine Diagnostic Imagining Performed 02/02/22 22:32 CT Abd and Pelvis [CT abd pelvis IV con only] Stat 02/03/22 01:10 US gallbladder Urgent 02/03/22 06:05 MR brain wo/w con Stat 02/03/22 11:35 CT angio chest PE protocol Stat Discharge Instructions Given to Patient (Per Discharging Provider) You were evaluated in the hospital for diarrhea and electrolyte disturbances. We checked a picture of your belly, as well as stool studies and electrolyte checks. Your potassium and phosphorous levels were low due to your diarrhea, so we gave you electrolytes through your IV and by mouth and these levels improved. We gave you fiber and (Metamucil) and Imodium for diarrhea with improvement in your symptoms. You can take Imodium as needed at home for diarrhea, and take Metamucil daily for fiber. You were also started on two chronic medications: 1) Buspar: anxiety medication. Take 1 tablet every 8 hours on a scheduled basis, and discuss if it is helping with your primary care doctor. 2) Anoro Ellipta: this is a daily inhaler medication for emphysema, which was found on your imaging. Follow the directions on the pack, and take 1 puff daily on a scheduled basis. Discuss your breathing with your primary care doctor. There may come a day where you require oxygen at home to feel well. If you are having breathing troubles, your primary doctor can help get oxygen set up at home. Please follow up with your primary care doctor in the next 7-10 days, so she can check your electrolytes and check in after your hospitalization. If you have any concerns in the meantime, call her office. If you have any chest pain, shortness of breath, inability to keep food down, seek urgent medical attention. If you have diarrhea, augment that fluid loss with electrolyte-rich fluids like Gatorade. Total Time Total Time Spent Total Time Spent (In Minutes): 45 minutes Coding Level of Care Code HOSP INP/OBS DISCH >30 MIN Diagnoses Diarrhea R19.7 Metastatic lung cancer (metastasis from lung to other site) C34.90 Adrenal insufficiency E27.40 Metabolic acidosis E87.20 Hyponatremia E87.1 Hypokalemia E87.6 Hypomagnesemia E83.42 Hypophosphatemia E83.39 Anemia D64.9 Anxiety with depression F41.8 Hypoglycemia E16.2 Emphysema, unspecified J43.9
== END 2022-02-09 16:49 | disposition home or self-care (01) | DRG 392 ==
LOC: ED 20:48 → EDINP 02-03 06:15 → SUATTDRO 02-03 06:15 → 2S 02-03 21:07

== ENCOUNTER 2022-02-09 21:33 | Observation (INO) ==
[2022-02-09] MEDS ORDERED: guaiFENesin 600 MG TABCR PO STA (22:20)
[2022-02-09] MEDS ORDERED: ALBUT/IPRATROP 3MG/0.5MG NEB 3 ML VIAL NEB STA (22:20)
[2022-02-09] MEDS ORDERED: methylPREDNISolone 125 MG/2 ML VIAL IV STA (22:20)
[2022-02-09] MEDS ORDERED: SODIUM CHLORIDE 0.9% 500 ML IV ONE (22:22)
--- NOTE | 2022-02-09 22:56 | Emergency Department Note ---
Impression & Plan COPD (chronic obstructive pulmonary disease), Dyspnea on minimal exertion, Hypoxia ED Provider Note NAME: THANIA HAMILTON AGE: 61 SEX: F ARRIVES VIA: Ambulance INFORMANT: Patient ED PROVIDER(S): Valerio Martin MD CHIEF COMPLAINT: Shortness of breath. PLAN: Disposition: Admit MEDICAL DECISION MAKING: The patient is a pleasant 61-year-old woman with a past medical history of metastatic lung cancer who presents to the emergency department via EMS, acc ompanied by family for evaluation of shortness of breath in the setting of being discharged this afternoon following admission from 02/03-02/09 for gastroenteritis. She had extensive testing during her admission including MRI of the brain to evaluate for worsening brain mets setting of her history of history of cerebellar mass in 2020 and was unremarkable, CTA of her chest that was negative for PE or pneumonia. It was suspected that the patient's dyspnea was related to COPD and lung cancer. A two-step evaluation was completed prior to discharge and it was determined that the patient did not require home O2 on day of discharge (today). On arrival the patient is no acute distress, afebrile-100s and vital signs otherwise stable. She appears clinically dry. She is mildly anxious. EKG without overt acute ischemia. Chest x-ray with chronic interstitial thickening per my preliminary review. WBC 4.6K nonspecific. H/H similar to prior. Platelets 415K nonspecific. Chemistry without metabolic acidosis. Electrolytes LFTs unremarkable. High- sensitivity troponin 24.1, nonspecific and improved from prior values. Lipase is not elevated. COVID-19 RNA, EBONY test was negative. Patient was treated with IV fluid hydration, Solu-Medrol, guaifenesin and DuoNeb. She did report having some improvement in her shortness of breath. However she did subsequently have decreased O2 saturation down to 88% though did recover somewhat to 90% on room air when at rest. Family did express concerns a bout her shortness of breath and oxygen levels and feel that she does need oxygen at home. We agreed to proceed with an ambulatory trial to assess need for admission. Upon ambulatory trial with pulse ox she did go down to 87% on room air and had significant dyspnea. Thus, will refer for admission. Case was discussed with [place]. Combs, [facility] [place], who will evaluate the patient for admission. Triage Nursing notes reviewed and agree them. Prior medical records reviewed Vital Signs: reviewed Differential diagnosis: Reactive airway disease, pneumonia, pneumothorax, COPD, CHF, infections, cardiac ischemia, pulmonary embolism, musculoskeletal, gastrointestinal, as well as other pathologies. ER treatment provided: See below. Diagnostics interpreted by me: ECG: Sinus tachycardia, 102 bpm, no ectopy, nonspecific ST abnormality, no overt ST elevation or depression, QTC 456, QRS 62 Cardiac Monitoring: An order for continuous cardiac monitoring was placed and demonstrated sinus tachycardia, 102 bpm, no ectopy. Laboratory studies: See below Imaging studies: See below Consultation(s): Case was discussed with Dr. Combs, [facility] [place], who will evaluate the patient for admission. HPI: The patient is a pleasant 61-year-old woman with a past medical history of metastatic lung cancer who presents to the emergency department via EMS, accompanied by family for evaluation of shortness of breath in the setting of being discharged this afternoon following admission from 02/03-02/09 for gastroent eritis. She had extensive testing during her admission including MRI of the brain to evaluate for worsening brain mets setting of her history of history of cerebellar mass in 2020 and was unremarkable, CTA of her chest that was negative for PE or pneumonia. It was suspected that the patient's dyspnea was related to COPD and lung cancer. A two-step evaluation was completed prior to discharge and it was determined that the patient did not require home O2 on day of discharge (today). ROS: See above HPI for pertinent positives & negatives. A total of 10 systems reviewed and were otherwise negative. VITALS:See Below PHYSICAL EXAMINATION: GENERAL: Awake, alert, anxious-appearing, in no distress HENT: Normocephalic, atraumatic. Oropharynx with dry mucous membranes and otherwise unremarkable. EYES: Normal conjunctiva. Sclera non-icteric. NECK: Supple. No nuchal rigidity. FROM. No JVD. RESPIRATORY: Diminished breath sounds of bilateral lung banegas with underlying wheeze. CARDIAC: Regular rate, normal rhythm. Extremities warm and well perfused. Pulses equal. ABDOMEN: Soft, non-distended. No tenderness to palpation. No rebound or guarding. No masses. RECTAL: Deferred. MUSCULOSKELETAL: Chest examination reveals no tenderness. The back is symmetrical on inspection without obvious abnormality. There is no CVA tenderness to palpation. No joint edema. LOWER EXTREMITIES: Calves are equal size bilaterally and non-tender. No edema. No discoloration. NEURO: Normal sensorium. No sensory or motor deficits noted. SKIN: No rash or jaundice noted. Valerio Martin MD Past Med/Surg History Medical History Anxiety Diverticulosis of colon Dyslipidemia Emphysema lung COPD - WELL CONTROLLED W/ INHALER History of brain tumor HTN (hypertension) Hydrocephalus SHUNT PLACED 07/2021[facility] Lung cancer TREATED W/ CHEMO AND RADIATION AT SAME TIME BRAIN CA 04/2020 [facility] Malignant neoplasm metastatic to brain RADIATION AND CHEMO DONE AFTER TUMOR REMOVED- CURRENTLY ON IMMUNOTHERAPY Q 2 MOS ON KEYTRUDA DUE 08/28/21- [facility] ONC Osteopenia Vitamin D deficiency Surgical History H/O brain surgery malignant tumor excised from occipital lobe 04/2020-[facility] History of bilateral tubal ligation History of brain shunt 07/2021 [facility]- CURRENTLY IN PLACE; DRAINING INTO ABDOMEN FOR SWELLING AROUND AREA WHERE TUMOR WAS REMOVED History of endometrial biopsy S/P colonoscopy Family History Sister Colonic polyp Social History Smoking Status: Former smoker Tobacco Type: Cigarettes Second Hand Exposure: No; Do You Dip or Chew Tobacco: No; Tobacco Cessation Education Requested by Patient: No Hx Alcohol Use: No Hx Substance Use: No Preferred Language: Wallisian Communication Ability: Effective Glove Pairer Required: No Beliefs That Will Affect Care: None marital status: Current Living Situation: Spouse Other Information That Helps Us Care for You: No Feels Safe at Home: Yes Safety Concerns: Feels Safe At This Time Assistive Devices: Denture - Upper, Denture - Lower, Glasses and Oxygen - Continuous Assistive Devices Comment: upper partial Allergies Allergies Allergy/AdvReac Type Severity Reaction Status Date / Time Sulfa (Sulfonamide Allergy Severe RASH Verified 02/10/22 03:06 Antibiotics) sulfamethoxazole Allergy Severe RASH Verified 02/10/22 03:06 trimethoprim Allergy Severe RASH Verified 02/03/22 01:53 tiotropium Allergy Intermediate Rash Verified 02/10/22 03:06 [From Spiriva with HandiHaler] amlodipine AdvReac Unknown Fatigue Verified 02/10/22 03:06 Home Meds Home Medications Medication Instructions Recorded Confirmed acetaminophen 500 mg capsule 1,000 mg PO Q8H PRN Pain 04/24/20 02/10/22 ondansetron HCl 8 mg tablet 8 mg PO Q8H PRN nausea and vomiting 06/02/20 02/10/22 pantoprazole 40 mg tablet,delayed 40 mg PO QAM 08/25/21 02/10/22 release (Protonix) lidocaine 5 % topical patch 1 patch transdermal HS PRN Pain 02/10/22 02/10/22 mupirocin 2 % topical ointment See Rx Instructions topical BID 02/10/22 02/10/22 PRN flare ups Previous Rx's Medication Instructions Recorded cyclobenzaprine 10 mg tablet 10 mg PO TID PRN muscle spasm #30 09/30/21 tabs promethazine 6.25 mg/5 mL oral 12.5 mg (10 mL) PO Q6H PRN nausea 10/25/21 syrup and vomiting #473 mL clotrimazole 1 % vaginal cream See Rx Instructions .Route 10/29/21 .COMPLEX PRN itching #45 grams sertraline 100 mg tablet 150 mg PO DAILY #90 tabs 12/09/21 cholecalciferol (vitamin D3) 25 25 mcg PO DAILY #90 tabs 01/07/22 mcg (1,000 unit) tablet (Vitamin D3) lorazepam 0.5 mg tablet 0.5 - 1 mg PO BID PRN anxiety #60 01/18/22 tabs prednisone 10 mg tablet 10 mg PO Q OTHER DAY #7 tabs 01/25/22 PSYLLIUM or GUAR GUM FIBER SUP 1 pkg PO QAM #30 packets 02/09/22 [METAMUCIL or NUTRISOURCE FIBER SUPPLEMENT] buspirone 5 mg tablet 5 mg PO TID 30 days #90 tabs 02/09/22 loperamide 2 mg capsule 2 mg PO Q12H PRN loose stool 30 02/09/22 days #14 caps umeclidinium 62.5 mcg-vilanterol 1 inh inhalation DAILY 30 days #60 02/09/22 25 mcg/actuation powdr for ea inhalation (Anoro Ellipta) Results & Data (ED) Vital Signs Vital Signs - 24 hr 02/09/22 22:11 02/09/22 22:11 02/09/22 22:11 Temperature 36.5 C Temperature Source Oral Pulse Rate 104 H Pulse Rate [Apical] Respiratory Rate 20 Respiratory Effort / Characteristics Short of Breath Short of Breath Respiratory Depth Respiratory Pattern Blood Pressure 142/85 H Blood Pressure [Right Arm] Blood Pressure Mean 104 Blood Pressure Mean [Right Arm] Blood Pressure Position Semi-fowlers Pulse Oximetry 98 98 Pulse Oximetry [Exercises] Oxygen Delivery Method Nasal Cannula Nasal Cannula Nasal Cannula Oxygen Flow Rate 3 3 3 Sepsis Recent Fever Within 48 Hours No Sepsis New/Unexplained Change in Mental Status N/A Sepsis Action Taken by Nursing No Action Required Oxygen Flow Rate - Titration Pulse Oximetry Post Tiitration 02/10/22 00:00 02/10/22 00:00 02/10/22 00:24 Temperature Temperature Source Pulse Rate Pulse Rate [Apical] 103 H Respiratory Rate 22 Respiratory Effort / Characteristics Non-Labored Spontaneous Respiratory Depth Normal Respiratory Pattern Regular Blood Pressure Blood Pressure [Right Arm] 145/87 H Blood Pressure Mean Blood Pressure Mean [Right Arm] 106 Blood Pressure Position Pulse Oximetry 90 90 85 L Pulse Oximetry [Exercises] Oxygen Delivery Method Room Air Room Air Room Air Nasal Cannula Oxygen Flow Rate 0 Sepsis Recent Fever Within 48 Hours Sepsis New/Unexplained Change in Mental Status Sepsis Action Taken by Nursing Oxygen Flow Rate - Titration 3 Pulse Oximetry Post Tiitration 95 02/10/22 00:47 02/10/22 01:05 02/10/22 01:12 Temperature Temperature Source Pulse Rate Pulse Rate [Apical] Respiratory Rate Respiratory Effort / Characteristics Respiratory Depth Respiratory Pattern Blood Pressure Blood Pressure [Right Arm] Blood Pressure Mean Blood Pressure Mean [Right Arm] Blood Pressure Position Pulse Oximetry 97 87 L Pulse Oximetry [Exercises] 89 L Oxygen Delivery Method Room Air Nasal Cannula Room Air Room Air Nasal Cannula Oxygen Flow Rate 3 0 Sepsis Recent Fever Within 48 Hours Sepsis New/Unexplained Change in Mental Status Sepsis Action Taken by Nursing Oxygen Flow Rate - Titration 0 2 Pulse Oximetry Post Tiitration 92 93 02/10/22 00:30 Temperature Temperature Source Pulse Rate Pulse Rate [Apical] 103 H Respiratory Rate 18 Respiratory Effort / Characteristics Respiratory Depth Respiratory Pattern Blood Pressure Blood Pressure [Right Arm] 135/81 Blood Pressure Mean Blood Pressure Mean [Right Arm] 99 Blood Pressure Position Pulse Oximetry 90 Pulse Oximetry [Exercises] Oxygen Delivery Method Room Air Oxygen Flow Rate Sepsis Recent Fever Within 48 Hours Sepsis New/Unexplained Change in Mental Status Sepsis Action Taken by Nursing Oxygen Flow Rate - Titration Pulse Oximetry Post Tiitration Laboratory Data Attestation: I reviewed the patient's lab results. Result diagrams: 02/09/22 23:11 02/09/22 23:11 Lab Results 02/09/22 02/09/22 02/09/22 Range/Units 23:11 23:11 23:40 WBC 4.68 L (4.8-10.8) K/ul RBC 3.05 L (3.93-5.22) M/uL Hgb 9.6 L (12.0-16.0) g/dl Hct 28.9 L (34.1-44.9) % MCV 94.8 (80.0-100.0) fL MCH 31.5 (25.0-34.0) pg MCHC 33.2 (32.0-36.0) g/dL RDW Std Deviation 48.9 H (36.4-46.3) fL RDW Coeff of Agus 14.5 (11.5-14.5) % Plt Count 415 H (130-400) K/uL MPV 9.5 (9.4-12.3) fL Immature Gran % (Auto) 2.8 % Neut % (Auto) 56.8 % Lymph % (Auto) 21.4 % Culberson % (Auto) 17.7 % Eos % (Auto) 0.9 % Baso % (Auto) 0.4 % Neut # (Auto) 2.66 (1.4-6.5) K/uL Lymph # (Auto) 1.00 L (1.2-3.4) K/uL [place]on # (Auto) 0.83 H (0.24-0.82) K/uL Eos # (Auto) 0.04 (0-0.50) K/uL Baso # (Auto) 0.02 (0-0.2) K/uL Immature Gran # (Auto) 0.13 H (0.00-0.02) K/uL Sodium 141 (136-145) mmol/L Potassium 4.1 (3.5-5.1) mmol/L Chloride 106 (98-107) mmol/L Carbon Dioxide 29 (21-32) mmol/L Anion Gap 6 (3-11) BUN 8 (6-23) mg/dl Creatinine 0.84 (0.6-1.2) mg/dl Est Cr Clr Drug Dosing 68.0 ml/min Est GFR ( Amer) 85.7 ml/min Est GFR (Non-Af Amer) 74.0 ml/min BUN/Creatinine Ratio 9.5 L (10-20) Glucose 93 (70-99(Fasting)) mg/dl Calcium 9.1 (8.5-10.1) mg/dl Phosphorus 2.9 D (2.5-4.9) mg/dl Magnesium 1.9 (1.7-2.4) mg/dl Total Bilirubin 0.3 (0.2-1.0) mg/dl AST 12 L (13-39) U/L ALT 7 (7-52) U/L Alkaline Phosphatase 48 (34-104) U/L Troponin I High Sens 24.1 H (0-14) pg/ml Total Protein 6.0 (6.0-8.3) gm/dl Albumin 3.4 (3.4-5.0) gm/dl Globulin 2.6 (2.5-4.0) gm/dl Albumin/Globulin Ratio 1.3 (0.9-2) Lipase 68 (11-82) U/L SARS-CoV-2, RNA, NAAT NEGATIVE (NEGATIVE) Administered Medications Discontinued Medications Albuterol (Albut/Ipratrop 3mg/0.5mg Neb 3 Ml Vial) 3 ml NEB NOW STA; Protocol Stop: 02/09/22 22:21 Last Admin: 02/09/22 23:14 Dose: 3 ml Documented By: ABI Azithromycin (Azithromycin 250 Mg Tab) 500 mg PO NOW ONE Stop: 02/10/22 04:23 Last Admin: 02/10/22 05:35 Dose: 500 mg Documented By: JESSEE Guaifenesin (Guaifenesin 600 Mg Tabcr) 600 mg PO NOW STA Stop: 02/09/22 22:21 Last Admin: 02/09/22 23:14 Dose: 600 mg Documented By: ABI Sodium Chloride (Nss) 500 mls @ 999 mls/hr IV .Q31M ONE Stop: 02/09/22 22:52 Last Infusion: 02/10/22 00:47 Dose: 0 mls/hr Documented By: Admin: 02/09/22 23:14 Dose: 999 mls/hr Documented By: ABI Methylprednisolone (Methylprednisolone 125 Mg/2 Ml Vial) 125 mg IV NOW STA Stop: 02/09/22 22:21 Last Admin: 02/09/22 23:14 Dose: 125 mg Documented By: ABI Discharge Plan Visit Data Chief Complaint: Shortness of Breath/Dyspnea ED Provider: Valerio Martin Discharge Problem: COPD (chronic obstructive pulmonary disease), Dyspnea on minimal exertion, Hypoxia Patient Disposition: Admitted As Inpatient Discharge Instructions Interventions: ED Discharge Assessment Last Done: 02/10/22 03:41
[2022-02-09 23:30] LABS: Basophils # (auto) 0.02 K/uL (0-0.2); Basophils % (auto) 0.4 %; Eosinophils # (auto) 0.04 K/uL (0-0.50); Eosinophils % (auto) 0.9 %; Hematocrit (blood only) 28.9 % (34.1-44.9); Hemoglobin 9.6 g/dl (12.0-16.0); Immature Granulocytes # (auto) 0.13 K/uL (0.00-0.02); Immature Granulocytes % (auto) 2.8 %; Lymphocytes % (auto) 21.4 %; Mean Corpuscular Hemoglobin 31.5 pg (25.0-34.0); Mean Corpuscular Hgb Conc 33.2 g/dL (32.0-36.0); Mean Corpuscular Volume 94.8 fL (80.0-100.0); Mean Platelet Volume 9.5 fL (9.4-12.3); Monocytes # (auto) 0.83 K/uL (0.24-0.82); Monocytes % (auto) 17.7 %; Neutrophils # (auto) 2.66 K/uL (1.4-6.5); Neutrophils % (auto) 56.8 %; Platelet Count 415 K/uL (130-400); RDW Coefficient of Variation 14.5 % (11.5-14.5); RDW Standard Deviation 48.9 fL (36.4-46.3); Red Blood Count 3.05 M/uL (3.93-5.22); White Blood Count 4.68 K/ul (4.8-10.8)
[2022-02-09 23:56] LABS: Albumin Globulin Ratio 1.3 (0.9-2); Albumin Level 3.4 gm/dl (3.4-5.0); BUN Creatinine Ratio 9.5 (10-20); Bilirubin,Total 0.3 mg/dl (0.2-1.0); Calcium 9.1 mg/dl (8.5-10.1); Est GFR (African American) 85.7 ml/min; Globulin 2.6 gm/dl (2.5-4.0); Magnesium 1.9 mg/dl (1.7-2.4); Phosphorus 2.9 mg/dl (2.5-4.9); Potassium 4.1 mmol/L (3.5-5.1); Troponin I High Sensitivity 24.1 pg/ml (0-14)
--- NOTE | 2022-02-10 01:35 | History & Physical Report ---
Date of Service February 10, 2022 Assessment & Plan (1) Hypoxia: Plan: Requiring 2-3L/min supplemental O2 via nasal cannula to maintain sats >90%, no home O2 requirement. Suspect multiple etiologies: 1. Mild COPD exacerbation: mild wheezes on exam, significant smoking history 2. Lung cancer: likely exacerbating respiratory status chronically - admit for observation - s/p SoluMedrol 125mg in ED - continue with 40mg IV BID for now - start 5-day z-pack - Xopenex nebs Q6H scheduled + Q2H PRN (mild tachycardia) - pulmonary toilet: Mucinex BID, incentive spirometry, flutter valve - wean supplemental O2 as necessary to maintain sats 88-92% - will likely need 2-step on discharge, may benefit from more prolonged steroid taper to avoid re-exacerbation of SOB (2) Metastatic lung cancer (metastasis from lung to other site): Plan: Metastatic to brain, diagnosed in 2020, s/p surgical resection in 2020. S/p chemotx and immunotx in 2021. Planning for RTx - was scheduled for 02/10 but rescheduled for 02/12 due to current hospitalization. (3) Adrenal insufficiency: Plan: Possible diagnosis per last hospitalization, likely due to prolonged steroid tx of AIN in 2021 (due to Keytruda). Will be following up with [facility] as outpatient for further work-up. Was sent home with Prednisone 10mg daily to continue chronically. - continue home Protonix while on steroids (4) Anemia: Plan: Hgb 9.6, at baseline. Likely anemia of chronic disease. No active bleeding. - trend (5) Anxiety with depression: Plan: Continue home Buspar History of Present Illness Chief Complaint: shortness of breath/dyspnea Primary Care Provider: JORDAN Daniels Aki Navarro is a 61yo female with PMHx significant for metastatic lung cancer (s/p brain mets resection, s/p chemotx/immunotx, planning for RTx), h/o AIN (due to Keytruda, treated with steroids in late 2021), COPD (no home O2), significant smoking history, adrenal insufficiency, metabolic acidosis, anemia, and depression/anxiety, who presented to [facility] ED on 02/10 for SOB. Of note patient was just admitted here from 02/03 - 02/09 for viral gastroenteritis and hypoxia (thought to be due to mild COPD exacerbation). She was treated with IVFs and steroids, and was continued on Prednisone 10mg daily on discharge due to concern for adrenal insufficiency. Had planned for Nephrology f/u. She had extensive testing during her admission including MRI of the brain to evaluate for worsening brain mets setting of her history of history of cerebellar mass in 2020 and was unremarkable, CTA of her chest that was negative for PE or pneumonia. Suspected that dyspnea was related to COPD and lung cancer. A two- step evaluation was completed prior to discharge and it was determined that the patient did not require home O2 on day of discharge. After being discharged patient reports worsening of dyspnea on exertion and some SOB at rest as well. Denies fever/chills or cough. In the ED the patient was hypoxic to 85% on room air and requires 2-3L/min nasal cannula to maintain sats >90%. Afebrile and hemodynamically stable. Labs significant for WBC 4.68, Hgb 9.6 (~baseline), plts 415 (from 331 on 02/08). hsTroponin 24.1 (down from 145.4 on 02/03) and EKG without ST/T abnormalities. CBC/CMP/Mg/lipase otherwise WNL. COVID-19 negative. CXR without acute abnormalities (and with chronic right apical nodule consistent with primary lung cx). In the ED the patient was given NSS 500cc bolus, Mucinex 600mg PO, Duonebs x1, and SoluMedrol 125mg IV. Allergies Allergy/AdvReac Type Severity Reaction Status Date / Time Sulfa (Sulfonamide Allergy Severe RASH Verified 02/10/22 03:06 Antibiotics) sulfamethoxazole Allergy Severe RASH Verified 02/10/22 03:06 trimethoprim Allergy Severe RASH Verified 02/03/22 01:53 tiotropium Allergy Intermediate Rash Verified 02/10/22 03:06 [From Spiriva with HandiHaler] amlodipine AdvReac Unknown Fatigue Verified 02/10/22 03:06 Home Medications Medication Instructions Recorded Confirmed Type acetaminophen 500 mg capsule 1,000 mg PO Q8H PRN Pain 04/24/20 02/10/22 History ondansetron HCl 8 mg tablet 8 mg PO Q8H PRN nausea and vomiting 06/02/20 02/10/22 History pantoprazole 40 mg tablet,delayed 40 mg PO QAM 08/25/21 02/10/22 History release (Protonix) cyclobenzaprine 10 mg tablet 10 mg PO TID PRN muscle spasm #30 09/30/21 02/10/22 Rx tabs promethazine 6.25 mg/5 mL oral 12.5 mg (10 mL) PO Q6H PRN nausea 10/25/21 02/10/22 Rx syrup and vomiting #473 mL clotrimazole 1 % vaginal cream See Rx Instructions .Route 10/29/21 02/10/22 Rx .COMPLEX PRN itching #45 grams sertraline 100 mg tablet 150 mg PO DAILY #90 tabs 12/09/21 02/10/22 Rx cholecalciferol (vitamin D3) 25 25 mcg PO DAILY #90 tabs 01/07/22 02/10/22 Rx mcg (1,000 unit) tablet (Vitamin D3) lorazepam 0.5 mg tablet 0.5 - 1 mg PO BID PRN anxiety #60 01/18/22 02/10/22 Rx tabs prednisone 10 mg tablet 10 mg PO Q OTHER DAY #7 tabs 01/25/22 02/10/22 Rx PSYLLIUM or GUAR GUM FIBER SUP 1 pkg PO QAM #30 packets 02/09/22 02/10/22 Rx [METAMUCIL or NUTRISOURCE FIBER SUPPLEMENT] buspirone 5 mg tablet 5 mg PO TID 30 days #90 tabs 02/09/22 02/10/22 Rx loperamide 2 mg capsule 2 mg PO Q12H PRN loose stool 30 02/09/22 02/10/22 Rx days #14 caps umeclidinium 62.5 mcg-vilanterol 1 inh inhalation DAILY 30 days #60 02/09/22 02/10/22 Rx 25 mcg/actuation powdr for ea inhalation (Anoro Ellipta) lidocaine 5 % topical patch 1 patch transdermal HS PRN Pain 02/10/22 02/10/22 History mupirocin 2 % topical ointment See Rx Instructions topical BID 02/10/22 02/10/22 History PRN flare ups prednisone 10 mg tablet See Taper PO DIRECTED #23 tabs 02/11/22 Rx Past Med/Surg History Medical History Anxiety Diverticulosis of colon Dyslipidemia Emphysema lung COPD - WELL CONTROLLED W/ INHALER History of brain tumor HTN (hypertension) Hydrocephalus SHUNT PLACED 07/2021-[facility] Lung cancer TREATED W/ CHEMO AND RADIATION AT SAME TIME BRAIN CA 04/2020 [facility] Malignant neoplasm metastatic to brain RADIATION AND CHEMO DONE AFTER TUMOR REMOVED- CURRENTLY ON IMMUNOTHERAPY Q 2 MOS ON KEYTRUDA DUE 08/28/21- [facility] ONC Osteopenia Vitamin D deficiency Surgical History H/O brain surgery malignant tumor excised from occipital lobe 04/2020-[facility] History of bilateral tubal ligation History of brain shunt 07/2021 [facility]- CURRENTLY IN PLACE; DRAINING INTO ABDOMEN FOR SWELLING AROUND AREA WHERE TUMOR WAS REMOVED History of endometrial biopsy S/P colonoscopy Family History Sister Colonic polyp Social History Smoking Status: Former smoker Tobacco Type: Cigarettes Second Hand Exposure: No; Hx Alcohol Use: No Hx Substance Use: No Preferred Language: Tristanian Communication Ability: Effective Research Test Engine Evaluator Required: No Beliefs That Will Affect Care: None marital status: Current Living Situation: Spouse Feels Safe at Home: Yes Assistive Devices: Oxygen - Continuous Review of Systems Review of Systems: All systems reviewed & are unremarkable except as noted in HPI & below Physical Exam Physical Exam: General: A&Ox3. NAD. Cooperative. HEENT: Atraumatic, normocephalic. Pulm: Intermittent mild/scattered wheezes but good aeration bilaterally and no crackles. Symmetrical chest rise. No increase work of breathing. No respiratory distress. Cardiac: RRR, -mrg. Radial pulses intact and symmetrical. No LE edema. Abdominal: soft, non-tender, non-distended, BS x 4 Skin: warm, dry, no rash Results & Data Results & Data ([facility]) Vital Signs (Past 12 Hours) Vital Signs Temp Pulse Pulse Resp BP BP Pulse Ox 02/10/22 01:12 87 L 02/10/22 01:05 02/10/22 00:47 97 02/10/22 00:24 85 L 02/10/22 00:00 103 H 22 145/87 H 90 02/10/22 00:00 90 02/09/22 22:11 98 02/09/22 22:11 36.5 C 104 H 20 142/85 H 98 02/09/22 22:11 Pulse Ox O2 Del Method O2 Flow Rate 02/10/22 01:12 Room Air, Nasal Cannula 0 02/10/22 01:05 89 L Room Air 02/10/22 00:47 Room Air, Nasal Cannula 3 02/10/22 00:24 Room Air, Nasal Cannula 0 02/10/22 00:00 Room Air 02/10/22 00:00 Room Air 02/09/22 22:11 Nasal Cannula 3 02/09/22 22:11 Nasal Cannula 3 02/09/22 22:11 Nasal Cannula 3 Supervising Physician Co-Signing Physician Notes Attending addendum: I have physically seen this patient, have supervised the medical residents activities, and agree with the H&P unless as otherwise noted. Assessment and Plan: Acute respiratory failure with hypoxia/metastatic lung cancer/COPD exacerbation- Status post Solu-Medrol 125 mg IV from the ED Cymetra 40 mg IV twice daily Azithromycin Z-Mo Xopenex every 6 hours while awake, every 2 hours as needed Guaifenesin extended release 12 mg p.o. twice daily, incentive spirometry and flutter valve Metastatic lung cancer- Status post surgical resection 2020 Status post chemotherapy and immunotherapy 2021 Radiation therapy was scheduled to begin 02/10, but rescheduled to 02/12 due to this hospitalization Adrenal insufficiency- Associated with prolonged steroid treatment Stress dosing as needed Remaining orders and notations as noted Resident Activity Tracking Resident Involvement: Resident Care Provided Care Provided: Adult Hospital Medicine
[2022-02-10 03:29] LABS: Base Excess VBG 2.9 mEq/L; HCO3 VBG 30 mmol/L; Oxygen Saturation VBG 77.1 %; PCO2 VBG 54 mmHg (38-50); PO2 VBG 46 mmHg; pH VBG 7.35 (7.36-7.41)
[2022-02-10] MEDS ORDERED: LEVALBUTEROL HCL 0.63 MG/3 ML NEB NEB PRN (04:22)
[2022-02-10] MEDS ORDERED: AZITHROMYCIN 250 MG TAB PO ONE (04:22)
[2022-02-10] MEDS ORDERED: LEVALBUTEROL HCL 0.63 MG/3 ML NEB NEB SCH (07:00)
--- NOTE | 2022-02-10 07:54 | XRay Report ---
XR chest 1V portable HISTORY: 61 years-old Female Chest pain, nonspecific acute chest pain COMPARISON: CTA chest 02/03/2022 TECHNIQUE: AP view of the chest FINDINGS: A shunt catheter projects over the right neck and left chest with imaged portions appearing intact. C ardiomediastinal and hilar silhouettes are unchanged. Emphysema with chronic interstitial coarsening. 1.7 cm spiculated right apical nodule redemonstrated. Interval development of a small right and trac e left pleural effusions with mild right basilar consolidation. Bones appear grossly intact. IMPRESSION: 1. Small right and trace left pleural effusions with mild right basilar densities. 2. Emphysema with chronic interstitial coarsening. 3. 1.7 cm suspicious nodule of the right lung apex redemonstrated. ACT 112: Negative or not required by law. The above report was generated using voice recognition software. It may contain grammatical, syntax o r spelling errors. Electronically signed by: Casey Pal M.D. 02/10/2022 7:52 AM
[2022-02-10] MEDS: PANTOprazole 40 MG TAB PO SCH (08:34)
[2022-02-10] MEDS: busPIRone 5 MG TAB PO SCH ×3 (08:34→19:48)
[2022-02-10] MEDS: guaiFENesin 600 MG TABCR PO SCH ×2 (08:34→19:46)
[2022-02-10] MEDS: ENOXAPARIN INJ 40 MG/0.4 ML SYR SQ SCH (08:35)
[2022-02-10] MEDS: methylPREDNISolone 40 MG in SYRINGE 0 ML IV SCH ×2 (08:36→19:48)
[2022-02-10] MEDS: UMECLIDINIUM/VILANTEROL 62.5/25MCG 7 PUFFS/INHALER INH SCH (08:36)
--- NOTE | 2022-02-10 08:58 | Hospitalist Progress Note ---
Date of Service February 10, 2022 Assessment & Plan (1) Dyspnea on minimal exertion: Plan: Discharged following tx for COPD exacerbation on 02/09. Passed two step at that time. Unfortunately, with minimal exertion at home (standing in the shower) patient had breathlessness, impending doom, lightheadedness. Hypoxic to 85% on room air in the ER on arrival. CXR no evidence of pulmonary edema or new PNA. Methylpred transitioned to prednisone, will do longer taper this discharge. Will do another home oxygen qualifier this admission as patient's extremely low reserve without oxygen is concerning (did have oxygen need in the past but this resolved, and has since returned). Azithromycin, nebs, guaifenesin, steroids for treatment of patient. (2) Hypoxia: Plan: see above (3) Metastatic lung cancer (metastasis from lung to other site): Plan: Also with Hx COPD. Care per primary team on discharge. (4) Adrenal insufficiency: Plan: History of, also had AIN in the past and was on prednisone. Higher dose prednisone for now, with ultimate transition to 10mg daily with Nephro follow up. Admission and Anticipated Discharge Date Admission Date: February 10, 2022 Subjective Yesterday was taking a shower and started to feel like she couldn't breathe and like she was going to . Breathing significantly improved now and she states "I should not have gotten rid of my oxygen. I am scared and cannot go home without it this time". No other complaints, infrequent diarrhea however improved compared to last admission. Review of Systems Review of Systems: All systems reviewed & are unremarkable except as noted in Subjective Physical Exam Constitutional: WD/WN, vitals as above Respiratory: normal respiratory effort, lungs clear to auscultation inter mittent expiratory wheeze Cardiovascular: RRR, no murmur, no edema Gastrointestinal (Abdomen): normal bowel sounds, soft, nontender, no hepatosplenomegaly Skin: no rashes, warm and dry Psychiatric: A+Ox3, euthymic affect Results & Data Results & Data ([facility]) Vital Signs (Past 12 Hours) Vital Signs Temp Pulse Pulse Pulse Resp BP BP 02/10/22 07:57 36.6 C 91 H 18 98/66 L 02/10/22 07:09 81 16 02/10/22 04:30 02/10/22 04:18 36.7 C 91 H 20 147/76 H 02/10/22 04:35 02/10/22 03:41 94 H 22 126/77 02/10/22 03:00 92 H 23 02/10/22 02:00 89 24 02/10/22 00:30 103 H 18 02/10/22 01:12 02/10/22 01:05 02/10/22 00:47 02/10/22 00:24 02/10/22 00:00 103 H 22 02/10/22 00:00 02/09/22 22:11 02/09/22 22:11 36.5 C 104 H 20 142/85 H 02/09/22 22:11 BP Pulse Ox Pulse Ox O2 Del Method O2 Flow Rate 02/10/22 07:57 97 Nasal Cannula 1 02/10/22 07:09 98 Nasal Cannula 2 02/10/22 04:30 94 Nasal Cannula 1 02/10/22 04:18 99 Nasal Cannula 2 02/10/22 04:35 Nasal Cannula 1 02/10/22 03:41 97 Nasal Cannula 2 02/10/22 03:00 131/79 98 Nasal Cannula 2 02/10/22 02:00 133/77 96 Nasal Cannula 2 02/10/22 00:30 135/81 90 Room Air 02/10/22 01:12 87 L Room Air, Nasal Cannula 0 02/10/22 01:05 89 L Room Air 02/10/22 00:47 97 Room Air, Nasal Cannula 3 02/10/22 00:24 85 L Room Air, Nasal Cannula 0 02/10/22 00:00 145/87 H 90 Room Air 02/10/22 00:00 90 Room Air 02/09/22 22:11 98 Nasal Cannula 3 02/09/22 22:11 98 Nasal Cannula 3 02/09/22 22:11 Nasal Cannula 3 PG Care Time/CCT Total # of Minutes Spent Total Time Spent with Patient: Total time spent is greater than 50% in coordination of care (as documented) at patient's floor/unit and/or counseling patient: Coding Level of Care Code 65022 SUB INP/OBS CARE 2/35MIN Diagnoses Dyspnea on minimal exertion R06.09 Hypoxia R09.02 Metastatic lung cancer (metastasis from lung to other site) C34.90 Adrenal insufficiency E27.40
[2022-02-10] MEDS: ACETAMINOPHEN 325 MG TAB PO PRN ×2 (14:01→19:44)
--- NOTE | 2022-02-10 14:57 | Electrocardiogram Report ---
Test Reason : Blood Pressure : / mmHG Vent. Rate : 102 BPM Atrial Rate : 102 BPM P-R Int : 112 ms QRS Dur : 062 ms QT Int : 350 ms P-R-T Axes : 086 056 076 degrees QTc Int : 456 ms Poor data quality, interpretation may be adversely affected Sinus tachycardia Nonspecific ST abnormality Abnormal ECG When compared with ECG of 03-FEB-2022 03:01, Criteria for Septal infarct are no longer Present ST no longer depressed in Inferior leads ST elevation now present in Lateral leads T wave inversion no longer evident in Inferior leads T wave inversion no longer evident in Anterolateral leads Confirmed by Esteban Head ([id number]) on 02/10/2022 2:56:53 PM Referred By: REFERRED SELF Confirmed By:Esteban Head
[2022-02-10] MEDS ORDERED: LIDOCAINE 5% 1 PATCH TD PRN (17:46)
[2022-02-10] MEDS ORDERED: MUPIROCIN 2% OINT 22 GM TUBE TOP PRN (17:46)
[2022-02-10] MEDS ORDERED: CYCLOBENZAPRINE HCL 10 MG TAB PO PRN (17:46)
[2022-02-10] MEDS ORDERED: LOPERAMIDE HCL 2 MG CAP PO PRN (17:46)
[2022-02-10] MEDS ORDERED: LORazepam 0.5 MG TAB PO PRN (17:46)
[2022-02-10] MEDS ORDERED: CLOTRIMAZOLE 1% CR 15 GM TUBE EXT PRN (19:16)
[2022-02-11] MEDS: busPIRone 5 MG TAB PO SCH ×2 (08:04→14:18)
[2022-02-11] MEDS: guaiFENesin 600 MG TABCR PO SCH (08:05)
[2022-02-11] MEDS: UMECLIDINIUM/VILANTEROL 62.5/25MCG 7 PUFFS/INHALER INH SCH (08:07)
[2022-02-11] MEDS: PANTOprazole 40 MG TAB PO SCH (08:07)
[2022-02-11] MEDS: ENOXAPARIN INJ 40 MG/0.4 ML SYR SQ SCH (08:08)
[2022-02-11] MEDS ORDERED: AZITHROMYCIN 250 MG TAB PO SCH (09:00)
[2022-02-11] MEDS ORDERED: CHOLECALCIFEROL 1,000 UNITS 25 MCG TAB PO SCH (09:00)
[2022-02-11] MEDS ORDERED: SERTRALINE HCL 50 MG TABLET PO SCH (09:00)
[2022-02-11] MEDS ORDERED: predniSONE 50 MG TAB PO SCH (09:00)
[2022-02-11] MEDS ORDERED: PSYLLIUM or GUAR GUM FIBER POWDER PACKET PO SCH (09:00)
--- NOTE | 2022-02-11 16:09 | Discharge Summary ---
Discharge Summary Date of Service February 11, 2022 Admission HPI Per Admitting Provider Aki Navarro is a 61yo female with PMHx significant for metastatic lung cancer (s/p brain mets resection, s/p chemotx/immunotx, planning for RTx), h/o AIN (due to Keytruda, treated with steroids in late 2021), COPD (no home O2), significant smoking history, adrenal insufficiency, metabolic acidosis, anemia, and depression/anxiety, who presented to [facility] ED on 02/10 for SOB. Of note patient was just admitted here from 02/03 - 02/09 for viral gastroenteritis and hypoxia (thought to be due to mild COPD exacerbation). She was treated with IVFs and steroids, and was continued on Prednisone 10mg daily on discharge due to concern for adrenal insufficiency. Had planned for Nephrology f/u. She had extensive testing during her admission including MRI of the brain to evaluate for worsening brain mets setting of her history of history of cerebellar mass in 2020 and was unremarkable, CTA of her chest that was negative for PE or pneumonia. Suspected that dyspnea was related to COPD and lung cancer. A two- step evaluation was completed prior to discharge and it was determined that the patient did not require home O2 on day of discharge. After being discharged patient reports worsening of dyspnea on exertion and some SOB at rest as well. Denies fever/chills or cough. In the ED the patient was hypoxic to 85% on room air and requires 2-3L/min nasal cannula to maintain sats >90%. Afebrile and hemodynamically stable. Labs significant for WBC 4.68, Hgb 9.6 (~baseline), plts 415 (from 331 on 02/08). hsTroponin 24.1 (down from 145.4 on 02/03) and EKG without ST/T abnormalities. CBC/CMP/Mg/lipase otherwise WNL. COVID-19 negative. CXR without acute abnormalities (and with chronic right apical nodule consistent with primary lung cx). In the ED the patient was given NSS 500cc bolus, Mucinex 600mg PO, Duonebs x1, and SoluMedrol 125mg IV. Admission Exam Per Admitting Provider General: A&Ox3. NAD. Cooperative. HEENT: Atraumatic, normocephalic. Pulm: Intermittent mild/scattered wheezes but good aeration bilaterally and no crackles. Symmetrical chest rise. No increase work of breathing. No respiratory distress. Cardiac: RRR, -mrg. Radial pulses intact and symmetrical. No LE edema. Abdominal: soft, non-tender, non-distended, BS x 4 Skin: warm, dry, no rash Principal Dx & Hospital Course #1 = Principal Diagnosis (1) Dyspnea on minimal exertion: Discharged following tx for COPD exacerbation on 02/09. Unfortunately, with minimal exertion at home (standing in the shower) patient had breathlessness, impending doom, lightheadedness. Hypoxic to 85% on room air in the ER on 02/10 with rest. Improved with 2LNC. CXR no evidence of pulmonary edema or new PNA. Methylpred transitioned to prednisone, will do longer taper this discharge. No oxygen at rest, with 2LNC with activity at home required for COPD, metastatic lung cancer, hypoxia. Can continue guaifenesin as needed for cough/secretions OTC. Follow up Pulm Onc, PCP. (2) Hypoxia: see above (3) Metastatic lung cancer (metastasis from lung to other site): Also with Hx COPD. Care per primary team on discharge. (4) Adrenal insufficiency: History of, also had AIN in the past and was on prednisone. Higher dose prednisone for now, with ultimate transition to 10mg daily with Nephro follow up. (5) Anemia: Hgb 9.6, at baseline. Likely anemia of chronic disease. No active bleeding. (6) Anxiety with depression: Continue home Buspar Plan discharge home Discharge Exam Constitutional WD/WN, vitals as above Respiratory normal respiratory effort, lungs clear to auscultation Cardiovascular RRR, no murmur, no edema Psychiatric A+Ox3, euthymic affect Updated Medication List Medication Instructions Recorded Confirmed Type acetaminophen 500 mg capsule 1,000 mg PO Q8H PRN Pain 04/24/20 02/10/22 History ondansetron HCl 8 mg tablet 8 mg PO Q8H PRN nausea and vomiting 06/02/20 02/10/22 History pantoprazole 40 mg tablet,delayed 40 mg PO QAM 08/25/21 02/10/22 History release (Protonix) cyclobenzaprine 10 mg tablet 10 mg PO TID PRN muscle spasm #30 09/30/21 02/10/22 Rx tabs promethazine 6.25 mg/5 mL oral 12.5 mg (10 mL) PO Q6H PRN nausea 10/25/21 02/10/22 Rx syrup and vomiting #473 mL clotrimazole 1 % vaginal cream See Rx Instructions .Route 10/29/21 02/10/22 Rx .COMPLEX PRN itching #45 grams sertraline 100 mg tablet 150 mg PO DAILY #90 tabs 12/09/21 02/10/22 Rx cholecalciferol (vitamin D3) 25 25 mcg PO DAILY #90 tabs 01/07/22 02/10/22 Rx mcg (1,000 unit) tablet (Vitamin D3) lorazepam 0.5 mg tablet 0.5 - 1 mg PO BID PRN anxiety #60 01/18/22 02/10/22 Rx tabs prednisone 10 mg tablet 10 mg PO Q OTHER DAY #7 tabs 01/25/22 02/10/22 Rx PSYLLIUM or GUAR GUM FIBER SUP 1 pkg PO QAM #30 packets 02/09/22 02/10/22 Rx [METAMUCIL or NUTRISOURCE FIBER SUPPLEMENT] buspirone 5 mg tablet 5 mg PO TID 30 days #90 tabs 02/09/22 02/10/22 Rx loperamide 2 mg capsule 2 mg PO Q12H PRN loose stool 30 02/09/22 02/10/22 Rx days #14 caps umeclidinium 62.5 mcg-vilanterol 1 inh inhalation DAILY 30 days #60 02/09/22 0 02/10/22 Rx 25 mcg/actuation powdr for ea inhalation (Anoro Ellipta) lidocaine 5 % topical patch 1 patch transdermal HS PRN Pain 02/10/22 02/10/22 History mupirocin 2 % topical ointment See Rx Instructions topical BID 02/10/22 02/10/22 History PRN flare ups prednisone 10 mg tablet See Taper PO DIRECTED #23 tabs 02/11/22 Rx Hospital Stay Data Consultations 02/10/22 01:35 ED Decision to Admit Stat Pending Results Patient Have Any Pending Studies at Discharge: No Discharge Instructions Given to Patient (Per Discharging Provider) You were admitted to the hospital for evaluation and management of low oxygen levels. We were able to get oxygen covered for you. You should use 2 liters of oxygen with activity, so sleeping and sitting in a chair you should not need o xygen but any other activities like standing, walking around the house or the store, etc, you will want the oxygen. I also sent in for an extended steroid taper. You should take 50 milligrams tomorrow, 40 milligrams the next two days, and decrease by ten milligrams every two days until you are back on your regular home dose 10 milligrams daily. See the taper instructions below. Please follow up with your primary care doctor and your Oncologist about your inhalers and your diarrhea. Total Time Total Time Spent Total Time Spent (In Minutes): 40 minutes Coding Level of Care Code HOSP INP/OBS DISCH >30 MIN Diagnoses Dyspnea on minimal exertion R06.09 Hypoxia R09.02 Metastatic lung cancer (metastasis from lung to other site) C34.90 Adrenal insufficiency E27.40 Anemia D64.9 Anxiety with depression F41.8
--- NOTE | 2022-02-11 22:55 | Billing Data ---
Date of Service February 11, 2022 Coding Level of Care Code INT OBSERVATION CARE 70M LVL 3
== END 2022-02-11 16:38 | disposition home health service (06) ==
LOC: 3N 21:33 → ED 21:33 → SUATTDRO 02-10 01:57 → 3N 02-10 03:41